=== PATIENT | male | born 1945 | race Caucasian/White ===

== ENCOUNTER → 2023-04-08 | Outpatient (CLI) | payer MEDICARE, OTHER, SELFPAY ==
--- NOTE | 2023-04-08 13:00 | VDUE_ITS ---
Reason For Study: Pre op Right Arm Left Arm Right Cephalic Vein at the wrist measures Left Cephalic Vein at the wrist measures 0.12 x 0.13 cm. 0.16 x 0.18 cm. Right Cephalic Vein in the forearm measures Left Cephalic Vein in the forearm measures 0.13 x 0.13 cm. 0.11 x 0.12 cm. Right Cephalic Vein below antecub measures Left Cephalic Vein below antecub measures 0.09 x 0.09 cm. 0.16 x 0.18 cm. Unable to asses Cephalic vein from axillary Left Cephalic Vein above antecub measures to antecube due to vessel size. 0.07 x 0.07 cm. Right Basilic Vein at the origin measures Left Cephalic Vein at mid bicep measures 0.24 x 0.23 cm. 0.10 x 0.13 cm. Right Basilic Vein mid bicep measures 0.16 x Left Cephalic Vein at the shoulder measures 0.16 cm. 0.09 x 0.08 cm. Right Basilic Vein above antecub measures Basilic vein at origin measures 0.14 x 0.13 0.14 x 0.14 cm. cm. Right Brachial artery measures 0.38 x 0.42 Basilic vein at bicep measures 0.13 x 0.13 cm, with a velocity 113.9 cm/sec. cm. Right Radial artery measures 0.19 x 0.20 cm Basilic vein above antecub measures 0.12 x with a velocity of 116.1 cm/sec. 0.13 cm. Left Brachial artery measures 0.45 x 0.44 cm with a velocity of 100.7 cm/sec. Left Radial artery measures 0.16 x 0.16 cm with a velocity of 102.9 cm/sec. VL/Dialysis Vein Map PRE-OP BILAT Interpretation Summary Right upper extremity cephalic and basilic veins appear to be of very small laura meter. They appear to be patent and compressible Left upper extremity cephalic vein is diminutive throughout. Left upper extremity basilic vein is very small. Bilateral radial and brachial arteries have normal flow velocities although the radial arteries are small Ordering Physician: Elena Ko Referring Physician: Yash Talavera MD Performed By: Eden Rowell RVT ???
== END | disposition home or self-care (01) ==
LOC: CVS 12:57
PROVIDERS: PCP Family Medicine; Referring Provider Physician Assistant; Visit Provider Physician Assistant
DX: Z01.818 Encounter for other preprocedural examination (principal); Z99.2 Dependence on renal dialysis
CPT/HCPCS: 93985

== ENCOUNTER 2023-05-12 05:49 | Day surgery (SDC) | payer MEDICARE, OTHER, SELFPAY ==
[2023-05-12] VITALS (9 sets, daily range): BP systolic 110–133; BP diastolic 41–67; PULSE 59–73; RESP 16–18; TEMP 36.2–36.5; O2SAT 98–100; BMI 25.2
--- NOTE | 2023-05-12 07:14 | PCM.HP.BLA ---
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 Servicing Required: No Is patient in pain?: No Allergies No Known Allergies Allergy (Unverified 05/01/23 13:00) Medications allopurinol 100 mg tablet 100 mg PO 05/01/23 [History Confirmed 05/01/23] amlodipine 10 mg tablet 10 mg PO 05/01/23 [History Confirmed 05/01/23] atenolol 50 mg tablet 50 mg PO 05/01/23 [History Confirmed 05/01/23] avacopan 10 mg capsule (Tavneos) 30 mg PO BID 05/01/23 [History Confirmed 05/01/23] prednisone 20 mg tablet 20 mg PO 05/01/23 [History Confirmed 05/01/23] PFSH Medical History Gout HTN (hypertension) Surgical History Previous back surgery S/P cataract extraction S/P dialysis catheter insertion Family History Brother Cancer HPI HPI HPI: 77-year-old gentleman is being referred by Dr Jere Whaley for surgical consultation regarding possible hemodialysis fistula creation. Written compromise surgical consult recommendations will return to him. As noted below on April 08, 2023 the patient had bilateral extremity vein mapping and unfortunately this does not demonstrate usable vein based upon ultrasound. I have personally reviewed those images. Patient has been on dialysis since December 2022. Patient's discusses possible vasculitis. Patient's not currently using tobacco. Apparently he was extraordinarily deconditioned and now is in therapy trying to rebuild himself. Among his other medications he is on prednisone therapy. April 08, 2023 Reason For Study: Pre op Right Arm? Left Arm Right Cephalic Vein at the wrist measures? Left Cephalic Vein at the wrist measures 0.12 x 0.13 cm.? 0.16 x 0.18 cm. Right Cephalic Vein in the forearm measures? Left Cephalic Vein in the forearm measures 0.13 x 0.13 cm.? 0.11 x 0.12 cm. Right Cephalic Vein below antecub measures ? Left Cephalic Vein below antecub measures 0.09 x 0.09 cm.? 0.16 x 0.18 cm. Unable to asses Cephalic vein from axillary? Left Cephalic Vein above antecub measures to antecube due to vessel size.? 0.07 x 0.07 cm. Right Basilic Vein at the origin measures? Left Cephalic Vein at mid bicep measures 0.24 x 0.23 cm.? 0.10 x 0.13 cm. Right Basilic Vein mid bicep measures 0.16 x ? Left Cephalic Vein at the shoulder measures 0.16 cm. ? 0.09 x 0.08 cm. Right Basilic Vein above antecub measures? Basilic vein at origin measures 0.14 x 0.13 0.14 x 0.14 cm.? cm. Right Brachial artery measures 0.38 x 0.42 ? Basilic vein at bicep measures 0.13 x 0.13 cm, with a velocity 113.9 cm/sec.? cm. Right Radial artery measures 0.19 x 0.20 cm? Basilic vein above antecub measures 0.12 x with a velocity of 116.1 cm/sec. ? 0.13 cm. ? Left Brachial artery measures 0.45 x 0.44 cm ? with a velocity of 100.7 cm/sec. ? Left Radial artery measures 0.16 x 0.16 cm ? with a velocity of 102.9 cm/sec. VL/Dialysis Vein Map PRE-OP BILAT Interpretation Summary Right upper extremity cephalic and basilic veins appear to be of very small diameter. They appear to be patent and compressible ? Left upper extremity cephalic vein is diminutive throughout. Left upper extremity basilic vein is very small. ? Bilateral radial and brachial arteries have normal flow velocities although the radial arteries are small ? ? ? Ordering Physician: Elena Ko Referring Physician: Yash Talavera MD Performed By: Eden Rowell RVT General General: Yes fatigue; No weight change, appetite, colon cancer, breast cancer or weakness HEENT HEENT: No difficulty swallowing, eye injury, eye surgery, swollen glands or hoarseness Endo Endocrine: No thyroid disease, diabetes mellitus, thyroid cancer, Hair loss, heat intolerance or cold intolerance Skin Skin: No rash or changing moles Breast Breast: No left breast lump, right breast lump, nipple discharge, breast pain, abnormal mammogram, abnormal US or breast enlargement Musc Musculoskeletal: Yes gout; No back problems, arthritis, rheumatoid arthritis or joint pain Cardio Cardiovascular: Yes high blood pressure; No murmur, pacemaker, heart disease, atrial fibrillation, heart attack, heart stent, palpitations, shortness of breat with exertion or chest pain Psych Psychiatric: No depression, anxiety or hearing voices Resp Respiratory: No shortness of breath, No sleep apnea, No cough, No COPD, No asthma, No emphysema and No wheezing Gastro Gastrointestinal: No abdominal pain, No nausea or vomiting, No diarrhea, No constipation, No blood in stool, No acid reflux, No hemorrhoids, No ulcers, No gallbladder problem and No black,tarry stools Alejandro Hematologic: No blood thinners, No blood disorders, No bleeding, No anemia and No blood clots Neuro Neurologic: No system reviewed and no additional complaints, except as documented, No as per HPI, No abnormal gait, No abnormal hearing, No abnormal movements, No abnormal speech, No behavioral changes, No burning sensations, No confusion, No convulsions, No disequilibrium, No dizziness, No localized weakness, No frequent falls, No headache(s), No lack of coordination, No loss of vision, No memory loss, No numbness, No other visual disturbances, No radicular pain, No restless legs, No sensory deficit, No syncope, No tingling, No tremor(s), No weakness and No other Exam Const General: cooperative, comfortable and no acute distress Nutritional Appearance: average body habitus [facility] Head: normal to inspection Eyes General: appearance normal, both eyes and all related structures Neck Neck: normal visual inspection Chest Chest palpation & inspection: normal inspection of the chest Resp Effort & Inspection: normal respiratory effort Auscultation: clear to auscultation bilaterally Cardio Rate: regular rate Rhythm: regular rhythm GI Inspection: normal to inspection Skin General: no rashes or lesions noted Neuro General: patient alert Extrem General: no calf tenderness Other: Right upper extremity suggests biceps tendon rupture with conglomerate in the mid biceps area. 3+ right brachial 3+ right radial pulses. On my ultrasound inspection I do see a nicely patent right upper arm basilic vein albeit small in diameter. Psych Appearance: grossly normal Assessment and Plan Assessment and Plan (1) Dependence on renal dialysis: Status: Acute Plan: Being.77-year-old presenting with a challenging presentation. Vasculitis/nephritis. Prednisone therapy. Significant he is left arm dominant. I propose for him a right upper arm stage I brachiobasilic arteriovenous hemodialysis fistula creation and we have discussed technique, benefit, risk and alternatives. Unfortunately no guarantees of success have been offered. He does have right chest tunneled dialysis catheter is in place. He has had an opportunity to ask and have questions answered. I appreciate the opportunity of assisting him with his surgical care and we will schedule and proceed as noted. The patient is aware that a stage II transposition will be required pending the maturation of the basilic vein. Copy: Dr Jere Moe M.D., F.A.C.S I have examined the patient and the H&P has been reviewed. There are no clinical changes since date of exam. Michael Moe M.D., F.A.C.S.
--- NOTE | 2023-05-12 07:16 | DCINST_ITS ---
Discharge Instructions Procedure Fistula Diet Discharge Diet: Renal Diet Activity Discharge Activity: May Not Drive (for 2-3 days or while taking narcotic pain medications.), May Shower and May Take a Tub Bath (in 5 days.) Lifting Restrictions: 5 pounds Keep extremity elevated above heart level: - (Keep arm elevated above the heart level for 3 days.) Dressing / Incision Call your doctor if your incision/area has: Continuous Slow Oozing, Sudden Increased Bleeding (apply pressure and call your doctor.), Increased Pain/ Swelling, Increased Redness and Foul Smelling Discharge Call your doctor if you observe: Fever of 101 or Higher Suture Line Care: Avoid Pulling/Pushing and Avoid Pinching/Bending Cleanse incision/area with: Keep Dressing Clean & Dry Additional Dressing/Incision Instructions:: Change or remove dressing in one day. May protect with a gauze bandaid. Follow Up Care Please Follow Up With: Michael Moe MD When: Call [phone] to make an appointment for suture removal and follow up in 1 week. Test Results: Test results from this visit will be discussed in further detail at your follow- up appointment, if applicable. Discharge Plan Admission Attending Provider: Michael Moe Primary Care Provider: Yash Talavera Discharge Orders/Prescriptions Prescriptions: No Action prednisone 20 mg tablet 20 mg PO BID Patient Comments: TAKE 2 TABLETS BY MOUTH ONCE DAILY atenolol 50 mg tablet 50 mg PO DAILY Patient Comments: TAKE 1 TABLET BY MOUTH ONCE DAILY allopurinol 100 mg tablet 100 mg PO DAILY Patient Comments: TAKE 1 TABLET BY MOUTH ONCE DAILY amlodipine 10 mg tablet 10 mg PO DAILY Tavneos 10 mg capsule 30 mg PO BID multivitamin-calcium carb Tablet,Chewable 1 tab PO DAILY Referrals / Follow Up: Yash Talavera MD [Primary Care Provider] - Disposition Disposition (needs filled in before D/C Order can be placed): Home, Self Care
[2023-05-12] MEDS: Heparin Injection (Vial) 5,000 UNIT/ML VIAL 5000 UNIT (07:44)
[2023-05-12] MEDS: Lidocaine 1% (20 ml mdv) 20 ML Vial (07:44)
[2023-05-12] MEDS: Bupivacaine Mpf 0.5% 30 ML VIAL (07:44)
--- NOTE | 2023-05-12 08:31 | PCM.OPRPT ---
Report of Operation Date of Procedure: 05/12/23 Pre-Operative Diagnosis: Dialysis dependent chronic renal failure Post-Operative Diagnosis: Same Surgery/Procedure Performed:: Stage I right upper extremity basilic vein to brachial artery arteriovenous hemodialysis fistula creation Description of Surgical Findings:: Timeout informed consent was obtained. 77-year-old gentleman was taken to the operating placed on the table underwent monitored anesthesia care the right upper extremity was sterilely prepped and draped clean procedure no antibiotics required 1% lidocaine mixed 50-50 with 0.5% Marcaine was used as a local anesthetic throughout the procedure a total of 7 cc was used. Ultrasound had been used to map the course of the basilic vein a slightly curved incision was made directly overlying the vein sharp and blunt dissection was used to dissected free several side branches were secured with hemoclips and then sharp and blunt dissection used to identify the brachial artery the patient received 7000 units of heparin intravenously the vein was ligated distally with hemoclips and at a branch point it was spatulated peripheral vascular clamps were placed on the brachial artery and 11 blade was used to make an arteriotomy which was extended with Rodriguez scissors a end-to-side venous to arterial anastomosis was created with a running 7-0 Prolene prior to completion of this good antegrade retrograde flow. The anastomosis was completed there was initially good flow was a small side branch on the vein that required suture ligation with a 7-0 Prolene. Hemostasis was intact. The patient received 20 mg of protamine. The subcutaneous tissue was approximated up to 3-0 Vicryl. Skin edges proximal and subicular 4-0 Monocryl. Steri-Strips Telfa tape dressings applied. Sponge and instrument and needle counts were reported to the surgeon to be correct. Specimens none. Drains none. Blood loss minimal. The patient was taken to the recovery room in satisfactory addition without apparent complication and a viable hand. Michael Moe M.D., F.A.C.S. Surgeon: Michael Moe Type of Anesthesia: Local MAC Anesthesiologist: Gio Maurer
== END 2023-05-12 11:05 | disposition home or self-care (01) ==
LOC: SDC 05:53 → AC 05:54
PROVIDERS: PCP Family Medicine; Referring Provider Surgery; Visit Provider Surgery
PROC: (CPT 36821; principal; 2023-05-12 07:15)
DX: Z99.2 Dependence on renal dialysis (principal); I12.9 Hypertensive chronic kidney disease with stage 1 through stage 4 chronic kidney disease, or unspecified chronic kidney disease; N18.9 Chronic kidney disease, unspecified; M10.9 Gout, unspecified; Z79.899 Other long term (current) drug therapy; Z87.891 Personal history of nicotine dependence
CPT/HCPCS: 36821; 01844; A4648; J7040; J2405

== ENCOUNTER → 2023-05-22 | Outpatient (CLI) | payer MEDICARE, OTHER, SELFPAY ==
--- NOTE | 2023-05-22 10:28 | AVDS_ITS ---
Reason For Study: Assess AV Graft RIGHT Inflow = 108.5/0.0 cm/sec Inflow = 78.1ml/min Prox Anastomosis = 43.6/10.8 cm/sec Prox Anastomosis = 34.9ml/min Prox AV Graft = 26.1/15.2 cm/sec Prox AV Graft = 37.2 ml/min AV Graft is DILATED and NONCOMPRESSIBLE. Thrombus does not appear to extend into the deep system. Preliminary findings given to Nieves at [facility] Surgery office. VL/AV Fistula/Dialysis Graft Scan Interpretation Summary Normal patency and inflow of the right brachial artery. The basilic vein to brachial artery anastomosis appears to be patent but the fi stula itself appears to be dilated and noncompressible. Thrombosis identified. Ordering Physician: Elena Ko Referring Physician: Yash Talavera MD Performed By: Bismark Ling RVT
== END | disposition home or self-care (01) ==
LOC: CVS 10:27
PROVIDERS: PCP Family Medicine; Referring Provider Physician Assistant; Visit Provider Physician Assistant
DX: Z99.2 Dependence on renal dialysis (principal)
CPT/HCPCS: 93990

== ENCOUNTER 2023-06-12 05:22 | Day surgery (SDC) | payer MEDICARE, OTHER, SELFPAY ==
[2023-06-12 06:25] VITALS: BP 129/56; PULSE 66; RESP 18; TEMP 36.6; O2SAT 100; BMI 25.0
[2023-06-12 06:54] LABS: Hematocrit 40.2 % (40-54); Hemoglobin 13.3 g/dL (13.0-16.5); Mean Corp Hgb Conc 33.1 g/dL (32-36); Mean Corpuscular Hgb 30.6 pg (27.0-32.0); Mean Corpuscular Volume 92.4 fL (80-94); Mean Platelet Vol. 9.7 fl (6.2-12.0); NRBC Flagged by Analyzer 0 % (0-5); POSITIVE COUNT YES; POSITIVE DIFFERENTIAL YES; POSITIVE MORPHOLOGY YES; Platelet Count 219 K/mm3 (150-450); RBC Distribution Width CV 14.8 % (11.6-14.6); RBC Distribution Width SD 51.1 fl (35.1-43.9); Red Blood Count 4.35 M/mm3 (4.6-6.2); White Blood Count 17.3 K/mm3 (4.4-11.0)
[2023-06-12 06:56] LABS: Differential Indicated SCAN CRITERIA MET; Scan Smear per Review Criteria MANUAL DIFF
[2023-06-12 07:11] LABS: Lymphocyte 10 % (19-41); Metamyelocyte 3 % (0-1); Monocyte 9 % (0-10); Myelocyte 1 % (0-0); Neutrophil-Band 4 % (0-5); Neutrophil-Segmented 73 % (47-70); Platelet Estimate ADEQUATE (ADEQ); Total Cells Counted 100 (MANUAL DIFF)
[2023-06-12 07:12] LABS: Neutrophil # 13.32 X10^3/uL (2.7-7.7); Red Cell Morphology NORM C+C NORMAL (NORM C&C)
[2023-06-12 07:13] LABS: Absolute Lymphocyte Count 1.73 X10^3/uL (0.83-4.51); Absolute Neutrophil Count 13.3 X10^3/uL (2.0-7.7); Lymphocyte # 1.73 X10^3/ul (0.83-4.51)
--- NOTE | 2023-06-12 07:16 | DCINST_ITS ---
Discharge Instructions Procedure Fistula Diet Discharge Diet: Renal Diet Activity Discharge Activity: May Not Drive (for 2-3 days or while taking narcotic pain medications.), May Not Shower and May Take a Tub Bath (in 5 days.) Lifting Restrictions: 5 pounds Keep extremity elevated above heart level: - (Keep arm elevated above the heart level for 3 days.) Dressing / Incision Call your doctor if your incision/area has: Continuous Slow Oozing, Sudden Increased Bleeding (apply pressure and call your doctor.), Increased Pain/ Swelling, Increased Redness and Foul Smelling Discharge Call your doctor if you observe: Fever of 101 or Higher Suture Line Care: Avoid Pulling/Pushing and Avoid Pinching/Bending Cleanse incision/area with: Keep Dressing Clean & Dry Additional Dressing/Incision Instructions:: Elevate your right arm for comfort. You may leave the elastic bandage on for 2 days unless it becomes displaced. You may then remove it. We will have gauze and tape on the incisions which you may also remove. Gently exercise your right hand with a squeeze ball to help it mature. Tylenol is safest for discomfort. Follow Up Care Please Follow Up With: Michael Moe MD When: Call [phone] to make an appointment for suture removal and follow up in 1 week. Test Results: Test results from this visit will be discussed in further detail at your follow- up appointment, if applicable. Discharge Plan Admission Attending Provider: Michael Moe Primary Care Provider: Yash Talavera Discharge Orders/Prescriptions Prescriptions: No Action prednisone 20 mg tablet 20 mg PO BID Patient Comments: TAKE 2 TABLETS BY MOUTH ONCE DAILY atenolol 50 mg tablet 50 mg PO DAILY Patient Comments: TAKE 1 TABLET BY MOUTH ONCE DAILY allopurinol 100 mg tablet 100 mg PO DAILY Patient Comments: TAKE 1 TABLET BY MOUTH ONCE DAILY amlodipine 10 mg tablet 10 mg PO DAILY Tavneos 10 mg capsule 30 mg PO BID multivitamin-calcium carb Tablet,Chewable 1 tab PO DAILY Referrals / Follow Up: Yash Talavera MD [Primary Care Provider] - Disposition Disposition (needs filled in before D/C Order can be placed): Home, Self Care
--- NOTE | 2023-06-12 07:16 | PCM.HP.BLA ---
History and Physical Date of Admission: 06/12/23 Visit Reasons: DISCUSS OPTIONS FOR FISTULA Chief Complaint: fistula F/U Allergies No Known Allergies Allergy (Unverified 05/22/23 09:40) [facility] Medical History (Updated 06/05/23 @ 06:[address] Michael Moe MD) Alcohol use Ambulates with cane Arthritis Back pain Dietary restriction Former smoker Gastric reflux Gout History of edema History of hiatal hernia History of renal dialysis History of renal disease History of steroid therapy Hoarseness HTN (hypertension) Low iron Shortness of breath on exertion Wears glasses Surgical History (Updated 05/22/23 @ 14:50 by Elena LAMB PA-C) Previous back surgery S/P cataract extraction S/P dialysis catheter insertion Family History Brother Cancer Social History Smoking Status: Former smoker HPI HPI HPI: 78-year-old gentleman. First met him on May 01, 2023. He had a challenging presentation with vasculitis and nephritis and chronic prednisone therapy. His left arm dominant. On May 12, 2023 I created a stage I right extremity basilic vein to brachial artery arteriovenous hemodialysis fistula. The basilic vein was noted to be small at that time but initially there appeared to be good flow. Unfortunately as soon as postoperative visit with Elena Ko PA-C on May 22 no flow was identified. I duplex imaging was obtained confirming this. Etiology for the acute failure not determined. He returns now for ongoing follow-up. The patient is on prednisone 20 mg orally twice daily. He has vasculitis. Is not able to take low-dose aspirin because of this. April 08, 2023 Reason For Study: Pre op Right Arm Left Arm Right Cephalic Vein at the wrist measures Left Cephalic Vein at the wrist measures 0.12 x 0.13 cm. 0.16 x 0.18 cm. Right Cephalic Vein in the forearm measures Left Cephalic Vein in the forearm measures 0.13 x 0.13 cm. 0.11 x 0.12 cm. Right Cephalic Vein below antecub measures Left Cephalic Vein below antecub measures 0.09 x 0.09 cm. 0.16 x 0.18 cm. Unable to asses Cephalic vein from axillary Left Cephalic Vein above antecub measures to antecube due to vessel size. 0.07 x 0.07 cm. Right Basilic Vein at the origin measures Left Cephalic Vein at mid bicep measures 0.24 x 0.23 cm. 0.10 x 0.13 cm. Right Basilic Vein mid bicep measures 0.16 x Left Cephalic Vein at the shoulder measures 0.16 cm. 0.09 x 0.08 cm. Right Basilic Vein above antecub measures Basilic vein at origin measures 0.14 x 0.13 0.14 x 0.14 cm. cm. Right Brachial artery measures 0.38 x 0.42 Basilic vein at bicep measures 0.13 x 0.13 cm, with a velocity 113.9 cm/sec. cm. Right Radial artery measures 0.19 x 0.20 cm Basilic vein above antecub measures 0.12 x with a velocity of 116.1 cm/sec. 0.13 cm. Left Brachial artery measures 0.45 x 0.44 cm with a velocity of 100.7 cm/sec. Left Radial artery measures 0.16 x 0.16 cm with a velocity of 102.9 cm/sec. VL/Dialysis Vein Map PRE-OP BILAT Interpretation Summary Right upper extremity cephalic and basilic veins appear to be of very small diameter. They appear to be patent and compressible Left upper extremity cephalic vein is diminutive throughout. Left upper extremity basilic vein is very small. Bilateral radial and brachial arteries have normal flow velocities although the radial arteries are small Ordering Physician: Elena Ko Referring Physician: Yash Talavera MD Performed By: Eden Rowell RVT Exam Const General: cooperative Nutritional Appearance: average body habitus Other: Patient uses a cane. Appears somewhat frail. HENMT Head: normal to inspection Eyes General: appearance normal, both eyes and all related structures Chest Other: Right IJ tunneled dialysis catheter is in place. Resp Effort & Inspection: normal respiratory effort Auscultation: clear to auscultation bilaterally Cardio Rate: regular rate Rhythm: regular rhythm GI Palpation: soft and no hepatosplenomegaly Skin General: no rashes or lesions noted Neuro General: patient alert, patient awake and patient oriented x3 Extrem Other: Right upper extremity has a healed antecubital incision. Inspection reveals that the basilic vein in the distal right upper arm is now quite diminutive and no demonstrated flow. The basilic vein of the very proximal right upper arm getting close to the axillary vein appears to be patent and compressible. I measure that to be approximately 3 to 4 mm. Right brachial artery is a strong 3+ Psych Appearance: grossly normal Assessment and Plan Assessment and Plan (1) Problem with dialysis access: Status: Acute Qualifiers: Encounter type: initial encounter Qualified Code(s): T82.898A - Other specified complication of vascular prosthetic devices, implants and grafts, initial encounter Plan The patient and are aware that the attempt at the stage I right upper arm brachial to basilic AV fistula has failed. Reviewing his vein imaging studies he has diminutive bilateral upper arm cephalic and basilic veins. On my inspection today I feel that there may be an opportunity to access his right upper arm brachial axillary vein area for graft. I have discussed with him a 4 to 7 mm right upper arm brachial to basilic/axillary arteriovenous graft. He is aware that this is different from the fistula and that it requires synthetic material. He has had an opportunity to ask and have questions answered. The patient is aware that our goal is to achieve removal of his tunneled catheters. He has had an opportunity to ask and have questions answered. We will schedule procedure at his discretion. Copy: Dr. Yash Talavera and Dr Jere Moe M.D., F.A.C.S. I have examined the patient and the H&P has been reviewed. There are no clinical changes since date of exam. Michael Moe M.D., F.A.C.S.
[2023-06-12] MEDS: Cefazolin 2 GM in 0.9% Normal Saline 100 ML IV (07:28)
[2023-06-12] MEDS: Heparin Injection (Vial) 5,000 UNIT/ML VIAL 5000 UNIT ×2 (08:05→08:29)
--- NOTE | 2023-06-12 09:17 | PCM.OPRPT ---
Report of Operation Date of Procedure: 06/12/23 Pre-Operative Diagnosis: Failure of dialysis access procedure Post-Operative Diagnosis: Same Surgery/Procedure Performed:: Creation of right upper extremity brachial to basilic arteriovenous graft with [place] AcuSeal 4 to 7 mm diameter graft Reference [id number], serial number [id number], expiry date 08/15/2024 Description of Surgical Findings:: Timeout informed consent was obtained. 78-year-old gentleman was taken to the operating placed upon the table underwent general anesthesia. Ancef 2 g were given intravenously. The right upper extremity was copiously prepped and draped with chlorhexidine. He had a small axillary rash with I blocked off with a OpSite 3000. 10 cc of 1% lidocaine mixed 50-50 with 0.5% Marcaine was used as a local anesthetic. A longitudinal incision was made in the proximal right volar upper arm after ultrasound mapping sharp and blunt dissection used identify the basilic vein this was circumferentially dissected free side branches secured with hemoclips small branch secured with a 7-0 Prolene [id number] suture vein appear to be of adequate diameter. Then I made a longitudinal incision overlying the brachial artery in the distal right upper arm sharp dissection down through the subtenons tissue and encountered some of adhesions from the previous attempted brachial basilic AV fistula saw eye edges slightly more proximally on the artery to avoid that. Side branches was secured with a [id number]-local suture of 7-0 Prolene. Circumferential control was obtained. I then used a [place] curved 6 mm tunneler to tunnel from the antecubital space to the upper arm. I placed a 4 to 7 mm [place] AcuSeal graft. The patient received 7000 units of heparin weight-based. I used a straight hemostat to slightly spatulated the 4 mm end of the graft peripheral vascular clamps were placed on the brachial artery and 11 blade used to make an arteriotomy which was extended with Rodriguez scissors a end-to-side graft to arterial anastomosis was created with a CV 6 [place]-Sergei suture. Nice tight anastomosis was achieved and good lying position. Then allowed everyone to come to a resting position measured the length of the graft and used a straight hemostat to transect the 7 mm side. Peripheral vascular clamps were placed on the basilic outflow vein and 11 blade was used to make a venotomy extended with Rodriguez scissors. A end-to-side graft to venous anastomosis was performed with the CV 6 [place]-Sergei suture. Prior to completion there was good antegrade flow. The anastomosis was completed and they appear to be hemostatic. There was a palpable thrill within the graft. Graft appeared to have a good positional lie in the subcutaneous tissue. There is no apparent complication blood loss have been minimal. The wounds were closed with a deep layer of running 3-0 Vicryl. Skin edges approximated with a running subicular 4 Monocryl. Dermabond was applied followed by Telfa and tape dressings. Then soft roll and Glenn wrap applied. Sponge and instrument and needle counts were reported to the surgeon to be correct. Specimens none. Drains none. Blood loss minimal. The hand was viable at the completion no apparent complication the patient was taken to the recovery area in satisfactory condition. Michael Moe M.D., F.A.C.S. Surgeon: Michael Moe Type of Anesthesia: General and Local Anesthesiologist: Evin Valadez
[2023-06-12] MEDS: Bupivacaine Mpf 0.5% 30 ML VIAL (09:22)
[2023-06-12] MEDS: Lidocaine 1% (20 ml mdv) 20 ML Vial (09:22)
[2023-06-12 09:45] VITALS: BP 129/56; BP 131/60; PULSE 68; RESP 16; TEMP 36.1; O2SAT 99
[2023-06-12 10:00] VITALS: BP 127/55; BP 129/56; PULSE 61; RESP 16; O2SAT 99
[2023-06-12 10:15] VITALS: BP 123/53; BP 129/56; PULSE 59; RESP 18; TEMP 36.4; O2SAT 100
[2023-06-12 10:38] VITALS: BP 110/50; BP 129/56; PULSE 60; RESP 16; TEMP 36.2; O2SAT 98
[2023-06-13 10:01] LABS: Pathologist Review Reviewed
== END 2023-06-12 11:12 | disposition home or self-care (01) ==
LOC: SDC 05:24 → AC 05:25
PROVIDERS: PCP Family Medicine; Referring Provider Surgery; Visit Provider Surgery
PROC: (CPT 36830; principal; 2023-06-12 07:15)
DX: T82.898A Other specified complication of vascular prosthetic devices, implants and grafts, initial encounter (principal); Z99.2 Dependence on renal dialysis; I77.6 Arteritis, unspecified; I10 Essential (primary) hypertension; N05.9 Unspecified nephritic syndrome with unspecified morphologic changes; K21.9 Gastro-esophageal reflux disease without esophagitis; Z87.891 Personal history of nicotine dependence; Z79.52 Long term (current) use of systemic steroids
CPT/HCPCS: 36830; 01844; 36415; 85025; A4648; J7040; J2405

== ENCOUNTER → 2023-11-18 | Outpatient (CLI) | payer MEDICARE, OTHER, SELFPAY ==
--- NOTE | 2023-11-18 13:03 | VDLE_ITS ---
Reason For Study: edema RIGHT LEFT CFV is compressible, spontaneous, phasic, GSV is normal. competent and demonstrates normal CFV is compressible, spontaneous, phasic, augmentation. competent, and demonstrates normal Procedure augmentation. This is a venous duplex using B-mode, color FV is compressible, spontaneous, phasic, flow and spectral Doppler. competent and demonstrates normal Exam performed in department. augmentation. The exam was diagnostic. POP V is compressible, spontaneous, phasic, A preliminary report was called and/or faxed competent and demonstrates normal to Dr. Alcazar's office. augmentation. T/P Trunk is compressible. PTV is compressible. LT PerV is compressible. VL/Venous Duplex US, Unilateral Interpretation Summary Deep veins of the left lower extremity are patent and compressible segmentally. There is no evidence of left lower extremity deep vein thrombosis. Valvular competence appears intac t within the proximal deep venous system on the left . The left great saphenous vein appears patent a nd compressible segmentally. The right common femoral vein is patent and compressible . Ordering Physician: Michael Alcazar V Performed By: Fabien Mayer RVT
[2023-11-18 14:40] LABS: Erythrocyte Sedimentation Rate 24 mm/hr (0-20)
[2023-11-18 15:04] LABS: CRP 4.54 mg/L (0.0-3.0)
== END | disposition home or self-care (01) ==
PROVIDERS: PCP Family Medicine; Referring Provider Internal Medicine Pulmonary Disease; Visit Provider Internal Medicine Pulmonary Disease
DX: R22.42 Localized swelling, mass and lump, left lower limb (principal); R05.9 Cough, unspecified
CPT/HCPCS: 36415; 85652; 86140; 93971

== ENCOUNTER → 2023-12-02 | Outpatient (CLI) | payer MEDICARE, OTHER, SELFPAY ==
--- NOTE | 2023-12-02 11:55 | RAD_ITS ---
INDICATION: COPD EXAMINATION/TECHNIQUE: X-RAY - XR Chest 2 Views COMPARISON: No relevant prior comparison study available FINDINGS: LINES/DEVICES: None. LUNGS: The lungs are mildly hyperinflated. No focal infiltrate is seen. No evidence of pleural effusions. MEDIASTINUM AND CARDIOVASCULAR STRUCTURES: Cardiac silhouette not enlarged. Central airways and mediastinal contour are unremarkable. BONES AND SOFT TISSUES: No demonstrated acute osseous changes. RAD/Chest PA and Lateral IMPRESSION: No radiographic evidence of acute cardiopulmonary disease. Electronically Signed: Tone Reddy MD at 14:32 EST ,
== END | disposition home or self-care (01) ==
LOC: MTRAD 11:50
PROVIDERS: PCP Family Medicine; Referring Provider Internal Medicine Pulmonary Disease; Visit Provider Internal Medicine Pulmonary Disease
DX: J44.9 Chronic obstructive pulmonary disease, unspecified (principal)
CPT/HCPCS: 71046

== ENCOUNTER 2024-05-19 09:00 | Day surgery (SDC) | payer MEDICARE, OTHER, SELFPAY ==
[2024-05-18 09:19] VITALS: BMI 26.6
[2024-05-19 09:22] LABS: INR Fingerstick 2.2; Prothrombin Time Fingerstick 22.6 SEC (11.7-14.9)
--- NOTE | 2024-05-19 16:21 | OP.PCM_ITS ---
Report of Operation Date of Procedure: 05/19/24 Pre-Operative Diagnosis: malfunction right arm AV graft Post-Operative Diagnosis: same Surgery/Procedure Performed:: fistulagram IVUS SVC, right innominate vein, right axillary/subclavian vein, right brachial vein, right arm AV graft Angioplasty SVC Surgeon: Jacinto Mas Type of Anesthesia: Local and Sedation,Conscious Estimated Blood Loss (mL): 3 Description of Procedure: HPI: Patient is a 78-year-old male with end-stage renal disease currently dialysis via right upper extremity AV graft. He has had increased venous return circuit pressures suggesting a venous outflow obstruction so he is taken now for fistulogram with possible invention. He does have history of prior fistulogram with stent placement at an outside facility. Description of procedure: Upon obtaining form consent and verification correct patient procedure site patient was taken to the Information [facility] where he was positioned prepped and draped in usual sterile fashion. Time was performed, sedation administered Versed and fentanyl skin overlying the graft anesthetized 1% lidocaine. This was then accessed under ultrasound guidance with micropuncture needle wire to the exchanged out for a short 6 [place] sheath. Through the sheath injection subtraction angiography was performed assessing the entirety of the length of the dialysis circuit from the graft to the right atrium. The graft was then compressed and reflux imaging of the arterial anastomosis performed. The arterial anastomosis was widely patent with brisk contrast reflux and the graft itself was intact with no pseudoaneurysm or stenosis. The previously placed stent at the venous anastomosis was patent with no signs of in-stent or in-stent restenosis. The brachial, axillary, subclavian veins were patent with no significant stenosis. Innominate vein appeared to be patent with no significant stenosis however the superior vena cava at the cavoatrial junction appeared to have significant luminal narrowing. Schroeder advantage wire was then advanced and navigated into the inferior vena cava and the 6 [place] sheath exchanged for an 8 [place] sheath. Through the 8 [place] sheath and intravascular shunt probe was advanced and recorded pullback performed from the right atrium through the superior vena cava, right innominate vein, right subclavian vein, right axillary vein, right brachial vein and the AV graft. 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 It was unclear the cause of this luminal reduction as there is no extrinsic compression did not appear to be any vein wall thickening to suggest intimal hyperplasia or scarring from prior catheters. This appeared to be the only abnormality throughout the circuit it was felt that this was the etiology of his dialysis access problems. Patient was in heparinized allowed to circulate for the minutes and the area of luminal narrowing sequentially dilated first with a 12 mm paclitaxel coated angioplasty balloon followed by a 14 and 16 mm noncompliant balloon. Repeat imaging revealed improved lumen caliber with now 50% residual stenosis. There no extravasation or dissection and less reflux of contrast into the IJ. It was felt that no further intervention was appropriate so an Ethilon suture was placed in the skin and the sheath withdrawn followed by 5 minutes of manual pressure with satisfactory stasis obtained. Patient was then taken to the recovery room with plans to discharge home.
== END 2024-05-19 15:02 | disposition home or self-care (01) ==
PROVIDERS: PCP Family Medicine; Referring Provider Surgery Trauma Surgery; Visit Provider Surgery Trauma Surgery
DX: T82.898A Other specified complication of vascular prosthetic devices, implants and grafts, initial encounter (principal); K21.9 Gastro-esophageal reflux disease without esophagitis; I10 Essential (primary) hypertension; Z87.891 Personal history of nicotine dependence; Z79.01 Long term (current) use of anticoagulants; Z79.899 Other long term (current) drug therapy; X58.XXXA Exposure to other specified factors, initial encounter
CPT/HCPCS: 36416; 36902; 37252; 37253; 76937; 85610; 99152; 99153; C1725; C1753; C1769; C2623; J7040; Q9967; C1894

== ENCOUNTER 2024-07-16 11:07 | Inpatient (IN) | payer MEDICARE, OTHER, SELFPAY ==
[2024-07-16] VITALS (31 sets, daily range): BP systolic 64–127; BP diastolic 35–106; PULSE 83–94; RESP 12–30; TEMP 36.2–36.6; O2SAT 88–99; BMI 28.0
--- NOTE | 2024-07-16 11:34 | PCM.HP.STD ---
HPI - General General Date of Admission: 07/16/24 Date of Service: 07/16/24 Chief Complaint: Shortness of breath HPI Narrative MEHUL GORDILLO, is a 79 M with multiple comorbidities including end-stage renal disease on hemodialysis, hypertension, gout who presented with shortness of breath. Patient symptoms started on the morning of his admission he woke up with significant difficulty breathing. Patient in addition had a cough which was productive as well as subjective fever. Patient was seen and evaluated at an outside hospital CT of the chest obtained demonstrated left lower lobe infiltrate consistent with pneumonia. Patient apparently became hypotensive whilst in the ED at the outside hospital a central line was placed patient started on Levophed and transferred to the [facility] ICU for subsequent care. [facility] Medical History COPD (chronic obstructive pulmonary disease) Wears glasses Alcohol use History of steroid therapy Ambulates with cane Arthritis History of renal dialysis History of renal disease Low iron Back pain Dietary restriction History of hiatal hernia Gastric reflux Shortness of breath on exertion Former smoker Hoarseness History of edema Gout HTN (hypertension) Home Medications ?Medication ?Instructions ?Recorded ?Last Taken ?Type allopurinol 100 mg tablet 100 mg PO DAILY 05/01/23 Unknown History atenolol 50 mg tablet 50 mg PO DAILY 05/01/23 05/19/24 History prednisone 20 mg tablet 20 mg PO BID 05/01/23 Unknown History multivitamin-calcium carb chewable 1 tab PO DAILY 05/05/23 Unknown History tablet hydrocodone-acetaminophen 5-325mg 1 tab PO Q8H PRN pain 2 days #10 06/12/23 Unknown Rx 5mg-325mg tabs fluticasone 232 mcg-salmeterol 14 1 inh inhalation BID 05/04/24 Unknown History mcg/actuation breath activated powdr lisinopril 5 mg tablet 5 mg PO DAILY 05/04/24 05/19/24 History warfarin 2.5 mg tablet 2.5 mg PO DAILY 05/04/24 05/15/24 History calcium acetate 667 mg tablet 667 mg PO TID 06/03/24 Unknown History albuterol 90 mcg/actuation aerosol 90 mcg inhalation PRN SOB 07/16/24 Unknown History inhaler Allergy/AdvReac Type Severity Reaction Status Date / Time No Known Allergies Allergy Verified 06/03/24 08:40 Family History Brother Cancer Other Hypertension Surgical History S/P dialysis catheter insertion S/P cataract extraction Previous back surgery Social History Smoking Status: Former smoker ROS ROS Narrative GENERAL: Fever and chills HEENT: denies headache, sinus congestion, or drainage, dysphagia RESPIRATORY: cough, sputum production, shortness of breath, dyspnea on exertion CARDIAC: denies chest pain, palpitations, orthopnea, PND GASTROINTESTINAL: denies abdominal pain, nausea, vomiting, melena, GENITOURINARY: denies dysuria, urgency, frequency, heamaturia EXTREMITY: denies swelling MUSCULOSKELETAL: denies current joint pain or tenderness NEUROLOGIC: denies focal numbness, weakness, tingling HEMATOLOGIC: denies easy bruising and/or hemorrhage INTEGUMENT: denies rashes PSYCHIATRIC: denies suicidal or homicidal ideation Vital Signs Vital Signs Vital Signs: Weight Weight: 78.8 kg Body Mass Index (BMI) 28.0 Physical Exam Narrative GENERAL: Dyspneic at rest, using accessory muscles in breathing patient is tachypnea HEENT: Atraumatic; normocephalic EYES; Anicteric, Normal Conjunctiva NECK; supple, normal thyroid, RESPIRATORY: Diminished to auscultation CARDIOVASCULAR: Regular S1 S2, GI: soft, normoactive bowel sounds, : No Renal angle tenderness; EXTREMITIES: AV fistula right forearm MUSCULOSKELETAL: no muscle wasting NEURO: Awake; no lateralizing signs. SKIN: No Rash PSYCH; Flat affect Results Lab / Micro Data 07/16/24 11:45 07/16/24 11:45 Assessment & Plan Assessment/Plan (1) Septic shock: (2) Pneumonia: PLAN: Plan Patient is a 79-year-old gentleman transferred from an outside hospital with a diagnosis of septic shock secondary to pneumonia 1. Septic shock ? Secondary to pneumonia. Patient was started on broad-spectrum antibiotic therapy with Zosyn as well as vancomycin. Patient has been started on Levophed prior to being transferred. Patient was not resuscitated with fluid per protocol given his dialysis status. Response to therapy being monitored with serial lactic acid levels 2. Pneumonia ? With suspected multidrug resistance organisms. Patient was started on Zosyn and vancomycin and placed on supplemental oxygen. Cultures sent 3. Acute hypoxic respiratory failure ?secondary to underlying pneumonia patient was placed on noninvasive ventilation with oxygen titrated to keep saturation greater than 90 4. End-stage renal disease ? Patient is on hemodialysis on Wednesdays and Fridays consultation was placed to nephrology for dialysis orders 5. Essential hypertension ? Patient antihypertensives held given patient presentation with septic shock 6. Gout ? Patient is on allopurinol plan is to resume following med reconciliation 7. Systemic use of anticoagulation ? On account of recent clots involving patient AV fistula patient is on Coumadin. INR is therapeutic we will continue with daily monitoring 8. DVT prophylaxis ? Patient is on Coumadin Critical Time spent in the patient's overall evaluation,decision-making process, review of diagnostic data, adjustment of management, discussion with other providers, nursing nursing and ancillary staff involved in patient's care documentation, 90 Minutes Advance planning; did discuss with the patient and family regarding advanced directives as well as CODE STATUS. Did explain the various scenarios involved ( FULL CODE, DNR CCA, DNR CCA with no intubation, and DNR CC and what each meant) patient elected to remain full code with CPR and intubation if warranted; order was placed. Time spent on discussion 18 minutes. Sepsis Attestation Sepsis Alert: Yes Date exam was performed: 07/16/24 Time exam was performed: 11:00 Possible Source of Sepsis: Pulmonary Sepsis Organ Dysfunction Criteria Present: SBP < 90 mmHg or MAP < 65 mmHg, Acute Respiratory Failure (New need for BiPAP/CPAP or MV) and Creatinine > 2.0 mg/dL Fluid Resuscitation Fluid resuscitation indicated?: Yes Fluid Resuscitation ordered: Lesser volume fluid bolus ordered Amount of fluid ordered: 500 Reason for lesser fluid bolus:: Renal Failure Sepsis Note Date exam was performed: 07/16/24 Time exam was performed: 14:30 Sepsis Attestation: Sepsis re-evaluation was performed Response to fluids: Vasopressors started Charges/Coding Multi Select Codes Hospitalists' Procedures Procedures: 98407 Critical Care 1st Hr, 55395 Critical Care Addl 30 Min and 68733 Advncd Care Plan 30 Min
[2024-07-16] MEDS: Norepinephrine 8 MG in 0.9% Normal Saline (250mL Bag) 242 ML 46.9 MG CONT INF (12:38)
[2024-07-16 12:41] LABS: Absolute Lymphocyte Count 0.67 X10^3/uL (0.83-4.51); Absolute Neutrophil Count 15.6 X10^3/uL (2.0-7.7); Basophil# 0.05 X10^3/uL; Basophil% 0.3 % (0-1); Eosinophil# 0.09 X10^3/uL; Eosinophils% 0.5 % (0-5); Hematocrit 31.9 % (40-54); Hemoglobin 9.9 g/dL (13.0-16.5); Lymphocyte # 0.67 X10^3/ul (0.83-4.51); Lymphocyte % 3.9 % (19-41); Mean Corpuscular Hgb 30.1 pg (27.0-32.0); Mean Platelet Vol. 10.4 fl (6.2-12.0); Monocyte# 0.48 X10^3/uL; Monocyte% 2.8 % (0-10); NRBC Flagged by Analyzer 0 % (0-5); Neutrophil # 15.58 X10^3/uL (2.7-7.7); Neutrophil % 91.9 % (47-70); POSITIVE MORPHOLOGY YES; Platelet Count 278 K/mm3 (150-450); RBC Distribution Width CV 15.6 % (11.6-14.6); RBC Distribution Width SD 54.6 fl (35.1-43.9); Red Blood Count 3.29 M/mm3 (4.6-6.2)
[2024-07-16] MEDS: Ipratropium/Albuterol Sulfate 3 ML AMPUL.NEB INHALATION ×2 (12:43→19:37)
[2024-07-16 12:47] LABS: Differential Indicated SCAN CRITERIA MET
[2024-07-16 13:00] LABS: International Normalized Ratio 2.8; Prothrombin Time (Protime)PT. 29.1 SECONDS (11.7-14.9)
[2024-07-16 13:01] LABS: ALB/GLOB Ratio 0.9 RATIO (0.9-2.4); AST(SGOT) 3 U/L (15-37); Alanine Aminotransfer ALT/SGPT 16 U/L (16-61); Albumin, Serum 2.3 g/dL (3.2-5.0); Alkaline Phosphatase 33 U/L (45-117); Anion Gap 16 (5-15); BUN 64 mg/dL (7-18); BUN/Creat Ratio 13.5 RATIO (10-20); Calcium,Total 7.2 mg/dL (8.5-10.1); Chloride 100 mmol/L (98-107); Creatinine, Serum 4.73 mg/dL (0.70-1.30); EST Glomerular Filtration Rate 13 mL/min (>60); Est Glom Filt Rate - Afr Amer 16 mL/min (>60); Estimated Creatinine Clearance 12.91 ml/min; Globulin 2.7 g/dL (2.2-4.2); Glucose 121 mg/dL (74-106); Potassium 3.7 mmol/L (3.5-5.1); Sodium Level 135 mmol/L (136-145)
[2024-07-16] MEDS: Vasopressin 20 UNITS in 0.9% Normal Saline (50mL Bag) 24 ML 3 UNITS CONT INF ×2 (13:14→17:49)
--- NOTE | 2024-07-16 13:24 | PCMCONS.TICU ---
HPI Consult Data Date of Consult: 07/16/24 HPI Narrative HPI Narrative: MEHUL GORDILLO, is a 79yo M w/ COPD, ESRD on HD, chronic prednisone use, chronic anticoagulation for fistula clotting, gout, HTN, h/o tobacco use who was transferred from OSH for PNA and shock. He developed acute onset dyspnea, productive cough, subjective earlier today prompting him to call EMS. He had one episode of vomiting when EMS placed him in ambulance, but no vomiting/diarrhea since then. He apparently had no other recent sx, abx use, sick contacts before this. Outside CT chest reported LLL infiltrate concerning for PNA. He apparently became hypotensive there and so CVL was placed and pt was started on levophed. Subsequently transferred here for further care. He is currently having increased WOB and required escalation to 9L NC. Also with worsening hypotension despite gentle IVF boluses, now requiring levophed and vaso. He does not normally use home O2. Last HD session was on Friday and was a normal session per . He is chronically on pred 20mg daily per his PCP, though pt or do not know why exactly this is. He also takes warfarin for issues with fistula clotting. Quit smoking abt 40 yrs ago. Denies EtOH, illicit drug use Denies diarrhea, syncope, presyncope, dysphagia, odynophagia, chest pain, reflux symptoms, belly pain, dysuria, hematuria, melena, hematochezia, seizures, paralysis, or other neurological changes. [facility] Medical History (Updated 07/16/24 @ 12:[address] Jose Ramon Zhong MD) COPD (chronic obstructive pulmonary disease) Wears glasses Alcohol use History of steroid therapy Ambulates with cane Arthritis History of renal dialysis History of renal disease Low iron Back pain Dietary restriction History of hiatal hernia Gastric reflux Shortness of breath on exertion Former smoker Hoarseness History of edema Gout HTN (hypertension) Home Medications ?Medication ?Instructions ?Recorded ?Last Taken ?Type allopurinol 100 mg tablet 100 mg PO DAILY 05/01/23 Unknown History atenolol 50 mg tablet 50 mg PO DAILY 05/01/23 05/19/24 History prednisone 20 mg tablet 20 mg PO BID 05/01/23 Unknown History multivitamin-calcium carb chewable 1 tab PO DAILY 05/05/23 Unknown History tablet hydrocodone-acetaminophen 5-325mg 1 tab PO Q8H PRN pain 2 days #10 06/12/23 Unknown Rx 5mg-325mg tabs fluticasone 232 mcg-salmeterol 14 1 inh inhalation BID 05/04/24 Unknown History mcg/actuation breath activated powdr lisinopril 5 mg tablet 5 mg PO DAILY 05/04/24 05/19/24 History warfarin 2.5 mg tablet 2.5 mg PO DAILY 05/04/24 05/15/24 History calcium acetate 667 mg tablet 667 mg PO TID 06/03/24 Unknown History albuterol 90 mcg/actuation aerosol 90 mcg inhalation PRN SOB 07/16/24 Unknown History inhaler Allergy/AdvReac Type Severity Reaction Status Date / Time No Known Allergies Allergy Verified 06/03/24 08:40 Family History Brother Cancer Other Hypertension Surgical History S/P dialysis catheter insertion S/P cataract extraction Previous back surgery Social History Smoking Status: Former smoker ROS ROS Narrative As per HPI Objective Data Objective Data Vital Signs: Vital Signs Last response Pulse Rate 86 07/16/24 12:45 Respiratory Rate 18 07/16/24 12:45 Respiratory Pattern Normal 07/16/24 12:45 Pulse Ox 91 07/16/24 12:45 Oxygen Delivery Method Nasal Cannula 07/16/24 12:45 Oxygen Flow Rate (L/min) 4 07/16/24 12:45 Current Meds Ordered / Administered: Current meds ordered / Administered Generic Name Dose Route Start Last Admin Trade Name Freq PRN Reason Stop Dose Admin Acetaminophen 650 mg 07/16/24 11:23 Acetaminophen 325 Mg Tablet PO Q6H PRN PRN Pain 1-10 Or Fever>100.7 Albuterol/Ipratropium 3 ml 07/16/24 11:30 07/16/24 12:43 Ipratropium/Albuterol Sulfate 3 Ml Ampul.Neb INHALATION 3 ml Q6H.RT [place] Administration Guaifenesin 10 ml 07/16/24 11:23 Guaifenesin 10 Ml Udc (200mg/10ml) PO Q4H PRN PRN COUGH Heparin Sodium (Porcine) 5,000 unit 07/16/24 22:00 Heparin Injection (Vial) 5,000 Unit/Ml Vial SC Q12 [place] Sodium Chloride 250 mls @ 15 mls/hr 07/16/24 11:19 IV .[id number] PRN Additional IVPB Infusion Sodium Chloride 250 mls @ 15 mls/hr 07/16/24 11:19 IV .[id number] PRN Saline Flush Norepinephrine Bitartrate 8 mg 250 mls @ 9.375 mls/hr 07/16/24 11:25 07/16/24 12:38 / Sodium Chloride CONT INF 25 mcg/min .[id number] [place] 46.9 mls/hr Administration Protocol 5 MCG/MIN Piperacillin Sod/Tazobactam 50 mls @ 12.5 mls/hr 07/16/24 14:00 Sod 3.375 gm/ Sodium Chloride IV Q8 [place] Vancomycin IV-PHARMACY TO DOSE 500 mls @ 250 mls/hr 07/16/24 11:29 1 each/ Sodium Chloride IV X1 PRN Rx to Dose Protocol Vasopressin 20 units/ Sodium 25 mls @ 3 mls/hr 07/16/24 13:05 07/16/24 13:14 Chloride CONT INF 0.04 units/min .[id number] [place] 3 mls/hr Administration 0.04 UNITS/MIN Melatonin 3 mg 07/16/24 11:23 Melatonin 3 Mg Tablet PO QHS PRN PRN INSOMNIA Ondansetron HCl 4 mg 07/16/24 11:23 Ondansetron 4 Mg/2 Ml Vial IV Q8H PRN PRN NAUSEA/VOMITING Senna/Docusate Sodium 2 tablet 07/16/24 11:23 Senna/Docusate Sodium 1 Tablet PO BID PRN Constipation Sodium Chloride 10 - 40 ml 07/16/24 11:19 0.9% Saline Lock 10 Ml Syringe IV UD PRN SALINE FLUSH Lab / Micro Data 07/16/24 11:45 07/16/24 11:45 Labs: Laboratory Results - last 24 hr 07/16/24 11:45: WBC 17.0 H, RBC 3.29 L, Hgb 9.9 L, Hct 31.9 L, MCV 97.0 H, MCH 30.1, MCHC 31.0 L, RDW Std Deviation 54.6 H, RDW Coeff of Morris 15.6 H, Plt Count 278, MPV 10.4, Immature Gran % (Auto) 0.600, Neut % (Auto) 91.9 H, Lymph % (Auto) 3.9 L, Faulk % (Auto) 2.8, Eos % (Auto) 0.5, Baso % (Auto) 0.3, Absolute Neuts (auto) 15.6 H, Absolute Lymphs (auto) 0.67 L, Nucleated RBC % 0, Sodium 135 L, Potassium 3.7, Chloride 100, Carbon Dioxide 19.0 L, Anion Gap 16 H, BUN 64 H, Creatinine 4.73 H, Estim Creat Clear Calc 12.91, Est GFR (MDRD) Af Amer 16 L, Est GFR (MDRD) Non-Af 13 L, BUN/Creatinine Ratio 13.5, Glucose 121 H, Lactic Acid 6.0 H*, Calcium 7.2 L, Total Bilirubin 0.40, AST 3 L, ALT 16, Alkaline Phosphatase 33 L, Total Protein 5.0 L, Albumin 2.3 L, Globulin 2.7, Albumin/Globulin Ratio 0.9 07/16/24 12:40: PT 29.1 H, INR 2.8 Assessment and Plan . Assessment and plan: Physical Exam: Gen - NAD, ill-appearing HEENT - MMM. Sclera anicteric Resp - +crackles, tachypneic CV - RRR. No m/g/r Abd - Soft, NT, ND Ext - No c/c/e. Skin - No rashes? Neuro - Grossly nonfocal. Alert and oriented I have reviewed the pertinent vital sign, laboratory, and imaging data. ASSESSMENT: #?Acute hypoxic respiratory failure # Septic shock # PNA # Lactic acidosis # COPD # ESRD on HD # Chronic prednisone use ? prescribed 20mg daily per his PCP for unclear reasons # Chronic anticoagulation for fistula clotting # Anemia # Gout # h/o HTN # h/o tobacco use PLAN: -Obtain ABG and CXR now. Try switching to BiPAP given increased WOB/desats. Monitor for need for intubation soon -Wean levophed/vaso to keep MAP > 65. CVL placed at OSH. s/p gentle IVF bolus given ESRD. Give dose of albumin as well -Start stress dose hydrocortisone -Empiric vanc/zosyn/azithro. f/u Cx, urine strep/legionella, procal. Viral panel, MRSA pending -Budesonide, duonebs -Verify EKG, was reportedly sent from OSH; otherwise repeat here. Obtain echo give severe shock -Obtain outside CT chest report, may need to repeat here pending CXR -Follow INR, therapeutic currently on warfarin. FEN/GI: NPO Proph DVT/GI: Therapeutic INR on warfarin Critical Care Time: 60 mins The entirety of this encounter was completed via telemedicine
--- NOTE | 2024-07-16 13:25 | RAD_ITS ---
STUDY: X-RAY CHEST REASON FOR EXAM: Male, 79 years old. Shortness of breath TECHNIQUE: Single AP portable view of the chest. COMPARISON: Comparison is made with prior study dated May 02, 2024. FINDINGS: A right-sided central catheter has been placed with the tip at the junction of the superior vena cava and right atrium. EKG electrodes are seen. A vascular stent is seen overlying the right axilla. There now is evidence of left lower lobe consolidation with a small left pleural effusion. There is borderline cardiomegaly. Normal mediastinum and tisha. Normal visualized pulmonary arteries. There is atherosclerotic calcification of the aortic arch with tortuosity. There are diffuse degenerative changes of the visualized thoracic spine. Normal visualized ribs, clavicles, and shoulders. There is no demonstrated abnormality of the visualized soft tissue structures of the upper abdomen. RAD/Chest 1 View (Portable) IMPRESSION: Left lower lobe consolidation and small left pleural effusion. Electronically Signed: Duc Kothari MD at 14:04 EDT ,
[2024-07-16 13:34] LABS: Differential Comment SCANNED
--- NOTE | 2024-07-16 14:05 | ECHOCS_ITS ---
Reason For Study: Severe shock, resp. failure Procedure This was a 2D Doppler, Color Flow transthoracic echocardiogram. The study was technically difficult. Contrast injection was performed. Exam performed portable in ICU/CCU. Left Ventricle Normal LV size. The left ventricular ejection fraction is 50 %. Stage 1 diastolic dysfunction. No regional wall motion abnormalities noted. Right Ventricle Normal RV size. Normal systolic function. Atria Normal left atrium. Normal right atrium. Tricuspid Valve Normal tricuspid valve. Mild tricuspid valve insufficiency. Aortic Valve Trisinus/trileaflet aortic valve. Mild focal aortic valve calcification. Pulmonic Valve Normal pulmonic valve. Great Vessels Normal aortic root. The pulmonary artery is normal size. Normal inferior vena cava. Pericardium/Pleural No pericardial effusion. Medication Diluted definity 2ml given slow IV push to enhance endocardial definition. MMode/2D Measurements & Calculations LVIDd: 4.7 cm IVSd: 1.2 cm LVOT diam: 2.1 cm LVIDs: 3.8 cm LVPWd: 0.78 cm LVOT area: 3.5 cm2 RVDd: 3.5 cm FS: 19.0 % LAV(MOD-sp2): 51.3 ml LVAd ap4: 32.3 cm2 SV(MOD-sp4): 45.8 ml LVLd ap4: 8.0 cm EDV(MOD-sp4): 104.9 ml EDV(sp4-el): 110.4 ml LVAs ap4: 22.6 cm2 LVLs ap4: 7.3 cm ESV(MOD-sp4): 59.0 ml ESV(sp4-el): 59.6 ml EF(MOD-sp4): 43.7 % EF(sp4-el): 46.1 % SV(sp4-el): 50.9 ml TAPSE: 2.0 cm Time Measurements MV dec time: 0.24 sec Doppler Measurements & Calculations MV E max wes: 64.0 cm/sec Lat Peak E' Wes: 7.9 cm/sec Med Peak E' Wes: 6.6 cm/sec MV A max wes: 81.0 cm/sec E/E' lat: 8.1 E/E' med: 9.6 MV E/A: 0.79 MV V2 max: 94.1 cm/sec MV P1/2t max wes: 87.2 cm/sec Ao V2 max: 120.5 cm/sec MV max P.5 mmHg MV P1/2t: 66.8 msec Ao max P.8 mmHg MV V2 mean: 54.1 cm/sec MV dec slope: 382.7 cm/sec2 Ao V2 mean: 88.3 cm/sec MV mean P.4 mmHg Ao mean P.5 mmHg MV V2 VTI: 23.8 cm MVA(P1/2t): 3.3 cm2 Ao V2 VTI: 25.5 cm MVA(VTI): 2.3 cm2 AV (velocity ratio): 0.62 AV(I,D): 2.2 cm2 AV(V,D): 2.2 cm2 LV V1 max: 77.4 cm/sec MR max wes: 388.7 cm/sec SV(LVOT): 55.3 ml LV V1 max P.4 mmHg MR max P.4 mmHg LV V1 mean P.1 mmHg MR mean wes: 305.3 cm/sec LV V1 mean: 49.4 cm/sec MR mean P.4 mmHg LV V1 VTI: 15.8 cm MR VTI: 130.1 cm PA V2 max: 63.2 cm/sec TR max wes: 220.3 cm/sec PA max PG (full): 0.69 mmHg TR max P.4 mmHg ECHO/Echo Complete W/ Contrast Interpretation Summary The left ventricular ejection fraction is 50 %. Stage 1 diastolic dysfunction. Contrast injection was performed. Ordering Physician: Robby Salazar Referring Physician: Edel Biggs Performed By: Nicholas Toribio and Student
[2024-07-16] MEDS: Albumin Human 25% (100 mL) 25 GM/100 ML BAG IV (14:11)
[2024-07-16] MEDS: Azithromycin 500 MG in Dextrose 5%-Water (250mL Bag) 250 ML 250 MG IV (14:13)
[2024-07-16 14:15] LABS: Base Excess -9 mmol/L (-2 to +2); Blood Gas Specimen Type ART; Mode Not entered; O2 Delivery Device BiPAP; PEEP 8; PO2 66 mmHG (75-100); RR 12; SITE L Brach; SO2 92 % (95-99); Total Carbon Dioxide 18 mmol/L; pCO2 30.9 mmHg (35-45); pH 7.35 (7.35-7.45)
[2024-07-16] MEDS: Hydrocortisone Sod Succinate 100 MG/2 ML Vial IV ×2 (14:21→20:55)
--- NOTE | 2024-07-16 14:27 | PCM.RX.CS ---
Consult Antibiotic Management Pharmacy has been consulted to manage selected antibiotic: Vancomycin Type of Intervention Type of Consult: New start Suspected Infection Suspected Infection: Sepsis and Pneumonia Prior Doses of Antibiotics Prior Doses of Antibiotics Received/Current Regimen: Vancomycin 2000 mg IV x1 given at outside hospital 07/16/24 @ 0809 Labs Labs: Sodium 135 mmol/L (136-145) L 07/16/24 11:45 Potassium 3.7 mmol/L (3.5-5.1) 07/16/24 11:45 Chloride 100 mmol/L (98-107) 07/16/24 11:45 Carbon Dioxide 19.0 mmol/L (21.0-32.0) L 07/16/24 11:45 Anion Gap 16 (5-15) H 07/16/24 11:45 BUN 64 mg/dL (7-18) H 07/16/24 11:45 Creatinine 4.73 mg/dL (0.70-1.30) H 07/16/24 11:45 Est GFR (MDRD) Af Amer 16 mL/min (>60) L 07/16/24 11:45 Est GFR (MDRD) Non-Af 13 mL/min (>60) L 07/16/24 11:45 BUN/Creatinine Ratio 13.5 RATIO (10-20) 07/16/24 11:45 Glucose 121 mg/dL (74-106) H 07/16/24 11:45 Microbiology Microbiology: Microbiology 07/16/24 11:45 Nasal Secretion MRSA (PCR) - Final Dosing Weight Weight used for dosin kg Estimated Creatinine Clearance Estimated Creatinine Clearance: ESRD ON HD Goal Trough Goal Trough: 15-20 mcg/mL Pharmacy Plan for Drug Dosing Pharmacy Plan for Drug Dosing: Vancomycin 2000 mg IV x 1 given at outside hospital, will await HD plan for future doses adn levels. Pharmacy Service will continue to monitor and adjust dosing as required. Date/Time Labs Ordered Labs to be done on [date and time ordered]: pending hd schedule
--- NOTE | 2024-07-16 15:29 | CASEMGMT ---
RN CM GIS INSTRUCTOR CM?to room for initial transition planning/care coordination assessment. RN CM?introduced self and role at [facility]. Pt resting in bed in no distress at this time. O2 in place via NC. Echo being done @ bedside. @ bedside and agreeable to talking w/RN CM. The following information obtained by . Care providers, pharmacy, and demographics verified/updated at this time. PCP: Dr Yash Talavera Specialists:Dr Mas/ADONIS Neri-vascular, Dr Moe-surgeon, Dr Alcazar-pulmonology, Dr Jere Whaley-endocrinology. Dialysis: Pt goes to [facility] in [place] for OP HD MWV, chair time 10:45 AM. Preferred Pharmacy: [facility] @ [place] Otherwise, uses [facility] in [place]. Insurance: [facility] Prescription Benefit: Yes Living Will/HPOA: Does not have LW or HCPOA LNOK: , Carleen. 2 sons, Scooter (Orange) and Pedrito Living Arrangements: Lives w/. Mostly independent with ADL's. assists w/med mgnt. Pt does some cooking, does most other home mgnt tasks. Transportation:? provides transportation. DME: Pt has a shower chair. Also has a walker he uses for community distances. No home O2. HHC/SNF: Has been to [facility] in [place] (2022). No hx of HHC. PLAN: TBD by course of treatment and progress w/therapy. Brittani MEZA RN, CM
[2024-07-16 15:39] LABS: Procalcitonin > 50.00 ng/mL (0.00-0.09)
--- NOTE | 2024-07-16 15:45 | CON.PCM.RE_ITS ---
Assessment & Plan Assessment/Plan (1) ESRD (end stage renal disease): PLAN: On hemodialysis Friday, Friday, Friday. Last dialysis was Friday. Today he is in severe septic shock, currently on 30 mcg of Levophed with low blood pressures. Lactic acidosis. Needs aggressive fluid resuscitation. Potassium is normal. Bicarbonate 19. Hold off on dialysis for today, no acute indications. Continue to trend labs for now. If he is still on pressors by tomorrow, he may need CRRT. Discussed with family at bedside. Discussed with ICU staff. HPI Consult Data Date of Consult: 07/16/24 HPI Narrative Reason for Consultation: esrd HPI Narrative: MEHUL GORDILLO, is a 79 M who presents To the hospital with shortness of breath. Nephrology on consultation in view of ESRD. Currently gets hemodialysis Friday, Friday, Friday schedule. 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 Last dialysis was Friday. Apparently has had progressively worsening shortness of breath since yesterday night and got worse this morning. Being treated for pneumonia, left lower lobe. Currently in septic shock, 30 mcg of Levophed. Lactate levels are high at 6.0. Currently alert, awake. Complains of shortness of breath. Denies any nausea, vomiting, abdominal pain. Some lower extremity edema which is not new. For access he has a right arm AV fistula, was recently seen by vascular surgery here. Fistulogram last month. [facility] Medical History (Updated 07/16/24 @ 15:[address] Junior Man MD) COPD (chronic obstructive pulmonary disease) Wears glasses Alcohol use History of steroid therapy Ambulates with cane Arthritis History of renal dialysis History of renal disease Low iron Back pain Dietary restriction History of hiatal hernia Gastric reflux Shortness of breath on exertion Former smoker Hoarseness History of edema Gout HTN (hypertension) Home Medications ?Medication ?Instructions ?Recorded ?Last Taken ?Type allopurinol 100 mg tablet 100 mg PO DAILY 05/01/23 Unknown History atenolol 50 mg tablet 50 mg PO DAILY 05/01/23 05/19/24 History prednisone 20 mg tablet 20 mg PO BID 05/01/23 Unknown History multivitamin-calcium carb chewable 1 tab PO DAILY 05/05/23 Unknown History tablet hydrocodone-acetaminophen 5-325mg 1 tab PO Q8H PRN pain 2 days #10 06/12/23 Unknown Rx 5mg-325mg tabs fluticasone 232 mcg-salmeterol 14 1 inh inhalation BID 05/04/24 Unknown History mcg/actuation breath activated powdr lisinopril 5 mg tablet 5 mg PO DAILY 05/04/24 05/19/24 History warfarin 2.5 mg tablet 2.5 mg PO DAILY 05/04/24 05/15/24 History calcium acetate 667 mg tablet 667 mg PO TID 06/03/24 Unknown History albuterol 90 mcg/actuation aerosol 90 mcg inhalation PRN SOB 07/16/24 Unknown History inhaler Allergy/AdvReac Type Severity Reaction Status Date / Time No Known Allergies Allergy Verified 06/03/24 08:40 Family History Brother Cancer Other Hypertension Surgical History S/P dialysis catheter insertion S/P cataract extraction Previous back surgery Social History Smoking Status: Former smoker ROS ROS Narrative negative except above Physical Exam Narrative Alert awake oriented x 3 no pallor no icterus no JVD s1s2 no murmurs lungs left sided crackles abdomen soft no organomegaly no edema no cyanosis Lab / Micro Data 07/16/24 11:45 07/16/24 11:45 Labs: Laboratory Results - last 24 hr 07/16/24 11:45: WBC 17.0 H, RBC 3.29 L, Hgb 9.9 L, Hct 31.9 L, MCV 97.0 H, MCH 30.1, MCHC 31.0 L, RDW Std Deviation 54.6 H, RDW Coeff of Morris 15.6 H, Plt Count 278, MPV 10.4, Immature Gran % (Auto) 0.600, Neut % (Auto) 91.9 H, Lymph % (Auto) 3.9 L, [place] % (Auto) 2.8, Eos % (Auto) 0.5, Baso % (Auto) 0.3, Absolute Neuts (auto) 15.6 H, Absolute Lymphs (auto) 0.67 L, Nucleated RBC % 0, Differential Comment SCANNED, Sodium 135 L, Potassium 3.7, Chloride 100, Carbon Dioxide 19.0 L, Anion Gap 16 H, BUN 64 H, Creatinine 4.73 H, Estim Creat Clear Calc 12.91, Est GFR (MDRD) Af Amer 16 L, Est GFR (MDRD) Non-Af 13 L, BUN/Creatinine Ratio 13.5, Glucose 121 H, Lactic Acid 6.0 H*, Calcium 7.2 L, Total Bilirubin 0.40, AST 3 L, ALT 16, Alkaline Phosphatase 33 L, Total Protein 5.0 L, Albumin 2.3 L 07/16/24 11:45: Albumin Cancelled, Globulin 2.7, Albumin/Globulin Ratio 0.9 07/16/24 12:40: PT 29.1 H, INR 2.8 07/16/24 13:50: C-React Prot Ext Range 60.30 H, Procalcitonin > 50.00 H Micro: Microbiology 07/16/24 14:45 Urine, Random Legionella Antigen - Final 07/16/24 14:45 Urine, Random Streptococcus pneumoniae Antigen (M - Final Streptococcus pneumonia Ag 07/16/24 11:45 Nasal Secretion MRSA (PCR) - Final ABG Data ABG results: ABG 07/16/24 14:12 Specimen Type ART Sample Site L Brach pH 7.35 Bicarbonate Actual 17.0 L Total CO2 18 Base Excess -9 L O2 Saturation 92 L O2 % 55.0 ABG pCO2 30.9 L ABG pO2 66 L Respiration Rate 12 O2 Delivery Device BiPAP Vent Mode Not entered POC PEEP 8 Imaging Radiology Impression Chest X-Ray 07/16/24 13:25 IMPRESSION: Left lower lobe consolidation and small left pleural effusion. Electronically Signed: Duc Kothari MD at 14:04 EDT ,
[2024-07-16 15:55] LABS: Reflex Lactate? Y
[2024-07-16] MEDS: Norepinephrine 8 MG in 0.9% Normal Saline (250mL Bag) 242 ML 56.3 MG CONT INF ×2 (16:54→21:20)
[2024-07-16 17:02] LABS: Lactic Acid 4.3 mmol/L (0.4-1.9)
[2024-07-16 17:13] LABS: Troponin-I HS 32 pg/mL (3.0-78.0)
[2024-07-16 17:30] LABS: Troponin-I HS 30 pg/mL (3.0-78.0)
[2024-07-16] MEDS: Calcium Acetate 667 MG Capsule PO (18:39)
[2024-07-16 20:29] LABS: Troponin-I HS 33 pg/mL (3.0-78.0)
[2024-07-16] MEDS: guaiFENesin 10 ML UDC (200MG/10ML) PO (20:55)
[2024-07-16] MEDS: 0.9% Saline Lock 10 ML Syringe IV (20:55)
[2024-07-16] MEDS: Piperacil/Tazobactam 3.375 GM in 0.9% Normal Saline (50mL MB+) 50 ML IV (20:55)
[2024-07-16] MEDS: MELATONIN 3 MG TABLET PO (20:56)
--- NOTE | 2024-07-16 22:25 | NURSING ---
2200- BP readings inconsistent despite changing location of BP cuff and taking BP manually. Dr. Brown contacted at this time to question need for ART line placement. Dr. Brown agreeable to ordering ART line to be placed by PSN. RN to bedside to discuss ART line placement. Pt agreeable and signed informed consent. Order placed for ART line placement by PSN by this RN
--- NOTE | 2024-07-16 23:46 | NURSING ---
Addendum entered by Oliva Das 07/17/24 04:52: Dr. Brown notified of unsuccessful placement, new orders at this time. This RN will continue to monitor pt's BP w/ monitor and manual BP's Original Note: 2300- PSN bedside for ART line insertion, pt tolerated well, ART not successfully placed. Pressure held and opsite dressing applied to puncture site
--- NOTE | 2024-07-16 23:47 | NURSING ---
2345- This RN continuing to get conflicting BP's, unable to trend. 0000- BP taken manually by this RN 110/70 titrated levo accordingly.
[2024-07-17] VITALS (64 sets, daily range): BP systolic 86–174; BP diastolic 34–103; PULSE 68–108; RESP 17–30; TEMP 36.3–37.1; O2SAT 93–100; BMI 28.7
[2024-07-17] MEDS: Ipratropium/Albuterol Sulfate 3 ML AMPUL.NEB INHALATION ×4 (01:26→18:55)
[2024-07-17] MEDS: Norepinephrine 8 MG in 0.9% Normal Saline (250mL Bag) 242 ML 56.3 MG CONT INF ×2 (01:52→06:26)
[2024-07-17] MEDS: Vasopressin 20 UNITS in 0.9% Normal Saline (50mL Bag) 24 ML 3 UNITS CONT INF ×2 (03:15→11:47)
[2024-07-17 03:29] LABS: Hematocrit 29.2 % (40-54); Hemoglobin 9.2 g/dL (13.0-16.5); Mean Corp Hgb Conc 31.5 g/dL (32-36); Mean Corpuscular Hgb 29.9 pg (27.0-32.0); Mean Corpuscular Volume 94.8 fL (80-94); POSITIVE COUNT YES; POSITIVE DIFFERENTIAL YES; POSITIVE MORPHOLOGY YES; Platelet Count 254 K/mm3 (150-450); RBC Distribution Width CV 15.7 % (11.6-14.6); RBC Distribution Width SD 53.9 fl (35.1-43.9); Red Blood Count 3.08 M/mm3 (4.6-6.2)
[2024-07-17 03:38] LABS: Prothrombin Time (Protime)PT. 44.8 SECONDS (11.7-14.9)
[2024-07-17 03:43] LABS: Anion Gap 17 (5-15); BUN 72 mg/dL (7-18); BUN/Creat Ratio 13.4 RATIO (10-20); Calcium,Total 7.5 mg/dL (8.5-10.1); Chloride 99 mmol/L (98-107); Creatinine, Serum 5.36 mg/dL (0.70-1.30); EST Glomerular Filtration Rate 11 mL/min (>60); Est Glom Filt Rate - Afr Amer 13 mL/min (>60); Estimated Creatinine Clearance 11.39 ml/min; Glucose 176 mg/dL (74-106); Magnesium 1.5 mg/dL (1.6-2.6); Phosphorus 6.6 mg/dL (2.5-4.9); Potassium 5.2 mmol/L (3.5-5.1); Sodium Level 133 mmol/L (136-145)
[2024-07-17 03:51] LABS: International Normalized Ratio 4.8
[2024-07-17 04:05] LABS: Differential Indicated MANUAL DIFF; White Blood Count 34.8 K/mm3 (4.4-11.0)
[2024-07-17 04:20] LABS: Lymphocyte 1 % (19-41); Metamyelocyte 8 % (0-1); Myelocyte 1 % (0-0); Neutrophil-Band 32 % (0-5); Neutrophil-Segmented 58 % (47-70); Total Cells Counted 100 (MANUAL DIFF)
[2024-07-17 04:21] LABS: Anisocytosis 2+; Macrocytosis 1+; Ovalocyte 2+
[2024-07-17 04:22] LABS: Platelet Estimate ADEQUATE (ADEQ)
[2024-07-17 04:24] LABS: Absolute Lymphocyte Count 0.35 X10^3/uL (0.83-4.51); Absolute Neutrophil Count 31.3 X10^3/uL (2.0-7.7)
[2024-07-17] MEDS: 0.9% Saline Lock 10 ML Syringe IV ×4 (04:44→22:27)
[2024-07-17 05:06] LABS: Prothrombin Time (Protime)PT. 45.9 SECONDS (11.7-14.9)
[2024-07-17] MEDS: Magnesium Sulfate 2 GM in Dextrose 5%-Water (100mL Bag) 100 ML IV (05:26)
[2024-07-17] MEDS: Hydrocortisone Sod Succinate 100 MG/2 ML Vial IV ×3 (05:27→21:31)
[2024-07-17 05:45] LABS: Base Excess -10 mmol/L (-2 to +2); Bicarbonate 15.7 mmol/L (22-26); Blood Gas Specimen Type ART; Mode Not entered; O2 Delivery Device Not entered; PO2 83 mmHG (75-100); SITE Not entered; SO2 96 % (95-99); Total Carbon Dioxide 17 mmol/L; pCO2 28.8 mmHg (35-45); pH 7.34 (7.35-7.45)
--- NOTE | 2024-07-17 07:12 | PN.HOSP_ITS ---
Reason for Visit Reason for Visit: Diagnoses Sepsis, unspecified organism (07/16/24) Pneumonia, unspecified organism (07/16/24) End stage renal disease (07/16/24) Severe sepsis with septic shock (07/16/24) Subjective Subjective Patient seen remains in the ICU currently on 2 pressors vasopressin as well as Levophed. Patient also remains on broad-spectrum antibiotic therapy. WBC count trending up. Objective Data Objective Data Vital Signs: Vital Signs Temp Pulse Resp BP Pulse Ox O2 Del Method O2 Flow Rate 97.6 F L 92 19 H 114/48 L 97 Nasal Cannula 4 07/17/24 05:00 07/17/24 07:00 07/17/24 07:00 07/17/24 07:00 07/17/24 07:00 07/17/24 07:00 07/17/24 07:00 FiO2 75 07/16/24 20:00 Oxygen Flow Rate (L/min) 4 Oxygen Delivery Method Nasal Cannula Weight: 81.1 kg Body Mass Index (BMI) 28.7 Intake & Output: Intake and Output for Last 24 Hours 07/15/24 07/16/24 07/17/24 23:59 23:59 23:59 Intake Total 958.38 / 1000.61 498.99 / 498.99 Output Total 50 / 50 0 / 0 Balance 908.38 / 950.61 498.99 / 498.99 Lab / Micro Data 07/17/24 03:23 07/17/24 03:23 Labs: Laboratory Results - last 24 hr 07/16/24 11:45: WBC 17.0 H, RBC 3.29 L, Hgb 9.9 L, Hct 31.9 L, MCV 97.0 H, MCH 30.1, MCHC 31.0 L, RDW Std Deviation 54.6 H, RDW Coeff of Morris 15.6 H, Plt Count 278, MPV 10.4, Immature Gran % (Auto) 0.600, Neut % (Auto) 91.9 H, Lymph % (Auto) 3.9 L, Irion % (Auto) 2.8, Eos % (Auto) 0.5, Baso % (Auto) 0.3, Absolute Neuts (auto) 15.6 H, Absolute Lymphs (auto) 0.67 L, Nucleated RBC % 0, Differential Comment SCANNED, Sodium 135 L, Potassium 3.7, Chloride 100, Carbon Dioxide 19.0 L, Anion Gap 16 H, BUN 64 H, Creatinine 4.73 H, Estim Creat Clear Calc 12.91, Est GFR (MDRD) Af Amer 16 L, Est GFR (MDRD) Non-Af 13 L, BUN/Creatinine Ratio 13.5, Glucose 121 H, Lactic Acid 6.0 H*, Calcium 7.2 L, Total Bilirubin 0.40, AST 3 L, ALT 16, Alkaline Phosphatase 33 L, Total Protein 5.0 L, Albumin 2.3 L 07/16/24 11:45: Albumin Cancelled, Globulin 2.7, Albumin/Globulin Ratio 0.9 07/16/24 12:40: PT 29.1 H, INR 2.8 07/16/24 13:50: Troponin I High Sens 32, C-React Prot Ext Range 60.30 H, P rocalcitonin > 50.00 H 07/16/24 16:15: Lactic Acid 4.3 H* 07/16/24 16:30: Troponin I High Sens 30 07/16/24 20:00: Troponin I High Sens 33 07/17/24 03:23: WBC 34.8 H*, RBC 3.08 L, Hgb 9.2 L, Hct 29.2 L, MCV 94.8 H, MCH 29.9, MCHC 31.5 L, RDW Std Deviation 53.9 H, RDW Coeff of Morris 15.7 H, Plt Count 254, MPV 10.0, Neut % (Auto) Not Reportable, Absolute Neuts (auto) 31.3 H, A bsolute Lymphs (auto) 0.35 L, Total Counted 100, Neutrophils % (Manual) 58, Band Neutrophils % 32 H, Lymphocytes % (Manual) 1 L, Metamyelocytes % 8 H, Myelocytes % 1 H, Diff Path Review May , Platelet Estimate ADEQUATE, Anisocytosis 2+, Macrocytosis 1+, Ovalocytes 2+, PT 44.8 H, INR 4.8 H*, Sodium 133 L, Potassium 5.2 H, Chloride 99, Carbon Dioxide 17.0 L, Anion Gap 17 H, BUN 72 H, Creatinine 5.36 H, Estim Creat Clear Calc 11.39, Est GFR (MDRD) Af Amer 13 L, Est GFR (MDRD) Non-Af 11 L, BUN/Creatinine Ratio 13.4, Glucose 176 H, Calcium 7.5 L, P hosphorus 6.6 H, Magnesium 1.5 L 07/17/24 04:48: PT 45.9 H, INR 5.0 H* Micro: Microbiology 07/16/24 12:50 Mucosa - Nasopharyngeal Respiratory Panel (PCR) - Final 07/16/24 14:45 Urine, Random Legionella Antigen - Final 07/16/24 14:45 Urine, Random Streptococcus pneumoniae Antigen (M - Final Streptococcus pneumonia Ag 07/16/24 11:45 Nasal Secretion MRSA (PCR) - Final ABG Data ABG results: ABG 07/16/24 07/17/24 14:12 05:41 Specimen Type ART ART Sample Site L Brach Not entered pH 7.35 7.34 L Bicarbonate Actual 17.0 L 15.7 L Total CO2 18 17 Base Excess -9 L -10 L O2 Saturation 92 L 96 O2 % 55.0 4.0 ABG pCO2 30.9 L 28.8 L ABG pO2 66 L 83 Respiration Rate 12 O2 Delivery Device BiPAP Not entered Vent Mode Not entered Not entered POC PEEP 8 Radiography Diagnostic Testing: Radiology Impression Chest X-Ray 07/16/24 13:25 IMPRESSION: Left lower lobe consolidation and small left pleural effusion. Electronically Signed: Duc Kothari MD at 14:04 EDT , Echocardiogram 07/16/24 14:05 Interpretation Summary The left ventricular ejection fraction is 50 %. Stage 1 diastolic dysfunction. Contrast injection was performed. Ordering Physician: Robby Salazar Referring Physician: Edel Biggs Performed By: Nicholas Toribio and Student Physical Exam Narrative GENERAL: Dyspneic at rest, using accessory muscles in breathing patient is tachypnea HEENT: Atraumatic; normocephalic EYES; Anicteric, Normal Conjunctiva NECK; supple, normal thyroid, RESPIRATORY: Diminished to auscultation CARDIOVASCULAR: Regular S1 S2, GI: soft, normoactive bowel sounds, : No Renal angle tenderness; EXTREMITIES: AV fistula right forearm MUSCULOSKELETAL: no muscle wasting NEURO: Awake; no lateralizing signs. SKIN: No Rash PSYCH; Flat affect Assessment & Plan Assessment/Plan (1) Septic shock: (2) Pneumonia: PLAN: Plan Patient is a 79-year-old gentleman transferred from an outside hospital with a diagnosis of septic shock secondary to pneumonia 1. Septic shock ? Secondary to pneumonia. Patient was started on broad-spectrum antibiotic therapy with Zosyn as well as vancomycin. Patient has been started on Levophed prior to being transferred. Patient was not resuscitated with fluid per protocol given his dialysis status. Response to therapy being monitored with serial lactic acid levels ? 07/17/2024atient seen remains in the ICU currently on 2 pressors vasopressin as well as Levophed. Patient also remains on broad-spectrum antibiotic therapy. WBC count trending up 2. Pneumonia ? With suspected multidrug resistance organisms. Patient was started on Zosyn and vancomycin and placed on supplemental oxygen. Cultures sent ? 07/17/2024 patient urine antigen test was positive for strep pneumonia. Patient remains on Zosyn which should cover. Will continue with vancomycin pending receipt of final sensitivities 3. Acute hypoxic respiratory failure ?secondary to underlying pneumonia patient was placed on noninvasive ventilation with oxygen titrated to keep saturation greater than 90 ? 07/17/2024; patient did not tolerate BiPAP had to be switched back to nasal cannula. 4. End-stage renal disease ? Patient is on hemodialysis on Wednesdays and Fridays consultation was placed to nephrology for dialysis orders 5. Essential hypertension ? Patient antihypertensives held given patient presentation with septic shock 6. Gout ? Patient is on allopurinol plan is to resume following med reconciliation 7. Systemic use of anticoagulation ? On account of recent clots involving patient AV fistula patient is on Coumadin. INR is therapeutic we will continue with daily monitoring ? INR markedly elevated plan is to hold Coumadin and monitor with daily INR 8. DVT prophylaxis ? Patient is on Coumadin Critical Time spent in the patient's overall evaluation,decision-making process, review of diagnostic data, adjustment of management, discussion with other providers, nursing nursing and ancillary staff involved in patient's care documentation, 55 Charges/Coding Visit Charges Inpatient E&M: 98277 Subs Hosp L3
[2024-07-17] MEDS: Calcium Acetate 667 MG Capsule PO ×2 (09:03→16:33)
--- NOTE | 2024-07-17 10:32 | EKG12_ITS ---
Test Reason : rhythm change Blood Pressure : / mmHG Vent. Rate : 071 BPM Atrial Rate : 000 BPM P-R Int : 000 ms QRS Dur : 088 ms QT Int : 442 ms P-R-T Axes : 000 016 036 degrees QTc Int : 480 ms Atrial fibrillation Prolonged QT Abnormal ECG No previous ECGs available Confirmed by ANURAG NG, JOSE ([id number]), newspaper photo editor ALICIA TSANG ([id number]) on 07/20/2024 7:21:39 AM Referred By: Edel Biggs Confirmed By:JOSE OSBORN MD
--- NOTE | 2024-07-17 10:34 | PCM.PN.TICU ---
Objective Data Objective Data Vital Signs: Vital Signs Last response Temperature 36.9 C 07/17/24 09:15 Temperature Source Temporal 07/17/24 09:15 Pulse Rate 78 07/17/24 10:15 Pulse Strength Weak (1+) 07/17/24 10:00 Respiratory Rate 20 H 07/17/24 10:00 Respiratory Effort Normal, Non-Labored 07/17/24 08:30 Respiratory Depth Normal 07/17/24 08:30 Respiratory Pattern Normal 07/17/24 08:30 Blood Pressure 98/45 L 07/17/24 10:15 Blood Pressure Mean 62 07/17/24 10:15 Blood Pressure Source Monitor 07/17/24 10:15 Blood Pressure Position Semi-Fowlers 07/17/24 10:00 Blood Pressure Location Left Arm 07/17/24 10:00 Pulse Ox 100 07/17/24 10:00 Oxygen Delivery Method Nasal Cannula 07/17/24 10:00 Oxygen Flow Rate (L/min) 4 07/17/24 10:00 Fraction of Inspired Oxygen (FIO2) 75 07/16/24 20:00 I&O: I&O Last 24 Hours 07/16/24 07/16/24 07/17/24 11:59 23:59 11:59 Intake Total 958.38 / 1000.61 770.84 / 770.84 Output Total 50 / 50 0 / 0 Balance 908.38 / 950.61 770.84 / 770.84 I&O: Total Stay 07/16/24 thru 07/17/24 10:15 Intake Total 1729.22 Output Total 50 Balance 1679.22 Current Meds Ordered / Administered: Current meds ordered / Administered Generic Name Dose Route Start Last Admin Trade Name Freq PRN Reason Stop Dose Admin Acetaminophen 650 mg 07/16/24 11:23 Acetaminophen 325 Mg Tablet PO Q6H PRN PRN Pain 1-10 Or Fever>100.7 Albuterol/Ipratropium 3 ml 07/16/24 11:30 07/17/24 07:31 Ipratropium/Albuterol Sulfate 3 Ml Ampul.Neb INHALATION 3 ml Q6H.RT [place] Administration Allopurinol 100 mg 07/17/24 10:00 Allopurinol 100 Mg Tablet PO DAILY [place] Calcium Acetate 667 mg 07/16/24 17:00 07/17/24 09:03 Calcium Acetate 667 Mg Capsule PO 667 mg TIDCM [place] Administration Guaifenesin 10 ml 07/16/24 11:23 07/16/24 20:55 Guaifenesin 10 Ml Udc (200mg/10ml) PO 10 ml Q4H PRN PRN Administration COUGH Hydrocortisone Sodium Succinate 100 mg 07/16/24 14:00 07/17/24 05:27 Hydrocortisone Sod Succinate 100 Mg/2 Ml Vial IV 100 mg Q8 [place] Administration Sodium Chloride 250 mls @ 15 mls/hr 07/16/24 11:19 IV .[id number] PRN Additional IVPB Infusion Sodium Chloride 250 mls @ 15 mls/hr 07/16/24 11:19 IV .[id number] PRN Saline Flush Norepinephrine Bitartrate 8 mg 250 mls @ 9.375 mls/hr 07/16/24 11:25 07/17/24 10:15 / Sodium Chloride CONT INF 15 mcg/min .[id number] [place] 28.1 mls/hr Titration Protocol 5 MCG/MIN Piperacillin Sod/Tazobactam 50 mls @ 12.5 mls/hr 07/16/24 22:00 07/17/24 04:05 Sod 3.375 gm/ Sodium Chloride IV Infused Q12 [place] Infusion Vancomycin IV-PHARMACY TO DOSE 500 mls @ 250 mls/hr 07/16/24 11:29 1 each/ Sodium Chloride IV PRN PRN Rx to Dose Protocol Vasopressin 20 units/ Sodium 25 mls @ 3 mls/hr 07/16/24 13:05 07/17/24 10:00 Chloride CONT INF 0.04 units/min .[id number] [place] 3 mls/hr Infusion 0.04 UNITS/MIN Azithromycin 500 mg/ Dextrose 255 mls @ 250 mls/hr 07/16/24 13:45 07/16/24 15:15 IV Infused Q24 [place] Infusion Melatonin 3 mg 07/16/24 11:23 07/16/24 20:56 Melatonin 3 Mg Tablet PO 3 mg QHS PRN PRN Administration INSOMNIA Midodrine 5 mg 07/17/24 12:00 Midodrine Hcl 5 Mg Tablet PO TIDCM [place] Ondansetron HCl 4 mg 07/16/24 11:23 Ondansetron 4 Mg/2 Ml Vial IV Q8H PRN PRN NAUSEA/VOMITING Senna/Docusate Sodium 2 tablet 07/16/24 11:23 Senna/Docusate Sodium 1 Tablet PO BID PRN Constipation Sodium Chloride 10 - 40 ml 07/16/24 11:19 07/17/24 06:26 0.9% Saline Lock 10 Ml Syringe IV 20 ml UD PRN Administration SALINE FLUSH Warfarin Sodium 2.5 mg 07/16/24 17:00 07/16/24 18:39 Warfarin 2.5 Mg Tablet PO 2.5 mg Ryan@1700 [facility] Administration Lab / Micro Data 07/17/24 03:23 07/17/24 03:23 Labs: Laboratory Results - last 24 hr 07/16/24 11:45: WBC 17.0 H, RBC 3.29 L, Hgb 9.9 L, Hct 31.9 L, MCV 97.0 H, MCH 30.1, MCHC 31.0 L, RDW Std Deviation 54.6 H, RDW Coeff of Morris 15.6 H, Plt Count 278, MPV 10.4, Immature Gran % (Auto) 0.600, Neut % (Auto) 91.9 H, Lymph % (Auto) 3.9 L, Pope % (Auto) 2.8, Eos % (Auto) 0.5, Baso % (Auto) 0.3, Absolute Neuts (auto) 15.6 H, Absolute Lymphs (auto) 0.67 L, Nucleated RBC % 0, Differential Comment SCANNED, Sodium 135 L, Potassium 3.7, Chloride 100, Carbon Dioxide 19.0 L, Anion Gap 16 H, BUN 64 H, Creatinine 4.73 H, Estim Creat Clear Calc 12.91, Est GFR (MDRD) Af Amer 16 L, Est GFR (MDRD) Non-Af 13 L, BUN/Creatinine Ratio 13.5, Glucose 121 H, Lactic Acid 6.0 H*, Calcium 7.2 L, Total Bilirubin 0.40, AST 3 L, ALT 16, Alkaline Phosphatase 33 L, Total Protein 5.0 L, Albumin 2.3 L 07/16/24 11:45: Albumin Cancelled, Globulin 2.7, Albumin/Globulin Ratio 0.9 07/16/24 12:40: PT 29.1 H, INR 2.8 07/16/24 13:50: Troponin I High Sens 32, C-React Prot Ext Range 60.30 H, Procalcitonin > 50.00 H 07/16/24 16:15: Lactic Acid 4.3 H* 07/16/24 16:30: Troponin I High Sens 30 07/16/24 20:00: Troponin I High Sens 33 07/17/24 03:23: WBC 34.8 H*, RBC 3.08 L, Hgb 9.2 L, Hct 29.2 L, MCV 94.8 H, MCH 29.9, MCHC 31.5 L, RDW Std Deviation 53.9 H, RDW Coeff of Morris 15.7 H, Plt Count 254, MPV 10.0, Neut % (Auto) Not Reportable, Absolute Neuts (auto) 31.3 H, Absolute Lymphs (auto) 0.35 L, Total Counted 100, Neutrophils % (Manual) 58, Band Neutrophils % 32 H, Lymphocytes % (Manual) 1 L, Metamyelocytes % 8 H, Myelocytes % 1 H, Diff Path Review May , Platelet Estimate ADEQUATE, Anisocytosis 2+, Macrocytosis 1+, Ovalocytes 2+, PT 44.8 H, INR 4.8 H*, Sodium 133 L, Potassium 5.2 H, Chloride 99, Carbon Dioxide 17.0 L, Anion Gap 17 H, BUN 72 H, Creatinine 5.36 H, Estim Creat Clear Calc 11.39, Est GFR (MDRD) Af Amer 13 L, Est GFR (MDRD) Non-Af 11 L, BUN/Creatinine Ratio 13.4, Glucose 176 H, Calcium 7.5 L, Phosphorus 6.6 H, Magnesium 1.5 L 07/17/24 04:48: PT 45.9 H, INR 5.0 H* Micro: Microbiology 07/16/24 12:50 Mucosa - Nasopharyngeal Respiratory Panel (PCR) - Final 07/16/24 14:45 Urine, Random Legionella Antigen - Final 07/16/24 14:45 Urine, Random Streptococcus pneumoniae Antigen (M - Final Streptococcus pneumonia Ag 07/16/24 11:45 Nasal Secretion MRSA (PCR) - Final ABG Data ABG results: ABG 07/16/24 07/17/24 14:12 05:41 Specimen Type ART ART Sample Site L Brach Not entered pH 7.35 7.34 L Bicarbonate Actual 17.0 L 15.7 L Total CO2 18 17 Base Excess -9 L -10 L O2 Saturation 92 L 96 O2 % 55.0 4.0 ABG pCO2 30.9 L 28.8 L ABG pO2 66 L 83 Respiration Rate 12 O2 Delivery Device BiPAP Not entered Vent Mode Not entered Not entered POC PEEP 8 Imaging Radiology Impression Chest X-Ray 07/16/24 13:25 IMPRESSION: Left lower lobe consolidation and small left pleural effusion. Electronically Signed: Duc Kothari MD at 14:04 EDT , Echocardiogram 07/16/24 14:05 Interpretation Summary The left ventricular ejection fraction is 50 %. Stage 1 diastolic dysfunction. Contrast injection was performed. Ordering Physician: Robby Salazar Referring Physician: Edel Biggs Performed By: Nicholas Toribio and Student Assessment and Plan . Assessment and plan: Subjective: No acute events o/n. Pt remains on pressors. Feels he is overall better. Did not tolerate BiPAP well overnight, now on NC Physical Exam: Gen - NAD, ill-appearing HEENT - MMM. Sclera anicteric Resp - +crackles, tachypneic but less so than yest CV - RRR. No m/g/r Abd - Soft, NT, ND Ext - No c/c/e. Skin - No rashes? Neuro - Grossly nonfocal. Alert and oriented I have reviewed the pertinent vital sign, laboratory, and imaging data. ASSESSMENT: #?Acute hypoxic respiratory failure # Septic shock # PNA - urine strep Ag positive # Lactic acidosis # COPD # ESRD on HD # Afib - pt reports being told he had this in past as well # Chronic prednisone use ? prescribed 20mg daily per his PCP for unclear reasons # Chronic anticoagulation for fistula clotting # Anemia # Gout # h/o HTN # h/o tobacco use PLAN: -On 4L NC, wean to keep sats >90%. Cont NIV PRN and with sleep as tolerated. Overall improved from yest but still dyspneic. Monitor for worsening/need for intubation -Wean levophed/vaso to keep MAP > 65. CVL placed at OSH. Give additional gentle IVF bolus and albumin today. Arterial line attempted overnight but multiple attempts failed -Cont stress dose hydrocortisone -Empiric vanc/zosyn/azithro. f/u Cx. Viral panel neg. May be able to de-escalate soon pending further Cx results/clinical improvement -Budesonide, duonebs -Trend lactate -TTE w/ EF 50%, G1 DD, no pericardial effusion -Obtain outside CT chest report if able, consider repeat here pending clinical course -Follow INR, supratherapeutic currently on warfarin. FEN/GI: NPO Proph DVT/GI: Hold warfarin for supratherapeutic INR Updated at bedside Critical Care Time: 60 mins The entirety of this encounter was completed via telemedicine
[2024-07-17] MEDS: Azithromycin 500 MG in Dextrose 5%-Water (250mL Bag) 250 ML 250 MG IV (10:49)
[2024-07-17] MEDS: Piperacil/Tazobactam 3.375 GM in 0.9% Normal Saline (50mL MB+) 50 ML IV ×2 (10:53→21:31)
[2024-07-17] MEDS: Midodrine HCl 5 MG Tablet PO ×2 (10:55→16:33)
[2024-07-17] MEDS: Allopurinol 100 MG Tablet PO (10:55)
[2024-07-17] MEDS: Norepinephrine 8 MG in 0.9% Normal Saline (250mL Bag) 242 ML 46.9 MG CONT INF (11:46)
--- NOTE | 2024-07-17 12:10 | CASEMGMT ---
Social Work SW spoke w/pt's in the room, pt on Bi-pap and not able to converse at this time. SW offered support to . LW/POA and SDOH deferred at this time, SW will speak w/pt later in this hospitalization when he is more able to participate. SW remains available for support to as needed. LEIGHTON Brito
[2024-07-17 12:33] LABS: Lactic Acid 5.5 mmol/L (0.4-1.9)
[2024-07-17] MEDS: LACTATED RINGERS 500 ML IV (13:28)
[2024-07-17] MEDS: Albumin Human 25% (100 mL) 25 GM/100 ML BAG IV ×2 (14:33→22:20)
[2024-07-17 15:58] LABS: Reflex Lactate? Y
[2024-07-17] MEDS: 0.9% Normal Saline (250mL Bag) 250 ML 15 ML IV ×2 (16:32→16:33)
[2024-07-17] MEDS: Norepinephrine 8 MG in 0.9% Normal Saline (250mL Bag) 242 ML 37.5 MG CONT INF (19:00)
[2024-07-17 19:07] LABS: Lactic Acid 3.9 mmol/L (0.4-1.9)
[2024-07-17 22:20] LABS: Reflex Lactate? Y
[2024-07-17 23:23] LABS: Lactic Acid 2.9 mmol/L (0.4-1.9)
[2024-07-18] VITALS (60 sets, daily range): BP systolic 101–159; BP diastolic 42–99; PULSE 72–96; RESP 12–28; TEMP 36.4–37.2; O2SAT 86–99; BMI 29.0
[2024-07-18] MEDS: Ipratropium/Albuterol Sulfate 3 ML AMPUL.NEB INHALATION ×4 (00:11→19:07)
[2024-07-18] MEDS: Norepinephrine 8 MG in 0.9% Normal Saline (250mL Bag) 242 ML 18.8 MG CONT INF (03:41)
[2024-07-18] MEDS: 0.9% Saline Lock 10 ML Syringe IV ×3 (05:14→21:07)
[2024-07-18] MEDS: Hydrocortisone Sod Succinate 100 MG/2 ML Vial IV ×3 (05:15→21:06)
[2024-07-18 05:37] LABS: Hematocrit 21.5 % (40-54); Mean Corp Hgb Conc 32.6 g/dL (32-36); Mean Corpuscular Hgb 30.4 pg (27.0-32.0); Mean Corpuscular Volume 93.5 fL (80-94); Mean Platelet Vol. 10.2 fl (6.2-12.0); POSITIVE COUNT YES; POSITIVE DIFFERENTIAL YES; POSITIVE MORPHOLOGY YES; Platelet Count 159 K/mm3 (150-450); RBC Distribution Width SD 54.7 fl (35.1-43.9); White Blood Count 28.8 K/mm3 (4.4-11.0)
[2024-07-18 05:48] LABS: Differential Indicated MANUAL DIFF; International Normalized Ratio 8.8
[2024-07-18 05:49] LABS: Anion Gap 16 (5-15); BUN 83 mg/dL (7-18); BUN/Creat Ratio 15.1 RATIO (10-20); Calcium,Total 7.6 mg/dL (8.5-10.1); Chloride 102 mmol/L (98-107); Creatinine, Serum 5.49 mg/dL (0.70-1.30); EST Glomerular Filtration Rate 11 mL/min (>60); Est Glom Filt Rate - Afr Amer 13 mL/min (>60); Estimated Creatinine Clearance 11.33 ml/min; Glucose 146 mg/dL (74-106); Potassium 4.4 mmol/L (3.5-5.1); Sodium Level 137 mmol/L (136-145)
--- NOTE | 2024-07-18 05:55 | RAD_ITS ---
INDICATION: resp failure, PNA EXAMINATION/TECHNIQUE: X-RAY - XR Chest 1 View COMPARISON: July 16, 2024. FINDINGS: LINES/DEVICES: Right internal jugular line tip projects at the distal superior vena cava. Right axillary vascular stent.. LUNGS: Persistent left mid and lower lung hazy airspace opacification with slightly improved aeration from prior exam. No new consolidation. Slight interval increase in left layering effusion. No pneumothorax., MEDIASTINUM AND CARDIOVASCULAR STRUCTURES: Mild cardiomegaly. Mild aortic atherosclerosis. BONES AND SOFT TISSUES: Unremarkable. RAD/Chest 1 View (Portable) IMPRESSION: Persistent left mid and lower lung opacification with mild improved aeration but slightly worsened effusion compared with prior exam. Electronically Signed: Beka Rojas MD at 7:50 EDT ,
[2024-07-18 06:02] LABS: Anisocytosis 2+; Monocyte 2 % (0-10); Neutrophil-Band 11 % (0-5); Neutrophil-Segmented 87 % (47-70); Total Cells Counted 100 (MANUAL DIFF)
[2024-07-18 06:03] LABS: Ovalocyte 1+; Platelet Estimate ADEQUATE (ADEQ)
[2024-07-18 06:04] LABS: Absolute Neutrophil Count 28.2 X10^3/uL (2.0-7.7)
--- NOTE | 2024-07-18 07:14 | PN.HOSP_ITS ---
Reason for Visit Reason for Visit: Diagnoses Sepsis, unspecified organism (07/16/24) Pneumonia, unspecified organism (07/16/24) End stage renal disease (07/16/24) Severe sepsis with septic shock (07/16/24) Subjective Subjective Patient hemoglobin down to 7.0 plan is to transfuse with the next dialysis. Patient remains on Levophed currently at 5 mics. WBC count remains elevated. Objective Data Objective Data Vital Signs: Vital Signs Temp Pulse Resp BP Pulse Ox O2 Del Method O2 Flow Rate 97.6 F L 80 18 127/52 H 99 Nasal Cannula 4 07/18/24 00:00 07/18/24 07:00 07/18/24 07:00 07/18/24 07:00 07/18/24 07:00 07/18/24 07:00 07/18/24 07:00 FiO2 40 07/18/24 04:00 Oxygen Flow Rate (L/min) 4 Oxygen Delivery Method Nasal Cannula Weight: 82 kg Body Mass Index (BMI) 29.0 Intake & Output: Intake and Output for Last 24 Hours 07/16/24 07/17/24 07/18/24 23:59 23:59 23:59 Intake Total 958.38 / 1000.61 2238.30 / 2266.40 415.45 / 415.45 Output Total 50 / 50 300 / 340 240 / 240 Balance 908.38 / 950.61 1938.30 / 1926.40 175.45 / 175.45 Lab / Micro Data 07/18/24 05:20 07/18/24 05:20 Labs: Laboratory Results - last 24 hr 07/17/24 11:55: Lactic Acid 5.5 H* 07/17/24 18:08: Lactic Acid 3.9 H* 07/17/24 22:39: Lactic Acid 2.9 H* 07/18/24 05:20: WBC 28.8 H, RBC 2.30 L, Hgb 7.0 L, Hct 21.5 L, MCV 93.5, MCH 30.4, MCHC 32.6, RDW Std Deviation 54.7 H, RDW Coeff of Morris 16.0 H, Plt Count 159, MPV 10.2, Neut % (Auto) Not Reportable, Absolute Neuts (auto) 28.2 H, A bsolute Lymphs (auto) 0.00 L, Total Counted 100, Neutrophils % (Manual) 87 H, B and Neutrophils % 11 H, Monocytes % (Manual) 2, Platelet Estimate ADEQUATE, Anisocytosis 2+, Ovalocytes 1+, PT 71.0 H, INR 8.8 H*, Sodium 137, Potassium 4.4, Chloride 102, Carbon Dioxide 19.0 L, Anion Gap 16 H, BUN 83 H, Creatinine 5.49 H, Estim Creat Clear Calc 11.33, Est GFR (MDRD) Af Amer 13 L, Est GFR (MDRD) Non-Af 11 L, BUN/Creatinine Ratio 15.1, Glucose 146 H, Calcium 7.6 L Micro: Microbiology 07/16/24 12:50 Mucosa - Nasopharyngeal Respiratory Panel (PCR) - Final 07/16/24 14:45 Urine, Random Legionella Antigen - Final 07/16/24 14:45 Urine, Random Streptococcus pneumoniae Antigen (M - Final Streptococcus pneumonia Ag 07/16/24 11:45 Nasal Secretion MRSA (PCR) - Final Physical Exam Narrative GENERAL: Dyspneic at rest, using accessory muscles in breathing patient is tachypnea HEENT: Atraumatic; normocephalic EYES; Anicteric, Normal Conjunctiva NECK; supple, normal thyroid, RESPIRATORY: Diminished to auscultation CARDIOVASCULAR: Regular S1 S2, GI: soft, normoactive bowel sounds, : No Renal angle tenderness; EXTREMITIES: AV fistula right forearm MUSCULOSKELETAL: no muscle wasting NEURO: Awake; no lateralizing signs. SKIN: No Rash PSYCH; Flat affect Assessment & Plan Assessment/Plan (1) Septic shock: (2) Pneumonia: PLAN: Plan Patient is a 79-year-old gentleman transferred from an outside hospital with a diagnosis of septic shock secondary to pneumonia 1. Septic shock ? Secondary to pneumonia. Patient was started on broad-spectrum antibiotic therapy with Zosyn as well as vancomycin. Patient has been started on Levophed prior to being transferred. Patient was not resuscitated with fluid per protocol given his dialysis status. Response to therapy being monitored with serial lactic acid levels ? 07/17/2024atient seen remains in the ICU currently on 2 pressors vasopressin as well as Levophed. Patient also remains on broad-spectrum antibiotic therapy. WBC count trending up ? 07/18/2024; slight improvement in WBC count patient however still remains on Levophed. 2. Pneumonia ? With suspected multidrug resistance organisms. Patient was started on Zosyn and vancomycin and placed on supplemental oxygen. Cultures sent ? 07/17/2024 patient urine antigen test was positive for strep pneumonia. Patient remains on Zosyn which should cover. Will continue with vancomycin pending receipt of final sensitivities 3. Acute hypoxic respiratory failure ?secondary to underlying pneumonia patient was placed on noninvasive ventilation with oxygen titrated to keep saturation greater than 90 ? 07/17/2024; patient did not tolerate BiPAP had to be switched back to nasal cannula. 4. End-stage renal disease ? Patient is on hemodialysis on Wednesdays and Fridays consultation was placed to nephrology for dialysis orders 5. Essential hypertension ? Patient antihypertensives held given patient presentation with septic shock 6. Gout ? Patient is on allopurinol plan is to resume following med reconciliation 7. Systemic use of anticoagulation ? On account of recent clots involving patient AV fistula patient is on Coumadin. INR is therapeutic we will continue with daily monitoring ? INR markedly elevated plan is to hold Coumadin and monitor with daily INR 8. Anemia ? Secondary to chronic disorder/ESRD monitoring H&H and transfuse if patient becomes symptomatic or hemoglobin falls below 7. With patient hemoglobin reaching 7 plan is to transfuse with the next dialysis 9.DVT prophylaxis ? Patient is on Coumadin Critical Time spent in the patient's overall evaluation,decision-making process, review of diagnostic data, adjustment of management, discussion with other providers, nursing nursing and ancillary staff involved in patient's care documentation, 52 Charges/Coding Visit Charges Inpatient E&M: 02719 [facility] Hosp L3
[2024-07-18] MEDS: Midodrine HCl 5 MG Tablet PO ×3 (08:04→16:47)
[2024-07-18] MEDS: Calcium Acetate 667 MG Capsule PO ×3 (08:04→16:47)
[2024-07-18] MEDS: Azithromycin 500 MG in Dextrose 5%-Water (250mL Bag) 250 ML 250 MG IV (09:09)
[2024-07-18] MEDS: Allopurinol 100 MG Tablet PO (09:11)
[2024-07-18 09:15] LABS: Ferritin 2157 ng/mL (26-388); Iron 10 ug/dL (65-175); Iron Binding Capacity,Total 163 ug/dL (250-450); PERCENT IRON SATURATION 6.1 % (15.0-55.0)
--- NOTE | 2024-07-18 10:11 | PN.CC_ITS ---
Objective Data Objective Data Vital Signs: Vital Signs Last response 3 Temperature 36.4 C L 07/18/24 08:00 Temperature Source Temporal 07/18/24 08:00 Pulse Rate 89 07/18/24 09:00 Pulse Strength Normal (2+) 07/17/24 20:24 Respiratory Rate 26 H 07/18/24 09:00 Respiratory Effort Normal, Non-Labored 07/18/24 07:45 Respiratory Depth Normal 07/18/24 07:45 Respiratory Pattern Normal 07/18/24 07:45 Blood Pressure 108/48 L 07/18/24 09:45 Blood Pressure Mean 68 07/18/24 09:45 Blood Pressure Source Monitor 07/18/24 09:45 Blood Pressure Position Semi-Fowlers 07/18/24 09:45 Blood Pressure Location Left Arm 07/18/24 09:45 Pulse Ox 97 07/18/24 09:00 Oxygen Delivery Method Nasal Cannula 07/18/24 09:00 Oxygen Flow Rate (L/min) 2 07/18/24 09:00 Fraction of Inspired Oxygen (FIO2) 40 07/18/24 04:00 I&O: I&O Last 24 Hours 3 07/17/24 07/17/24 07/18/24 11:59 23:59 11:59 Intake Total 832.65 / 2266.40 1405.65 / 2266.40 673.78 / 673.78 Output Total 0 / 340 300 / 340 240 / 240 Balance 832.65 / 1926.40 1105.65 / 1926.40 433.78 / 433.78 I&O: Total Stay 3 07/16/24 thru 07/18/24 09:45 Intake Total 3870.46 Output Total 590 Balance 3280.46 Current Meds Ordered / Administered: Current meds ordered / Administered 3 Generic Name Dose Route Start Last Admin Trade Name Freq PRN Reason Stop Dose Admin Acetaminophen 650 mg 07/16/24 11:23 Acetaminophen 325 Mg Tablet PO Q6H PRN PRN Pain 1-10 Or Fever>100.7 Albuterol/Ipratropium 3 ml 07/16/24 11:30 07/18/24 07:38 Ipratropium/Albuterol Sulfate 3 Ml Ampul.Neb INHALATION 3 ml Q6H.RT [place] Administration Allopurinol 100 mg 07/17/24 10:00 07/18/24 09:11 Allopurinol 100 Mg Tablet PO 100 mg DAILY [place] Administration Calcium Acetate 667 mg 07/16/24 17:00 07/18/24 08:04 Calcium Acetate 667 Mg Capsule PO 667 mg TIDCM [place] Administration Guaifenesin 10 ml 07/16/24 11:23 07/16/24 20:55 Guaifenesin 10 Ml Udc (200mg/10ml) PO 10 ml Q4H PRN PRN Administration COUGH Hydrocortisone Sodium Succinate 100 mg 07/16/24 14:00 07/18/24 05:15 Hydrocortisone Sod Succinate 100 Mg/2 Ml Vial IV 100 mg Q8 [place] Administration Sodium Chloride 250 mls @ 15 mls/hr 07/16/24 11:19 07/17/24 21:31 IV 15 mls/hr .[id number] PRN Infusion Additional IVPB Infusion Sodium Chloride 250 mls @ 15 mls/hr 07/16/24 11:19 07/18/24 04:08 IV Infused .[id number] PRN Infusion Saline Flush Norepinephrine Bitartrate 8 mg 250 mls @ 9.375 mls/hr 07/16/24 11:25 07/18/24 09:45 / Sodium Chloride CONT INF 2 mcg/min .[id number] [place] 3.8 mls/hr Titration Protocol 5 MCG/MIN Piperacillin Sod/Tazobactam 50 mls @ 12.5 mls/hr 07/16/24 22:00 07/18/24 01:31 Sod 3.375 gm/ Sodium Chloride IV Infused Q12 [place] Infusion Vancomycin IV-PHARMACY TO DOSE 500 mls @ 250 mls/hr 07/16/24 11:29 1 each/ Sodium Chloride IV PRN PRN Rx to Dose Protocol Vasopressin 20 units/ Sodium 25 mls @ 3 mls/hr 07/16/24 13:05 07/18/24 08:43 Chloride CONT INF Infused .[id number] [place] Infusion 0.04 UNITS/MIN Azithromycin 500 mg/ Dextrose 255 mls @ 250 mls/hr 07/16/24 13:45 07/18/24 09:09 IV 250 mls/hr Q24 [place] Administration Melatonin 3 mg 07/16/24 11:23 07/16/24 20:56 Melatonin 3 Mg Tablet PO 3 mg QHS PRN PRN Administration INSOMNIA Midodrine 5 mg 07/17/24 12:00 07/18/24 08:04 Midodrine Hcl 5 Mg Tablet PO 5 mg TIDCM [place] Administration Ondansetron HCl 4 mg 07/16/24 11:23 Ondansetron 4 Mg/2 Ml Vial IV Q8H PRN PRN NAUSEA/VOMITING Senna/Docusate Sodium 2 tablet 07/16/24 11:23 Senna/Docusate Sodium 1 Tablet PO BID PRN Constipation Sodium Chloride 10 - 40 ml 07/16/24 11:19 07/18/24 08:03 0.9% Saline Lock 10 Ml Syringe IV 40 ml UD PRN Administration SALINE FLUSH Warfarin Sodium 2.5 mg 07/16/24 17:00 07/18/24 09:33 Warfarin 2.5 Mg Tablet PO Not Given Ryan@1700 [facility] Lab / Micro Data 07/18/24 05:20 07/18/24 05:20 Labs: Laboratory Results - last 24 hr 07/17/24 11:55: Lactic Acid 5.5 H* 07/17/24 18:08: Lactic Acid 3.9 H* 07/17/24 22:39: Lactic Acid 2.9 H* 07/18/24 05:20: WBC 28.8 H, RBC 2.30 L, Hgb 7.0 L, Hct 21.5 L, MCV 93.5, MCH 30.4, MCHC 32.6, RDW Std Deviation 54.7 H, RDW Coeff of Morris 16.0 H, Plt Count 159, MPV 10.2, Neut % (Auto) Not Reportable, Absolute Neuts (auto) 28.2 H, A bsolute Lymphs (auto) 0.00 L, Total Counted 100, Neutrophils % (Manual) 87 H, B and Neutrophils % 11 H, Monocytes % (Manual) 2, Platelet Estimate ADEQUATE, Anisocytosis 2+, Ovalocytes 1+, PT 71.0 H, INR 8.8 H*, Sodium 137, Potassium 4.4, Chloride 102, Carbon Dioxide 19.0 L, Anion Gap 16 H, BUN 83 H, Creatinine 5.49 H, Estim Creat Clear Calc 11.33, Est GFR (MDRD) Af Amer 13 L, Est GFR (MDRD) Non-Af 11 L, BUN/Creatinine Ratio 15.1, Glucose 146 H, Calcium 7.6 L 07/18/24 08:00: Iron 10 L, TIBC 163 L, Iron Saturation 6.1 L, Ferritin 2157 H, Blood Type O POSITIVE, Antibody Screen NEGATIVE, Crossmatch See Detail Imaging Radiology Impression Chest X-Ray 07/18/24 05:55 IMPRESSION: Persistent left mid and lower lung opacification with mild improved aeration but slightly worsened effusion compared with prior exam. Electronically Signed: Beka Rojas MD at 7:50 EDT , Assessment and Plan . Assessment and plan: Subjective: No acute events o/n. Feeling overall better. Down to 1L NC, minimal pressors now. Physical Exam: Gen - NAD, fatigued HEENT - MMM. Sclera anicteric Resp - +crackles, tachypneic but less so than yest CV - RRR. No m/g/r Abd - Soft, NT, ND Ext - No c/c/e. Skin - No rashes? Neuro - Grossly nonfocal. Alert and oriented I have reviewed the pertinent vital sign, laboratory, and imaging data. ASSESSMENT: #?Acute hypoxic respiratory failure # Septic shock # PNA - urine strep Ag positive # Lactic acidosis # COPD # ESRD on HD # Afib - pt reports being told he had this in past as well # Chronic prednisone use ? prescribed 20mg daily per his PCP for unclear reasons # Chronic anticoagulation for fistula clotting # Anemia # Gout # h/o HTN # h/o tobacco use PLAN: -On 1L NC, wean to keep sats >90%. Cont NIV PRN and with sleep as tolerated. Overall improving -Follow CXR, monitor for need for thora -Wean levophed to keep MAP > 65, down to 2 mcg/min now and off vaso which is much improved from yest. CVL placed at OSH. -Cont stress dose hydrocortisone -Empiric vanc/zosyn/azithro. f/u Cx. Viral panel neg. Can likely de-escalate pending prelim sputum Cx results -Budesonide, duonebs -Nephrology following. Tentative plan for HD tmrw -Lactate downtrending, follow -TTE w/ EF 50%, G1 DD, no pericardial effusion -Monitor CBC. Agree with pRBC transfusion. Monitor for bleeding, none evident thus far -Obtain outside CT chest report if able, consider repeat here pending clinical course -Follow INR, supratherapeutic currently on warfarin. FEN/GI: PO diet as tolerated Proph DVT/GI: Holding warfarin for supratherapeutic INR Updated at bedside yest Critical Care Time: 50 mins The entirety of this encounter was completed via telemedicine
[2024-07-18] MEDS: Piperacil/Tazobactam 3.375 GM in 0.9% Normal Saline (50mL MB+) 50 ML IV ×2 (10:20→21:06)
[2024-07-18] MEDS: 0.9% Normal Saline (250mL Bag) 250 ML 15 ML IV (21:07)
[2024-07-19] VITALS (35 sets, daily range): BP systolic 115–338; BP diastolic 45–102; PULSE 71–127; RESP 14–30; TEMP 36.2–36.7; O2SAT 89–100; BMI 28.8; BMI 28.1
[2024-07-19] MEDS: Ipratropium/Albuterol Sulfate 3 ML AMPUL.NEB INHALATION ×4 (01:20→18:50)
[2024-07-19] MEDS: 0.9% Saline Lock 10 ML Syringe IV ×3 (05:36→20:52)
[2024-07-19] MEDS: Hydrocortisone Sod Succinate 100 MG/2 ML Vial IV ×3 (05:36→20:54)
[2024-07-19 05:59] LABS: Absolute Lymphocyte Count 0.14 X10^3/uL (0.83-4.51); Absolute Neutrophil Count 28.5 X10^3/uL (2.0-7.7); Basophil# 0.05 X10^3/uL; Basophil% 0.2 % (0-1); Hematocrit 21.1 % (40-54); Lymphocyte # 0.14 X10^3/ul (0.83-4.51); Lymphocyte % 0.5 % (19-41); Mean Corp Hgb Conc 33.2 g/dL (32-36); Mean Corpuscular Hgb 30.6 pg (27.0-32.0); Mean Corpuscular Volume 92.1 fL (80-94); Monocyte# 0.62 X10^3/uL; Monocyte% 2.1 % (0-10); NRBC Flagged by Analyzer 0 % (0-5); Neutrophil # 28.45 X10^3/uL (2.7-7.7); Neutrophil % 96.5 % (47-70); POSITIVE DIFFERENTIAL YES; Platelet Count 145 K/mm3 (150-450); RBC Distribution Width SD 52.5 fl (35.1-43.9); Red Blood Count 2.29 M/mm3 (4.6-6.2); White Blood Count 29.5 K/mm3 (4.4-11.0)
[2024-07-19 06:01] LABS: Differential Indicated SCAN CRITERIA MET
[2024-07-19 06:39] LABS: Anion Gap 16 (5-15); BUN 104 mg/dL (7-18); BUN/Creat Ratio 19.4 RATIO (10-20); Chloride 103 mmol/L (98-107); Creatinine, Serum 5.35 mg/dL (0.70-1.30); EST Glomerular Filtration Rate 11 mL/min (>60); Est Glom Filt Rate - Afr Amer 13 mL/min (>60); Estimated Creatinine Clearance 11.58 ml/min; Glucose 114 mg/dL (74-106); Magnesium 2.7 mg/dL (1.6-2.6); Phosphorus 7.7 mg/dL (2.5-4.9); Potassium 3.7 mmol/L (3.5-5.1); Sodium Level 139 mmol/L (136-145)
--- NOTE | 2024-07-19 06:40 | PCM.PN.INT ---
Assessment & Plan Assessment/Plan (1) Septic shock: (2) Pneumonia: PLAN: Plan RECOMMENDATIONS: 1. Supplemental oxygen to maintain saturations at or above 90%. 2. Recommend continuing PAP therapy with naps and nightly. 3. Dialysis support per nephrology recommendations. 4. Continue stress dose steroids and midodrine. 5. Continue antimicrobials. 6. Continue scheduled bronchodilators. 7. Transfuse blood products as ordered. Check H&H posttransfusion. 8. Monitor INR daily. 9. Start daily PPI therapy. IMPRESSIONS: 1. Acute hypoxemic respiratory failure The patient has a known history of COPD of unknown severity and was admitted to the hospital with an exacerbation likely related to Streptococcus pneumonia. The patient has improved from a respiratory perspective with scheduled bronchodilators, antimicrobials and steroids. Plan to continue current supportive measures, including supplemental oxygen to maintain saturations at or above 90%. Ongoing PAP therapy was encouraged with naps and nightly. Encourage incentive spirometer use and mobilize patient as tolerated. 2. Septic shock Appears secondary to streptococcal pneumonia. The patient has been successfully weaned from vasopressor support. Given his chronic corticosteroid dependency, the patient was initiated on appropriate stress dose steroids. If the patient remains hemodynamically stable over the course of the next 24 hours, will begin to wean his stress dose steroids. Otherwise, continue antimicrobials as ordered. 3. Anemia The patient has a hemoglobin of 7.0 g/dL currently. Stool for occult blood was positive. The patient did present with a supratherapeutic INR. Recommend following INR daily. Plan to transfuse blood products with dialysis today. The patient will be started on PPI therapy. If anemia worsens, recommend consultation to gastroenterology. 4. End-stage renal disease on hemodialysis Continue ongoing dialysis support per nephrology recommendations. 5. Coagulopathy Continue to hold Coumadin for now. Monitor INR daily. 6. Chronic corticosteroid utilization of unclear etiology/gout/history of hypertension/tobacco dependency Complicates care, management, recovery and prognosis. Continue to hold home antihypertensives for now. This note was generated with [employer] dictation software. It may contain incorrect words, spelling, and punctuation that were not noted in checking the note before signing. Subjective Subjective The patient was seen and examined at the bedside this morning. Events from the last 24 hours have been reviewed. The patient is currently afebrile, hemodynamically stable and maintaining appropriate oxygen saturations on 2 L/min via nasal cannula. The patient was able to wean off of Levophed completely last evening. No overnight issues were identified by the nursing staff. He remains on scheduled midodrine and stress dose steroids. White blood cell count remains elevated at 30,000 with a hemoglobin of 7.0 g/dL. Platelet count is low at 145,000. Objective Data Objective Data The patient's most recent lab work, culture data and imaging studies have all been personally reviewed. Surface echocardiogram demonstrated normal LV size with an ejection fraction of 50% and stage I diastolic dysfunction. Stool for occult blood was positive. Streptococcus pneumonia urinary antigen was positive on July 16. Vital Signs: Vital Signs Temp Pulse Resp BP Pulse Ox O2 Del Method O2 Flow Rate 98.0 F 81 17 119/53 L 97 Nasal Cannula 2 07/19/24 00:00 07/19/24 06:00 07/19/24 06:00 07/19/24 06:00 07/19/24 06:00 07/19/24 06:00 07/19/24 06:00 FiO2 40 07/18/24 04:00 Oxygen Flow Rate (L/min) 2 Oxygen Delivery Method Nasal Cannula Weight: 179 lb 3.773 oz Body Mass Index (BMI) 28.8 Intake & Output: Intake and Output for Last 24 Hours 07/17/24 07/18/24 07/19/24 23:59 23:59 23:59 Intake Total 2238.30 / 2266.40 1836.56 / 1836.56 212.5 / 212.5 Output Total 300 / 340 490 / 490 400 / 400 Balance 1938.30 / 1926.40 1346.56 / 1346.56 -187.5 / -187.5 Lab / Micro Data Attestation: I reviewed the patient's lab results. 07/19/24 05:49 07/19/24 05:49 Labs: Laboratory Results - last 24 hr 07/18/24 08:00: Iron 10 L, TIBC 163 L, Iron Saturation 6.1 L, Ferritin 2157 H, Blood Type O POSITIVE, Antibody Screen NEGATIVE, Crossmatch See Detail 07/19/24 05:49: WBC 29.5 H, RBC 2.29 L, Hgb 7.0 L, Hct 21.1 L, MCV 92.1, MCH 30.6, MCHC 33.2, RDW Std Deviation 52.5 H, RDW Coeff of [place] 16.0 H, Plt Count 145 L, MPV 10.0, Immature Gran % (Auto) 0.700, Neut % (Auto) 96.5 H, Lymph % (Auto) 0.5 L, [place] % (Auto) 2.1, Eos % (Auto) 0.0, Baso % (Auto) 0.2, Absolute Neuts (auto) 28.5 H, Absolute Lymphs (auto) 0.14 L, Nucleated RBC % 0, Sodium 139, Potassium 3.7, Chloride 103, Carbon Dioxide 20.0 L, Anion Gap 16 H, BUN 104 H*, Creatinine 5.35 H, Estim Creat Clear Calc 11.58, Est GFR (MDRD) Af Amer 13 L, Est GFR (MDRD) Non-Af 11 L, BUN/Creatinine Ratio 19.4, Glucose 114 H, Calcium 8.0 L, Phosphorus 7.7 H, Magnesium 2.7 H Micro: Microbiology 07/16/24 11:45 Blood Culture (Wb) - Central Line Blood Culture - Preliminary No growth in 48 hours. 07/18/24 11:05 Stool Stool Occult Blood (ANDRES) - Final Occult Blood Positive 07/16/24 12:50 Mucosa - Nasopharyngeal Respiratory Panel (PCR) - Final 07/16/24 14:45 Urine, Random Legionella Antigen - Final 07/16/24 14:45 Urine, Random Streptococcus pneumoniae Antigen (M - Final Streptococcus pneumonia Ag 07/16/24 11:45 Nasal Secretion MRSA (PCR) - Final Radiography Diagnostic Testing: Radiology Impression Chest X-Ray 07/18/24 05:55 IMPRESSION: Persistent left mid and lower lung opacification with mild improved aeration but slightly worsened effusion compared with prior exam. Electronically Signed: Beka Rojas MD at 7:50 EDT , Physical Exam Const alert and no apparent distress General Appearance: cooperative HEENT normocephalic and head/scalp atraumatic Eyes PERRL, EOMs intact bilaterally and conjunctivae normal Neck supple General: trachea midline and CVC in place Chest inspection of chest normal Resp normal respiratory effort Auscultation: Negative for rales, rhonchi or wheezes Cardio regular rate and regular rhythm GI normal to inspection, nondistended, normoactive bowel sounds Extremity General Extremity: Negative for clubbing or edema Skin no rashes or lesions noted Neuro CN's II-XII intact bilaterally, moves all extremities and no focal motor deficits Psych cooperative and affect normal Charges/Coding Visit Charges Inpatient E&M: 23701 Subs Hosp L3
[2024-07-19 06:42] LABS: Anisocytosis 2+; Ovalocyte 2+; Polychromasia RARE
[2024-07-19 06:44] LABS: Differential Comment SCANNED
[2024-07-19 07:06] LABS: Prothrombin Time (Protime)PT. 57.8 SECONDS (11.7-14.9)
--- NOTE | 2024-07-19 07:18 | PN.HOSP_ITS ---
Reason for Visit Reason for Visit: Diagnoses Sepsis, unspecified organism (07/16/24) Pneumonia, unspecified organism (07/16/24) End stage renal disease (07/16/24) Severe sepsis with septic shock (07/16/24) Subjective Subjective Breathing well. Feeling better. Objective Data Objective Data Vital Signs: Vital Signs Temp Pulse Resp BP Pulse Ox O2 Del Method O2 Flow Rate 36.7 C 81 17 119/53 L 97 Nasal Cannula 2 07/19/24 00:00 07/19/24 06:00 07/19/24 06:00 07/19/24 06:00 07/19/24 06:00 07/19/24 06:00 07/19/24 06:00 FiO2 40 07/18/24 04:00 Oxygen Flow Rate (L/min) 2 Oxygen Delivery Method Nasal Cannula Weight: 81.3 kg Body Mass Index (BMI) 28.8 Intake & Output: Intake and Output for Last 24 Hours 07/17/24 07/18/24 07/19/24 23:59 23:59 23:59 Intake Total 2238.30 / 2266.40 1836.56 / 1836.56 212.5 / 212.5 Output Total 300 / 340 490 / 490 400 / 400 Balance 1938.30 / 1926.40 1346.56 / 1346.56 -187.5 / -187.5 Lab / Micro Data 07/19/24 05:49 07/19/24 05:49 Labs: Laboratory Results - last 24 hr 07/18/24 08:00: Iron 10 L, TIBC 163 L, Iron Saturation 6.1 L, Ferritin 2157 H, Blood Type O POSITIVE, Antibody Screen NEGATIVE, Crossmatch See Detail 07/19/24 05:49: WBC 29.5 H, RBC 2.29 L, Hgb 7.0 L, Hct 21.1 L, MCV 92.1, MCH 30.6, MCHC 33.2, RDW Std Deviation 52.5 H, RDW Coeff of [place] 16.0 H, Plt Count 145 L, MPV 10.0, Immature Gran % (Auto) 0.700, Neut % (Auto) 96.5 H, Lymph % (Auto) 0.5 L, [place] % (Auto) 2.1, Eos % (Auto) 0.0, Baso % (Auto) 0.2, Absolute Neuts (auto) 28.5 H, Absolute Lymphs (auto) 0.14 L, Nucleated RBC % 0, Differential Comment SCANNED, Polychromasia RARE, Anisocytosis 2+, Ovalocytes 2+, Sodium 139, Potassium 3.7, Chloride 103, Carbon Dioxide 20.0 L, Anion Gap 16 H, BUN 104 H*, Creatinine 5.35 H, Estim Creat Clear Calc 11.58, Est GFR (MDRD) Af Amer 13 L, Est GFR (MDRD) Non-Af 11 L, BUN/Creatinine Ratio 19.4, Glucose 114 H, Calcium 8.0 L, Phosphorus 7.7 H, Magnesium 2.7 H Micro: Microbiology 07/16/24 11:45 Blood Culture (Wb) - Central Line Blood Culture - Preliminary No growth in 48 hours. 07/18/24 11:05 Stool Stool Occult Blood (ANDRES) - Final Occult Blood Positive 07/16/24 12:50 Mucosa - Nasopharyngeal Respiratory Panel (PCR) - Final 07/16/24 14:45 Urine, Random Legionella Antigen - Final 07/16/24 14:45 Urine, Random Streptococcus pneumoniae Antigen (M - Final Streptococcus pneumonia Ag 07/16/24 11:45 Nasal Secretion MRSA (PCR) - Final Radiography Diagnostic Testing: Radiology Impression Chest X-Ray 07/18/24 05:55 IMPRESSION: Persistent left mid and lower lung opacification with mild improved aeration but slightly worsened effusion compared with prior exam. Electronically Signed: Beka Rojas MD at 7:50 EDT Reading Location ID and State: [facility] / [place] Tel , Service support , Physical Exam Const alert and average body habitus Resp normal respiratory effort, no retractions and no use of accessory muscles Cardio regular rate, regular rhythm, S1 normal heart sound and S2 normal heart sound GI normal to inspection, nondistended, normoactive bowel sounds, soft to palpation, non-tender and non-distended Neuro Sensorium / Orientation: awake and alert Assessment & Plan Assessment/Plan (1) Septic shock: (2) Pneumonia: PLAN: Plan Septic shock * resolved * 2/2 pneumonia. * Abx w pip-tazo and vancomycin. Azithromycin added, too. * Norepinephrine and vasopressin have since been weaned off. * MRSA from sputum, blood culture, Legionella urinary antigen negative. Sputum culture pending. Urinary antigens for Streptococcus positive. * on midodrine and stress-dose steroids. Pneumococcal pneumonia * Positive urinary antigen * Current antibiotics with pip-tazo and vancomycin * PEP therapy Acute hypoxic respiratory failure * ABG on admission showed pH of 7.35, pCO2 of 30.9 and a pO2 of 66. On that was while the patient was on the BiPAP. Subsequent to that, patient was not tolerating the BiPAP and tolerating nasal cannula and nasal cannula Successfully weaned down to 1 L currently. End-stage renal disease * On hemodialysis normally Mondays, Wednesdays and Fridays. * Seen by nephrology and with the patient's hemodynamic status at that time, dialysis was held. Chronic conditions * Hypertension: Atenolol, lisinopril on hold given the septic shock. * History of AV fistula clots: Takes warfarin. INR has been profoundly elevated. INR currently pending today. Therefore warfarin on hold. * History of gout with out acute flare. Continue with allopurinol VTE prophylaxis: Not indicated as patient is INR has been elevated. Charges/Coding Visit Charges Inpatient E&M: 00595 Subs Hosp L2
[2024-07-19] MEDS: Calcium Acetate 667 MG Capsule PO ×2 (08:20→15:03)
[2024-07-19] MEDS: Midodrine HCl 5 MG Tablet PO ×2 (08:21→15:05)
[2024-07-19] MEDS: Allopurinol 100 MG Tablet PO (08:21)
[2024-07-19 08:24] LABS: Vitamin B12 904 pg/mL (211-911)
[2024-07-19] MEDS: Azithromycin 500 MG in Dextrose 5%-Water (250mL Bag) 250 ML 250 MG IV (08:24)
[2024-07-19 08:46] LABS: International Normalized Ratio 6.7
[2024-07-19] MEDS: 0.9% Normal Saline 1,000 ML IV.SOLN. 1000 ML OPERA.SITE (09:22)
[2024-07-19] MEDS: PureFlow B 3K Dialysis Soln 1 BAG 6 BAG PF (09:22)
--- NOTE | 2024-07-19 10:00 | CASEMGMT ---
Social Work- SW met with pt to conduct SDOH assessment. Pt reports no concerns; SDOH triggered in error. Pt reports that he and his have been for 29years. Pt reports that he has two sons, a daughter, and two grandchildren who live close by. Pt reports his home has a ramp, no stairs, and that everything is straight lines for ambulation. Pt reports that he has grab bars, shower chair, toilet chair, a cane, wheeled walker, and wheelchair. Pt reports that he uses canes primarily unless going longer distances. Pt reports his oxygen often drops and worries. Pt had bouts of low oxygen while in conversation with SW. Pt states his plans are home, no HHC. Pt declines HCPOA at this time, stating he and his have spoken about his wishes and he does not feel he needs directives. Pt states his would like to speak with SW when she comes in. SW asked nursing staff to alert SW when spouse is present on the floor. SOUTH Stacy
--- NOTE | 2024-07-19 11:44 | CASEMGMT ---
Social Work- SW met with pt to discuss d/c planning and goals of care. Pt reports that pt was in [place] spring 2022 for an extended stay and had to be d/c to [facility]. Pt would like to follow PT/OT to have an idea of the level of care that pt will require. Pt states pt has also had OP therapy in [place] before. SW will continue to follow. SOUTH Stacy
[2024-07-19 13:00] LABS: Pathologist Review Reviewed
[2024-07-19] MEDS: Pantoprazole Sodium 40 MG in 0.9% Normal Saline (100mL MB+) 100 ML 330 MG IV (14:16)
[2024-07-19] MEDS: Piperacil/Tazobactam 3.375 GM in 0.9% Normal Saline (50mL MB+) 50 ML IV ×2 (15:01→20:51)
--- NOTE | 2024-07-19 15:24 | PCM.RX.CS ---
Consult Antibiotic Management Pharmacy has been consulted to manage selected antibiotic: Vancomycin Type of Intervention Type of Consult: Follow-up Suspected Infection Suspected Infection: Sepsis Prior Doses of Antibiotics Prior Doses of Antibiotics Received/Current Regimen: 07/16/24 @ 0809 at a outside hospital 2000mg x1 07/19/24 @ 1600 500mg x1 Labs Labs: Sodium 139 mmol/L (136-145) 07/19/24 05:49 Potassium 3.7 mmol/L (3.5-5.1) 07/19/24 05:49 Chloride 103 mmol/L (98-107) 07/19/24 05:49 Carbon Dioxide 20.0 mmol/L (21.0-32.0) L 07/19/24 05:49 Anion Gap 16 (5-15) H 07/19/24 05:49 BUN 104 mg/dL (7-18) H* 07/19/24 05:49 Creatinine 5.35 mg/dL (0.70-1.30) H 07/19/24 05:49 Est GFR (MDRD) Af Amer 13 mL/min (>60) L 07/19/24 05:49 Est GFR (MDRD) Non-Af 11 mL/min (>60) L 07/19/24 05:49 BUN/Creatinine Ratio 19.4 RATIO (10-20) 07/19/24 05:49 Glucose 114 mg/dL (74-106) H 07/19/24 05:49 Microbiology Microbiology: Microbiology 07/18/24 05:20 Sputum, Expectorated/Coughed Gram Stain - Final 07/18/24 05:20 Sputum, Expectorated/Coughed Respiratory Culture - Preliminary Appears to be normal respiratory esperanza. Further studies to follow. 07/16/24 11:45 Blood Culture (Wb) - Central Line Blood Culture - Preliminary No growth in 48 hours. 07/18/24 11:05 Stool Stool Occult Blood (ANDRES) - Final Occult Blood Positive 07/16/24 12:50 Mucosa - Nasopharyngeal Respiratory Panel (PCR) - Final 07/16/24 14:45 Urine, Random Legionella Antigen - Final 07/16/24 14:45 Urine, Random Streptococcus pneumoniae Antigen (M - Final Streptococcus pneumonia Ag 07/16/24 11:45 Nasal Secretion MRSA (PCR) - Final Dosing Weight Weight used for dosin kg Goal Trough Goal Trough: 15-20 mcg/mL Pharmacy Plan for Drug Dosing Pharmacy Plan for Drug Dosinmg of VAncomycin x1 post dialysis random Vancomycin level pre dialysis patient scheduled for dialysis Friday,Friday, Friday Pharmacy Service will continue to monitor and adjust dosing as required. Date/Time Labs Ordered Labs to be done on [date and time ordered]: 07/21/24 @ 0600 random Vancomycin level
[2024-07-19] MEDS: Vancomycin IV 500 MG/100 ML BAG 100 MG IV (15:55)
--- NOTE | 2024-07-19 20:08 | EKG12_ITS ---
Test Reason : Blood Pressure : / mmHG Vent. Rate : 124 BPM Atrial Rate : 000 BPM P-R Int : 000 ms QRS Dur : 076 ms QT Int : 244 ms P-R-T Axes : 000 020 213 degrees QTc Int : 350 ms Atrial fibrillation with rapid ventricular response Nonspecific ST and T wave abnormality Abnormal ECG When compared with ECG of 17-JUL-2024 10:32, MANUAL COMPARISON REQUIRED, DATA IS UNCONFIRMED Confirmed by ANURAG NG, JOSE ([id number]), editorial intern ALICIA TSANG ([id number]) on 07/20/2024 7:51:27 AM Referred By: Edel Biggs Confirmed By:JOSE OSBORN MD
[2024-07-19] MEDS: Digoxin 250 MCG/ML Ampul IV (20:51)
[2024-07-20] VITALS (8 sets, daily range): BP systolic 115–143; BP diastolic 46–54; PULSE 80–95; RESP 15–22; TEMP 36.6–36.8; O2SAT 91–96; BMI 28.0
[2024-07-20] MEDS: Ipratropium/Albuterol Sulfate 3 ML AMPUL.NEB INHALATION ×4 (00:22→18:58)
[2024-07-20] MEDS: Hydrocortisone Sod Succinate 100 MG/2 ML Vial IV ×2 (06:00→07:46)
[2024-07-20] MEDS: 0.9% Saline Lock 10 ML Syringe IV (06:01)
[2024-07-20 06:27] LABS: Absolute Lymphocyte Count 0.24 X10^3/uL (0.83-4.51); Absolute Neutrophil Count 21.4 X10^3/uL (2.0-7.7); Basophil# 0.03 X10^3/uL; Basophil% 0.1 % (0-1); Hematocrit 23.1 % (40-54); Hemoglobin 7.6 g/dL (13.0-16.5); Lymphocyte # 0.24 X10^3/ul (0.83-4.51); Lymphocyte % 1.1 % (19-41); Mean Corp Hgb Conc 32.9 g/dL (32-36); Mean Corpuscular Hgb 29.8 pg (27.0-32.0); Mean Corpuscular Volume 90.6 fL (80-94); Mean Platelet Vol. 10.1 fl (6.2-12.0); Monocyte# 0.62 X10^3/uL; Monocyte% 2.8 % (0-10); NRBC Flagged by Analyzer 0 % (0-5); Neutrophil # 21.41 X10^3/uL (2.7-7.7); POSITIVE DIFFERENTIAL YES; Platelet Count 133 K/mm3 (150-450); RBC Distribution Width CV 16.7 % (11.6-14.6); Red Blood Count 2.55 M/mm3 (4.6-6.2); White Blood Count 22.5 K/mm3 (4.4-11.0)
--- NOTE | 2024-07-20 06:37 | PCM.PN.INT ---
Assessment & Plan Assessment/Plan (1) Septic shock: (2) Pneumonia: PLAN: Plan RECOMMENDATIONS: 1. Supplemental oxygen to maintain saturations at or above 90%. 2. Recommend continuing PAP therapy with naps and nightly. 3. Dialysis support per nephrology recommendations. 4. Wean stress dose steroids as tolerated. 5. Continue antimicrobials. 6. Continue scheduled bronchodilators. 7. Continue to monitor H&H and transfuse if hemoglobin drops below 7 g/dL. 8. Continue PPI therapy. IMPRESSIONS: 1. Acute hypoxemic respiratory failure The patient has a known history of COPD of unknown severity and was admitted to the hospital with an exacerbation likely related to Streptococcus pneumonia. The patient has improved from a respiratory perspective with scheduled bronchodilators, antimicrobials and steroids. Plan to continue current supportive measures, including supplemental oxygen to maintain saturations at or above 90%. Ongoing PAP therapy was encouraged with naps and nightly. Encourage incentive spirometer use and mobilize patient as tolerated. 2. Septic shock Appears secondary to streptococcal pneumonia. The patient has been successfully weaned from vasopressor support. Given his chronic corticosteroid dependency, the patient was initiated on appropriate stress dose steroids. Given his hemodynamic stability, will start to wean stress dose steroids today. Otherwise, continue antimicrobials as ordered. 3. Anemia The patient developed anemia during this hospitalization with a paul hemoglobin of 7.0 g/dL. He has been transfused 1 unit of packed red blood cells. Stool for occult blood was positive. The patient did present with a supratherapeutic INR, which is slowly improving. Recommend monitoring H&H, with plans to transfuse if hemoglobin drops below 7 g/dL. Continue PPI therapy. If anemia worsens, recommend consultation to gastroenterology. 4. End-stage renal disease on hemodialysis Continue ongoing dialysis support per nephrology recommendations. 5. Coagulopathy Continue to hold Coumadin for now. Monitor INR daily. 6. Chronic corticosteroid utilization of unclear etiology/gout/history of hypertension/tobacco dependency Complicates care, management, recovery and prognosis. Continue to hold home antihypertensives for now. This note was generated with [employer] dictation software. It may contain incorrect words, spelling, and punctuation that were not noted in checking the note before signing. Subjective Subjective The patient was seen and examined at the bedside this morning. Events from the last 24 hours have been reviewed. The patient is currently afebrile, hemodynamically stable and maintaining appropriate oxygen saturations on 2 L/min via nasal cannula. White count remains elevated at 22,000 with a hemoglobin of 7.6 g/dL, following transfusion of 1 unit of packed red blood cells yesterday. INR remains elevated at 5.3 this morning. Objective Data Objective Data The patient's most recent lab work, culture data and imaging studies have all been personally reviewed. Surface echocardiogram demonstrated normal LV size with an ejection fraction of 50% and stage I diastolic dysfunction. Stool for occult blood was positive. Streptococcus pneumonia urinary antigen was positive on July 16. Vital Signs: Vital Signs Temp Pulse Resp BP Pulse Ox O2 Del Method O2 Flow Rate 98.0 F 80 15 115/46 L 94 Nasal Cannula 2 07/20/24 04:00 07/20/24 04:00 07/20/24 04:00 07/20/24 04:00 07/20/24 04:00 07/20/24 04:00 07/20/24 04:00 FiO2 40 07/18/24 04:00 Oxygen Flow Rate (L/min) 2 Oxygen Delivery Method Nasal Cannula Weight: 174 lb 13.225 oz Body Mass Index (BMI) 28.0 Intake & Output: Intake and Output for Last 24 Hours 07/18/24 07/19/24 07/20/24 23:59 23:59 23:59 Intake Total 1836.56 / 1836.56 907.5 / 907.5 289.75 / 289.75 Output Total 490 / 490 4350 / 4450 100 / 100 Balance 1346.56 / 1346.56 -3442.5 / -3542.5 189.75 / 189.75 Lab / Micro Data Attestation: I reviewed the patient's lab results. 07/20/24 06:15 07/20/24 06:15 Labs: Laboratory Results - last 24 hr 07/17/24 03:23: Diff Path Review Reviewed 07/18/24 08:00: Vitamin B12 904, Antibody Screen NEGATIVE, Crossmatch See Detail 07/19/24 05:49: Differential Comment SCANNED, Polychromasia RARE, Anisocytosis 2+, Ovalocytes 2+, Sodium 139, Potassium 3.7, Chloride 103, Carbon Dioxide 20.0 L, Anion Gap 16 H, BUN 104 H*, Creatinine 5.35 H, Estim Creat Clear Calc 11.58, Est GFR (MDRD) Af Amer 13 L, Est GFR (MDRD) Non-Af 11 L, BUN/Creatinine Ratio 19.4, Glucose 114 H, Calcium 8.0 L, Phosphorus 7.7 H, Magnesium 2.7 H 07/19/24 06:45: PT 57.8 H, INR 6.7 H* Micro: Microbiology 07/18/24 05:20 Sputum, Expectorated/Coughed Gram Stain - Final 07/18/24 05:20 Sputum, Expectorated/Coughed Respiratory Culture - Final Presumptive C albicans 07/16/24 11:45 Blood Culture (Wb) - Central Line Blood Culture - Preliminary No growth in 48 hours. 07/18/24 11:05 Stool Stool Occult Blood (ANDRES) - Final Occult Blood Positive 07/16/24 12:50 Mucosa - Nasopharyngeal Respiratory Panel (PCR) - Final 07/16/24 14:45 Urine, Random Legionella Antigen - Final 07/16/24 14:45 Urine, Random Streptococcus pneumoniae Antigen (M - Final Streptococcus pneumonia Ag 07/16/24 11:45 Nasal Secretion MRSA (PCR) - Final Radiography Diagnostic Testing: Radiology Impression Chest X-Ray 07/18/24 05:55 IMPRESSION: Persistent left mid and lower lung opacification with mild improved aeration but slightly worsened effusion compared with prior exam. Electronically Signed: Beka Rojas MD at 7:50 EDT Reading Location ID and State: [facility] / [place] Tel , Service support , Physical Exam Const alert and no apparent distress General Appearance: cooperative HEENT normocephalic and head/scalp atraumatic Eyes PERRL, EOMs intact bilaterally and conjunctivae normal Neck supple General: trachea midline and CVC in place Chest inspection of chest normal Resp normal respiratory effort Auscultation: Negative for rales, rhonchi or wheezes Cardio regular rate and regular rhythm GI normal to inspection, nondistended, normoactive bowel sounds Extremity General Extremity: Negative for clubbing or edema Skin no rashes or lesions noted Neuro CN's II-XII intact bilaterally, moves all extremities and no focal motor deficits Psych cooperative and affect normal Charges/Coding Visit Charges Inpatient E&M: 86279 Subs Hosp L2
[2024-07-20 06:40] LABS: Anion Gap 13 (5-15); BUN 72 mg/dL (7-18); BUN/Creat Ratio 19.1 RATIO (10-20); Calcium,Total 8.8 mg/dL (8.5-10.1); Chloride 106 mmol/L (98-107); Creatinine, Serum 3.76 mg/dL (0.70-1.30); EST Glomerular Filtration Rate 17 mL/min (>60); Est Glom Filt Rate - Afr Amer 20 mL/min (>60); Estimated Creatinine Clearance 16.29 ml/min; Glucose 92 mg/dL (74-106); Potassium 3.9 mmol/L (3.5-5.1); Sodium Level 141 mmol/L (136-145)
[2024-07-20 06:41] LABS: International Normalized Ratio 5.3
--- NOTE | 2024-07-20 06:53 | PN.HOSP_ITS ---
Reason for Visit Reason for Visit: Diagnoses Sepsis, unspecified organism (07/16/24) Pneumonia, unspecified organism (07/16/24) End stage renal disease (07/16/24) Severe sepsis with septic shock (07/16/24) Subjective Subjective feels well. Objective Data Objective Data Vital Signs: Vital Signs Temp Pulse Resp BP Pulse Ox O2 Del Method O2 Flow Rate 36.7 C 80 15 115/46 L 94 Nasal Cannula 2 07/20/24 04:00 07/20/24 04:00 07/20/24 04:00 07/20/24 04:00 07/20/24 04:00 07/20/24 04:00 07/20/24 04:00 FiO2 40 07/18/24 04:00 Oxygen Flow Rate (L/min) 2 Oxygen Delivery Method Nasal Cannula Weight: 79.3 kg Body Mass Index (BMI) 28.0 Intake & Output: Intake and Output for Last 24 Hours 07/18/24 07/19/24 07/20/24 23:59 23:59 23:59 Intake Total 1836.56 / 1836.56 907.5 / 907.5 289.75 / 289.75 Output Total 490 / 490 4350 / 4450 100 / 100 Balance 1346.56 / 1346.56 -3442.5 / -3542.5 189.75 / 189.75 Lab / Micro Data 07/20/24 06:15 07/20/24 06:15 Labs: Laboratory Results - last 24 hr 07/17/24 03:23: Diff Path Review Reviewed 07/18/24 08:00: Vitamin B12 904, Antibody Screen NEGATIVE, Crossmatch See Detail 07/19/24 06:45: PT 57.8 H, INR 6.7 H* 07/20/24 06:15: PT 48.0 H, INR 5.3 H*, Sodium 141, Potassium 3.9, Chloride 106, Carbon Dioxide 22.0, Anion Gap 13, BUN 72 H, Creatinine 3.76 H, Estim Creat Clear Calc 16.29, Est GFR (MDRD) Af Amer 20 L, Est GFR (MDRD) Non-Af 17 L, BUN/Creatinine Ratio 19.1, Glucose 92, Calcium 8.8 Micro: Microbiology 07/18/24 05:20 Sputum, Expectorated/Coughed Gram Stain - Final 07/18/24 05:20 Sputum, Expectorated/Coughed Respiratory Culture - Final Presumptive C albicans 07/16/24 11:45 Blood Culture (Wb) - Central Line Blood Culture - Preliminary No growth in 48 hours. 07/18/24 11:05 Stool Stool Occult Blood (ANDRES) - Final Occult Blood Positive 07/16/24 12:50 Mucosa - Nasopharyngeal Respiratory Panel (PCR) - Final 07/16/24 14:45 Urine, Random Legionella Antigen - Final 07/16/24 14:45 Urine, Random Streptococcus pneumoniae Antigen (M - Final Streptococcus pneumonia Ag 07/16/24 11:45 Nasal Secretion MRSA (PCR) - Final Physical Exam Const alert and no apparent distress Resp Resp Narrative: Coarse breath sounds bilaterally Cardio regular rate and regular rhythm GI normal to inspection, nondistended, normoactive bowel sounds and soft to palpation Extremity normal to inspection and full ROM Psych affect normal Assessment & Plan Assessment/Plan (1) Septic shock: (2) Pneumonia: PLAN: Plan Septic shock * resolved * 2/2 pneumonia. * Abx w pip-tazo and vancomycin. Azithromycin added, too. * Norepinephrine and vasopressin have since been weaned off. * MRSA from sputum, blood culture, Legionella urinary antigen negative. Sputum culture pending. Urinary antigens for Streptococcus positive. * on midodrine and stress-dose steroids. Pneumococcal pneumonia * Positive urinary antigen * Current antibiotics with pip-tazo and vancomycin * PEP therapy Acute hypoxic respiratory failure * ABG on admission showed pH of 7.35, pCO2 of 30.9 and a pO2 of 66. On that was while the patient was on the BiPAP. Subsequent to that, patient was not tolerating the BiPAP and tolerating nasal cannula and nasal cannula Successfully weaned down to 1 L currently. End-stage renal disease * On hemodialysis normally Mondays, Wednesdays and Fridays. * Nephrology following. Supratherapuetic INR * Hold warfarin and monitor. Slowly trending down. Chronic conditions * Hypertension: Atenolol, lisinopril on hold given the septic shock. * History of AV fistula clots: Takes warfarin. INR has been profoundly elevated. INR currently pending today. Therefore warfarin on hold. * History of gout with out acute flare. Continue with allopurinol VTE prophylaxis: Not indicated as patient is INR has been elevated. Charges/Coding Visit Charges Inpatient E&M: 60707 Subs Hosp L2
[2024-07-20 07:03] LABS: Differential Indicated SCAN CRITERIA MET
[2024-07-20 07:12] LABS: Differential Comment SCANNED
[2024-07-20] MEDS: Pantoprazole Sodium 40 MG in 0.9% Normal Saline (100mL MB+) 100 ML 330 MG IV (07:42)
[2024-07-20] MEDS: Calcium Acetate 667 MG Capsule PO ×3 (07:45→16:29)
[2024-07-20] MEDS: Allopurinol 100 MG Tablet PO (07:45)
[2024-07-20] MEDS: Midodrine HCl 5 MG Tablet PO (07:46)
[2024-07-20] MEDS: Azithromycin 500 MG in Dextrose 5%-Water (250mL Bag) 250 ML 250 MG IV (08:57)
[2024-07-20] MEDS: Piperacil/Tazobactam 3.375 GM in 0.9% Normal Saline (50mL MB+) 50 ML IV ×2 (10:41→21:05)
--- NOTE | 2024-07-20 11:17 | PCM.PN.REN ---
Subjective Subjective No new complaints. WBC count is better. Blood pressure stable. Objective Data Objective Data Vital Signs: Vital Signs Temp Pulse Resp BP Pulse Ox O2 Del Method O2 Flow Rate 98.0 F 85 22 H 115/46 L 96 Room Air 2 07/20/24 04:00 07/20/24 07:10 07/20/24 07:10 07/20/24 04:00 07/20/24 07:10 07/20/24 08:00 07/20/24 07:10 FiO2 40 07/18/24 04:00 Oxygen Flow Rate (L/min) 2 Oxygen Delivery Method Room Air Weight: 79.3 kg Body Mass Index (BMI) 28.0 Intake & Output: Intake and Output for Last 24 Hours 07/18/24 07/19/24 07/20/24 23:59 23:59 23:59 Intake Total 1836.56 / 1836.56 907.5 / 907.5 654.75 / 654.75 Output Total 490 / 490 4350 / 4450 100 / 100 Balance 1346.56 / 1346.56 -3442.5 / -3542.5 554.75 / 554.75 Lab / Micro Data 07/20/24 06:15 07/20/24 06:15 Labs: Laboratory Results - last 24 hr 07/17/24 03:23: Diff Path Review Reviewed 07/20/24 06:15: WBC 22.5 H, RBC 2.55 L, Hgb 7.6 L, Hct 23.1 L, MCV 90.6, MCH 29.8, MCHC 32.9, RDW Std Deviation 55.0 H, RDW Coeff of Morris 16.7 H, Plt Count 133 L, MPV 10.1, Immature Gran % (Auto) 1.000 H, Neut % (Auto) 95.0 H, Lymph % (Auto) 1.1 L, [place] % (Auto) 2.8, Eos % (Auto) 0.0, Baso % (Auto) 0.1, Absolute Neuts (auto) 21.4 H, Absolute Lymphs (auto) 0.24 L, Nucleated RBC % 0, Differential Comment SCANNED, PT 48.0 H, INR 5.3 H*, Sodium 141, Potassium 3.9, Chloride 106, Carbon Dioxide 22.0, Anion Gap 13, BUN 72 H, Creatinine 3.76 H, Estim Creat Clear Calc 16.29, Est GFR (MDRD) Af Amer 20 L, Est GFR (MDRD) Non-Af 17 L, BUN/Creatinine Ratio 19.1, Glucose 92, Calcium 8.8 Micro: Microbiology 07/18/24 05:20 Sputum, Expectorated/Coughed Gram Stain - Final 07/18/24 05:20 Sputum, Expectorated/Coughed Respiratory Culture - Final Presumptive C albicans 07/16/24 11:45 Blood Culture (Wb) - Central Line Blood Culture - Preliminary No growth in 48 hours. 07/18/24 11:05 Stool Stool Occult Blood (ANDRES) - Final Occult Blood Positive 07/16/24 12:50 Mucosa - Nasopharyngeal Respiratory Panel (PCR) - Final 07/16/24 14:45 Urine, Random Legionella Antigen - Final 07/16/24 14:45 Urine, Random Streptococcus pneumoniae Antigen (M - Final Streptococcus pneumonia Ag 07/16/24 11:45 Nasal Secretion MRSA (PCR) - Final Physical Exam Narrative Alert awake oriented x 3 no pallor no icterus no JVD s1s2 no murmurs lungs left sided crackles abdomen soft no organomegaly no edema no cyanosis Assessment & Plan Assessment/Plan (1) ESRD (end stage renal disease): PLAN: On hemodialysis Friday, Friday, Friday. Continue dialysis as per schedule, next dialysis tomorrow. Tolerated dialysis yesterday very well. Streptococcus pneumonia. Management as per ICU Anemia. Transfuse if hemoglobin less than 7.
--- NOTE | 2024-07-20 20:21 | CPS ---
Patient refused PAP therapy for night time use
[2024-07-21] VITALS (26 sets, daily range): BP systolic 119–346; BP diastolic 48–101; PULSE 77–105; RESP 14–26; TEMP 36.2–36.8; O2SAT 89–99; BMI 28.5; BMI 31.4
[2024-07-21] MEDS: Ipratropium/Albuterol Sulfate 3 ML AMPUL.NEB INHALATION ×3 (02:22→14:35)
[2024-07-21] MEDS: Vancomycin Trough/Random Due 1 LAB MC (06:07)
[2024-07-21] MEDS: 0.9% Saline Lock 10 ML Syringe IV ×2 (06:08→10:07)
[2024-07-21 06:20] LABS: Absolute Lymphocyte Count 0.59 X10^3/uL (0.83-4.51); Absolute Neutrophil Count 13.8 X10^3/uL (2.0-7.7); Basophil# 0.04 X10^3/uL; Basophil% 0.3 % (0-1); Eosinophil# 0.03 X10^3/uL; Eosinophils% 0.2 % (0-5); Hematocrit 23.7 % (40-54); Hemoglobin 7.7 g/dL (13.0-16.5); Lymphocyte # 0.59 X10^3/ul (0.83-4.51); Lymphocyte % 3.7 % (19-41); Mean Corp Hgb Conc 32.5 g/dL (32-36); Mean Corpuscular Hgb 30.1 pg (27.0-32.0); Mean Corpuscular Volume 92.6 fL (80-94); Mean Platelet Vol. 10.2 fl (6.2-12.0); Monocyte# 0.92 X10^3/uL; Monocyte% 5.8 % (0-10); NRBC Flagged by Analyzer 0.1 % (0-5); Neutrophil # 13.75 X10^3/uL (2.7-7.7); Neutrophil % 86.8 % (47-70); POSITIVE DIFFERENTIAL YES; Platelet Count 150 K/mm3 (150-450); RBC Distribution Width CV 16.9 % (11.6-14.6); RBC Distribution Width SD 56.7 fl (35.1-43.9); Red Blood Count 2.56 M/mm3 (4.6-6.2); White Blood Count 15.8 K/mm3 (4.4-11.0)
[2024-07-21 06:35] LABS: International Normalized Ratio 3.5; Prothrombin Time (Protime)PT. 34.5 SECONDS (11.7-14.9)
[2024-07-21 06:38] LABS: Anion Gap 10 (5-15); BUN 97 mg/dL (7-18); BUN/Creat Ratio 21.1 RATIO (10-20); Calcium,Total 8.4 mg/dL (8.5-10.1); Chloride 107 mmol/L (98-107); EST Glomerular Filtration Rate 13 mL/min (>60); Est Glom Filt Rate - Afr Amer 16 mL/min (>60); Estimated Creatinine Clearance 13.42 ml/min; Glucose 120 mg/dL (74-106); Potassium 3.5 mmol/L (3.5-5.1); Sodium Level 141 mmol/L (136-145)
--- NOTE | 2024-07-21 06:57 | PN.HOSP_ITS ---
Reason for Visit Reason for Visit: Diagnoses Sepsis, unspecified organism (07/16/24) Pneumonia, unspecified organism (07/16/24) End stage renal disease (07/16/24) Severe sepsis with septic shock (07/16/24) Subjective Subjective Feeling well. Objective Data Objective Data Vital Signs: Vital Signs Temp Pulse Resp BP Pulse Ox O2 Del Method O2 Flow Rate 36.7 C 81 15 131/53 H 94 Nasal Cannula 1 07/21/24 02:00 07/21/24 06:39 07/21/24 06:39 07/21/24 02:00 07/21/24 06:39 07/21/24 06:39 07/21/24 06:39 FiO2 40 07/18/24 04:00 Oxygen Flow Rate (L/min) 1 Oxygen Delivery Method Nasal Cannula Weight: 80.7 kg Body Mass Index (BMI) 28.5 Intake & Output: Intake and Output for Last 24 Hours 07/19/24 07/20/24 07/21/24 23:59 23:59 23:59 Intake Total 907.5 / 907.5 704.75 / 704.75 50 / 50 Output Total 4350 / 4450 525 / 525 100 / 100 Balance -3442.5 / -3542.5 179.75 / 179.75 -50 / -50 Lab / Micro Data 07/21/24 06:10 07/21/24 06:10 Labs: Laboratory Results - last 24 hr 07/20/24 06:15: WBC 22.5 H, RBC 2.55 L, Hgb 7.6 L, Hct 23.1 L, MCV 90.6, MCH 29.8, MCHC 32.9, RDW Std Deviation 55.0 H, RDW Coeff of Morris 16.7 H, Plt Count 133 L, MPV 10.1, Immature Gran % (Auto) 1.000 H, Neut % (Auto) 95.0 H, Lymph % (Auto) 1.1 L, [place] % (Auto) 2.8, Eos % (Auto) 0.0, Baso % (Auto) 0.1, Absolute Neuts (auto) 21.4 H, Absolute Lymphs (auto) 0.24 L, Nucleated RBC % 0, Differential Comment SCANNED 07/21/24 06:10: WBC 15.8 H, RBC 2.56 L, Hgb 7.7 L, Hct 23.7 L, MCV 92.6, MCH 30.1, MCHC 32.5, RDW Std Deviation 56.7 H, RDW Coeff of Morris 16.9 H, Plt Count 150, MPV 10.2, Immature Gran % (Auto) 3.200 H, Neut % (Auto) 86.8 H, Lymph % (Auto) 3.7 L, [place] % (Auto) 5.8, Eos % (Auto) 0.2, Baso % (Auto) 0.3, Absolute Neuts (auto) 13.8 H, Absolute Lymphs (auto) 0.59 L, Nucleated RBC % 0.1, PT 34.5 H, INR 3.5, Sodium 141, Potassium 3.5, Chloride 107, Carbon Dioxide 24.0, Anion Gap 10, BUN 97 H, Creatinine 4.60 H, Estim Creat Clear Calc 13.42, Est GFR (MDRD) Af Amer 16 L, Est GFR (MDRD) Non-Af 13 L, BUN/Creatinine Ratio 21.1 H, G lucose 120 H, Calcium 8.4 L Micro: Microbiology 07/18/24 05:20 Sputum, Expectorated/Coughed Gram Stain - Final 07/18/24 05:20 Sputum, Expectorated/Coughed Respiratory Culture - Final Presumptive C albicans 07/16/24 11:45 Blood Culture (Wb) - Central Line Blood Culture - Preliminary No growth in 48 hours. 07/18/24 11:05 Stool Stool Occult Blood (ANDRES) - Final Occult Blood Positive 07/16/24 12:50 Mucosa - Nasopharyngeal Respiratory Panel (PCR) - Final 07/16/24 14:45 Urine, Random Legionella Antigen - Final 07/16/24 14:45 Urine, Random Streptococcus pneumoniae Antigen (M - Final Streptococcus pneumonia Ag 07/16/24 11:45 Nasal Secretion MRSA (PCR) - Final Physical Exam Const alert and no apparent distress HEENT head/scalp atraumatic and moist oral mucous membranes Resp normal respiratory effort and no retractions Resp Narrative: coarse breath sounds Cardio regular rate, regular rhythm, S1 normal heart sound and S2 normal heart sound GI normal to inspection, nondistended, normoactive bowel sounds, soft to palpation, non-tender and non-distended Extremity normal to inspection Neuro Sensorium / Orientation: awake and alert Assessment & Plan Assessment/Plan (1) Septic shock: (2) Pneumonia: PLAN: Plan Septic shock * resolved * 2/2 pneumonia. * Norepinephrine and vasopressin have since been weaned off. * on midodrine. Stress-dose steroids weaned off. Pneumococcal pneumonia * Positive urinary antigen * Current antibiotics with pip-tazo and vancomycin. Since additional cultures have been negative, will change to CTX to complete a 7-day course. Also, on 3- day course of azithromycin. * PEP therapy Acute hypoxic respiratory failure * ABG on admission showed pH of 7.35, pCO2 of 30.9 and a pO2 of 66. On that was while the patient was on the BiPAP. Subsequent to that, patient was not tolerating the BiPAP and tolerating nasal cannula and nasal cannula Successfully weaned down to 1 L currently. End-stage renal disease * On hemodialysis normally Mondays, Wednesdays and Fridays. * Nephrology following. Supratherapuetic INR * improving, continue to hold for now. Chronic conditions * Hypertension: Atenolol, lisinopril on hold given the septic shock. * History of AV fistula clots: Takes warfarin. INR has been profoundly elevated. INR currently pending today. Therefore warfarin on hold. * History of gout with out acute flare. Continue with allopurinol VTE prophylaxis: Not indicated as patient is INR has been elevated. Disposition: plan for SNF. Currently medically ready for discharge. Charges/Coding Visit Charges Inpatient E&M: 32035 Subs Hosp L2
[2024-07-21 07:02] LABS: Vancomycin, Random Level 19.4 ug/mL (0.0-15.0)
--- NOTE | 2024-07-21 07:22 | PN.CC_ITS ---
Assessment & Plan Assessment/Plan (1) Septic shock: (2) Pneumonia: PLAN: Plan RECOMMENDATIONS: 1. Supplemental oxygen to maintain saturations at or above 90%. 2. Recommend continuing PAP therapy with naps and nightly. 3. Dialysis support per nephrology recommendations. 4. Will discontinue stress dose steroids today and resume home prednisone dose. 5. Continue antimicrobials. 6. Continue scheduled bronchodilators. 7. Continue to monitor H&H and transfuse if hemoglobin drops below 7 g/dL. 8. Continue PPI therapy. 9. Will sign off from a pulmonary/critical care perspective. Please call with any additional questions. IMPRESSIONS: 1. Acute hypoxemic respiratory failure The patient has a known history of COPD of unknown severity and was admitted to the hospital with an exacerbation likely related to Streptococcus pneumonia. The patient has improved from a respiratory perspective with scheduled bronchodilators, antimicrobials and steroids. Plan to continue current supportive measures, including supplemental oxygen to maintain saturations at or above 90%. Ongoing PAP therapy was encouraged with naps and nightly. Encourage incentive spirometer use and mobilize patient as tolerated. 2. Septic shock Appears secondary to streptococcal pneumonia. The patient has been successfully weaned from vasopressor support. Given his chronic corticosteroid dependency, the patient was initiated on appropriate stress dose steroids. Given his hemodynamic stability, we will plan to discontinue stress dose steroids today and resume baseline prednisone dosing. 3. Anemia The patient developed anemia during this hospitalization with a paul hemoglobin of 7.0 g/dL. He has been transfused 1 unit of packed red blood cells. Stool for occult blood was positive. The patient did present with a supratherapeutic INR, which is improving. Recommend monitoring H&H, with plans to transfuse if hemoglobin drops below 7 g/dL. Continue PPI therapy. If anemia worsens, recommend consultation to gastroenterology. 4. End-stage renal disease on hemodialysis Continue ongoing dialysis support per nephrology recommendations. 5. Coagulopathy Continue to hold Coumadin for now. Monitor INR daily. 6. Chronic corticosteroid utilization of unclear etiology/gout/history of hypertension/tobacco dependency Complicates care, management, recovery and prognosis. Continue to hold home antihypertensives for now. This note was generated with [employer] software. It may contain incorrect words, spelling, and punctuation that were not noted in checking the note before signing. Subjective Subjective The patient was seen and examined at the bedside this morning. Events from the last 24 hours have been reviewed. The patient is currently afebrile, hemodynamically stable and maintaining appropriate oxygen saturations on 1 L/min via nasal cannula. No overnight issues were identified by the nursing staff. Hemoglobin remained stable at 7.7 g/dL. White blood cell count has improved to 16,000. INR was noted to be 3.5. Objective Data Objective Data The patient's most recent lab work, culture data and imaging studies have all been personally reviewed. Surface echocardiogram demonstrated normal LV size with an ejection fraction of 50% and stage I diastolic dysfunction. Stool for occult blood was positive. Streptococcus pneumonia urinary antigen was positive on July 16. Vital Signs: Vital Signs Temp Pulse Resp BP Pulse Ox O2 Del Method O2 Flow Rate 98.1 F 81 15 131/53 H 94 Nasal Cannula 1 07/21/24 02:00 07/21/24 06:39 07/21/24 06:39 07/21/24 02:00 07/21/24 06:39 07/21/24 06:39 07/21/24 06:39 FiO2 40 07/18/24 04:00 Oxygen Flow Rate (L/min) 1 Oxygen Delivery Method Nasal Cannula Weight: 177 lb 14.609 oz Body Mass Index (BMI) 28.5 Intake & Output: Intake and Output for Last 24 Hours 07/19/24 07/20/24 07/21/24 23:59 23:59 23:59 Intake Total 907.5 / 907.5 704.75 / 704.75 50 / 50 Output Total 4350 / 4450 525 / 525 100 / 100 Balance -3442.5 / -3542.5 179.75 / 179.75 -50 / -50 Lab / Micro Data Attestation: I reviewed the patient's lab results. 07/21/24 06:10 07/21/24 06:10 Labs: Laboratory Results - last 24 hr 07/21/24 06:10: WBC 15.8 H, RBC 2.56 L, Hgb 7.7 L, Hct 23.7 L, MCV 92.6, MCH 30.1, MCHC 32.5, RDW Std Deviation 56.7 H, RDW Coeff of Morris 16.9 H, Plt Count 150, MPV 10.2, Immature Gran % (Auto) 3.200 H, Neut % (Auto) 86.8 H, Lymph % (Auto) 3.7 L, [place] % (Auto) 5.8, Eos % (Auto) 0.2, Baso % (Auto) 0.3, Absolute Neuts (auto) 13.8 H, Absolute Lymphs (auto) 0.59 L, Nucleated RBC % 0.1, PT 34.5 H, INR 3.5, Sodium 141, Potassium 3.5, Chloride 107, Carbon Dioxide 24.0, Anion Gap 10, BUN 97 H, Creatinine 4.60 H, Estim Creat Clear Calc 13.42, Est GFR (MDRD) Af Amer 16 L, Est GFR (MDRD) Non-Af 13 L, BUN/Creatinine Ratio 21.1 H, G lucose 120 H, Calcium 8.4 L, Random Vancomycin 19.4 H Micro: Microbiology 07/18/24 05:20 Sputum, Expectorated/Coughed Gram Stain - Final 07/18/24 05:20 Sputum, Expectorated/Coughed Respiratory Culture - Final Presumptive C albicans 07/16/24 11:45 Blood Culture (Wb) - Central Line Blood Culture - Preliminary No growth in 48 hours. 07/18/24 11:05 Stool Stool Occult Blood (ANDRES) - Final Occult Blood Positive 07/16/24 12:50 Mucosa - Nasopharyngeal Respiratory Panel (PCR) - Final 07/16/24 14:45 Urine, Random Legionella Antigen - Final 07/16/24 14:45 Urine, Random Streptococcus pneumoniae Antigen (M - Final Streptococcus pneumonia Ag 07/16/24 11:45 Nasal Secretion MRSA (PCR) - Final Radiography Diagnostic Testing: Radiology Impression Chest X-Ray 07/18/24 05:55 IMPRESSION: Persistent left mid and lower lung opacification with mild improved aeration but slightly worsened effusion compared with prior exam. Electronically Signed: Beka Rojas MD at 7:50 EDT , Physical Exam Const alert, oriented x3 and no apparent distress General Appearance: cooperative HEENT normocephalic, head/scalp atraumatic and moist oral mucous membranes Eyes PERRL, EOMs intact bilaterally and conjunctivae normal Neck supple General: trachea midline and CVC in place Chest inspection of chest normal Resp normal respiratory effort Auscultation: Negative for rales, rhonchi or wheezes Cardio regular rate and regular rhythm GI normal to inspection, nondistended, normoactive bowel sounds Extremity General Extremity: Negative for clubbing or edema Skin no rashes or lesions noted Neuro CN's II-XII intact bilaterally, moves all extremities and no focal motor deficits Psych cooperative and affect normal Charges/Coding Visit Charges Inpatient E&M: 10834 Subs Hosp L2
--- NOTE | 2024-07-21 07:46 | PCM.RX.CS ---
Consult Antibiotic Management Pharmacy has been consulted to manage selected antibiotic: Vancomycin Type of Intervention Type of Consult: Follow-up Suspected Infection Suspected Infection: Sepsis Prior Doses of Antibiotics Prior Doses of Antibiotics Received/Current Regimen: 07/16/24 2000mg @ 0809 07/19/24 500mg @1600 Labs Labs: Sodium 141 mmol/L (136-145) 07/21/24 06:10 Potassium 3.5 mmol/L (3.5-5.1) 07/21/24 06:10 Chloride 107 mmol/L (98-107) 07/21/24 06:10 Carbon Dioxide 24.0 mmol/L (21.0-32.0) 07/21/24 06:10 Anion Gap 10 (5-15) 07/21/24 06:10 BUN 97 mg/dL (7-18) H 07/21/24 06:10 Creatinine 4.60 mg/dL (0.70-1.30) H 07/21/24 06:10 Est GFR (MDRD) Af Amer 16 mL/min (>60) L 07/21/24 06:10 Est GFR (MDRD) Non-Af 13 mL/min (>60) L 07/21/24 06:10 BUN/Creatinine Ratio 21.1 RATIO (10-20) H 07/21/24 06:10 Glucose 120 mg/dL (74-106) H 07/21/24 06:10 Random Vancomycin 19.4 ug/mL (0.0-15.0) H 07/21/24 06:10 Microbiology Microbiology: Microbiology 07/18/24 05:20 Sputum, Expectorated/Coughed Gram Stain - Final 07/18/24 05:20 Sputum, Expectorated/Coughed Respiratory Culture - Final Presumptive C albicans 07/16/24 11:45 Blood Culture (Wb) - Central Line Blood Culture - Preliminary No growth in 48 hours. 07/18/24 11:05 Stool Stool Occult Blood (ANDRES) - Final Occult Blood Positive 07/16/24 12:50 Mucosa - Nasopharyngeal Respiratory Panel (PCR) - Final 07/16/24 14:45 Urine, Random Legionella Antigen - Final 07/16/24 14:45 Urine, Random Streptococcus pneumoniae Antigen (M - Final Streptococcus pneumonia Ag 07/16/24 11:45 Nasal Secretion MRSA (PCR) - Final Dosing Weight Weight used for dosin kg Estimated Creatinine Clearance Estimated Creatinine Clearance: 13 Goal Trough Goal Trough: 15-20 mcg/mL Pharmacy Plan for Drug Dosing Pharmacy Plan for Drug Dosing: Give 500mg of Vancomycin 07/21/24 after dialysis Pharmacy Service will continue to monitor and adjust dosing as required. Date/Time Labs Ordered Labs to be done on [date and time ordered]: 07/23/24 @ 0600
[2024-07-21] MEDS: Calcium Acetate 667 MG Capsule PO ×2 (08:41→16:50)
[2024-07-21] MEDS: Allopurinol 100 MG Tablet PO (08:42)
[2024-07-21] MEDS: predniSONE 20 MG Tablet PO ×2 (08:45→16:50)
--- NOTE | 2024-07-21 09:26 | CASEMGMT ---
PING CM to pt room at this time to discuss DC planning. At this time, the pt states that he is willing and interested in going to a SNF at time of DC and would like to review a list of options. Pt notified that SW will f/u with the pt and will provide a local list of in-network SNF. Pt states understanding and denies further questions or concerns.
--- NOTE | 2024-07-21 09:29 | CASEMGMT ---
Social Work- SW provided a list of custodial facilities in network w/insurance, in pt's preferred geographic area, and complete w/quality and resource use data. Pt will review with . MOUNA to follow. [facility]
[2024-07-21] MEDS: Pantoprazole Sodium 40 MG in 0.9% Normal Saline (100mL MB+) 100 ML 330 MG IV (10:02)
[2024-07-21] MEDS: Ceftriaxone 2 GM in 0.9% Normal Saline (50mL MB+) 50 ML IV (10:30)
[2024-07-21] MEDS: Azithromycin 500 MG in Dextrose 5%-Water (250mL Bag) 250 ML 250 MG IV (11:21)
[2024-07-21] MEDS: PureFlow B 3K Dialysis Soln 1 BAG 6 BAG PF (13:44)
[2024-07-21] MEDS: 0.9% Normal Saline 1,000 ML IV.SOLN. 1000 ML OPERA.SITE (13:44)
--- NOTE | 2024-07-21 14:18 | PN.RENAL_ITS ---
Subjective Subjective Seen and examined during HD today. Tolerating treatment well. No complaints. Objective Data Objective Data Vital Signs: Vital Signs Temp Pulse Resp BP Pulse Ox O2 Del Method O2 Flow Rate 97.5 F L 80 20 H 164/76 H 96 Nasal Cannula 1 07/21/24 13:00 07/21/24 14:02 07/21/24 14:02 07/21/24 14:02 07/21/24 14:02 07/21/24 14:02 07/21/24 14:02 FiO2 40 07/18/24 04:00 Oxygen Flow Rate (L/min) 1 Oxygen Delivery Method Nasal Cannula Weight: 80.7 kg Body Mass Index (BMI) 28.5 Intake & Output: Intake and Output for Last 24 Hours 07/19/24 07/20/24 07/21/24 23:59 23:59 23:59 Intake Total 907.5 / 907.5 704.75 / 704.75 465 / 465 Output Total 4350 / 4450 525 / 525 100 / 100 Balance -3442.5 / -3542.5 179.75 / 179.75 365 / 365 Lab / Micro Data 07/21/24 06:10 07/21/24 06:10 Labs: Laboratory Results - last 24 hr 07/21/24 06:10: WBC 15.8 H, RBC 2.56 L, Hgb 7.7 L, Hct 23.7 L, MCV 92.6, MCH 30.1, MCHC 32.5, RDW Std Deviation 56.7 H, RDW Coeff of Morris 16.9 H, Plt Count 150, MPV 10.2, Immature Gran % (Auto) 3.200 H, Neut % (Auto) 86.8 H, Lymph % (Auto) 3.7 L, [place] % (Auto) 5.8, Eos % (Auto) 0.2, Baso % (Auto) 0.3, Absolute Neuts (auto) 13.8 H, Absolute Lymphs (auto) 0.59 L, Nucleated RBC % 0.1, PT 34.5 H, INR 3.5, Sodium 141, Potassium 3.5, Chloride 107, Carbon Dioxide 24.0, Anion Gap 10, BUN 97 H, Creatinine 4.60 H, Estim Creat Clear Calc 13.42, Est GFR (MDRD) Af Amer 16 L, Est GFR (MDRD) Non-Af 13 L, BUN/Creatinine Ratio 21.1 H, G lucose 120 H, Calcium 8.4 L, Random Vancomycin 19.4 H Micro: Microbiology 07/16/24 11:45 Blood Culture (Wb) - Central Line Blood Culture - Final No growth in 5 days. 07/18/24 05:20 Sputum, Expectorated/Coughed Gram Stain - Final 07/18/24 05:20 Sputum, Expectorated/Coughed Respiratory Culture - Final Presumptive C albicans 07/18/24 11:05 Stool Stool Occult Blood (ANDRES) - Final Occult Blood Positive 07/16/24 12:50 Mucosa - Nasopharyngeal Respiratory Panel (PCR) - Final 07/16/24 14:45 Urine, Random Legionella Antigen - Final 07/16/24 14:45 Urine, Random Streptococcus pneumoniae Antigen (M - Final Streptococcus pneumonia Ag 07/16/24 11:45 Nasal Secretion MRSA (PCR) - Final Physical Exam Narrative Alert awake oriented x 3 s1s2 no murmurs lungs diminished breath sounds abdomen soft, non-tender no edema AVF accessed for dialysis Assessment & Plan Assessment/Plan (1) ESRD (end stage renal disease): PLAN: - On hemodialysis Friday, Friday, Friday. Continue dialysis as per schedule. Dialysis today and attempting ~2.5L fluid removal as patient and bp tolerates. Bps acceptable. On midodrine 5mg tid. - Streptococcus pneumonia. Management as per ICU - Anemia. To receive Epogen with HD today. Transfuse if hemoglobin less than 7. Will continue to follow hemoglobin trends
[2024-07-21] MEDS: Epoetin Alfa epbx 10,000 UNIT/ML 20000 UNIT IV (14:38)
--- NOTE | 2024-07-21 14:54 | CASEMGMT ---
Social Work SW met with pt to get SNF choices. Pt immediately stating that he does not feel he needs to go to SNF and can return home. SW reviewed with pt functional needs as indicated by therapy. Pt continues to feel he can return home. SW offered home health services and pt declined. Pt did state if therapy is needed he would go to [facility]. Phone call to pt to discuss discharge plan. Pt's feels pt can return home if she can walk short household distances (which pt was able to do yesterday in therapy). Pt sleeps in a recliner and feels pt will be able to get out of this. Pt able to assist with ADLS as needed. Pt has needed DME and a ramp into the home. agreeable that home health is not needed and feels [facility] is an option if pt needs it. Pt is currently on oxygen, and does not have this at home. RNCM updated and to follow up for dc planning. [place]
--- NOTE | 2024-07-21 15:10 | CASEMGMT ---
See MOUNA Laboy note. This RN CM to pt room at this time for DC planning. Pt adamantly refuses SNF needs and wants to DC home. Pt refuses HHC needs. Pt states that he would like a a prescription for OP therapy as he has been to [facility] in [place] in the past. Pt states that he will set this up himself and states that he might not even go. Pt may also qualify for home oxygen. A list of local DME companies provided to the pt at this time. Pt states that he does not have a preference on the DME company to use if he qualifies for home oxygen. This RN CM educated the pt that there is an [facility], close to where the pt lives. Pt continues to state that he does not have a preference as he anticipates not qualifying for home oxygen. CM will follow for Home oxygen qualification test results. Pt RN updated. Dr. Nelson notified of the pt change in disposition plans and the MD states that the pt will be discharged tomorrow. Will follow. PLAN: DC home with OP Tx RX and potential Home oxygen with the assistance of the pt .
--- NOTE | 2024-07-21 19:00 | NURSING ---
Emergency documentation now in effect, 07/21/24 @2827
[2024-07-22] VITALS (8 sets, daily range): BP systolic 149–173; BP diastolic 56–72; PULSE 87–105; RESP 18; TEMP 36.4–36.8; O2SAT 86–99; BMI 31.4
[2024-07-22 06:42] LABS: Hematocrit 24.5 % (40-54); Hemoglobin 7.8 g/dL (13.0-16.5); Mean Corp Hgb Conc 31.8 g/dL (32-36); Mean Corpuscular Hgb 29.8 pg (27.0-32.0); Mean Corpuscular Volume 93.5 fL (80-94); Mean Platelet Vol. 10.5 fl (6.2-12.0); POSITIVE COUNT YES; POSITIVE DIFFERENTIAL YES; POSITIVE MORPHOLOGY YES; Platelet Count 181 K/mm3 (150-450); RBC Distribution Width CV 16.5 % (11.6-14.6); RBC Distribution Width SD 56.3 fl (35.1-43.9); Red Blood Count 2.62 M/mm3 (4.6-6.2); White Blood Count 12.5 K/mm3 (4.4-11.0)
[2024-07-22 06:47] LABS: Differential Indicated MANUAL DIFF
[2024-07-22 06:55] LABS: International Normalized Ratio 2.5; Prothrombin Time (Protime)PT. 26.4 SECONDS (11.7-14.9)
[2024-07-22 07:23] LABS: Anion Gap 7 (5-15); BUN 63 mg/dL (7-18); BUN/Creat Ratio 19.1 RATIO (10-20); Calcium,Total 8.7 mg/dL (8.5-10.1); Chloride 106 mmol/L (98-107); EST Glomerular Filtration Rate 19 mL/min (>60); Est Glom Filt Rate - Afr Amer 24 mL/min (>60); Estimated Creatinine Clearance 19.56 ml/min; Glucose 103 mg/dL (74-106); Potassium 4.2 mmol/L (3.5-5.1); Sodium Level 139 mmol/L (136-145)
[2024-07-22] MEDS: Ipratropium/Albuterol Sulfate 3 ML AMPUL.NEB INHALATION ×2 (07:38→13:54)
[2024-07-22 08:40] LABS: Lymphocyte 3 % (19-41); Metamyelocyte 3 % (0-1); Monocyte 2 % (0-10); Neutrophil-Band 1 % (0-5); Neutrophil-Segmented 91 % (47-70); Total Cells Counted 100 (MANUAL DIFF)
[2024-07-22 08:41] LABS: Absolute Neutrophil Count 11.5 X10^3/uL (2.0-7.7); Platelet Estimate ADEQUATE (ADEQ); Red Cell Morphology NORM C+C NORMAL (NORM C&C)
--- NOTE | 2024-07-22 09:05 | PN.HOSP_ITS ---
Reason for Visit Reason for Visit: Diagnoses Sepsis, unspecified organism (07/16/24) Pneumonia, unspecified organism (07/16/24) End stage renal disease (07/16/24) Severe sepsis with septic shock (07/16/24) Subjective Subjective Feeling well. Breathing well. Objective Data Objective Data Vital Signs: Vital Signs Temp Pulse Resp BP Pulse Ox O2 Del Method O2 Flow Rate 36.8 C 88 18 149/60 H 95 Nasal Cannula 1 07/22/24 04:06 07/22/24 07:39 07/22/24 07:39 07/22/24 04:06 07/22/24 07:39 07/22/24 08:22 07/22/24 08:22 FiO2 40 07/18/24 04:00 Oxygen Flow Rate (L/min) 1 Oxygen Delivery Method Nasal Cannula Weight: 88.7 kg Body Mass Index (BMI) 31.4 Intake & Output: Intake and Output for Last 24 Hours 07/20/24 07/21/24 07/22/24 23:59 23:59 23:59 Intake Total 704.75 / 704.75 647.5 / 647.5 Output Total 525 / 525 2500 / 2500 200 / 200 Balance 179.75 / 179.75 -1852.5 / -1852.5 -200 / -200 Lab / Micro Data 07/22/24 06:12 07/22/24 06:12 Labs: Laboratory Results - last 24 hr 07/22/24 06:12: WBC 12.5 H, RBC 2.62 L, Hgb 7.8 L, Hct 24.5 L, MCV 93.5, MCH 29.8, MCHC 31.8 L, RDW Std Deviation 56.3 H, RDW Coeff of Morris 16.5 H, Plt Count 181, MPV 10.5, Neut % (Auto) Not Reportable, Absolute Neuts (auto) 11.5 H, A bsolute Lymphs (auto) 0.40 L, Total Counted 100, Neutrophils % (Manual) 91 H, Band Neutrophils % 1, Lymphocytes % (Manual) 3 L, Monocytes % (Manual) 2, M etamyelocytes % 3 H, Diff Path Review March, Platelet Estimate ADEQUATE, RBC Morphology NORM C+C, PT 26.4 H, INR 2.5, Sodium 139, Potassium 4.2, Chloride 106, Carbon Dioxide 26.0, Anion Gap 7, BUN 63 H, Creatinine 3.30 H, Estim Creat Clear Calc 19.56, Est GFR (MDRD) Af Amer 24 L, Est GFR (MDRD) Non-Af 19 L, BUN/Creatinine Ratio 19.1, Glucose 103, Calcium 8.7 Micro: Microbiology 07/16/24 11:45 Blood Culture (Wb) - Central Line Blood Culture - Final No growth in 5 days. 07/18/24 05:20 Sputum, Expectorated/Coughed Gram Stain - Final 07/18/24 05:20 Sputum, Expectorated/Coughed Respiratory Culture - Final Presumptive C albicans 07/18/24 11:05 Stool Stool Occult Blood (ANDRES) - Final Occult Blood Positive 07/16/24 12:50 Mucosa - Nasopharyngeal Respiratory Panel (PCR) - Final 07/16/24 14:45 Urine, Random Legionella Antigen - Final 07/16/24 14:45 Urine, Random Streptococcus pneumoniae Antigen (M - Final Streptococcus pneumonia Ag 07/16/24 11:45 Nasal Secretion MRSA (PCR) - Final Physical Exam Const alert and no apparent distress HEENT head/scalp atraumatic and moist oral mucous membranes Resp normal respiratory effort and no retractions Resp Narrative: bibasilar crackles. Cardio regular rate, regular rhythm, S1 normal heart sound and S2 normal heart sound GI normal to inspection, nondistended, normoactive bowel sounds, soft to palpation, non-tender and non-distended Extremity normal to inspection, full ROM and no clubbing, cyanosis or edema Neuro Sensorium / Orientation: awake and alert Assessment & Plan Assessment/Plan (1) Septic shock: (2) Pneumonia: PLAN: Plan Septic shock * resolved * 2/2 pneumonia. * Norepinephrine and vasopressin have since been weaned off. * on midodrine. Stress-dose steroids weaned off. Pneumococcal pneumonia * Positive urinary antigen * Current antibiotics with pip-tazo and vancomycin. Since additional cultures have been negative, will change to CTX to complete a 7-day course. Also, on 3- day course of azithromycin. * PEP therapy Acute hypoxic respiratory failure * ABG on admission showed pH of 7.35, pCO2 of 30.9 and a pO2 of 66. On that was while the patient was on the BiPAP. Subsequent to that, patient was not tolerating the BiPAP and tolerating nasal cannula and nasal cannula Successfully weaned down to 1 L currently. Patient required 1 L with rest and then 3 L with activity. Oxygen testing reviewed and patient is ambulatory in home and in the community and requires home oxygen with portability. End-stage renal disease * On hemodialysis normally Mondays, Wednesdays and Fridays. * Nephrology following. Supratherapuetic INR * Resolved. Resume warfarin Chronic conditions * Hypertension: Atenolol, lisinopril on hold given the septic shock. * History of AV fistula clots: Takes warfarin. INR has been profoundly elevated. INR currently pending today. Therefore warfarin on hold. * History of gout with out acute flare. Continue with allopurinol VTE prophylaxis: Not indicated as patient is INR has been elevated. Disposition: Patient declines intermediate facility and home health care but interested in outpatient therapy.
[2024-07-22] MEDS: Calcium Acetate 667 MG Capsule PO ×2 (10:38→12:07)
[2024-07-22] MEDS: Allopurinol 100 MG Tablet PO (10:39)
[2024-07-22] MEDS: predniSONE 20 MG Tablet PO (10:39)
[2024-07-22] MEDS: Pantoprazole Sodium 40 MG in 0.9% Normal Saline (100mL MB+) 100 ML 330 MG IV (10:48)
--- NOTE | 2024-07-22 11:11 | PCM.PN.REN ---
Subjective Subjective Moved out of ICU. Sitting in chair. Reports feeling better overall and hopeful to go home today. Objective Data Objective Data Vital Signs: Vital Signs Temp Pulse Resp BP Pulse Ox O2 Del Method O2 Flow Rate 98.0 F 105 H 18 160/72 H 86 Nasal Cannula 0 07/22/24 10:07/22/24 10:05 07/22/24 10:05 07/22/24 10:05 07/22/24 10:33 07/22/24 10:07/22/24 10:33 FiO2 40 07/18/24 04:00 Oxygen Flow Rate (L/min) [ 3 AMBULATING with Oxygen #2] Oxygen Flow Rate (L/min) [ 2 AMBULATING with Oxygen #1] Oxygen Flow Rate (L/min) [At 1 REST with Oxygen] Oxygen Flow Rate (L/min) [At 0 REST on Room Air] Oxygen Flow Rate (L/min) 1 Oxygen Delivery Method Nasal Cannula Weight: 88.7 kg Body Mass Index (BMI) 31.4 Intake & Output: Intake and Output for Last 24 Hours 07/20/24 07/21/24 07/22/24 23:59 23:59 23:59 Intake Total 704.75 / 704.75 647.5 / 647.5 Output Total 525 / 525 2500 / 2500 200 / 200 Balance 179.75 / 179.75 -1852.5 / -1852.5 -200 / -200 Lab / Micro Data 07/22/24 06:12 07/22/24 06:12 Labs: Laboratory Results - last 24 hr 07/22/24 06:12: WBC 12.5 H, RBC 2.62 L, Hgb 7.8 L, Hct 24.5 L, MCV 93.5, MCH 29.8, MCHC 31.8 L, RDW Std Deviation 56.3 H, RDW Coeff of Morris 16.5 H, Plt Count 181, MPV 10.5, Neut % (Auto) Not Reportable, Absolute Neuts (auto) 11.5 H, Absolute Lymphs (auto) 0.40 L, Total Counted 100, Neutrophils % (Manual) 91 H, Band Neutrophils % 1, Lymphocytes % (Manual) 3 L, Monocytes % (Manual) 2, Metamyelocytes % 3 H, Diff Path Review March, Platelet Estimate ADEQUATE, RBC Morphology NORM C+C, PT 26.4 H, INR 2.5, Sodium 139, Potassium 4.2, Chloride 106, Carbon Dioxide 26.0, Anion Gap 7, BUN 63 H, Creatinine 3.30 H, Estim Creat Clear Calc 19.56, Est GFR (MDRD) Af Amer 24 L, Est GFR (MDRD) Non-Af 19 L, BUN/Creatinine Ratio 19.1, Glucose 103, Calcium 8.7 Micro: Microbiology 07/16/24 11:45 Blood Culture (Wb) - Central Line Blood Culture - Final No growth in 5 days. 07/18/24 05:20 Sputum, Expectorated/Coughed Gram Stain - Final 07/18/24 05:20 Sputum, Expectorated/Coughed Respiratory Culture - Final Presumptive C albicans 07/18/24 11:05 Stool Stool Occult Blood (ANDRES) - Final Occult Blood Positive 07/16/24 12:50 Mucosa - Nasopharyngeal Respiratory Panel (PCR) - Final 07/16/24 14:45 Urine, Random Legionella Antigen - Final 07/16/24 14:45 Urine, Random Streptococcus pneumoniae Antigen (M - Final Streptococcus pneumonia Ag 07/16/24 11:45 Nasal Secretion MRSA (PCR) - Final Physical Exam Narrative Alert awake oriented x 3 s1s2 no murmurs lungs clear anteriorly. No rales, rhonchi, wheezing abdomen soft, non-tender no edema AVF positive thrill and bruit Assessment & Plan Assessment/Plan (1) ESRD (end stage renal disease): PLAN: - On hemodialysis Friday, Friday, Friday. Patient tolerated dialysis yesterday with fluid removal. No acute indication for BULK SYSTEM OPERATOR today, next dialysis tomorrow. Bps acceptable. On midodrine 5mg tid. - Streptococcus pneumonia. Overall improving. - Anemia. Received ZEHRA with HD yesterday. Transfuse if hemoglobin less than 7. Will continue to follow hemoglobin trends -If patient discharged home today, next dialysis will be tomorrow at his home dialysis unit in [place].
[2024-07-22] MEDS: Ceftriaxone 2 GM in 0.9% Normal Saline (50mL MB+) 50 ML IV (11:17)
[2024-07-22] MEDS: Azithromycin 500 MG in Dextrose 5%-Water (250mL Bag) 250 ML 255 MG IV (12:02)
--- NOTE | 2024-07-22 13:14 | DS.PCM_ITS ---
Providers Date of Admission: 07/16/24 Primary Care Physician: Dr. Yash Talavera MD Consultations 07/16/24 11:32 Consult: Marketing Systems Manager / Pulmonary Medicine Routine Consulting Provider: Intensivists/Pulmonary Med Reason for Consult: septic shock EMERGENT Consult: No Notified: Yes Date Notified: 07/16/24 Time Notified: 12:30 Method of Notification: Verbal 07/16/24 11:36 Consult: Nephrology Routine Consulting Provider: Junior Man Reason for Consult: esrd EMERGENT Consult: No Notified: Yes Date Notified: 07/16/24 Time Notified: 11:36 Method of Notification: Verbal Reason For Visit: SEPSIS AND PNEUMONIA Diagnosis Discharge Diagnosis (1) Septic shock: Status: Acute Code(s): A41.9 - Sepsis, unspecified organism; R65.21 - Severe sepsis with septic shock (2) Pneumonia: Status: Acute Code(s): J18.9 - Pneumonia, unspecified organism Plan Septic shock * resolved * 2/2 pneumonia. * Norepinephrine and vasopressin have since been weaned off. * on midodrine. Stress-dose steroids weaned off. Pneumococcal pneumonia * Positive urinary antigen * Current antibiotics with pip-tazo and vancomycin. Since additional cultures have been negative, will change to CTX to complete a 7-day course. Also, on 3- day course of azithromycin. * PEP therapy Acute hypoxic respiratory failure * ABG on admission showed pH of 7.35, pCO2 of 30.9 and a pO2 of 66. On that was while the patient was on the BiPAP. Subsequent to that, patient was not tolerating the BiPAP and tolerating nasal cannula and nasal cannula Successfully weaned down to 1 L currently. Patient required 1 L with rest and then 3 L with activity. Oxygen testing reviewed and patient is ambulatory in home and in the community and requires home oxygen with portability. End-stage renal disease * On hemodialysis normally Mondays, Wednesdays and Fridays. * Nephrology following. Supratherapuetic INR * Resolved. Resume warfarin Chronic conditions * Hypertension: Atenolol, lisinopril on hold given the septic shock. * History of AV fistula clots: Takes warfarin. INR has been profoundly elevated. INR currently pending today. Therefore warfarin on hold. * History of gout with out acute flare. Continue with allopurinol VTE prophylaxis: Not indicated as patient is INR has been elevated. Disposition: Patient declines senior care facility and home health care but interested in outpatient therapy. Medications at Discharge Home Medications allopurinol 100 mg tablet 100 mg PO DAILY 05/01/23 atenolol 50 mg tablet 50 mg PO DAILY 05/01/23 prednisone 20 mg tablet 20 mg PO BID 05/01/23 multivitamin-calcium carb chewable tablet 1 tab PO DAILY PRN GERD 05/05/23 hydrocodone-acetaminophen 5-325mg 5mg-325mg 1 tab PO Q8H PRN pain 2 days #10 tabs 06/12/23 fluticasone 232 mcg-salmeterol 14 mcg/actuation breath activated powdr 1 inh inhalation BID 05/04/24 lisinopril 5 mg tablet 5 mg PO DAILY 05/04/24 warfarin 2.5 mg tablet 2.5 mg PO DAILY blood clot 05/04/24 calcium acetate 667 mg tablet 667 mg PO TID 06/03/24 albuterol 90 mcg/actuation aerosol inhaler 90 mcg inhalation BID PRN SOB 07/16/24 amoxicillin 875 mg-potassium clavulanate 125 mg tablet 1 tab PO BID #5 tabs 07/22/24 guaifenesin 600 mg tablet, extended release 12 hr (Mucinex) 600 mg PO BID #5 tabs 07/22/24 Hospital Course Operations None Procedures None Summary of Care Provided Minutes Spent on Discharge: 35 Hospital Course: Patient presents with shortness of breath. Patient was found to have pneumonia and had septic shock. Patient did require short course of norepinephrine to maintain his pressures. Patient was found to have pneumococcal pneumonia based on urinary antigen. Patient is antibiotics initially were vancomycin and pip- tazo was subsequently changed over to ceftriaxone. Will exchange engineer to Augmentin to complete a 7-day course of antibiotics. Antibiotics to be completed on the . Patient on chronic steroids which likely patient had adrenal sufficiency complicating the septic shock upon arrival. Patient was weaned down on his steroids down to his prednisone 20 mg twice daily dosing. Weight / BMI Weight Weight: 88.7 kg Body Mass Index (BMI) 31.4 ABG / Lab / Microbiology Data 07/22/24 06:12 07/22/24 06:12 Laboratory: Laboratory Results - last 24 hr 07/22/24 06:12: WBC 12.5 H, RBC 2.62 L, Hgb 7.8 L, Hct 24.5 L, MCV 93.5, MCH 29.8, MCHC 31.8 L, RDW Std Deviation 56.3 H, RDW Coeff of Morris 16.5 H, Plt Count 181, MPV 10.5, Neut % (Auto) Not Reportable, Absolute Neuts (auto) 11.5 H, A bsolute Lymphs (auto) 0.40 L, Total Counted 100, Neutrophils % (Manual) 91 H, Band Neutrophils % 1, Lymphocytes % (Manual) 3 L, Monocytes % (Manual) 2, M etamyelocytes % 3 H, Diff Path Review March, Platelet Estimate ADEQUATE, RBC Morphology NORM C+C, PT 26.4 H, INR 2.5, Sodium 139, Potassium 4.2, Chloride 106, Carbon Dioxide 26.0, Anion Gap 7, BUN 63 H, Creatinine 3.30 H, Estim Creat Clear Calc 19.56, Est GFR (MDRD) Af Amer 24 L, Est GFR (MDRD) Non-Af 19 L, BUN/Creatinine Ratio 19.1, Glucose 103, Calcium 8.7 Microbiology: Microbiology 07/16/24 11:45 Blood Culture (Wb) - Central Line Blood Culture - Final No growth in 5 days. 07/18/24 05:20 Sputum, Expectorated/Coughed Gram Stain - Final 07/18/24 05:20 Sputum, Expectorated/Coughed Respiratory Culture - Final Presumptive C albicans 07/18/24 11:05 Stool Stool Occult Blood (ANDRES) - Final Occult Blood Positive 07/16/24 12:50 Mucosa - Nasopharyngeal Respiratory Panel (PCR) - Final 07/16/24 14:45 Urine, Random Legionella Antigen - Final 07/16/24 14:45 Urine, Random Streptococcus pneumoniae Antigen (M - Final Streptococcus pneumonia Ag 07/16/24 11:45 Nasal Secretion MRSA (PCR) - Final D/C Instructions Discharge Diet: No restrictions Meaningful Use Info Meaningful Use Meaningful Use Diagnoses (Choose all that apply): None applicable Ischemic Stroke Statin Dosing Therapy Reference: STATIN DOSE THERAPY REFERENCE: * Patients > 75 years receive moderate or high dose statin therapy. * Patients 75 years or YOUNGER should receive HIGH intensity statin dose unless contraindicated. You will be required to document reason for non-treatment if statin daily dose does not meet guidelines. HIGH DOSE STATIN THERAPY DAILY Atorvastatin > than or = to 40 mg Rosuvastatin > than or = to 20 mg Amlodipine + Atorvastatin > than or = to 2.5/40 mg Ezetimibe + Simvastatin 10/80 mg Simvastatin 80mg Discharge Plan Admission Admit Date/Time: 07/16/24 13:35 Primary Reason for Your Visit: pneumonia Attending Provider: Jacinto Nelson Primary Care Provider: Ysah Talavera Consulting Providers: Edel Biggs; Jose Ramon Zhong; Junior Man Discharge Orders/Prescriptions Prescriptions: New amoxicillin-pot clavulanate 875-125 mg tablet 1 tab PO BID Qty: 5 0RF guaifenesin [Mucinex] 600 mg tablet extended release 12hr 600 mg PO BID Qty: 5 0RF Continued prednisone 20 mg tablet 20 mg PO BID Patient Comments: TAKE 2 TABLETS BY MOUTH ONCE DAILY atenolol 50 mg tablet 50 mg PO DAILY Patient Comments: TAKE 1 TABLET BY MOUTH ONCE DAILY allopurinol 100 mg tablet 100 mg PO DAILY Patient Comments: TAKE 1 TABLET BY MOUTH ONCE DAILY warfarin 2.5 mg tablet 2.5 mg PO DAILY Patient Comments: Does not take on Tuesdays Rx Instructions: 6 days a week lisinopril 5 mg tablet 5 mg PO DAILY fluticasone propion-salmeterol 232-14 mcg/actuation aerosol powdr breath activated 1 inh inhalation BID calcium acetate 667 mg tablet 667 mg PO TID Rx Instructions: with meals multivitamin-calcium carb Tablet,Chewable 1 tab PO DAILY PRN (Reason: GERD) hydrocodone-acetaminophen 5-325 mg tablet 1 tab PO Q8H PRN (Reason: pain) 2 Days Qty: 10 0RF albuterol 90 mcg/actuation aerosol 90 mcg inhalation BID PRN (Reason: SOB) Referrals / Follow Up: Yash Talavera MD [Primary Care Provider] - Within 2 Weeks Disposition Disposition (needs filled in before D/C Order can be placed): Home, Self Care Charges/Coding Visit Charges Inpatient E&M: 62090 Disch Hosp >30min
[2024-07-22 13:56] LABS: Pathologist Review Reviewed
--- NOTE | 2024-07-22 15:30 | CASEMGMT ---
Patient has order for discharge. Patient qualifies for home oxygen at discharge. PING PATEL in to discuss needs at discharge, at bedside. Patient prefers [facility] for DME. PING PATEL discuss therapy at discharge, interested in outpatient therapy. PING PATEL updated hospitalist, scripts received. PING PATEL sent referral to [facility] via [facility], oxygen tank provided from stock. PING PATEL provided outpatient therapy script to patient. Patient and had no further questions or concerns.
== END 2024-07-22 18:38 | disposition home or self-care (01) | DRG 871 ==
LOC: ICU 07-20 10:40 → PCU 07-21 18:12
PROVIDERS: Family Medicine; Internal Medicine; Internal Medicine Critical Care Medicine; Internal Medicine Pulmonary Disease; Admitting Provider Internal Medicine; PCP Family Medicine; Referring Provider Internal Medicine
DX: A40.3 Sepsis due to Streptococcus pneumoniae (principal); J96.01 Acute respiratory failure with hypoxia; R65.21 Severe sepsis with septic shock; J13 Pneumonia due to Streptococcus pneumoniae; N18.6 End stage renal disease; I12.0 Hypertensive chronic kidney disease with stage 5 chronic kidney disease or end stage renal disease; J44.0 Chronic obstructive pulmonary disease with (acute) lower respiratory infection; D63.1 Anemia in chronic kidney disease; R19.5 Other fecal abnormalities; Z99.2 Dependence on renal dialysis; M1A.9XX0 Chronic gout, unspecified, without tophus (tophi); R79.1 Abnormal coagulation profile; Z79.01 Long term (current) use of anticoagulants; Z79.51 Long term (current) use of inhaled steroids; Z79.52 Long term (current) use of systemic steroids; Z79.899 Other long term (current) drug therapy; Z87.891 Personal history of nicotine dependence
CPT/HCPCS: 36415; 36600; 71045; 80048; 80053; 80202; 82274; 82607; 82728; 82803; 83540; 83550; 83605; 83735; 84100; 84145; 84484; 85025; 85610; 86140; 86850; 86900; 86901; 86920; 86922; 87040; 87070; 87205; 87449; 87633; 87641; 90937; 93005; 93306; 94002; 94003; 94640; 94668; 94762; 97162; 97166; 97530; 97535; 97802; 97803; 99252; J7030; J7040; J7050; J7120; P9016; P9047; Q9957; A4216; C8929; G0257; G0463; J0696; J3490; Q5106

== ENCOUNTER 2024-08-09 05:06 | Inpatient (IN) | payer MEDICARE, OTHER, SELFPAY ==
[2024-08-09] VITALS (30 sets, daily range): BP systolic 89–293; BP diastolic 29–99; PULSE 51–77; RESP 14–20; TEMP 33.9–36.8; O2SAT 10–100; BMI 26.4; BMI 26.3; BMI 26.2
--- NOTE | 2024-08-09 05:04 | HP.PCM.HOS_ITS ---
[facility] - General General Date of Admission: 08/09/24 Date of Service: 08/09/24 Chief Complaint: GI Bleed with Dark Tarry Stools. [facility] Narrative MEHUL LAMBERT, is a 79 M with a past medical history of essential hypertension, overweight; with BMI of 26.5 this admission, history of tobacco abuse; with subsequent COPD, history of severe vasculitis causing renal injury; on Prednisone BID, ESRD on HD (-W-) with patient still able to make urine, his tory of clotted AV-fistula; on Coumadin and unopposed ASA, history of hiatal hernia with GERD; with PPI stopped months ago for some unclear reason, Gout, OA; with previous lumbar laminectomy and recent Pneumonia; still on Prednisone after admission here from July 16, 2024 to July 22, 2024 for treatment of Pneumococcal Pneumonia with Sepsis and Septic Shock complicated by Acute Hypoxic Respiratory Failure who was transferred from [facility] ER with GI Bleed with dark tarry stools. Mr. Lambert reports his symptoms began on the afternoon of August 08, 2024 with the abrupt-onset of dark tarry stools. He also admits to generalized cramping abdominal pain with nausea but no vomiting. He denies a history of GI bleeding or similar previous episodes and he denies previous EGD. He then went to [place] [facility] and was noted to have an initial hemoglobin of 7.9 g/dL that dropped to 7.1 g/dL on second check complicated by Hyperkalemia of 5.8 mmol/L with a Lactate 4 mmol/L and severe Leukocytosis of 24.4K (presumed to be due to leukocyte margination from recent steroids all present on admission to his previous facility with no apparent blood transfused and no treatment of his hyperkalemia and apparently no check of his INR in spite of being on Coumadin. Arrangements were then made to transfer him to this facility as they do not have gastroenterology services. His was present at the bedside in the PCU and she helped to augment the history. There was no report of fever, chills, nausea, vomiting, constipation, chest pain, palpitations or SOB but he does admit to generalized weakness and malaise. He was then diagnosed with Acute Blood Loss Anemia requiring transfusion due to GI bleed; with dark tarry stools likely due to PUD from a combination of unopposed ASA and Prednisone in the setting of a known history of hiatal hernia; with GERD and he was then admitted to the PCU for ongoing care for stay that is expected to extend beyond 2 midnights. [facility] Medical History ESRD (end stage renal disease) COPD (chronic obstructive pulmonary disease) Wears glasses Alcohol use History of steroid therapy Ambulates with cane Arthritis History of renal dialysis History of renal disease Low iron Back pain Dietary restriction History of hiatal hernia Gastric reflux Shortness of breath on exertion Former smoker Hoarseness History of edema Gout HTN (hypertension) Home Medications ?Medication ?Instructions ?Recorded ?Last Taken ?Type allopurinol 100 mg tablet 100 mg PO DAILY lower uric acid in 05/01/23 08/08/24 History blood atenolol 50 mg tablet 50 mg PO DAILY hypertension 05/01/23 08/08/24 History prednisone 20 mg tablet 20 mg PO BID ordered 05/01/23 08/08/24 History fluticasone 232 mcg-salmeterol 14 1 inh inhalation BID allergies 05/04/24 08/08/24 History mcg/actuation breath activated powdr lisinopril 5 mg tablet 5 mg PO DAILY hypertension 05/04/24 08/08/24 History warfarin 2.5 mg tablet 2.5 mg PO DAILY blood clot 05/04/24 05/15/24 History calcium acetate 667 mg tablet 667 mg PO TID electrolytes 06/03/24 08/08/24 History albuterol 90 mcg/actuation aerosol 90 mcg inhalation BID PRN SOB 07/16/24 Unknown History inhaler Allergy/AdvReac Type Severity Reaction Status Date / Time No Known Allergies Allergy Verified 06/03/24 08:40 Family History Brother Cancer Other Hypertension Surgical History S/P dialysis catheter insertion S/P cataract extraction Previous back surgery Social History Smoking Status: Former smoker ROS ROS Narrative Review of Systems: Constitutional: Patient denies fever or chills but he does admit to generalized weakness and malaise. Eyes: Patient denies changes in vision or discharge from eyes. ENT: Patient denies runny nose, sore throat or ear pain. Resp: Patient admits to RODRIGUEZ but he denies cough. CV: Patient denies chest pain, palpitations or heart racing. GI: Patient admits to generalized cramping abdominal pain but he denies nausea or vomiting. : Patient denies dysuria or hematuria. He still makes urine in spite of ESRD. MSK: Patient denies arthralgias or myalgias. Skin: Patient denies rash, abscess or jaundice. Neuro: Patient denies headache, paresthesias or focal neurologic deficits. Psych: Patient denies symptoms of uncontrolled depression or anxiety. Allergy: Patient denies lip swelling, tongue swelling or urticaria. Hematology: Patient admits to dark tarry stools and he is notably on Coumadin plus unopposed ASA and Prednisone. Endocrinology: Patient denies polyuria, polydipsia and polyphagia. 14 point ROS otherwise negative except for positives noted above. Physical Exam Const alert, oriented x3, no apparent distress and average body habitus Constitutional Narrative: Patient appears chronically ill. General Appearance: cooperative HEENT normocephalic, head/scalp atraumatic, hearing grossly normal bilaterally and moist oral mucous membranes Eyes PERRL and EOMs intact bilaterally Eyes Narrative: Patient has evidence of Right [place]. Neck no lymphadenopathy and supple Resp normal respiratory effort, no retractions, no use of accessory muscles and clear to auscultation bilaterally Cardio regular rate and regular rhythm GI normal to inspection, nondistended, normoactive bowel sounds, soft to palpation, non-tender and non-distended Extremity normal to inspection and full ROM Skin Skin Narrative: Patient has no evidence of wound or jaundice. Neuro oriented x3, CN's II-XII intact bilaterally, moves all extremities and no focal motor deficits Sensorium / Orientation: awake, alert, oriented to person, oriented to place and oriented to time Speech: speech normal Psych affect normal Results Medical Records Data Attestation: I reviewed the patient's medical records Lab / Micro Data Attestation: I reviewed the patient's lab results. Assessment & Plan Assessment/Plan (1) Acute blood loss anemia (ABLA): (2) GI bleed: QUALIFIERS: GI bleed type/associated pathology: melena Qualified Code(s): K92.1 - Melena (3) Adverse drug reaction: QUALIFIERS: Encounter type: initial encounter Qualified Code(s): T50.905A - Adverse effect of unspecified drugs, medicaments and biological substances, initial encounter (4) ESRD (end stage renal disease) on dialysis: PLAN: Plan 1. Acute Blood Loss Anemia requiring transfusion due to GI bleed; with dark tarry stools with poor venous access - Admit to PCU. PICC line ordered due to poor venous access. Type & Cross blood and transfuse one unit of PRBC's. 2. Adverse Drug Reaction to unopposed ASA and Prednisone while on Coumadin in the setting of a known Hiatal Hernia with GERD with GI prophylaxis stopped months ago for a reason the patient cannot recollect causing #1 - Patient warned not to take unopposed ASA or steroids without GI prophylaxis in an effort to minimize similar issues in the future. 3. Admission here from July 16, 2024 to July 22, 2024 for treatment of Pneumococcal Pneumonia with Sepsis and Septic Shock complicated by Acute Hypoxic Respiratory Failure complicating #1 & #2 - Noted. 4. ESRD on HD (--) with patient still able to make urine with Hyperkalemia of 5.8 mmol/L and Lactic Acidosis of 4 mmol/L present on admission compounding #1 - #3 - Patient ordered IV insulin and D50 plus Lasix 40 mg IV once. Serialize lactate. Repeat BMP pending. Finally, we will consult senior account director on-call to see this patient on-rounds in the AM for resumption of HD with help appreciated in advance. 5. History of clotted AV-fistula; on Coumadin and unopposed ASA - Hold Coumadin and ASA for now. Restart these agents when okay with GI. 6. Essential hypertension - Hold scheduled antihypertensives until further notice with patient's current BP ~100 mmHg systolic. 7. Overweight; with BMI of 26.5 this admission - Weight loss will be recommended. Check TSH. 8. History of tobacco abuse; with subsequent COPD - Stable with no evidence of acute flare at this time. Give nebulizers prn. 9. History of severe vasculitis causing renal injury - Noted with patient not a candidate for transplant due to his vasculitis being likely to destroy a transplanted kidney as well. 10. Gout - Stable with no evidence of acute flare at this time. 11. OA; with previous lumbar laminectomy - Noted. 12. DVT prophylaxis - SCD's only in light of #1. Total time: Approximately 75 minutes. Charges/Coding Visit Charges Inpatient E&M: 89328 Init Hosp L3
[2024-08-09] MEDS: Dextrose 10%-Water 250 ML 999 ML IV (06:43)
[2024-08-09] MEDS: 0.9% Saline Lock 10 ML Syringe IV ×2 (07:00→07:44)
[2024-08-09] MEDS: 0.9% Normal Saline (1000mL) 1,000 ML 50 ML IV (07:02)
[2024-08-09] MEDS: Insulin Lispro 100 UNIT/ML VIAL (ADMELOG) 10 UNIT IV (07:04)
[2024-08-09 07:28] LABS: Bedside Glucose 117 mg/dL (74-106)
[2024-08-09] MEDS: Furosemide 40 MG/4 ML Vial IV (07:44)
--- NOTE | 2024-08-09 10:08 | PN_ITS ---
Subjective Subjective Patient seen and examined. He was admitted as a transfer from [facility] where he had gone with complaints of dark stools. His hemoglobin dropped from 7.9-7.1. He was also hyperkalemic with potassium of 5.8. He does have ESRD. INR was not checked though he is on Coumadin. She was transferred [facility] as there are no GI services available in [facility]. He has no complaints today. He has not had any more dark stools overnight. He denies any dizziness, lightheadedness, palpitations, nausea vomiting or any other symptoms. Review of systems otherwise negative. Nursing staff has been unable to access blood draw was here so his labs are still pending. A unit of packed red blood cells was ordered from [facility] in but he has not been given this yet. He is for EGD today at approximately 245. Objective Data Objective Data Vital Signs: Vital Signs Temp Pulse Resp BP Pulse Ox O2 Del Method O2 Flow Rate 96.7 F L 65 18 99/40 L 100 Nasal Cannula 2 08/09/24 08:19 08/09/24 08:19 08/09/24 08:19 08/09/24 08:19 08/09/24 08:19 08/09/24 08:24 08/09/24 08:24 Oxygen Flow Rate (L/min) 2 Oxygen Delivery Method Nasal Cannula Weight: 164 lb Body Mass Index (BMI) 26.4 Intake & Output: Intake and Output for Last 24 Hours 08/07/24 08/08/24 08/09/24 23:59 23:59 23:59 Intake Total 250 / 250 Balance 250 / 250 Lab / Micro Data Labs: Laboratory Results - last 24 hr 08/09/24 07:07: POC Glucose 117 H Physical Exam Const alert, oriented x3, no apparent distress and well nourished General Appearance: cooperative HEENT normocephalic, head/scalp atraumatic and moist oral mucous membranes Mouth: dry mucous membranes Eyes PERRL and EOMs intact bilaterally Neck no lymphadenopathy, supple and no JVD Lymph Lymphatic: no lymphadenopathy noted and no lymphedema noted Resp Resp Narrative: mildly diminished breath sounds bibasally, no wheezes or crackles. On 2L of oxygen by nasal canula Cardio regular rate, regular rhythm, S1 normal heart sound, S2 normal heart sound and no murmurs GI normal to inspection, nondistended, normoactive bowel sounds, soft to palpation and non-tender Extremity normal capillary refill, no clubbing, cyanosis or edema and no calf tenderness General Extremity: no tenderness to palpation of joints or extremities Skin General Skin Exam: no breakdown Neuro CN's II-XII intact bilaterally and no focal motor deficits Motor Exam: strength 5/5 throughout and general weakness Psych thought process normal, cooperative and affect normal Appearance: appropriate Assessment & Plan Assessment/Plan (1) Acute blood loss anemia (ABLA): (2) GI bleed: QUALIFIERS: GI bleed type/associated pathology: melena Qualified Code(s): K92.1 - Melena (3) Hyperkalemia: PLAN: Plan #Acute blood loss anemia due to lower GI bleed * admitted as a transfer from [facility] with a complaint of dark, tarry stools. * Hb at time of transfer from [place] was 7.1. Has not been able to bet bloodwork here yet due to apteint being a difficult stick * Coumadin on hold. Currently on IV pantoprazole 40 mg twice daily. * Keep NPO. Gastroenterology on board. For EGD later today. * No PICC line or midline due to patient having ESRD and put in a PICC line and midline may have blood vessels that may be needed for fistula down the line. * Nursing staff to actively try to get blood sample to get labs to see what is Hb is as well as monitor kidney function. * If all else fails, we will have to get a central line. He is getting dialysis today so we will be able to get blood draws during dialysis today. * #ESRD with hyperkalemia: * On dialysis Wednesdays and Fridays. * Was hyperkalemic with potassium being 5.8 at outside hospital. * He was given potassium depleting cocktail. * Repeat BMP is pending due to difficulty getting blood draws. * Nephrology consulted. * For dialysis today. * #Benign essential hypertension * Blood pressures running in low in the 90s systolic so BP meds on hold. Will monitor closely. IV hydralazine. Usually on atenolol and lisinopril #History of clotted AV fistula: * Was on Coumadin and aspirin. * Coumadin on hold as well as aspirin due to concerns about GI bleed. For EGD today. Will resume when okay with GI. * Monitor INR #Supratherapeutic INR. * INR was supratherapeutic at outside hospital but we have not been able to get blood draws repeated while here. * Coumadin on hold. * Will get blood draw during dialysis to evaluate INR. #History of severe vasculitis: Will benefit from follow-up with rheumatology on outpatient basis #COPD: Not in exacerbation. Breathing treatments with bronchodilators. #Gout: Stable. #Osteoarthritis: S/p previous lumbar laminectomy. Stable. #Recent admission for pneumococcal pneumonia. * Was only discharged on 07/22/2024 after being admitted and managed for hypoxia due to septic shock from pneumonia. * Urinary antigen was positive for pneumococcal pneumonia. * He was initially started on vancomycin and Zosyn and switched to ceftriaxone and discharged on 7-day course of Augmentin. * DVT prophylaxis: will order SCDs Charges/Coding Visit Charges Inpatient E&M: 58476 Subs Hosp L3
[2024-08-09] MEDS: Pantoprazole Sodium 40 MG in 0.9% Normal Saline (100mL MB+) 100 ML 330 MG IV ×2 (10:59→21:46)
[2024-08-09 12:25] LABS: Hematocrit 16.9 % (40-54); Mean Corp Hgb Conc 30.2 g/dL (32-36); Mean Corpuscular Volume 99.4 fL (80-94); Mean Platelet Vol. 10.5 fl (6.2-12.0); POSITIVE COUNT YES; POSITIVE MORPHOLOGY YES; Platelet Count 153 K/mm3 (150-450); RBC Distribution Width CV 18.6 % (11.6-14.6); RBC Distribution Width SD 64.7 fl (35.1-43.9); White Blood Count 22.5 K/mm3 (4.4-11.0)
[2024-08-09 12:41] LABS: International Normalized Ratio 4.3
[2024-08-09 12:47] LABS: Prothrombin Time (Protime)PT. 41.2 SECONDS (11.7-14.9)
[2024-08-09 12:48] LABS: Differential Indicated MANUAL DIFF; Hemoglobin 5.1 g/dL (13.0-16.5)
[2024-08-09 12:51] LABS: Lactic Acid 0.5 mmol/L (0.4-1.9)
[2024-08-09 13:00] LABS: ALB/GLOB Ratio 0.9 RATIO (0.9-2.4); AST(SGOT) 15 U/L (15-37); Alanine Aminotransfer ALT/SGPT 22 U/L (16-61); Albumin, Serum 2.2 g/dL (3.2-5.0); Alkaline Phosphatase 35 U/L (45-117); Anion Gap 10 (5-15); BUN 101 mg/dL (7-18); BUN/Creat Ratio 27.7 RATIO (10-20); Calcium,Total 7.3 mg/dL (8.5-10.1); Chloride 107 mmol/L (98-107); Creatinine, Serum 3.64 mg/dL (0.70-1.30); EST Glomerular Filtration Rate 17 mL/min (>60); Est Glom Filt Rate - Afr Amer 21 mL/min (>60); Estimated Creatinine Clearance 15.34 ml/min; Globulin 2.5 g/dL (2.2-4.2); Glucose 84 mg/dL (74-106); Magnesium 2.1 mg/dL (1.6-2.6); Phosphorus 3.2 mg/dL (2.5-4.9); Potassium 4.1 mmol/L (3.5-5.1); Protein, Total 4.7 g/dL (6.4-8.2); Sodium Level 140 mmol/L (136-145)
[2024-08-09 13:17] LABS: Eosinophil 2 % (0-5); Lymphocyte 6 % (19-41); Metamyelocyte 2 % (0-1); Neutrophil-Segmented 88 % (47-70); Platelet Estimate ADEQUATE (ADEQ); Promyelocyte 2 % (0-0); Red Cell Morphology NORM C+C NORMAL (NORM C&C); Total Cells Counted 100 (MANUAL DIFF)
[2024-08-09 13:18] LABS: Absolute Neutrophil Count 19.8 X10^3/uL (2.0-7.7)
[2024-08-09] MEDS: Phytonadione (Vit K) 2.5 MG in 0.9% Normal Saline (50mL Bag) 50 ML 150 MG IV (13:55)
--- NOTE | 2024-08-09 15:22 | PCM.CONS.R ---
Assessment & Plan Assessment/Plan (1) ESRD (end stage renal disease) on dialysis: PLAN: on hemodialysis MWF schedule. HD today Anemia. s/p PRBC HPI Consult Data Date of Consult: 08/09/24 HPI Narrative Reason for Consultation: ESRD HPI Narrative: MEHUL GORDILLO, is a 79 M who presents to the hospital with GI bleed. nephrology on consultation due to ESRD. on HD MWF schedule. last HD friday. presented with Hb 5.1 and GI bleed. s/p PRBC. for endoscopy today. denies any complaints right now. has a right arm AVG for dialysis access [facility] Medical History ESRD (end stage renal disease) COPD (chronic obstructive pulmonary disease) Wears glasses Alcohol use History of steroid therapy Ambulates with cane Arthritis History of renal dialysis History of renal disease Low iron Back pain Dietary restriction History of hiatal hernia Gastric reflux Shortness of breath on exertion Former smoker Hoarseness History of edema Gout HTN (hypertension) Home Medications ?Medication ?Instructions ?Recorded ?Last Taken ?Type allopurinol 100 mg tablet 100 mg PO DAILY lower uric acid in 05/01/23 08/08/24 History blood atenolol 50 mg tablet 50 mg PO DAILY hypertension 05/01/23 08/08/24 History prednisone 20 mg tablet 20 mg PO BID ordered 05/01/23 08/08/24 History fluticasone 232 mcg-salmeterol 14 1 inh inhalation BID allergies 05/04/24 08/08/24 History mcg/actuation breath activated powdr lisinopril 5 mg tablet 5 mg PO DAILY hypertension 05/04/24 08/08/24 History warfarin 2.5 mg tablet 2.5 mg PO DAILY blood clot 05/04/24 05/15/24 History calcium acetate 667 mg tablet 667 mg PO TID electrolytes 06/03/24 08/08/24 History albuterol 90 mcg/actuation aerosol 90 mcg inhalation BID PRN SOB 07/16/24 Unknown History inhaler Allergy/AdvReac Type Severity Reaction Status Date / Time No Known Allergies Allergy Verified 06/03/24 08:40 Family History Brother Cancer Other Hypertension Surgical History S/P dialysis catheter insertion S/P cataract extraction Previous back surgery Social History Smoking Status: Former smoker ROS ROS Narrative negative except above Physical Exam Narrative Alert awake oriented x 3 no obvious distress no pallor no icterus no JVD s1s2 no murmurs lungs clear abdomen soft no organomegaly no edema Lab / Micro Data 08/09/24 12:05 08/09/24 12:05 Labs: Laboratory Results - last 24 hr 08/09/24 07:07: POC Glucose 117 H 08/09/24 12:05: WBC 22.5 H, RBC 1.70 L, Hgb 5.1 L*, Hct 16.9 L, MCV 99.4 H, MCH 30.0, MCHC 30.2 L, RDW Std Deviation 64.7 H, RDW Coeff of Morris 18.6 H, Plt Count 153, MPV 10.5, Neut % (Auto) Not Reportable, Absolute Neuts (auto) 19.8 H, Absolute Lymphs (auto) 1.40, Total Counted 100, Neutrophils % (Manual) 88 H, Lymphocytes % (Manual) 6 L, Eosinophils % (Manual) 2, Metamyelocytes % 2 H, Promyelocytes % 2 H, Diff Path Review March, Platelet Estimate ADEQUATE, RBC Morphology NORM C+C, PT 41.2 H, INR 4.3 H*, Sodium 140, Potassium 4.1, Chloride 107, Carbon Dioxide 24.0, Anion Gap 10, BUN 101 H*, Creatinine 3.64 H, Estim Creat Clear Calc 15.34, Est GFR (MDRD) Af Amer 21 L, Est GFR (MDRD) Non-Af 17 L, BUN/Creatinine Ratio 27.7 H, Glucose 84, Lactic Acid 0.5, Calcium 7.3 L, Phosphorus 3.2, Magnesium 2.1, Total Bilirubin 0.50, AST 15, ALT 22, Alkaline Phosphatase 35 L, Total Protein 4.7 L, Albumin 2.2 L, Globulin 2.5, Albumin/Globulin Ratio 0.9, TSH 1.490, Blood Type O POSITIVE, Antibody Screen NEGATIVE, Crossmatch See Detail
[2024-08-09] MEDS: PureFlow B 2K Dialysis Soln 1 BAG 6 BAG PF (15:26)
[2024-08-09] MEDS: 0.9% Normal Saline 1,000 ML IV.SOLN. 1000 ML OPERA.SITE (15:26)
--- NOTE | 2024-08-09 16:00 | NURSING ---
Patient left unit to endo
--- NOTE | 2024-08-09 16:30 | CASEMGMT ---
RN CM into pt room earlier in day, pt receiving HD. Attempted second time, pt off the floor. RN CM to follow up with pt tomorrow.
--- NOTE | 2024-08-09 17:00 | CON.PCM.GI_ITS ---
HPI Consult Data Date of Consult: 08/09/24 HPI Narrative Reason for Consultation: GI bleed HPI Narrative: MEHUL LAMBERT, is a 79-year-old M who presented to outside hospital with multiple episodes of melanotic stool. He has a past medical history of COPD, history of severe vasculitis causing renal injury; on Prednisone BID, ESRD on HD (M-W-F) history of clotted AV-fistula; on Coumadin and unopposed ASA, with PPI stopped months ago for some unclear reason. He has been on Prednisone after admission here from July 16, 2024 to July 22, 2024 for treatment of Pneumococcal Pneumonia with Sepsis and Septic Shock complicated by Acute Hypoxic Respiratory Failure who was transferred from [facility] ER with GI Bleed with dark tarry stools. Mr. Lambert reports his symptoms began on the afternoon of August 08, 2024 with the abrupt-onset of dark tarry stools. He also admits to generalized cramping abdominal pain with nausea but no vomiting. He denies a history of GI bleeding or similar previous episodes and he denies previous EGD. He then went to [place] [facility]. He was noted to have an initial hemoglobin of 7.9 g/dL that dropped to 7.1 g/dL on second check complicated by Hyperkalemia of 5.8 mmol/L with a Lactate 4 mmol/L and severe Leukocytosis of 24.4K (presumed to be due to leukocyte margination from recent steroids all present on admission to his previous facility with no apparent blood transfused and no treatment of his hyperkalemia and apparently no check of his INR in spite of being on Coumadin. Arrangements were then made to transfer him to this facility as they do not have gastroenterology services. His was present at the bedside in the PCU and she helped to augment the history. There was no report of fever, chills, nausea, vomiting, constipation, chest pain, palpitations or SOB but he does admit to generalized weakness and malaise. He was then diagnosed with Acute Blood Loss Anemia requiring transfusion due to GI bleed; with dark tarry stools likely due to PUD from a combination of unopposed ASA and Prednisone in the setting of a known history of hiatal hernia. His hemoglobin dropped down to 5.1 and he became hypotensive. His INR was also determined to be 4.3. He had to undergo emergent hemodialysis after being transfused 2 units of packed red blood cells and receiving 2.5 mg of vitamin K IV. [facility] Medical History ESRD (end stage renal disease) COPD (chronic obstructive pulmonary disease) Wears glasses Alcohol use History of steroid therapy Ambulates with cane Arthritis History of renal dialysis History of renal disease Low iron Back pain Dietary restriction History of hiatal hernia Gastric reflux Shortness of breath on exertion Former smoker Hoarseness History of edema Gout HTN (hypertension) Home Medications ?Medication ?Instructions ?Recorded ?Last Taken ?Type allopurinol 100 mg tablet 100 mg PO DAILY lower uric acid in 05/01/23 08/08/24 History blood atenolol 50 mg tablet 50 mg PO DAILY hypertension 05/01/23 08/08/24 History prednisone 20 mg tablet 20 mg PO BID ordered 05/01/23 08/08/24 History fluticasone 232 mcg-salmeterol 14 1 inh inhalation BID allergies 05/04/24 08/08/24 History mcg/actuation breath activated powdr lisinopril 5 mg tablet 5 mg PO DAILY hypertension 05/04/24 08/08/24 History warfarin 2.5 mg tablet 2.5 mg PO DAILY blood clot 05/04/24 05/15/24 History calcium acetate 667 mg tablet 667 mg PO TID electrolytes 06/03/24 08/08/24 History albuterol 90 mcg/actuation aerosol 90 mcg inhalation BID PRN SOB 07/16/24 Unknown History inhaler Allergy/AdvReac Type Severity Reaction Status Date / Time No Known Allergies Allergy Verified 06/03/24 08:40 Family History Brother Cancer Other Hypertension Surgical History S/P dialysis catheter insertion S/P cataract extraction Previous back surgery Social History Smoking Status: Former smoker ROS ROS Narrative Review of Systems: Constitutional: Patient denies fever or chills but he does admit to generalized weakness and malaise. Eyes: Patient denies changes in vision or discharge from eyes. ENT: Patient denies runny nose, sore throat or ear pain. Resp: Patient admits to RODRIGUEZ but he denies cough. CV: Patient denies chest pain, palpitations or heart racing. GI: Patient admits to generalized cramping abdominal pain but he denies nausea or vomiting. : Patient denies dysuria or hematuria. He still makes urine in spite of ESRD. MSK: Patient denies arthralgias or myalgias. Skin: Patient denies rash, abscess or jaundice. Neuro: Patient denies headache, paresthesias or focal neurologic deficits. Psych: Patient denies symptoms of uncontrolled depression or anxiety. Allergy: Patient denies lip swelling, tongue swelling or urticaria. Hematology: Patient admits to dark tarry stools and he is notably on Coumadin plus unopposed ASA and Prednisone. Endocrinology: Patient denies polyuria, polydipsia and polyphagia. 14 point ROS otherwise negative except for positives noted above. Physical Exam Narrative Alert awake oriented x 3 no obvious distress no pallor no icterus no JVD s1s2 no murmurs lungs clear abdomen soft no organomegaly no edema Lab / Micro Data 08/09/24 12:05 08/09/24 12:05 Labs: Laboratory Results - last 24 hr 08/09/24 07:07: POC Glucose 117 H 08/09/24 12:05: WBC 22.5 H, RBC 1.70 L, Hgb 5.1 L*, Hct 16.9 L, MCV 99.4 H, MCH 30.0, MCHC 30.2 L, RDW Std Deviation 64.7 H, RDW Coeff of Morris 18.6 H, Plt Count 153, MPV 10.5, Neut % (Auto) Not Reportable, Absolute Neuts (auto) 19.8 H, Absolute Lymphs (auto) 1.40, Total Counted 100, Neutrophils % (Manual) 88 H, L ymphocytes % (Manual) 6 L, Eosinophils % (Manual) 2, Metamyelocytes % 2 H, P romyelocytes % 2 H, Diff Path Review May , Platelet Estimate ADEQUATE, RBC Morphology NORM C+C, PT 41.2 H, INR 4.3 H*, Sodium 140, Potassium 4.1, Chloride 107, Carbon Dioxide 24.0, Anion Gap 10, BUN 101 H*, Creatinine 3.64 H, Estim Creat Clear Calc 15.34, Est GFR (MDRD) Af Amer 21 L, Est GFR (MDRD) Non-Af 17 L, BUN/Creatinine Ratio 27.7 H, Glucose 84, Lactic Acid 0.5, Calcium 7.3 L, Phosphorus 3.2, Magnesium 2.1, Total Bilirubin 0.50, AST 15, ALT 22, Alkaline Phosphatase 35 L, Total Protein 4.7 L, Albumin 2.2 L, Globulin 2.5, Albumin/Globulin Ratio 0.9, TSH 1.490, Blood Type O POSITIVE, Antibody Screen NEGATIVE, Crossmatch See Detail Assessment & Plan Assessment/Plan (1) Acute blood loss anemia (ABLA): (2) GI bleed: QUALIFIERS: GI bleed type/associated pathology: melena Qualified Code(s): K92.1 - Melena (3) Adverse drug reaction: QUALIFIERS: Encounter type: initial encounter Qualified Code(s): T50.905A - Adverse effect of unspecified drugs, medicaments and biological substances, initial encounter (4) ESRD (end stage renal disease) on dialysis: PLAN: Plan 79-year-old gentleman with with past medical history of end-stage renal disease, COPD on prednisone, aspirin and anticoagulation with Coumadin who presents with Acute Blood Loss Anemia requiring transfusion due to GI bleed; with dark tarry stools with poor venous access . Agree with Type & Cross blood and transfuse one unit of PRBC's. Recommend to continue to correct INR, repeat hemoglobin. PPI drip. Patient will need an emergent upper endoscopy to evaluate his upper GI tract. He was explained alternatives, risk, benefits include not withstanding bleeding, infection, sepsis, perforation, need for emergent urgent . He will have an ASA of 3. Charges/Coding Visit Charges Inpatient E&M: 07437 Init Hosp L3
--- NOTE | 2024-08-09 17:37 | OP.EGD_ITS ---
Patient Name: Chidi Lambert Procedure Date: 08/09/2024 5:05 PM Date of : 1945 Age: 79 Procedure: Upper GI endoscopy Indications: Melena Providers: Scott Montano DO Medicines: Monitored Anesthesia Care Patient Profile: This is a 79 year old male. Refer to note in patient chart for documentation of history and physical. Patient has symptoms of acute vomiting. Complications: No immediate complications. Procedure: Pre-Anesthesia Assessment: - Prior to the procedure, a History and Physical was performed, and patient medications and allergies were reviewed. The patient is competent. The risks and benefits of the procedure and the sedation options and risks were discussed with the patient. All questions were answered and informed consent was obtained. Patient identification and proposed procedure were verified in the pre-procedure area. Mental Status Examination: alert and oriented. Airway Examination: normal oropharyngeal airway and neck mobility. Respiratory Examination: clear to auscultation. CV Examination: normal. Prophylactic Antibiotics: The patient does not require prophylactic antibiotics. Prior Anticoagulants: The patient has taken no anticoagulant or antiplatelet agents except for NSAID medication. ASA Grade Assessment: II - A patient with mild systemic disease. After reviewing the risks and benefits, the patient was deemed in satisfactory condition to undergo the procedure. The anesthesia plan was to use monitored anesthesia care (MAC). Immediately prior to administration of medications, the patient was re-assessed for adequacy to receive sedatives. The heart rate, respiratory rate, oxygen saturations, blood pressure, adequacy of pulmonary ventilation, and response to care were monitored throughout the procedure. The physical status of the patient was re-assessed after the procedure. After obtaining informed consent, the endoscope was passed under direct vision. Throughout the procedure, the patient's blood pressure, pulse, and oxygen saturations were monitored continuously. The Endoscope was introduced through the mouth, and advanced to the second part of duodenum. The upper GI endoscopy was accomplished without difficulty. The patient tolerated the procedure well. Scope In: 5:27:05 PM Scope Out: 5:33:23 PM Total Procedure Duration Time 0 hours 6 minutes 18 seconds Findings: The examined esophagus was normal. Two oozing cratered gastric ulcers with a visible vessel were found in the gastric antrum. The largest lesion was 8 mm in largest dimension. Coagulation for hemostasis using heater probe was successful. For hemostasis, one hemostatic clip was successfully placed. 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 There was no bleeding at the end of the procedure. Many non-bleeding superficial gastric ulcers with no stigmata of bleeding were found in the gastric fundus. The largest lesion was 4 mm in largest dimension. Many non-bleeding superficial duodenal ulcers with no stigmata of bleeding were found in the duodenal bulb, in the first portion of the duodenum, in the second portion of the duodenum and in the third portion of the duodenum. The largest lesion was 6 mm in largest dimension. Impression: - Normal esophagus. - Oozing gastric ulcers with a visible vessel. Treated with a heater probe. Clip was placed. 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 - Non-bleeding gastric ulcers with no stigmata of bleeding. - Non-bleeding duodenal ulcers with no stigmata of bleeding. - No specimens collected. Recommendation: - Return patient to [facility] for [facility] care. - Full liquid diet today. - Continue present medications. Procedure Code(s): --- Professional --- 70628, Esophagogastroduodenoscopy, flexible, transoral; with control of bleeding, any method CPT copyright 2021 [employer]. All rights reserved. The codes documented in this report are preliminary and upon warehouse laborer review may be revised to meet current compliance requirements. Scott Montano DO 08/09/2024 5:37:17 PM This report has been signed electronically. Number of Addenda: 0 Note Initiated On: 08/09/2024 5:05 PM
--- NOTE | 2024-08-09 17:38 | OP.CCLET_ITS ---
08/09/2024 Yash Talavera Re : Upper GI endoscopy procedure for Chidi Talavera This procedure was performed on Friday, August 09, 2024. My impressions and recommendations are as follows: Impressions : - Normal esophagus. - Oozing gastric ulcers with a visible vessel. Treated with a heater probe. Clip was placed. 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 - Non-bleeding gastric ulcers with no stigmata of bleeding. - Non-bleeding duodenal ulcers with no stigmata of bleeding. - No specimens collected. Recommendations : - Return patient to [facility] for ongoing care. - Full liquid diet today. - Continue present medications. My findings are described in the full procedure note, which is enclosed. If I can be of further assistance, please feel free to contact me at . Sincerely, Scott Friend, 08/09/2024 5:37:17 PM This report has been signed electronically.
--- NOTE | 2024-08-09 17:40 | PCM.POST.ANE ---
Anesthesia: Postop Eval I Current Vital Signs Temperature: 97 F Pulse Rate: 77 Blood Pressure: 103/70 Respiratory Rate: 16 Pulse Ox: 100 Oxygen Delivery Method: Nasal Cannula Oxygen Flow Rate (L/min): 3 Assessment Airway patent: Yes Spontaneous unlabored respirations: Yes Mental status: Awake and Calm nausea: No Vomiting: No Anesthesia Complication: No Fluid Hydration Crystalloid volume administer (ml): 500 Total IV fluid infused: 500 Progress Note Anesthesia document: Postop Eval 1 completed: Yes
--- NOTE | 2024-08-09 17:41 | POSTOPAN2_ITS ---
Anesthesia Postop Eval I Sum Postop Eval Completion status Anesthesia document: Postop Eval 1 completed: Yes Anesthesia Postop Eval I Summary Anesthesia Postop Eval I Summary: Anesthesia Postop Eval I: Assessment Summary Airway patent Yes 08/09/24 17:41 EDI [email or web address] Spontaneous unlabored Yes 08/09/24 17:41 EDI [email or web address] respirations Mental status Awake,Calm 08/09/24 17:41 EDI [email or web address] nausea No 08/09/24 17:41 EDI MANAGER.MDOT Vomiting No 08/09/24 17:41 EDI MANAGER.MDOT Anesthesia Postop Eval I: Fluid Summary Crystalloid volume administer 500 08/09/24 17:41 EDI MANAGER.MDOT (ml) Colloids volume administered ( ml) Blood Product volume administered (ml) Total IV fluid infused 500 08/09/24 17:41 EDI MANAGER.OT Anesthesia Postop Eval I: Summary Notes Anesthesia Complication No 08/09/24 17:41 EDI MANAGER.MDOT Anesthesia Complication Comment: Post-operative progress note Anesthesia: Postop Eval II Evaluation Mental status: Awake and Calm Pain Level: 0 nausea: No Vomiting: No Complications Anesthesia Complication: No
--- NOTE | 2024-08-09 17:41 | PCM.POSTANE2 ---
Anesthesia Postop Eval I Sum Postop Eval Completion status Anesthesia document: Postop Eval 1 completed: Yes Anesthesia Postop Eval I Summary Anesthesia Postop Eval I Summary: Anesthesia Postop Eval I: Assessment Summary Airway patent Yes 08/09/24 17:41 MVA STILL [email or web address] Spontaneous unlabored Yes 08/09/24 17:41 MVA STILL OPERATOR.MDOT respirations Mental status Awake,Calm 08/09/24 17:41 MVA STILL OPERATOR.MDOT nausea No 08/09/24 17:41 MVA STILL OPERATOR.MDOT Vomiting No 08/09/24 17:41 MVA STILL OPERATOR.MDOT Anesthesia Postop Eval I: Fluid Summary Crystalloid volume administer 500 08/09/24 17:41 MVA STILL OPERATOR.MDOT (ml) Colloids volume administered ( ml) Blood Product volume administered (ml) Total IV fluid infused 500 08/09/24 17:41 MVA STILL OPERATOR.OT Anesthesia Postop Eval I: Summary Notes Anesthesia Complication No 08/09/24 17:41 MVA STILL OPERATOR.MDOT Anesthesia Complication Comment: Post-operative progress note Anesthesia: Postop Eval II Evaluation Mental status: Awake and Calm Pain Level: 0 nausea: No Vomiting: No Complications Anesthesia Complication: No
--- NOTE | 2024-08-09 18:20 | NURSING ---
Patient returned to unit
[2024-08-09 20:43] LABS: Absolute Lymphocyte Count 1.65 X10^3/uL (0.83-4.51); Absolute Neutrophil Count 16.3 X10^3/uL (2.0-7.7); Basophil# 0.09 X10^3/uL; Basophil% 0.4 % (0-1); Eosinophil# 0.16 X10^3/uL; Eosinophils% 0.8 % (0-5); Hematocrit 30.1 % (40-54); Hemoglobin 9.7 g/dL (13.0-16.5); Lymphocyte # 1.65 X10^3/ul (0.83-4.51); Lymphocyte % 8.2 % (19-41); Mean Corp Hgb Conc 32.2 g/dL (32-36); Mean Corpuscular Hgb 29.4 pg (27.0-32.0); Mean Corpuscular Volume 91.2 fL (80-94); Mean Platelet Vol. 9.9 fl (6.2-12.0); Monocyte# 0.97 X10^3/uL; Monocyte% 4.8 % (0-10); NRBC Flagged by Analyzer 0.3 % (0-5); Neutrophil # 16.27 X10^3/uL (2.7-7.7); Neutrophil % 81.2 % (47-70); Platelet Count 108 K/mm3 (150-450); RBC Distribution Width CV 18.3 % (11.6-14.6); RBC Distribution Width SD 55.7 fl (35.1-43.9); White Blood Count 20.1 K/mm3 (4.4-11.0)
[2024-08-09] MEDS: 0.9% Normal Saline (250mL Bag) 250 ML 15 ML IV (21:45)
[2024-08-10] VITALS (9 sets, daily range): BP systolic 111–139; BP diastolic 39–72; PULSE 74–84; RESP 15–18; TEMP 36.7–36.9; O2SAT 94–100; BMI 27.3
--- NOTE | 2024-08-10 06:45 | PCM.POSTANE2 ---
Anesthesia Postop Eval I Sum Postop Eval Completion status Anesthesia document: Postop Eval 1 completed: Yes Anesthesia Postop Eval I Summary Anesthesia Postop Eval I Summary: Anesthesia Postop Eval I: Assessment Summary Airway patent Yes 08/09/24 17:41 RUBBER CUTTING MACHINE TENDER.MDOT Spontaneous unlabored Yes 08/09/24 17:41 RUBBER CUTTING MACHINE TENDER.MDOT respirations Mental status Awake,Calm 08/09/24 17:41 RUBBER CUTTING MACHINE TENDER.MDOT nausea No 08/09/24 17:41 RUBBER CUTTING MACHINE TENDER.MDOT Vomiting No 08/09/24 17:41 RUBBER CUTTING MACHINE TENDER.MDOT Anesthesia Postop Eval I: Fluid Summary Crystalloid volume administer 500 08/09/24 17:41 RUBBER CUTTING MACHINE TENDER.MDOT (ml) Colloids volume administered ( ml) Blood Product volume administered (ml) Total IV fluid infused 500 08/09/24 17:43 RUBBER CUTTING MACHINE TENDER.OT Anesthesia Postop Eval I: Summary Notes Anesthesia Complication No 08/09/24 17:41 RUBBER CUTTING MACHINE TENDER.MDOT Anesthesia Complication Comment: Post-operative progress note Anesthesia: Postop Eval II Evaluation Mental status: Awake Pain Level: 0 nausea: No Vomiting: No
--- NOTE | 2024-08-10 06:45 | POSTOPAN2_ITS ---
Anesthesia Postop Eval I Sum Postop Eval Completion status Anesthesia document: Postop Eval 1 completed: Yes Anesthesia Postop Eval I Summary Anesthesia Postop Eval I Summary: Anesthesia Postop Eval I: Assessment Summary Airway patent Yes 08/09/24 17:41 MARSHMALLOW RUNNER.MDOT Spontaneous unlabored Yes 08/09/24 17:41 MARSHMALLOW RUNNER.MDOT respirations Mental status Awake,Calm 08/09/24 17:41 MARSHMALLOW RUNNER.MDOT nausea No 08/09/24 17:41 MARSHMALLOW RUNNER.MDOT Vomiting No 08/09/24 17:41 MARSHMALLOW RUNNER.MDOT Anesthesia Postop Eval I: Fluid Summary Crystalloid volume administer 500 08/09/24 17:41 MARSHMALLOW RUNNER.MDOT (ml) Colloids volume administered ( ml) Blood Product volume administered (ml) Total IV fluid infused 500 08/09/24 17:43 MARSHMALLOW RUNNER.OT Anesthesia Postop Eval I: Summary Notes Anesthesia Complication No 08/09/24 17:41 MARSHMALLOW RUNNER.MDOT Anesthesia Complication Comment: Post-operative progress note Anesthesia: Postop Eval II Evaluation Mental status: Awake Pain Level: 0 nausea: No Vomiting: No
[2024-08-10 07:02] LABS: Absolute Lymphocyte Count 1.08 X10^3/uL (0.83-4.51); Absolute Neutrophil Count 11.8 X10^3/uL (2.0-7.7); Basophil# 0.07 X10^3/uL; Basophil% 0.5 % (0-1); Eosinophil# 0.16 X10^3/uL; Eosinophils% 1.1 % (0-5); Hematocrit 28.8 % (40-54); Hemoglobin 9.2 g/dL (13.0-16.5); Lymphocyte # 1.08 X10^3/ul (0.83-4.51); Lymphocyte % 7.4 % (19-41); Mean Corp Hgb Conc 31.9 g/dL (32-36); Mean Corpuscular Hgb 28.9 pg (27.0-32.0); Mean Corpuscular Volume 90.6 fL (80-94); Monocyte# 0.76 X10^3/uL; Monocyte% 5.2 % (0-10); NRBC Flagged by Analyzer 0.3 % (0-5); Neutrophil # 11.82 X10^3/uL (2.7-7.7); Neutrophil % 81.3 % (47-70); Platelet Count 115 K/mm3 (150-450); RBC Distribution Width SD 58.5 fl (35.1-43.9); Red Blood Count 3.18 M/mm3 (4.6-6.2); White Blood Count 14.6 K/mm3 (4.4-11.0)
[2024-08-10] MEDS: Albuterol 2.5 MG/3 ML VIAL.NEB. INHALATION ×2 (07:02→19:13)
[2024-08-10] MEDS: Budesonide Respules 0.5 MG/2 ML AMPUL.NEB. INHALATION ×2 (07:02→19:13)
[2024-08-10 07:22] LABS: AST(SGOT) 18 U/L (15-37); Alanine Aminotransfer ALT/SGPT 25 U/L (16-61); Albumin, Serum 2.2 g/dL (3.2-5.0); Alkaline Phosphatase 36 U/L (45-117); Anion Gap 8 (5-15); BUN 72 mg/dL (7-18); BUN/Creat Ratio 20.7 RATIO (10-20); Calcium,Total 7.6 mg/dL (8.5-10.1); Chloride 110 mmol/L (98-107); Creatinine, Serum 3.48 mg/dL (0.70-1.30); EST Glomerular Filtration Rate 18 mL/min (>60); Est Glom Filt Rate - Afr Amer 22 mL/min (>60); Estimated Creatinine Clearance 17.39 ml/min; Globulin 2.3 g/dL (2.2-4.2); Glucose 73 mg/dL (74-106); Potassium 4.5 mmol/L (3.5-5.1); Protein, Total 4.5 g/dL (6.4-8.2); Sodium Level 141 mmol/L (136-145)
[2024-08-10 08:43] LABS: International Normalized Ratio 1.5; Prothrombin Time (Protime)PT. 18.1 SECONDS (11.7-14.9)
[2024-08-10] MEDS: Pantoprazole Sodium 40 MG in 0.9% Normal Saline (100mL MB+) 100 ML 330 MG IV (08:56)
[2024-08-10] MEDS: 0.9% Normal Saline (250mL Bag) 250 ML 15 ML IV (09:00)
--- NOTE | 2024-08-10 10:12 | CASEMGMT ---
PING PATEL chart review: Pt was admitted 07/16/24-07/22/24 fir Pneumonia with sepsis and septic shock complicated by acute hypoxic respiratory failure. See assessment from 07/16/24. Pt was discharged home with family support from and continue HD M,W,F with [facility] in [place]. Pt declined SNF and HHC, wanted OP therapy. Pt returned 08/09/24 for GI bleed and dark stools. PING PATEL in to discuss needs at discharge and readmission. Pt states he had a F/U appointment with PCP. States he has been taking all medications as prescribed and going to HD every M,W,F. Pt denies needs at DC and states his is his nurse and he does not want any HHC. Pt denies any further questions or concerns at this time.
--- NOTE | 2024-08-10 11:32 | PCM.PN.REN ---
Subjective Subjective Sitting up in bed, no overnight events. No complaints. Objective Data Objective Data Vital Signs: Vital Signs Temp Pulse Resp BP Pulse Ox O2 Del Method O2 Flow Rate 98.4 F 83 18 139/43 H 100 Room Air 3 08/10/24 09:00 08/10/24 09:00 08/10/24 09:00 08/10/24 09:00 08/10/24 09:00 08/10/24 09:08 08/10/24 07:04 Oxygen Flow Rate (L/min) 3 Oxygen Delivery Method Room Air Weight: 77.2 kg Body Mass Index (BMI) 27.3 Intake & Output: Intake and Output for Last 24 Hours 08/08/24 08/09/24 08/10/24 23:59 23:59 23:59 Intake Total 1318.75 / 1318.75 278.5 / 278.5 Output Total 450 / 650 200 / 200 Balance 868.75 / 668.75 78.5 / 78.5 Lab / Micro Data 08/10/24 06:45 08/10/24 06:45 Labs: Laboratory Results - last 24 hr 08/09/24 12:05: WBC 22.5 H, RBC 1.70 L, Hgb 5.1 L*, Hct 16.9 L, MCV 99.4 H, MCH 30.0, MCHC 30.2 L, RDW Std Deviation 64.7 H, RDW Coeff of Morris 18.6 H, Plt Count 153, MPV 10.5, Neut % (Auto) Not Reportable, Absolute Neuts (auto) 19.8 H, Absolute Lymphs (auto) 1.40, Total Counted 100, Neutrophils % (Manual) 88 H, Lymphocytes % (Manual) 6 L, Eosinophils % (Manual) 2, Metamyelocytes % 2 H, Promyelocytes % 2 H, Diff Path Review March, Platelet Estimate ADEQUATE, RBC Morphology NORM C+C, PT 41.2 H, INR 4.3 H*, Sodium 140, Potassium 4.1, Chloride 107, Carbon Dioxide 24.0, Anion Gap 10, BUN 101 H*, Creatinine 3.64 H, Estim Creat Clear Calc 15.34, Est GFR (MDRD) Af Amer 21 L, Est GFR (MDRD) Non-Af 17 L, BUN/Creatinine Ratio 27.7 H, Glucose 84, Lactic Acid 0.5, Calcium 7.3 L, Phosphorus 3.2, Magnesium 2.1, Total Bilirubin 0.50, AST 15, ALT 22, Alkaline Phosphatase 35 L, Total Protein 4.7 L, Albumin 2.2 L, Globulin 2.5, Albumin/Globulin Ratio 0.9, TSH 1.490, Blood Type O POSITIVE, Antibody Screen NEGATIVE, Crossmatch See Detail 08/09/24 20:35: WBC 20.1 H, RBC 3.30 L, Hgb 9.7 L, Hct 30.1 L, MCV 91.2 D, MCH 29.4, MCHC 32.2 D, RDW Std Deviation 55.7 H, RDW Coeff of Morris 18.3 H, Plt Count 108 L, MPV 9.9, Immature Gran % (Auto) 4.600 H, Neut % (Auto) 81.2 H, Lymph % (Auto) 8.2 L, Motley % (Auto) 4.8, Eos % (Auto) 0.8, Baso % (Auto) 0.4, Absolute Neuts (auto) 16.3 H, Absolute Lymphs (auto) 1.65, Nucleated RBC % 0.3 08/10/24 06:45: WBC 14.6 H, RBC 3.18 L, Hgb 9.2 L, Hct 28.8 L, MCV 90.6, MCH 28.9, MCHC 31.9 L, RDW Std Deviation 58.5 H, RDW Coeff of Morris 19.0 H, Plt Count 115 L, MPV 10.0, Immature Gran % (Auto) 4.500 H, Neut % (Auto) 81.3 H, Lymph % (Auto) 7.4 L, Motley % (Auto) 5.2, Eos % (Auto) 1.1, Baso % (Auto) 0.5, Absolute Neuts (auto) 11.8 H, Absolute Lymphs (auto) 1.08, Nucleated RBC % 0.3, PT 18.1 H, INR 1.5, Sodium 141, Potassium 4.5, Chloride 110 H, Carbon Dioxide 23.0, Anion Gap 8, BUN 72 H, Creatinine 3.48 H, Estim Creat Clear Calc 17.39, Est GFR (MDRD) Af Amer 22 L, Est GFR (MDRD) Non-Af 18 L, BUN/Creatinine Ratio 20.7 H, Glucose 73 L, Calcium 7.6 L, Total Bilirubin 0.60, AST 18, ALT 25, Alkaline Phosphatase 36 L, Total Protein 4.5 L, Albumin 2.2 L, Globulin 2.3, Albumin/Globulin Ratio 1.0 Physical Exam Narrative Alert awake oriented x 3 no obvious distress s1s2 no murmurs lungs clear abdomen soft no edema AV fistula right upper arm positive thrill and bruit Assessment & Plan Assessment/Plan (1) ESRD (end stage renal disease) on dialysis: PLAN: - ESRD; on hemodialysis MWF schedule. Underwent hemodialysis yesterday. 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 - Anemia. s/p PRBC. Hemoglobin was 5.1, today 9.2. EGD oozing gastric ulcer, treated with heater probe/clip, also noted nonbleeding gastric and duodenal ulcers. On PPI drip. - History of HTN; bps acceptable. Not on any antihypertensives now.
--- NOTE | 2024-08-10 12:21 | PN_ITS ---
Subjective Subjective Patient seen and examined. He had no active complaints today and felt better. He denied any dizziness, lightheadedness, palpitations, nausea, vomiting or any other symptoms. Review of systems is otherwise negative. He did have EGD yesterday which showed 2 bleeding gastric ulcers and numerous superficial ulcers. He was transfused 2 units of PRBCs yesterday, and Hb today is 9.2. Objective Data Objective Data Vital Signs: Vital Signs Temp Pulse Resp BP Pulse Ox O2 Del Method O2 Flow Rate 98.4 F 83 18 139/43 H 100 Room Air 3 08/10/24 09:00 08/10/24 09:00 08/10/24 09:00 08/10/24 09:00 08/10/24 09:00 08/10/24 09:08 08/10/24 07:04 Oxygen Flow Rate (L/min) 3 Oxygen Delivery Method Room Air Weight: 170 lb 3.15 oz Body Mass Index (BMI) 27.3 Intake & Output: Intake and Output for Last 24 Hours 08/08/24 08/09/24 08/10/24 23:59 23:59 23:59 Intake Total 1318.75 / 1318.75 278.5 / 278.5 Output Total 450 / 650 200 / 200 Balance 868.75 / 668.75 78.5 / 78.5 Lab / Micro Data 08/10/24 06:45 08/10/24 06:45 Labs: Laboratory Results - last 24 hr 08/09/24 12:05: WBC 22.5 H, RBC 1.70 L, Hgb 5.1 L*, Hct 16.9 L, MCV 99.4 H, MCH 30.0, MCHC 30.2 L, RDW Std Deviation 64.7 H, RDW Coeff of Morris 18.6 H, Plt Count 153, MPV 10.5, Neut % (Auto) Not Reportable, Absolute Neuts (auto) 19.8 H, Absolute Lymphs (auto) 1.40, Total Counted 100, Neutrophils % (Manual) 88 H, L ymphocytes % (Manual) 6 L, Eosinophils % (Manual) 2, Metamyelocytes % 2 H, P romyelocytes % 2 H, Diff Path Review May , Platelet Estimate ADEQUATE, RBC Morphology NORM C+C, PT 41.2 H, INR 4.3 H*, Sodium 140, Potassium 4.1, Chloride 107, Carbon Dioxide 24.0, Anion Gap 10, BUN 101 H*, Creatinine 3.64 H, Estim Creat Clear Calc 15.34, Est GFR (MDRD) Af Amer 21 L, Est GFR (MDRD) Non-Af 17 L, BUN/Creatinine Ratio 27.7 H, Glucose 84, Lactic Acid 0.5, Calcium 7.3 L, Phosphorus 3.2, Magnesium 2.1, Total Bilirubin 0.50, AST 15, ALT 22, Alkaline Phosphatase 35 L, Total Protein 4.7 L, Albumin 2.2 L, Globulin 2.5, Albumin/Globulin Ratio 0.9, TSH 1.490, Blood Type O POSITIVE, Antibody Screen NEGATIVE, Crossmatch See Detail 08/09/24 20:35: WBC 20.1 H, RBC 3.30 L, Hgb 9.7 L, Hct 30.1 L, MCV 91.2 D, MCH 29.4, MCHC 32.2 D, RDW Std Deviation 55.7 H, RDW Coeff of Morris 18.3 H, Plt Count 108 L, MPV 9.9, Immature Gran % (Auto) 4.600 H, Neut % (Auto) 81.2 H, Lymph % (Auto) 8.2 L, [place] % (Auto) 4.8, Eos % (Auto) 0.8, Baso % (Auto) 0.4, Absolute Neuts (auto) 16.3 H, Absolute Lymphs (auto) 1.65, Nucleated RBC % 0.3 08/10/24 06:45: WBC 14.6 H, RBC 3.18 L, Hgb 9.2 L, Hct 28.8 L, MCV 90.6, MCH 28.9, MCHC 31.9 L, RDW Std Deviation 58.5 H, RDW Coeff of Morris 19.0 H, Plt Count 115 L, MPV 10.0, Immature Gran % (Auto) 4.500 H, Neut % (Auto) 81.3 H, Lymph % (Auto) 7.4 L, [place] % (Auto) 5.2, Eos % (Auto) 1.1, Baso % (Auto) 0.5, Absolute Neuts (auto) 11.8 H, Absolute Lymphs (auto) 1.08, Nucleated RBC % 0.3, PT 18.1 H , INR 1.5, Sodium 141, Potassium 4.5, Chloride 110 H, Carbon Dioxide 23.0, Anion Gap 8, BUN 72 H, Creatinine 3.48 H, Estim Creat Clear Calc 17.39, Est GFR (MDRD) Af Amer 22 L, Est GFR (MDRD) Non-Af 18 L, BUN/Creatinine Ratio 20.7 H, Glucose 73 L, Calcium 7.6 L, Total Bilirubin 0.60, AST 18, ALT 25, Alkaline Phosphatase 36 L, Total Protein 4.5 L, Albumin 2.2 L, Globulin 2.3, Albumin/Globulin Ratio 1.0 Physical Exam Const alert, oriented x3, no apparent distress, average body habitus and well nourished Constitutional Narrative: Patient looks better today General Appearance: cooperative HEENT normocephalic, head/scalp atraumatic, hearing grossly normal bilaterally and moist oral mucous membranes Eyes PERRL and EOMs intact bilaterally Neck no lymphadenopathy, supple and no JVD Lymph Lymphatic: no lymphadenopathy noted and no lymphedema noted Resp Resp Narrative: mildly diminished breath sounds bibasally, no wheezes or crackles. On 2L of oxygen by nasal canula Cardio regular rate, regular rhythm, S1 normal heart sound, S2 normal heart sound and no murmurs GI normal to inspection, nondistended, normoactive bowel sounds, soft to palpation, non-tender and non-distended Extremity normal to inspection, full ROM, normal capillary refill, no clubbing, cyanosis or edema and no calf tenderness General Extremity: no tenderness to palpation of joints or extremities Skin Skin Narrative: Patient has no evidence of wound or jaundice. Has bruises on RUE. HAs AV fistula with good thrill in LUE. General Skin Exam: no breakdown Neuro oriented x3, CN's II-XII intact bilaterally, moves all extremities and no focal motor deficits Sensorium / Orientation: awake, alert, oriented to person, oriented to place and oriented to time Speech: speech normal Motor Exam: strength 5/5 throughout and general weakness Psych thought process normal, cooperative and affect normal Appearance: appropriate Assessment & Plan Assessment/Plan (1) Acute blood loss anemia (ABLA): (2) GI bleed: QUALIFIERS: GI bleed type/associated pathology: melena Qualified Code(s): K92.1 - Melena (3) Hyperkalemia: PLAN: Plan #Acute blood loss anemia due to lower GI bleed * s/p transfusion of 2 units of PRBCs. * had EGD yesterday which showed normal esophagus with oozing gastric ulcers and no visible vessel, treated with a heater probe and a clip was placed; nonbleeding gastric and duodenal ulcers with no stigmata of bleeding. * Hb today is 9.2. * coumadin on hold; to resume when ok with gastroenterology. * he did receive IV vitamin K 2.5mg x 1 yesterday. * currently on IV pantoprazole drip. Will switch to PO pantoprazole 40mg bid today. * GI on board. * #ESRD with hyperkalemia: * On dialysis Wednesdays and Fridays. * hyperkalemia has resolved. He did have a full run of dialysis yesterday. K today is 4.5. * nephrology on board. * #Benign essential hypertension * Hypotension is improving. His diastolic remains low in the 30s and 40s though. Blood pressure this morning was 139/43. * Blood pressures running in low in the 90s systolic so BP meds on hold. Will monitor closely. IV hydralazine. Usually on atenolol and lisinopril #History of clotted AV fistula: * Was on Coumadin and aspirin. * Coumadin on hold as well as aspirin due to concerns about GI bleed. * INR today is 1.5. * resume coumadin when ok with GI * #Supratherapeutic INR. * INR was supratherapeutic at outside hospital but we have not been able to get blood draws repeated while here. * Coumadin on hold. * received IV vitamin K 2.5mg x1. * INR today is 1.5. * #History of severe vasculitis: Will benefit from follow-up with rheumatology on outpatient basis #COPD: Not in exacerbation. Breathing treatments with bronchodilators. #Gout: Stable. #Osteoarthritis: S/p previous lumbar laminectomy. Stable. #Recent admission for pneumococcal pneumonia. * Was only discharged on 07/22/2024 after being admitted and managed for hypoxia due to septic shock from pneumonia. * Urinary antigen was positive for pneumococcal pneumonia. * He was initially started on vancomycin and Zosyn and switched to ceftriaxone and discharged on 7-day course of Augmentin. * DVT prophylaxis:SCDs Charges/Coding Visit Charges Inpatient E&M: 50423 Subs Hosp L2
[2024-08-10 15:03] LABS: Pathologist Review Reviewed
--- NOTE | 2024-08-10 17:50 | PN.GI_ITS ---
Subjective Subjective Patient underwent an upper endoscopy yesterday for GI bleed. He has not had any more signs or symptoms of bleeding today. I suspect that his bleeding did come from prednisone plus his warfarin that he was taking on his previous admission to the hospital. Objective Data Objective Data Vital Signs: Vital Signs Temp Pulse Resp BP Pulse Ox O2 Del Method O2 Flow Rate 98.1 F 74 16 111/72 98 Room Air 3 08/10/24 15:00 08/10/24 15:00 08/10/24 15:00 08/10/24 15:00 08/10/24 15:02 08/10/24 15:02 08/10/24 07:04 Oxygen Flow Rate (L/min) 3 Oxygen Delivery Method Room Air Weight: 170 lb 3.15 oz Body Mass Index (BMI) 27.3 Intake & Output: Intake and Output for Last 24 Hours 08/08/24 08/09/24 08/10/24 23:59 23:59 23:59 Intake Total 1318.75 / 1318.75 278.5 / 278.5 Output Total 450 / 650 200 / 200 Balance 868.75 / 668.75 78.5 / 78.5 Lab / Micro Data 08/10/24 06:45 08/10/24 06:45 Labs: Laboratory Results - last 24 hr 08/09/24 12:05: Diff Path Review Reviewed, Crossmatch See Detail 08/09/24 20:35: WBC 20.1 H, RBC 3.30 L, Hgb 9.7 L, Hct 30.1 L, MCV 91.2 D, MCH 29.4, MCHC 32.2 D, RDW Std Deviation 55.7 H, RDW Coeff of Morris 18.3 H, Plt Count 108 L, MPV 9.9, Immature Gran % (Auto) 4.600 H, Neut % (Auto) 81.2 H, Lymph % (Auto) 8.2 L, [place] % (Auto) 4.8, Eos % (Auto) 0.8, Baso % (Auto) 0.4, Absolute Neuts (auto) 16.3 H, Absolute Lymphs (auto) 1.65, Nucleated RBC % 0.3 08/10/24 06:45: WBC 14.6 H, RBC 3.18 L, Hgb 9.2 L, Hct 28.8 L, MCV 90.6, MCH 28.9, MCHC 31.9 L, RDW Std Deviation 58.5 H, RDW Coeff of Morris 19.0 H, Plt Count 115 L, MPV 10.0, Immature Gran % (Auto) 4.500 H, Neut % (Auto) 81.3 H, Lymph % (Auto) 7.4 L, [place] % (Auto) 5.2, Eos % (Auto) 1.1, Baso % (Auto) 0.5, Absolute Neuts (auto) 11.8 H, Absolute Lymphs (auto) 1.08, Nucleated RBC % 0.3, PT 18.1 H , INR 1.5, Sodium 141, Potassium 4.5, Chloride 110 H, Carbon Dioxide 23.0, Anion Gap 8, BUN 72 H, Creatinine 3.48 H, Estim Creat Clear Calc 17.39, Est GFR (MDRD) Af Amer 22 L, Est GFR (MDRD) Non-Af 18 L, BUN/Creatinine Ratio 20.7 H, Glucose 73 L, Calcium 7.6 L, Total Bilirubin 0.60, AST 18, ALT 25, Alkaline Phosphatase 36 L, Total Protein 4.5 L, Albumin 2.2 L, Globulin 2.3, Albumin/Globulin Ratio 1.0 Physical Exam Const alert, oriented x3, no apparent distress, average body habitus and well nourished Constitutional Narrative: Patient looks better today General Appearance: cooperative HEENT normocephalic, head/scalp atraumatic, hearing grossly normal bilaterally and moist oral mucous membranes Eyes PERRL and EOMs intact bilaterally Neck no lymphadenopathy, supple and no JVD Lymph Lymphatic: no lymphadenopathy noted and no lymphedema noted Resp Resp Narrative: mildly diminished breath sounds bibasally, no wheezes or crackles. On 2L of oxygen by nasal canula Cardio regular rate, regular rhythm, S1 normal heart sound, S2 normal heart sound and no murmurs GI normal to inspection, nondistended, normoactive bowel sounds, soft to palpation, non-tender and non-distended Extremity normal to inspection, full ROM, normal capillary refill, no clubbing, cyanosis or edema and no calf tenderness General Extremity: no tenderness to palpation of joints or extremities Skin Skin Narrative: Patient has no evidence of wound or jaundice. Has bruises on RUE. HAs AV fistula with good thrill in LUE. General Skin Exam: no breakdown Neuro oriented x3, CN's II-XII intact bilaterally, moves all extremities and no focal motor deficits Sensorium / Orientation: awake, alert, oriented to person, oriented to place and oriented to time Speech: speech normal Motor Exam: strength 5/5 throughout and general weakness Psych thought process normal, cooperative and affect normal Appearance: appropriate Assessment & Plan Assessment/Plan (1) Acute blood loss anemia (ABLA): (2) GI bleed: QUALIFIERS: GI bleed type/associated pathology: melena Qualified Code(s): K92.1 - Melena (3) Adverse drug reaction: QUALIFIERS: Encounter type: initial encounter Qualified Code(s): T50.905A - Adverse effect of unspecified drugs, medicaments and biological substances, initial encounter (4) ESRD (end stage renal disease) on dialysis: PLAN: Plan 79-year-old gentleman with with past medical history of end-stage renal disease, COPD on prednisone, aspirin and anticoagulation with Coumadin who presents with Acute Blood Loss Anemia requiring transfusion due to GI bleed; with dark tarry stools with poor venous access . Agree with Type & Cross blood and transfuse one unit of PRBC's. Recommend to continue to correct INR, repeat hemoglobin. PPI drip. Patient will need an emergent upper endoscopy to evaluate his upper GI tract. He was explained alternatives, risk, benefits include not withstanding bleeding, infection, sepsis, perforation, need for emergent urgent . He will have an ASA of 3. Findings from upper endoscopy: The examined esophagus was normal. Two oozing cratered gastric ulcers with a visible vessel were found in the gastric antrum. The largest lesion was 8 mm in largest dimension. Coagulation for hemostasis using heater probe was successful. For hemostasis, one hemostatic clip was successfully placed. 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 There was no bleeding at the end of the procedure. Many non-bleeding superficial gastric ulcers with no stigmata of bleeding were found in the gastric fundus. The largest lesion was 4 mm in largest dimension. Many non-bleeding superficial duodenal ulcers with no stigmata of bleeding were found in the duodenal bulb, in the first portion of the duodenum, in the second portion of the duodenum and in the third portion of the duodenum. The largest lesion was 6 mm in largest dimension. Impression: - Normal esophagus. - Oozing gastric ulcers with a visible vessel. Treated with a heater probe. Clip was placed. 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 - Non-bleeding gastric ulcers with no stigmata of bleeding. - Non-bleeding duodenal ulcers with no stigmata of bleeding. - No specimens collected. Recommendations: Continue PPI therapy and sulcal fate therapy. Advance diet as tolerated. Charges/Coding Visit Charges Inpatient E&M: 14335 Subs Hosp L3
--- NOTE | 2024-08-10 19:09 | PCM.HOSP.N ---
Hospitalist Note Bruce Rowe called and spoke to Supervising RN with update about microbiology. They noted first set of blood cultures with GPC clusters, the second set of cultures pending. Will add IV Vancomycin pending futher work-up and request repeat blood cultures here also.
[2024-08-10] MEDS: Vancomycin HCl 2,000 MG in 0.9% Normal Saline (500mL Bag) 500 ML 250 MG IV (20:20)
[2024-08-10] MEDS: Pantoprazole Sodium 40 MG Tablet PO (20:20)
--- NOTE | 2024-08-10 20:44 | PCM.RX.CS ---
Consult Antibiotic Management Pharmacy has been consulted to manage selected antibiotic: Vancomycin Type of Intervention Type of Consult: New start Suspected Infection Suspected Infection: Pneumonia and Bacteremia Labs Labs: Sodium 141 mmol/L (136-145) 08/10/24 06:45 Potassium 4.5 mmol/L (3.5-5.1) 08/10/24 06:45 Chloride 110 mmol/L (98-107) H 08/10/24 06:45 Carbon Dioxide 23.0 mmol/L (21.0-32.0) 08/10/24 06:45 Anion Gap 8 (5-15) 08/10/24 06:45 BUN 72 mg/dL (7-18) H 08/10/24 06:45 Creatinine 3.48 mg/dL (0.70-1.30) H 08/10/24 06:45 Est GFR (MDRD) Af Amer 22 mL/min (>60) L 08/10/24 06:45 Est GFR (MDRD) Non-Af 18 mL/min (>60) L 08/10/24 06:45 BUN/Creatinine Ratio 20.7 RATIO (10-20) H 08/10/24 06:45 Glucose 73 mg/dL (74-106) L 08/10/24 06:45 Dosing Weight Weight used for dosin kg Goal Trough Goal Trough: 15-20 mcg/mL Pharmacy Plan for Drug Dosing Pharmacy Plan for Drug Dosing: NEW START IV VANCOMYCIN Consulting Physician: Dr. Brown Indication: Pneumonia/Bacteremia Goal Trough: 15-20 SrCr: 3.48 CrCl: pt on MWF HD Comments: pt to receive dialysis on Friday08/11/24 Vancomycin Dose: pt is a scheduled MWF dialysis patient. Based on patients weight, recommend a 2000mg x1 on 08/10/24. Recommend an additional dose of 500mg post dialysis on 08/11/24. Random level to be drawn pre dialysis on 08/13/24. Pending Level: random level 08/13/24 at 0600 Pharmacy Service will continue to monitor and adjust dosing as required. Follow-Up Labs Follow-Up Labs: Trough: Vancomycin (08/13/24 @0600 (random level))
[2024-08-11] VITALS (19 sets, daily range): BP systolic 101–247; BP diastolic 37–89; PULSE 67–103; RESP 12–20; TEMP 36–37.2; O2SAT 92–100; BMI 27.8; BMI 27.4
[2024-08-11] MEDS: 0.9% Normal Saline (250mL Bag) 250 ML 15 ML IV ×2 (01:42→07:43)
[2024-08-11 06:51] LABS: Absolute Lymphocyte Count 0.61 X10^3/uL (0.83-4.51); Absolute Neutrophil Count 11.1 X10^3/uL (2.0-7.7); Basophil# 0.02 X10^3/uL; Basophil% 0.2 % (0-1); Eosinophils% 0.8 % (0-5); Hematocrit 28.1 % (40-54); Hemoglobin 8.9 g/dL (13.0-16.5); Lymphocyte # 0.61 X10^3/ul (0.83-4.51); Lymphocyte % 4.7 % (19-41); Mean Corp Hgb Conc 31.7 g/dL (32-36); Mean Corpuscular Hgb 29.6 pg (27.0-32.0); Mean Corpuscular Volume 93.4 fL (80-94); Monocyte# 0.61 X10^3/uL; Monocyte% 4.7 % (0-10); NRBC Flagged by Analyzer 0.2 % (0-5); Neutrophil # 11.12 X10^3/uL (2.7-7.7); Neutrophil % 86.2 % (47-70); POSITIVE COUNT YES; Platelet Count 97 K/mm3 (150-450); RBC Distribution Width CV 19.1 % (11.6-14.6); RBC Distribution Width SD 60.5 fl (35.1-43.9); Red Blood Count 3.01 M/mm3 (4.6-6.2); White Blood Count 12.9 K/mm3 (4.4-11.0)
[2024-08-11] MEDS: Budesonide Respules 0.5 MG/2 ML AMPUL.NEB. INHALATION ×2 (07:22→19:28)
[2024-08-11] MEDS: Albuterol 2.5 MG/3 ML VIAL.NEB. INHALATION ×3 (07:22→19:28)
[2024-08-11 07:53] LABS: Anion Gap 7 (5-15); BUN 72 mg/dL (7-18); BUN/Creat Ratio 17.1 RATIO (10-20); Calcium,Total 7.4 mg/dL (8.5-10.1); Chloride 111 mmol/L (98-107); EST Glomerular Filtration Rate 15 mL/min (>60); Est Glom Filt Rate - Afr Amer 18 mL/min (>60); Estimated Creatinine Clearance 14.53 ml/min; Glucose 104 mg/dL (74-106); Potassium 4.6 mmol/L (3.5-5.1); Sodium Level 140 mmol/L (136-145)
--- NOTE | 2024-08-11 10:22 | PCM.PN.REN ---
Subjective Subjective no new events Objective Data Objective Data Vital Signs: Vital Signs Temp Pulse Resp BP Pulse Ox O2 Del Method O2 Flow Rate 98.7 F 89 12 127/89 H 93 Room Air 3 08/11/24 07:45 08/11/24 09:55 08/11/24 09:55 08/11/24 09:55 08/11/24 09:55 08/11/24 09:55 08/10/24 07:04 Oxygen Flow Rate (L/min) 3 Oxygen Delivery Method Room Air Weight: 78.6 kg Body Mass Index (BMI) 27.8 Intake & Output: Intake and Output for Last 24 Hours 08/09/24 08/10/24 08/11/24 23:59 23:59 23:59 Intake Total 1318.75 / 1318.75 818.5 / 1218.5 840.25 / 840.25 Output Total 450 / 650 200 / 850 850 / 850 Balance 868.75 / 668.75 618.5 / 368.5 -9.75 / -9.75 Lab / Micro Data 08/11/24 06:39 08/11/24 06:39 Labs: Laboratory Results - last 24 hr 08/09/24 12:05: Diff Path Review Reviewed 08/11/24 06:39: WBC 12.9 H, RBC 3.01 L, Hgb 8.9 L, Hct 28.1 L, MCV 93.4, MCH 29.6, MCHC 31.7 L, RDW Std Deviation 60.5 H, RDW Coeff of Morris 19.1 H, Plt Count 97 L, MPV 10.0, Immature Gran % (Auto) 3.400 H, Neut % (Auto) 86.2 H, Lymph % (Auto) 4.7 L, [place] % (Auto) 4.7, Eos % (Auto) 0.8, Baso % (Auto) 0.2, Absolute Neuts (auto) 11.1 H, Absolute Lymphs (auto) 0.61 L, Nucleated RBC % 0.2, Sodium 140, Potassium 4.6, Chloride 111 H, Carbon Dioxide 22.0, Anion Gap 7, BUN 72 H, Creatinine 4.20 H, Estim Creat Clear Calc 14.53, Est GFR (MDRD) Af Amer 18 L, Est GFR (MDRD) Non-Af 15 L, BUN/Creatinine Ratio 17.1, Glucose 104, Calcium 7.4 L Physical Exam Narrative Alert awake oriented x 3 no obvious distress s1s2 no murmurs lungs clear abdomen soft no edema AV fistula right upper arm positive thrill and bruit Assessment & Plan Assessment/Plan (1) ESRD (end stage renal disease) on dialysis: PLAN: - ESRD; on hemodialysis MWF schedule. Hemodialysis today, see orders - Anemia. s/p PRBC. EGD oozing gastric ulcer, treated with heater probe/clip, also noted nonbleeding gastric and duodenal ulcers.
[2024-08-11] MEDS: Epoetin Alfa epbx 10,000 UNIT/ML 20000 UNIT IV (10:30)
[2024-08-11] MEDS: 0.9% Normal Saline 1,000 ML IV.SOLN. 1000 ML OPERA.SITE (10:30)
[2024-08-11] MEDS: PureFlow B 2K Dialysis Soln 1 BAG 6 BAG PF (10:30)
[2024-08-11] MEDS: Vancomycin IV 500 MG/100 ML BAG 100 MG IV (10:49)
[2024-08-11] MEDS: Pantoprazole Sodium 40 MG Tablet PO ×2 (12:32→20:01)
--- NOTE | 2024-08-11 13:19 | PN_ITS ---
Subjective Subjective Patient seen and examined. He had no active complaints and felt well. He had an uneventful night. Review of systems is otherwise negative. He was started on IV vancomycin yesterday after [facility] called that his blood cultures in one out of 2 samples was positive for gram positive cocci. Repeat blood cultures were also ordered here. His wbc today is 12.9. Objective Data Objective Data Vital Signs: Vital Signs Temp Pulse Resp BP Pulse Ox O2 Del Method O2 Flow Rate 98.4 F 74 15 181/50 H 100 Room Air 3 08/11/24 12:25 08/11/24 12:25 08/11/24 12:25 08/11/24 12:25 08/11/24 12:25 08/11/24 12:25 08/10/24 07:04 Oxygen Flow Rate (L/min) 3 Oxygen Delivery Method Room Air Weight: 170 lb 10.205 oz Body Mass Index (BMI) 27.4 Intake & Output: Intake and Output for Last 24 Hours 08/09/24 08/10/24 08/11/24 23:59 23:59 23:59 Intake Total 1318.75 / 1318.75 818.5 / 1218.5 940.25 / 940.25 Output Total 450 / 650 200 / 850 1950 / 1950 Balance 868.75 / 668.75 618.5 / 368.5 -1009.75 / -1009.75 Lab / Micro Data 08/11/24 06:39 08/11/24 06:39 Labs: Laboratory Results - last 24 hr 08/09/24 12:05: Diff Path Review Reviewed 08/11/24 06:39: WBC 12.9 H, RBC 3.01 L, Hgb 8.9 L, Hct 28.1 L, MCV 93.4, MCH 29.6, MCHC 31.7 L, RDW Std Deviation 60.5 H, RDW Coeff of Morris 19.1 H, Plt Count 97 L, MPV 10.0, Immature Gran % (Auto) 3.400 H, Neut % (Auto) 86.2 H, Lymph % (Auto) 4.7 L, [place] % (Auto) 4.7, Eos % (Auto) 0.8, Baso % (Auto) 0.2, Absolute Neuts (auto) 11.1 H, Absolute Lymphs (auto) 0.61 L, Nucleated RBC % 0.2, Sodium 140, Potassium 4.6, Chloride 111 H, Carbon Dioxide 22.0, Anion Gap 7, BUN 72 H, Creatinine 4.20 H, Estim Creat Clear Calc 14.53, Est GFR (MDRD) Af Amer 18 L, E st GFR (MDRD) Non-Af 15 L, BUN/Creatinine Ratio 17.1, Glucose 104, Calcium 7.4 L Physical Exam Const alert, oriented x3, no apparent distress, average body habitus and well nourished Constitutional Narrative: Patient looks better today General Appearance: cooperative HEENT normocephalic, head/scalp atraumatic, hearing grossly normal bilaterally and moist oral mucous membranes Eyes PERRL and EOMs intact bilaterally Neck no lymphadenopathy, supple and no JVD Lymph Lymphatic: no lymphadenopathy noted and no lymphedema noted Resp normal respiratory effort, no retractions, no use of accessory muscles and clear to auscultation bilaterally Resp Narrative: mildly diminished breath sounds bibasally, no wheezes or crackles. On room air. Cardio regular rate, regular rhythm, S1 normal heart sound, S2 normal heart sound and no murmurs GI normal to inspection, nondistended, normoactive bowel sounds, soft to palpation, non-tender and non-distended Extremity normal to inspection, full ROM, normal capillary refill, no clubbing, cyanosis or edema and no calf tenderness General Extremity: no tenderness to palpation of joints or extremities Skin Skin Narrative: Patient has no evidence of wound or jaundice. Has bruises on RUE. HAs AV fistula with good thrill in LUE. General Skin Exam: no breakdown Neuro oriented x3, CN's II-XII intact bilaterally, moves all extremities and no focal motor deficits Sensorium / Orientation: awake, alert, oriented to person, oriented to place and oriented to time Speech: speech normal Motor Exam: strength 5/5 throughout and general weakness Psych thought process normal, cooperative and affect normal Appearance: appropriate Assessment & Plan Assessment/Plan (1) Acute blood loss anemia (ABLA): (2) GI bleed: QUALIFIERS: GI bleed type/associated pathology: melena Qualified Code(s): K92.1 - Melena (3) Hyperkalemia: PLAN: Plan #Acute blood loss anemia due to lower GI bleed * s/p transfusion of 2 units of PRBCs. * had EGD yesterday which showed normal esophagus with oozing gastric ulcers and no visible vessel, treated with a heater probe and a clip was placed; nonbleeding gastric and duodenal ulcers with no stigmata of bleeding. * Hb today is 8.9 * coumadin on hold; to resume when ok with gastroenterology. * he did receive IV vitamin K 2.5mg x 1 yesterday. * now on PO pantoprazole * GI on board. * #ESRD with hyperkalemia: * On dialysis Wednesdays and Fridays. * hyperkalemia has resolved. He did have a full run of dialysis yesterday. K today is 4.5. * nephrology on board. * #Bacteremia * [facility] called last night that his blood cultures in 1 out of 2 samples are gone positive for gram-positive cocci. He was started on IV vancomycin and repeat blood cultures are pending here today. * His WBC is 12.9. * consult ID. get 2D echo * await repeat blood cultures * #Benign essential hypertension * Hypotension is improving. His diastolic remains low in the 30s and 40s though. Blood pressure this morning was 139/43. * Blood pressures running in low in the 90s systolic so BP meds on hold. Will monitor closely. IV hydralazine. Usually on atenolol and lisinopril #History of clotted AV fistula: * Was on Coumadin and aspirin. * Coumadin on hold as well as aspirin due to concerns about GI bleed. * INR is pending today * check with GI when ok to resume coumadin * #Supratherapeutic INR. * INR was supratherapeutic at outside hospital but we have not been able to get blood draws repeated while here. * Coumadin on hold. * received IV vitamin K 2.5mg x1. * INR is pending today. * #History of severe vasculitis: Will benefit from follow-up with rheumatology on outpatient basis #COPD: Not in exacerbation. Breathing treatments with bronchodilators. #Gout: Stable. #Osteoarthritis: S/p previous lumbar laminectomy. Stable. #Recent admission for pneumococcal pneumonia. * Was only discharged on 07/22/2024 after being admitted and managed for hypoxia due to septic shock from pneumonia. * Urinary antigen was positive for pneumococcal pneumonia. * He was initially started on vancomycin and Zosyn and switched to ceftriaxone and discharged on 7-day course of Augmentin. * DVT prophylaxis:SCDs Charges/Coding Visit Charges Inpatient E&M: 22871 Subs Hosp L3
--- NOTE | 2024-08-11 13:32 | ECHOCS_ITS ---
Reason For Study: EMBOLI Procedure This was a 2D Doppler, Color Flow transthoracic echocardiogram. The study was technically difficult. Exam performed portable in patient room. Left Ventricle Normal LV size. The estimated ejection fraction is 65 %. Diastolic function is indeterminate. No regional wall motion abnormalities noted. Right Ventricle Normal RV size. Normal systolic function. Atria The left and right atria are normal. Mitral Valve There is no mitral valve stenosis. No mitral valve insufficiency. Tricuspid Valve There is no tricuspid stenosis. Unable to estimate RV systolic pressure due to inadequate jet, pulmonary artery pressure probably normal. Aortic Valve Aortic sclerosis, no stenosis. There is no aortic stenosis. No aortic valve insufficiency. Pulmonic Valve There is no pulmonic valvular stenosis. No pulmonic valve insufficiency. Great Vessels Normal aortic root. Pericardium/Pleural No pericardial effusion. Medication Diluted definity 1.5ml given slow IV push to enhance endocardial definition. MMode/2D Measurements & Calculations LVIDd: 4.6 cm IVSd: 1.1 cm Ao root diam: 3.3 cm LVIDs: 3.1 cm LVPWd: 1.0 cm RVDd: 3.7 cm FS: 32.8 % LAV(MOD-bp): 30.4 ml LVAd ap4: 26.6 cm2 SV(MOD-sp4): 44.9 ml LAV(MOD-bp) Indexed: 16.3 ml/m2 LVLd ap4: 7.7 cm LAV(MOD-sp2): 31.1 ml EDV(MOD-sp4): 74.8 ml LAV(MOD-sp4): 31.3 ml EDV(sp4-el): 78.3 ml LVAs ap4: 14.9 cm2 LVLs ap4: 6.0 cm ESV(MOD-sp4): 29.9 ml ESV(sp4-el): 31.0 ml EF(MOD-sp4): 60.1 % EF(sp4-el): 60.4 % SV(sp4-el): 47.3 ml LA A4 area: 14.4 cm2 LA dimension(2D): 2.4 cm RA A4 area: 15.4 cm2 TAPSE: 2.3 cm Time Measurements MV dec time: 0.19 sec Doppler Measurements & Calculations MV E max wes: 67.4 cm/sec Lat Peak E' Wes: 9.5 cm/sec Med Peak E' Wes: 9.1 cm/sec MV A max wes: 91.6 cm/sec E/E' lat: 7.1 E/E' med: 7.4 MV E/A: 0.74 Ao V2 max: 196.8 cm/sec LV V1 max: 147.5 cm/sec PA V2 max: 125.9 cm/sec Ao max P.5 mmHg LV V1 max P.7 mmHg TR max wes: 293.7 cm/sec TR max P.5 mmHg ECHO/Echo Complete W/ Contrast Interpretation Summary The estimated ejection fraction is 65 %. Diastolic function is indeterminate. Ordering Physician: Tanya Veliz Referring Physician: TRUDY ROSAS Performed By: Abimbola Millan RDCS
[2024-08-11 14:53] LABS: International Normalized Ratio 1.2; Prothrombin Time (Protime)PT. 14.8 SECONDS (11.7-14.9)
--- NOTE | 2024-08-11 16:39 | PN.GI_ITS ---
Subjective Subjective Patient underwent upper endoscopy for an acute upper GI bleed. He was discovered to have bleeding from multiple sources but mainly in his duodenum. He has not had any more signs or symptoms of GI bleeding. Objective Data Objective Data Vital Signs: Vital Signs Temp Pulse Resp BP Pulse Ox O2 Del Method O2 Flow Rate 98.6 F 101 H 18 155/39 H 96 Room Air 3 08/11/24 16:24 08/11/24 16:24 08/11/24 16:24 08/11/24 16:24 08/11/24 16:24 08/11/24 16:24 08/10/24 07:04 Oxygen Flow Rate (L/min) 3 Oxygen Delivery Method Room Air Weight: 170 lb 10.205 oz Body Mass Index (BMI) 27.4 Intake & Output: Intake and Output for Last 24 Hours 08/09/24 08/10/24 08/11/24 23:59 23:59 23:59 Intake Total 1318.75 / 1318.75 818.5 / 1218.5 940.25 / 940.25 Output Total 450 / 650 200 / 850 1950 / 1950 Balance 868.75 / 668.75 618.5 / 368.5 -1009.75 / -1009.75 Lab / Micro Data 08/11/24 06:39 08/11/24 06:39 Labs: Laboratory Results - last 24 hr 08/11/24 06:39: WBC 12.9 H, RBC 3.01 L, Hgb 8.9 L, Hct 28.1 L, MCV 93.4, MCH 29.6, MCHC 31.7 L, RDW Std Deviation 60.5 H, RDW Coeff of Morris 19.1 H, Plt Count 97 L, MPV 10.0, Immature Gran % (Auto) 3.400 H, Neut % (Auto) 86.2 H, Lymph % (Auto) 4.7 L, [place] % (Auto) 4.7, Eos % (Auto) 0.8, Baso % (Auto) 0.2, Absolute Neuts (auto) 11.1 H, Absolute Lymphs (auto) 0.61 L, Nucleated RBC % 0.2, Sodium 140, Potassium 4.6, Chloride 111 H, Carbon Dioxide 22.0, Anion Gap 7, BUN 72 H, Creatinine 4.20 H, Estim Creat Clear Calc 14.53, Est GFR (MDRD) Af Amer 18 L, E st GFR (MDRD) Non-Af 15 L, BUN/Creatinine Ratio 17.1, Glucose 104, Calcium 7.4 L 08/11/24 14:36: PT 14.8, INR 1.2 Physical Exam Const alert, oriented x3, no apparent distress, average body habitus and well nourished Constitutional Narrative: Patient looks better today General Appearance: cooperative HEENT normocephalic, head/scalp atraumatic, hearing grossly normal bilaterally and moist oral mucous membranes Eyes PERRL and EOMs intact bilaterally Neck no lymphadenopathy, supple and no JVD Lymph Lymphatic: no lymphadenopathy noted and no lymphedema noted Resp normal respiratory effort, no retractions, no use of accessory muscles and clear to auscultation bilaterally Resp Narrative: mildly diminished breath sounds bibasally, no wheezes or crackles. On room air. Cardio regular rate, regular rhythm, S1 normal heart sound, S2 normal heart sound and no murmurs GI normal to inspection, nondistended, normoactive bowel sounds, soft to palpation, non-tender and non-distended Extremity normal to inspection, full ROM, normal capillary refill, no clubbing, cyanosis or edema and no calf tenderness General Extremity: no tenderness to palpation of joints or extremities Skin Skin Narrative: Patient has no evidence of wound or jaundice. Has bruises on RUE. HAs AV fistula with good thrill in LUE. General Skin Exam: no breakdown Neuro oriented x3, CN's II-XII intact bilaterally, moves all extremities and no focal motor deficits Sensorium / Orientation: awake, alert, oriented to person, oriented to place and oriented to time Speech: speech normal Motor Exam: strength 5/5 throughout and general weakness Psych thought process normal, cooperative and affect normal Appearance: appropriate Assessment & Plan Assessment/Plan (1) Acute blood loss anemia (ABLA): (2) GI bleed: QUALIFIERS: GI bleed type/associated pathology: melena Qualified Code(s): K92.1 - Melena (3) Adverse drug reaction: QUALIFIERS: Encounter type: initial encounter Qualified Code(s): T50.905A - Adverse effect of unspecified drugs, medicaments and biological substances, initial encounter (4) ESRD (end stage renal disease) on dialysis: PLAN: Plan 79-year-old gentleman with with past medical history of end-stage renal disease, COPD on prednisone, aspirin and anticoagulation with Coumadin who presents with Acute Blood Loss Anemia requiring transfusion due to GI bleed; with dark tarry stools with poor venous access . Agree with Type & Cross blood and transfuse one unit of PRBC's. Recommend to continue to correct INR, repeat hemoglobin. PPI drip. Patient will need an emergent upper endoscopy to evaluate his upper GI tract. He was explained alternatives, risk, benefits include not withstanding bleeding, infection, sepsis, perforation, need for emergent urgent . He will have an ASA of 3. Findings from upper endoscopy: The examined esophagus was normal. Two oozing cratered gastric ulcers with a visible vessel were found in the gastric antrum. The largest lesion was 8 mm in largest dimension. Coagulation for hemostasis using heater probe was successful. For hemostasis, one hemostatic clip was successfully placed. 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 There was no bleeding at the end of the procedure. Many non-bleeding superficial gastric ulcers with no stigmata of bleeding were found in the gastric fundus. The largest lesion was 4 mm in largest dimension. Many non-bleeding superficial duodenal ulcers with no stigmata of bleeding were found in the duodenal bulb, in the first portion of the duodenum, in the second portion of the duodenum and in the third portion of the duodenum. The largest lesion was 6 mm in largest dimension. Impression: - Normal esophagus. - Oozing gastric ulcers with a visible vessel. Treated with a heater probe. Clip was placed. 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 - Non-bleeding gastric ulcers with no stigmata of bleeding. - Non-bleeding duodenal ulcers with no stigmata of bleeding. - No specimens collected. Recommendations: Continue PPI therapy and sulcal fate therapy. Advance diet as tolerated. 08/11/2024-patient's hemoglobin is at 8.9 from 9.2. There is no signs of active bleeding at this time. Continue PPI therapy twice a day and add sulcal fate therapy 3 times a day. Repeat his upper endoscopy in approximately 6 to 8 weeks. Charges/Coding Visit Charges Inpatient E&M: [id number] [facility] L3
[2024-08-11] MEDS: Calcium Acetate 667 MG Capsule PO (17:35)
[2024-08-12 03:21] VITALS: BMI 26.9
[2024-08-12] MEDS: 0.9% Normal Saline (250mL Bag) 250 ML 15 ML IV (03:21)
[2024-08-12 04:00] VITALS: BP 136/42; PULSE 89; RESP 18; TEMP 37.1; O2SAT 94
[2024-08-12 06:01] LABS: Absolute Lymphocyte Count 0.92 X10^3/uL (0.83-4.51); Absolute Neutrophil Count 7.5 X10^3/uL (2.0-7.7); Basophil# 0.05 X10^3/uL; Basophil% 0.5 % (0-1); Hematocrit 26.4 % (40-54); Hemoglobin 8.3 g/dL (13.0-16.5); Lymphocyte # 0.92 X10^3/ul (0.83-4.51); Lymphocyte % 9.6 % (19-41); Mean Corp Hgb Conc 31.4 g/dL (32-36); Mean Corpuscular Hgb 29.6 pg (27.0-32.0); Mean Corpuscular Volume 94.3 fL (80-94); Mean Platelet Vol. 10.3 fl (6.2-12.0); Monocyte# 0.69 X10^3/uL; Monocyte% 7.2 % (0-10); NRBC Flagged by Analyzer 0 % (0-5); Neutrophil # 7.47 X10^3/uL (2.7-7.7); Neutrophil % 77.8 % (47-70); POSITIVE COUNT YES; Platelet Count 89 K/mm3 (150-450); RBC Distribution Width CV 18.6 % (11.6-14.6); RBC Distribution Width SD 60.7 fl (35.1-43.9); White Blood Count 9.6 K/mm3 (4.4-11.0)
--- NOTE | 2024-08-12 06:30 | US_ITS ---
INDICATION: cirrhosis -- liver and ascites eval per Dr. Montano,Instructed to stay NPO after midnight EXAMINATION: Ultrasound US Abdomen Limited (quadrant) TECHNIQUE: Baeza scale and color doppler imaging was performed of the right upper quadrant. COMPARISON: No relevant prior comparison study available FINDINGS: LIVER: The liver is normal in size and shape with heterogeneous echogenicity. No focal hepatic lesion. No intrahepatic biliary ductal dilatation. There is no free fluid. GALLBLADDER AND BILIARY TREE: Normally distended gallbladder. No shadowing gallstone, pericholecystic fluid or gallbladder wall thickening. The proximal common bile duct measures 0.4 cm, which is within normal limits for the patient''s age. Songraphic Sam''s sign: Negative. PANCREAS: No focal abnormality is demonstrated in the pancreas. No pancreatic ductal dilatation. Visualization of the tail is limited by gas. RIGHT KIDNEY: The right kidney measures 9.8 cm. No hydronephrosis or nephrolithiasis. No renal mass. Right pleural effusion noted. US/Abdomen Limited IMPRESSION: No ascites. Right pleural effusion noted. Normal liver contour. Heterogeneous echogenicity can be seen with liver disease. Electronically Signed: Edis Colby MD at 7:53 EDT ,
[2024-08-12 06:58] LABS: Anion Gap 6 (5-15); BUN 39 mg/dL (7-18); BUN/Creat Ratio 11.5 RATIO (10-20); Calcium,Total 7.4 mg/dL (8.5-10.1); Chloride 109 mmol/L (98-107); Creatinine, Serum 3.39 mg/dL (0.70-1.30); EST Glomerular Filtration Rate 19 mL/min (>60); Est Glom Filt Rate - Afr Amer 23 mL/min (>60); Estimated Creatinine Clearance 16.47 ml/min; Glucose 97 mg/dL (74-106); Potassium 3.7 mmol/L (3.5-5.1); Sodium Level 142 mmol/L (136-145)
[2024-08-12] MEDS: Albuterol 2.5 MG/3 ML VIAL.NEB. INHALATION ×2 (08:03→13:34)
[2024-08-12] MEDS: Budesonide Respules 0.5 MG/2 ML AMPUL.NEB. INHALATION (08:03)
[2024-08-12 08:04] VITALS: PULSE 90; RESP 18
[2024-08-12 08:10] VITALS: O2SAT 95
[2024-08-12 08:48] LABS: International Normalized Ratio 1.4; Prothrombin Time (Protime)PT. 17.1 SECONDS (11.7-14.9)
[2024-08-12 09:43] VITALS: BP 149/41; PULSE 100; RESP 18; TEMP 36.8; O2SAT 100
[2024-08-12] MEDS: Atenolol 50 MG Tablet PO (09:47)
[2024-08-12] MEDS: Allopurinol 100 MG Tablet PO (09:47)
[2024-08-12] MEDS: Calcium Acetate 667 MG Capsule PO ×2 (09:47→12:30)
[2024-08-12] MEDS: Pantoprazole Sodium 40 MG Tablet PO (09:48)
--- NOTE | 2024-08-12 11:12 | PCM.CONS.GEN ---
Assessment & Plan Assessment/Plan (1) ESRD (end stage renal disease) on dialysis: (2) Positive blood culture: PLAN: Reviewed [facility] records. Single bcx with CoNS, paired bcx remains neg from 08/08. Consistent with contaminant, will stop vanc. Will follow as needed, thank you HPI Consult Data Date of Consult: 08/12/24 HPI Narrative Reason for Consultation: (+) bcx HPI Narrative: MEHUL GORDILLO, is a 79 M with ESRD, COPD, and recent admit with s.pneumo pneumonia discharged on short course augmentin. Came to ED 08/08 to [facility] with decreased hgb, not feeling well. No cough, no shortness of breath, no fever, no issues with RUE fistula. Admitted here, called about (+) bcx at [facility], vanc started. Full ROS performed and neg except as noted above. [facility] Medical History ESRD (end stage renal disease) COPD (chronic obstructive pulmonary disease) Wears glasses Alcohol use History of steroid therapy Ambulates with cane Arthritis History of renal dialysis History of renal disease Low iron Back pain Dietary restriction History of hiatal hernia Gastric reflux Shortness of breath on exertion Former smoker Hoarseness History of edema Gout HTN (hypertension) Home Medications ?Medication ?Instructions ?Recorded ?Last Taken ?Type allopurinol 100 mg tablet 100 mg PO DAILY lower uric acid in 05/01/23 08/08/24 History blood atenolol 50 mg tablet 50 mg PO DAILY hypertension 05/01/23 08/08/24 History prednisone 20 mg tablet 20 mg PO BID ordered 05/01/23 08/08/24 History fluticasone 232 mcg-salmeterol 14 1 inh inhalation BID allergies 05/04/24 08/08/24 History mcg/actuation breath activated powdr lisinopril 5 mg tablet 5 mg PO DAILY hypertension 05/04/24 08/08/24 History warfarin 2.5 mg tablet 2.5 mg PO DAILY blood clot 05/04/24 05/15/24 History calcium acetate 667 mg tablet 667 mg PO TID electrolytes 06/03/24 08/08/24 History albuterol 90 mcg/actuation aerosol 90 mcg inhalation BID PRN SOB 07/16/24 Unknown History inhaler Allergy/AdvReac Type Severity Reaction Status Date / Time No Known Allergies Allergy Verified 06/03/24 08:40 Family History Brother Cancer Other Hypertension Surgical History S/P dialysis catheter insertion S/P cataract extraction Previous back surgery Social History Smoking Status: Former smoker Physical Exam Const alert, oriented x3 and no apparent distress General Appearance: cooperative HEENT normocephalic and head/scalp atraumatic Eyes PERRL and EOMs intact bilaterally Neck supple and No nodes Resp normal air movement and clear to auscultation bilaterally Resp Narrative: diminished in bases Cardio regular rate and regular rhythm GI soft to palpation, non-tender and non-distended Extremity General Extremity: edema Skin no rashes or lesions noted Neuro CN's II-XII intact bilaterally Lab / Micro Data Attestation: I reviewed the patient's lab results. 08/12/24 05:30 08/12/24 05:30 Labs: Laboratory Results - last 24 hr 08/11/24 14:36: PT 14.8, INR 1.2 08/12/24 05:30: WBC 9.6, RBC 2.80 L, Hgb 8.3 L, Hct 26.4 L, MCV 94.3 H, MCH 29.6, MCHC 31.4 L, RDW Std Deviation 60.7 H, RDW Coeff of Morris 18.6 H, Plt Count 89 L, MPV 10.3, Immature Gran % (Auto) 3.900 H, Neut % (Auto) 77.8 H, Lymph % (Auto) 9.6 L, [place] % (Auto) 7.2, Eos % (Auto) 1.0, Baso % (Auto) 0.5, Absolute Neuts (auto) 7.5, Absolute Lymphs (auto) 0.92, Nucleated RBC % 0, PT 17.1 H, INR 1.4, Sodium 142, Potassium 3.7, Chloride 109 H, Carbon Dioxide 27.0, Anion Gap 6, BUN 39 H, Creatinine 3.39 H, Estim Creat Clear Calc 16.47, Est GFR (MDRD) Af Amer 23 L, Est GFR (MDRD) Non-Af 19 L, BUN/Creatinine Ratio 11.5, Glucose 97, Calcium 7.4 L Imaging Radiology Impression Echocardiogram 08/11/24 13:32 Interpretation Summary The estimated ejection fraction is 65 %. Diastolic function is indeterminate. Ordering Physician: Tanya Veliz Referring Physician: TRUDY ROSAS Performed By: Abimbola Millan RDCS Abdomen Ultrasound 08/12/24 06:30 IMPRESSION: No ascites. Right pleural effusion noted. Normal liver contour. Heterogeneous echogenicity can be seen with liver disease. Electronically Signed: Edis Colby MD at 7:53 EDT ,
--- NOTE | 2024-08-12 12:29 | DCINST_ITS ---
Discharge Instructions Diet Discharge Diet: Low fat / Low cholesterol Activity Discharge Activity: Return to Normal Activity Weight Bearing Status: Weight bearing as tolerated Dressing / Incision Call your doctor if you observe: Fever of 101 or Higher, Shortness of breath, Dizziness, Swelling in the ankles and Chest pain Follow Up Care Test Results: Test results from this visit will be discussed in further detail at your follow- up appointment, if applicable. Discharge Plan Admission Admit Date/Time: 08/09/24 05:06 Primary Reason for Your Visit: GI bleed Attending Provider: Tanya Veliz Primary Care Provider: Yash Talavera Consulting Providers: Jose Ramon Villavicencio; Junior Man; Michael Brand Instructions Patient Instructions: GI Bleeding Ch, ED Upper GI Bleeding (Stable) Additional Instructions / Restrictions: follow up with PCP within 2-3 days to check INR to ensure it is in therapeutic range. Discharge Orders/Prescriptions Prescriptions: Continued prednisone 20 mg tablet 20 mg PO BID Patient Comments: TAKE 2 TABLETS BY MOUTH ONCE DAILY atenolol 50 mg tablet 50 mg PO DAILY Patient Comments: TAKE 1 TABLET BY MOUTH ONCE DAILY allopurinol 100 mg tablet 100 mg PO DAILY Patient Comments: TAKE 1 TABLET BY MOUTH ONCE DAILY warfarin 2.5 mg tablet 2.5 mg PO DAILY Patient Comments: Does not take on Tuesdays Rx Instructions: 6 days a week lisinopril 5 mg tablet 5 mg PO DAILY fluticasone propion-salmeterol 232-14 mcg/actuation aerosol powdr breath activated 1 inh inhalation BID calcium acetate 667 mg tablet 667 mg PO TID Rx Instructions: with meals albuterol 90 mcg/actuation aerosol 90 mcg inhalation BID PRN (Reason: SOB) Referrals / Follow Up: Yash Talavera MD [Primary Care Provider] - Within 1 Week Junior Man MD [Med Staff - Consulting] - Within 1 Week Disposition Disposition (needs filled in before D/C Order can be placed): Home, Self Care
--- NOTE | 2024-08-12 12:34 | DS.PCM_ITS ---
Providers Date of Admission: 08/09/24 Date of Discharge: 08/12/24 Primary Care Physician: Dr. Trudy Talavera MD Consultations 08/09/24 05:37 Consult: Gastroenterology Routine Consulting Provider: [facility] Reason for Consult: GI Bleed with Dark Stools. EMERGENT Consult: No Notified: Yes Date Notified: 08/09/24 Time Notified: 05:10 Method of Notification: Answering Service Consult: Nephrology Routine Consulting Provider: Junior Man Reason for Consult: ESRD on HD. EMERGENT Consult: No Notified: Yes Date Notified: 08/09/24 Time Notified: 07:39 Method of Notification: Answering Service 08/11/24 13:32 Consult: Infectious Disease Routine Consulting Provider: Michael Brand Reason for Consult: gram positive bacteremia EMERGENT Consult: No Notified: Yes Date Notified: 08/11/24 Time Notified: 13:37 Method of Notification: Text Reason For Visit: GI BLEEDS WITH DARK STOOLS Diagnosis Discharge Diagnosis (1) ESRD (end stage renal disease) on dialysis: Status: Acute Code(s): N18.6 - End stage renal disease; Z99.2 - Dependence on renal dialysis (2) Positive blood culture: Status: Acute Code(s): R78.81 - Bacteremia Plan #Acute blood loss anemia due to lower GI bleed * s/p transfusion of 2 units of PRBCs. * had EGD yesterday which showed normal esophagus with oozing gastric ulcers and no visible vessel, treated with a heater probe and a clip was placed; nonbleeding gastric and duodenal ulcers with no stigmata of bleeding. * Hb today is 8.9 * coumadin on hold; to resume when ok with gastroenterology. * he did receive IV vitamin K 2.5mg x 1 yesterday. * now on PO pantoprazole * GI on board. * #ESRD with hyperkalemia: * On dialysis Wednesdays and Fridays. * hyperkalemia has resolved. He did have a full run of dialysis yesterday. K today is 4.5. * nephrology on board. * #Bacteremia * [facility] called last night that his blood cultures in 1 out of 2 samples are gone positive for gram-positive cocci. He was started on IV vancomycin and repeat blood cultures are pending here today. * His WBC is 12.9. * consult ID. get 2D echo * await repeat blood cultures * #Benign essential hypertension * Hypotension is improving. His diastolic remains low in the 30s and 40s though. Blood pressure this morning was 139/43. * Blood pressures running in low in the 90s systolic so BP meds on hold. Will monitor closely. IV hydralazine. Usually on atenolol and lisinopril #History of clotted AV fistula: * Was on Coumadin and aspirin. * Coumadin on hold as well as aspirin due to concerns about GI bleed. * INR is pending today * check with GI when ok to resume coumadin * #Supratherapeutic INR. * INR was supratherapeutic at outside hospital but we have not been able to get blood draws repeated while here. * Coumadin on hold. * received IV vitamin K 2.5mg x1. * INR is pending today. * #History of severe vasculitis: Will benefit from follow-up with rheumatology on outpatient basis #COPD: Not in exacerbation. Breathing treatments with bronchodilators. #Gout: Stable. #Osteoarthritis: S/p previous lumbar laminectomy. Stable. #Recent admission for pneumococcal pneumonia. * Was only discharged on 07/22/2024 after being admitted and managed for hypoxia due to septic shock from pneumonia. * Urinary antigen was positive for pneumococcal pneumonia. * He was initially started on vancomycin and Zosyn and switched to ceftriaxone and discharged on 7-day course of Augmentin. * DVT prophylaxis:SCDs Medications at Discharge Home Medications allopurinol 100 mg tablet 100 mg PO DAILY lower uric acid in blood 05/01/23 atenolol 50 mg tablet 50 mg PO DAILY hypertension 05/01/23 prednisone 20 mg tablet 20 mg PO BID ordered 05/01/23 fluticasone 232 mcg-salmeterol 14 mcg/actuation breath activated powdr 1 inh inhalation BID allergies 05/04/24 lisinopril 5 mg tablet 5 mg PO DAILY hypertension 05/04/24 warfarin 2.5 mg tablet 2.5 mg PO DAILY blood clot 05/04/24 calcium acetate 667 mg tablet 667 mg PO TID electrolytes 06/03/24 albuterol 90 mcg/actuation aerosol inhaler 90 mcg inhalation BID PRN SOB 07/16/24 pantoprazole 40 mg tablet,delayed release 40 mg PO BID #60 tabs 10/03/24 Hospital Course Operations None Procedures EGD Summary of Care Provided Minutes Spent on Discharge: 57 Hospital Course: Patient is a 79-year-old male with a past medical history as outlined was admitted on 08/09/2024 as a transfer from [facility] with a complaint of dark tarry stools. His symptoms began the day before admission. He also had associated cramping abdominal pain with nausea but no vomiting. He went to pulmonary and ED and was found to have hemoglobin of 7.9 but this dropped to 7.1 on recheck. He also had hyperkalemia with potassium of 5.8 and lactic acid of 4. He had recently been on steroids for pneumonia as well as antibiotics. His WBC was 24.4 and was told that this was due to the elevation in the steroids. Patient was on Coumadin. He was transferred to be managed for acute blood loss anemia in the setting of GI bleed. Coumadin was held. INR was supratherapeutic. Gastroenterology was consulted. He was transfused with 2 units of packed red blood cells. He had EGD which showed normal esophagus with oozing gastric ulcers and no visible vessel and this was treated with a heater probe and a clip was placed. He also had nonbleeding gastric and duodenal ulcers with no stigmata of bleeding. Due to his elevated INR and drop in hemoglobin, he did receive IV vitamin K 2.5 mg x 1 during the admission. His hyperkalemia and lactic acidosis resolved with dialysis. Nephrology was therefore consulted. Hospital was informed that blood cultures done at [facility] was positive for gram-positive cocci. Patient was therefore started on IV vancomycin and 2D echo was done which showed no evidence of vegetation. Repeat blood cultures were ordered here and ID was consulted. However [facility] later clarified that the blood cultures grew to be coagulase- negative staph which was thought to be a contaminant. ID reviewed patient and recommended discontinuing antibiotics. Patient's Coumadin was resumed per approval of gastroenterology. He remained stable and was discharged home on 08/12/2024. His Coumadin had been resumed as stated and INR on day of discharge was 1.4. Patient was counseled to follow-up with his PCP for repeat INR check within 1 to 2 days to ensure that his INR was therapeutic. Patient was seen and examined prior to discharge. He felt well and had no complaints. He had an uneventful night. Review of systems otherwise negative. Labs and vitals reviewed. Home medication reviewed and reconciled. Physical Exam Const alert, oriented x3, no apparent distress, average body habitus and well nourished Constitutional Narrative: Patient looks better today General Appearance: cooperative and comfortable HEENT normocephalic, head/scalp atraumatic, hearing grossly normal bilaterally and moist oral mucous membranes Mouth: oral and palatal mucosa normal Eyes PERRL, EOMs intact bilaterally and conjunctivae normal Eyes Narrative: Patient has evidence of Right [place]. Neck no lymphadenopathy, supple and no JVD Lymph Lymphatic: no lymphadenopathy noted and no lymphedema noted Resp normal respiratory effort, no retractions, no use of accessory muscles and clear to auscultation bilaterally Resp Narrative: mildly diminished breath sounds bibasally, no wheezes or crackles. On room air. Cardio regular rate, regular rhythm, S1 normal heart sound, S2 normal heart sound and no murmurs GI normal to inspection, nondistended, normoactive bowel sounds, soft to palpation, non-tender and non-distended Extremity normal to inspection, full ROM, normal capillary refill, no clubbing, cyanosis or edema and no calf tenderness General Extremity: no tenderness to palpation of joints or extremities Skin Skin Narrative: Patient has no evidence of wound or jaundice. Has bruises on RUE. HAs AV fistula with good thrill in LUE. General Skin Exam: no breakdown Neuro oriented x3, CN's II-XII intact bilaterally, moves all extremities and no focal motor deficits Sensorium / Orientation: awake, alert, oriented to person, oriented to place and oriented to time Speech: speech normal Motor Exam: strength 5/5 throughout and general weakness Psych thought process normal, cooperative and affect normal Appearance: appropriate Weight / BMI Weight Weight: 166 lb 10.711 oz Body Mass Index (BMI) 26.9 ABG / Lab / Microbiology Data 08/12/24 05:30 08/12/24 05:30 Laboratory: Laboratory Results - last 24 hr 08/11/24 14:36: PT 14.8, INR 1.2 08/12/24 05:30: WBC 9.6, RBC 2.80 L, Hgb 8.3 L, Hct 26.4 L, MCV 94.3 H, MCH 29.6, MCHC 31.4 L, RDW Std Deviation 60.7 H, RDW Coeff of Morris 18.6 H, Plt Count 89 L, MPV 10.3, Immature Gran % (Auto) 3.900 H, Neut % (Auto) 77.8 H, Lymph % (Auto) 9.6 L, [place] % (Auto) 7.2, Eos % (Auto) 1.0, Baso % (Auto) 0.5, Absolute Neuts (auto) 7.5, Absolute Lymphs (auto) 0.92, Nucleated RBC % 0, PT 17.1 H, INR 1.4, Sodium 142, Potassium 3.7, Chloride 109 H, Carbon Dioxide 27.0, Anion Gap 6, BUN 39 H, Creatinine 3.39 H, Estim Creat Clear Calc 16.47, Est GFR (MDRD) Af Amer 23 L, Est GFR (MDRD) Non-Af 19 L, BUN/Creatinine Ratio 11.5, Glucose 97, C alcium 7.4 L Radiography Diagnostic Testing: Radiology Impression Echocardiogram 08/11/24 13:32 Interpretation Summary The estimated ejection fraction is 65 %. Diastolic function is indeterminate. Ordering Physician: Tanya Veliz Referring Physician: TRUDY TALAVERA Performed By: Abimbola Millan RDCS Abdomen Ultrasound 08/12/24 06:30 IMPRESSION: No ascites. Right pleural effusion noted. Normal liver contour. Heterogeneous echogenicity can be seen with liver disease. Electronically Signed: Edis Colby MD at 7:53 EDT , D/C Instructions Discharge Diet: Low fat / Low cholesterol Discharge Activity: Return to Normal Activity Weight Bearing Status: Weight bearing as tolerated Call your doctor if you observe: Fever of 101 or Higher, Shortness of breath, Dizziness, Swelling in the ankles and Chest pain Meaningful Use Info Meaningful Use Meaningful Use Diagnoses (Choose all that apply): None applicable Ischemic Stroke Statin Dosing Therapy Reference: STATIN DOSE THERAPY REFERENCE: * Patients > 75 years receive moderate or high dose statin therapy. * Patients 75 years or YOUNGER should receive HIGH intensity statin dose unless contraindicated. You will be required to document reason for non-treatment if statin daily dose does not meet guidelines. HIGH DOSE STATIN THERAPY DAILY Atorvastatin > than or = to 40 mg Rosuvastatin > than or = to 20 mg Amlodipine + Atorvastatin > than or = to 2.5/40 mg Ezetimibe + Simvastatin 10/80 mg Simvastatin 80mg Discharge Plan Admission Admit Date/Time: 08/09/24 05:06 Primary Reason for Your Visit: GI bleed Attending Provider: Tanya Veliz Primary Care Provider: Trudy Talavera Consulting Providers: Jose Ramon Villavicencio; Junior Man; Michael Brand Instructions Patient Instructions: GI Bleeding Ch, ED Upper GI Bleeding (Stable) Additional Instructions / Restrictions: follow up with PCP within 2-3 days to check INR to ensure it is in therapeutic range. Discharge Orders/Prescriptions Prescriptions: New pantoprazole 40 mg Tablet,Delayed Release (Dr/Ec) 40 mg PO BID Qty: 60 2RF Continued prednisone 20 mg tablet 20 mg PO BID Patient Comments: TAKE 2 TABLETS BY MOUTH ONCE DAILY atenolol 50 mg tablet 50 mg PO DAILY Patient Comments: TAKE 1 TABLET BY MOUTH ONCE DAILY allopurinol 100 mg tablet 100 mg PO DAILY Patient Comments: TAKE 1 TABLET BY MOUTH ONCE DAILY warfarin 2.5 mg tablet 2.5 mg PO DAILY Patient Comments: Does not take on Tuesdays Rx Instructions: 6 days a week lisinopril 5 mg tablet 5 mg PO DAILY fluticasone propion-salmeterol 232-14 mcg/actuation aerosol powdr breath activated 1 inh inhalation BID calcium acetate 667 mg tablet 667 mg PO TID Rx Instructions: with meals albuterol 90 mcg/actuation aerosol 90 mcg inhalation BID PRN (Reason: SOB) Referrals / Follow Up: Junior Man MD [Med Staff - Consulting] - Within 1 Week Trudy Talavera MD [Primary Care Provider] - Within 1 Week Disposition Disposition (needs filled in before D/C Order can be placed): Home, Self Care Charges/Coding Visit Charges Inpatient E&M: 71444 Disch Hosp >30min
--- NOTE | 2024-08-12 13:04 | PCM.PN.REN ---
Subjective Subjective Resting in bed. Denies any complaints. Possible discharge to home today. Objective Data Objective Data Vital Signs: Vital Signs Temp Pulse Resp BP Pulse Ox O2 Del Method O2 Flow Rate 98.2 F 100 18 149/41 H 100 Room Air 3 08/12/24 09:43 08/12/24 09:43 08/12/24 09:43 08/12/24 09:43 08/12/24 09:43 08/12/24 09:56 08/10/24 07:04 Oxygen Flow Rate (L/min) 3 Oxygen Delivery Method Room Air Weight: 75.6 kg Body Mass Index (BMI) 26.9 Intake & Output: Intake and Output for Last 24 Hours 08/10/24 08/11/24 08/12/24 23:59 23:59 23:59 Intake Total 818.5 / 1218.5 940.25 / 940.25 68.75 / 68.75 Output Total 200 / 850 1950 / 1950 Balance 618.5 / 368.5 -1009.75 / -1009.75 68.75 / 68.75 Lab / Micro Data 08/12/24 05:30 08/12/24 05:30 Labs: Laboratory Results - last 24 hr 08/11/24 14:36: PT 14.8, INR 1.2 08/12/24 05:30: WBC 9.6, RBC 2.80 L, Hgb 8.3 L, Hct 26.4 L, MCV 94.3 H, MCH 29.6, MCHC 31.4 L, RDW Std Deviation 60.7 H, RDW Coeff of [place] 18.6 H, Plt Count 89 L, MPV 10.3, Immature Gran % (Auto) 3.900 H, Neut % (Auto) 77.8 H, Lymph % (Auto) 9.6 L, [place] % (Auto) 7.2, Eos % (Auto) 1.0, Baso % (Auto) 0.5, Absolute Neuts (auto) 7.5, Absolute Lymphs (auto) 0.92, Nucleated RBC % 0, PT 17.1 H, INR 1.4, Sodium 142, Potassium 3.7, Chloride 109 H, Carbon Dioxide 27.0, Anion Gap 6, BUN 39 H, Creatinine 3.39 H, Estim Creat Clear Calc 16.47, Est GFR (MDRD) Af Amer 23 L, Est GFR (MDRD) Non-Af 19 L, BUN/Creatinine Ratio 11.5, Glucose 97, Calcium 7.4 L Radiography Diagnostic Testing: Radiology Impression Echocardiogram 08/11/24 13:32 Interpretation Summary The estimated ejection fraction is 65 %. Diastolic function is indeterminate. Ordering Physician: Tanya Veliz Referring Physician: TRUDY ROSAS Performed By: Abimbola Millan RDCS Abdomen Ultrasound 08/12/24 06:30 IMPRESSION: No ascites. Right pleural effusion noted. Normal liver contour. Heterogeneous echogenicity can be seen with liver disease. Electronically Signed: Edis Colby MD at 7:53 EDT , Physical Exam Narrative Alert awake oriented x 3 no obvious distress s1s2 no murmurs lungs clear abdomen soft no edema AV fistula right upper arm positive thrill and bruit Assessment & Plan Assessment/Plan (1) ESRD (end stage renal disease) on dialysis: PLAN: - ESRD; on hemodialysis MWF schedule. Patient tolerated dialysis yesterday. No acute indication for [employer] today. Next dialysis tomorrow. - Anemia. s/p PRBC. EGD oozing gastric ulcer, treated with heater probe/clip, also noted nonbleeding gastric and duodenal ulcers. Received ZEHRA with dialysis yesterday. On oral pantoprazole. -Single blood culture with CoNS from [facility], ID consulted. Consistent with contaminant. Vancomycin stopped. White blood count normal today. Patient has been afebrile. -If patient discharged to home today he will go to dialysis tomorrow at his home clinic in [place].
[2024-08-12 13:35] VITALS: PULSE 98; RESP 18
--- NOTE | 2024-08-12 15:00 | CASEMGMT ---
PING PATEL NOTE: Pt being discharged. Therapy recommends additional therapy. RN CM to room. Pt resting in bed. @ bedside. Introduced self and role. Pt and both decline wanting HHC and states they still have OP script for therapy for pt to utilize if he decides so in the future. Pt states he has exercises @ home that he does daily and plans to continue to do so. They were made aware to f/u with PCP for INR to be checked in 2-3 days. They deny having any further discharge needs/concerns. Brittani BSN RN CM
== END 2024-08-12 15:35 | disposition home or self-care (01) | DRG 377 ==
PROVIDERS: Internal Medicine Gastroenterology; Admitting Provider Internal Medicine; PCP Family Medicine; Visit Provider Student in an Organized Health Care Education/Training Program
PROC: 0DJ08ZZ Inspection of Upper Intestinal Tract, Via Natural or Artificial Opening Endoscopic (ICD-10-PCS; CPT 43235; principal; 2024-08-09 15:55)
DX: K25.4 Chronic or unspecified gastric ulcer with hemorrhage (principal); N18.6 End stage renal disease; R78.81 Bacteremia; I12.0 Hypertensive chronic kidney disease with stage 5 chronic kidney disease or end stage renal disease; D62 Acute posthemorrhagic anemia; J44.9 Chronic obstructive pulmonary disease, unspecified; K26.9 Duodenal ulcer, unspecified as acute or chronic, without hemorrhage or perforation; E66.9 Obesity, unspecified; Z99.2 Dependence on renal dialysis; M10.9 Gout, unspecified; E87.5 Hyperkalemia; M19.90 Unspecified osteoarthritis, unspecified site; Z79.891 Long term (current) use of opiate analgesic; Z79.51 Long term (current) use of inhaled steroids; Z87.891 Personal history of nicotine dependence; R79.1 Abnormal coagulation profile; R09.02 Hypoxemia; K26.4 Chronic or unspecified duodenal ulcer with hemorrhage; Z79.01 Long term (current) use of anticoagulants; Z68.26 Body mass index [BMI] 26.0-26.9, adult; Z86.79 Personal history of other diseases of the circulatory system; T50.905A Adverse effect of unspecified drugs, medicaments and biological substances, initial encounter
CPT/HCPCS: 36415; 76705; 80048; 80053; 82962; 83605; 83735; 84100; 84443; 85025; 85610; 86850; 86900; 86901; 86920; 86922; 87040; 90937; 93306; 94640; 94668; 97162; J7030; J7040; J7050; P9016; Q9957; A4216; C8929; G0257; J1940; J3490; Q5106

== ENCOUNTER 2024-09-15 11:17 | Inpatient (IN) | payer MEDICARE, OTHER, SELFPAY ==
[2024-09-15] VITALS (12 sets, daily range): BP systolic 117–146; BP diastolic 43–59; PULSE 72–87; RESP 16–26; TEMP 36.7–37.4; O2SAT 92–97; BMI 28.4; BMI 26.3
--- NOTE | 2024-09-15 11:39 | EKG12_ITS ---
Test Reason : SOB Blood Pressure : */* mmHG Vent. Rate : 75 BPM Atrial Rate : 75 BPM P-R Int : 152 ms QRS Dur : 76 ms QT Int : 432 ms P-R-T Axes : -21 18 27 degrees QTcB Int : 482 ms Normal sinus rhythm Prolonged QT Abnormal ECG Confirmed by Sampson Tam ([id number]), senior editor ALICIA TSANG ([id number]) on 09/16/2024 9:56:19 AM Referred By: Confirmed By: Sampson Tam
--- NOTE | 2024-09-15 11:39 | RAD_ITS ---
STUDY: X-RAY CHEST REASON FOR EXAM: Male, 79 years old. Cough, sob TECHNIQUE: AP and lateral views of the chest. COMPARISON: Comparison is made with prior study July 18, 2024. FINDINGS: A vascular stent is seen in the right axillary region. Hyperinflation. There is no demonstrated pleural abnormality. Cardiomegaly. Normal mediastinum and tisha. Normal visualized pulmonary arteries. There is atherosclerotic calcification of the aortic arch with tortuosity. There are degenerative changes of the visualized thoracic spine. Normal visualized ribs, clavicles, and shoulders. There is no demonstrated abnormality of the visualized soft tissue structures of the upper abdomen. RAD/Chest PA and Lateral IMPRESSION: Cardiomegaly. No acute abnormality is seen. Electronically Signed: Duc Kothari MD at 12:47 EST ,
--- NOTE | 2024-09-15 11:40 | EX.ED.DYSGE1 ---
HPI History of Present Illness Chief Complaint: Shortness of Breath Narrative Narrative: Patient is a 79-year-old male past medical history of end-stage renal disease on dialysis Friday, COPD, hypertension on warfarin who presents to the emergency department chief complaint of cough and shortness of breath and fever. According to the patient significant other bedside he has not been feeling well for the past several days and noted on Friday he developed a fever at home of 101. She states that he was evaluated by his family doctor earlier in the week and was diagnosed with bronchitis was given medication for this. She states that they called again today and they are concerned that he may have pneumonia which ultimately prompted him here for further evaluation management. Patient states that he has worsening shortness of breath with exertion. Patient states that he has not missed any of his sessions of dialysis outside of today since he is here. [facility] Medical History ESRD (end stage renal disease) on dialysis ESRD (end stage renal disease) COPD (chronic obstructive pulmonary disease) Wears glasses Alcohol use History of steroid therapy Ambulates with cane Arthritis History of renal dialysis History of renal disease Low iron Back pain Dietary restriction History of hiatal hernia Gastric reflux Shortness of breath on exertion Former smoker Hoarseness History of edema Gout HTN (hypertension) Home Medications ?Medication ?Instructions ?Recorded ?Last Taken ?Type allopurinol 100 mg tablet 100 mg PO DAILY lower uric acid in 05/01/23 08/08/24 History blood atenolol 50 mg tablet 50 mg PO DAILY hypertension 05/01/23 08/08/24 History fluticasone 232 mcg-salmeterol 14 1 inh inhalation BID allergies 05/04/24 08/08/24 History mcg/actuation breath activated powdr lisinopril 5 mg tablet 5 mg PO DAILY hypertension 05/04/24 08/08/24 History warfarin 2.5 mg tablet 2.5 mg PO DAILY blood clot 05/04/24 05/15/24 History calcium acetate 667 mg tablet 667 mg PO TID electrolytes 06/03/24 08/08/24 History albuterol 90 mcg/actuation aerosol 90 mcg inhalation BID PRN SOB 07/16/24 Unknown History inhaler pantoprazole 40 mg tablet,delayed 40 mg PO BID #60 tabs 08/12/24 Unknown Rx release Allergy/AdvReac Type Severity Reaction Status Date / Time No Known Allergies Allergy Verified 09/15/24 11:20 Family History Brother Cancer Other Hypertension Surgical History S/P dialysis catheter insertion S/P cataract extraction Previous back surgery Social History Smoking Status: Former smoker ROS ROS ED ROS Narrative Constitutional: Complains of fever and chills as noted above denies any headaches, lightness, dizziness Eyes: Denies any change in vision double vision blurry Cardiovascular: Patient denies chest pain or palpitations Respiratory: Complains of coughing and shortness of breath as noted above Abdomen: Denies abdominal pain nausea vomit diarrhea : Denies any urinary symptoms Neurological: Denies any numbness, weakness, tingling Skin: Denies any rashes or lesions EXAM Physical Exam Narrative Exam Narrative: General: Patient lying in bed did not appear to be in acute distress Head: Atraumatic, normocephalic Eyes: PERRL bilateral, EOMI bilateral, no conjunctival injection noted Neck: Soft, supple, trachea midline Cardiovascular: Regular rate and rhythm no murmurs gallops rubs noted Respiratory: Clear to auscultation bilaterally Abdomen: Soft, nondistended, no tenderness palpation bowel sounds present x 4 Extremities: +5/5 strength noted in the bilateral lower extremities, no pedal edema on exam Neurological: Patient following commands knew that he was at [facility] there is 2023 Skin: Warm, dry, intact Const Vital Signs: 09/15/24 11:18 09/15/24 11:57 09/15/24 12:11 Temperature 99 F Temperature Source Oral Pulse Rate 72 Respiratory Rate 20 H Respiratory Effort Short of Breath Respiratory Depth Normal Respiratory Pattern Tachypnea Blood Pressure 141/57 H Blood Pressure Mean 85 Pulse Ox 92 96 Oxygen Delivery Method Room Air Room Air Room Air 09/15/24 12:40 09/15/24 12:41 Temperature 99.4 F H 99.4 F H Temperature Source Oral Oral Pulse Rate 81 81 Respiratory Rate 26 H 26 H Respiratory Effort Respiratory Depth Respiratory Pattern Blood Pressure 145/59 H 145/59 H Blood Pressure Mean 87 87 Pulse Ox 95 95 Oxygen Delivery Method Room Air Room Air MDM MDM MDM Narrative Medical decision making narrative: Patient is a 79-year-old male who presented to the Emergency Department chief complaint of cough, fever, shortness of breath and concern for pneumonia. Patient will have a workup performed here on the differential diagnose includes but only to CHF, ACS, pneumonia, COPD exacerbation. Once workup is obtained reviewed he will be reevaluated. Patient CBC reviewed and showed no evidence leukocytosis white blood count normal at 10.9, hemoglobin stable at 8.1, platelet count noted be normal at 419. Patient's INR was noted be 3.5 is on warfarin, sodium normal 135, potassium was 3.4, creatinine no was around his baseline at 4.43 is on dialysis, troponin was normal at 18 with a delta troponin pending as well which showed sinus rhythm with a rate of 75 beats per minutes. Patient's chest x-ray reviewed and showed cardiomegaly with no acute cardiopulmonary processes this was reviewed by myself and by radiology. Patient was ambulated here in the emergency department and desaturated to 89% on room air. Patient will be given DuoNeb, Rocephin, azithromycin and prednisone. Patient will warrant admission patient case will be discussed hospitalist. Discussed case with hospitalist Dr. Espitia who accept patient for admission. Was requesting adding on a COVID test which was done. Patient was notified as well as family was at bedside they are agreeable to plan all question concerns answered at bedside. Lab Data Labs: Laboratory Results - last 24 hr 09/15/24 09/15/24 11:49 13:01 WBC 10.9 RBC 2.94 L Hgb 8.1 L Hct 26.3 L MCV 89.5 MCH 27.6 MCHC 30.8 L RDW Std Deviation 58.0 H RDW Coeff of Morris 17.8 H Plt Count 419 MPV 9.7 Immature Gran % (Auto) 0.600 Neut % (Auto) 77.3 H Lymph % (Auto) 11.3 L [place] % (Auto) 7.2 Eos % (Auto) 2.7 Baso % (Auto) 0.9 Absolute Neuts (auto) 8.4 H Absolute Lymphs (auto) 1.23 Nucleated RBC % 0 PT 34.6 H INR 3.5 APTT 57.8 H Sodium 135 L Potassium 3.4 L Chloride 97 L Carbon Dioxide 30.0 Anion Gap 8 BUN 17 Creatinine 4.43 H Est GFR (MDRD) Af Amer 17 L Est GFR (MDRD) Non-Af 14 L BUN/Creatinine Ratio 3.8 L Glucose 113 H Calcium 8.9 Troponin I High Sens 18 15 Radiography Diagnostic Testing: Clinical Impression(s) from Imaging Studies Chest X-Ray 09/15/24 11:39 IMPRESSION: Cardiomegaly. No acute abnormality is seen. Electronically Signed: Duc Kothari MD at 12:47 EST , Discharge Plan Triage Chief Complaint: Shortness of Breath ED Provider: Pacheco Vasquez Dx/Rx/DC Orders Clinical Impression: COPD exacerbation, Acute hypoxic respiratory failure Prescriptions: No Action atenolol 50 mg tablet 50 mg PO DAILY Patient Comments: TAKE 1 TABLET BY MOUTH ONCE DAILY allopurinol 100 mg tablet 100 mg PO DAILY Patient Comments: TAKE 1 TABLET BY MOUTH ONCE DAILY warfarin 2.5 mg tablet 2.5 mg PO DAILY Patient Comments: Does not take on Tuesdays Rx Instructions: 6 days a week lisinopril 5 mg tablet 5 mg PO DAILY fluticasone propion-salmeterol 232-14 mcg/actuation aerosol powdr breath activated 1 inh inhalation BID calcium acetate 667 mg tablet 667 mg PO TID Rx Instructions: with meals albuterol 90 mcg/actuation aerosol 90 mcg inhalation BID PRN (Reason: SOB) pantoprazole 40 mg Tablet,Delayed Release (Dr/Ec) 40 mg PO BID Qty: 60 2RF Primary Care Provider: Yash Talavera Referrals: Yash Talavera MD [Primary Care Provider] - Print Language: Monegasque Disposition Disposition: Acute Care Hospital [facility]
[2024-09-15 12:05] LABS: Absolute Lymphocyte Count 1.23 X10^3/uL (0.83-4.51); Absolute Neutrophil Count 8.4 X10^3/uL (2.0-7.7); Basophil% 0.9 % (0-1); Eosinophil# 0.29 X10^3/uL; Eosinophils% 2.7 % (0-5); Hematocrit 26.3 % (40-54); Hemoglobin 8.1 g/dL (13.0-16.5); Lymphocyte # 1.23 X10^3/ul (0.83-4.51); Lymphocyte % 11.3 % (19-41); Mean Corp Hgb Conc 30.8 g/dL (32-36); Mean Corpuscular Hgb 27.6 pg (27.0-32.0); Mean Corpuscular Volume 89.5 fL (80-94); Mean Platelet Vol. 9.7 fl (6.2-12.0); Monocyte# 0.78 X10^3/uL; Monocyte% 7.2 % (0-10); NRBC Flagged by Analyzer 0 % (0-5); Neutrophil # 8.39 X10^3/uL (2.7-7.7); Neutrophil % 77.3 % (47-70); Platelet Count 419 K/mm3 (150-450); RBC Distribution Width CV 17.8 % (11.6-14.6); Red Blood Count 2.94 M/mm3 (4.6-6.2); White Blood Count 10.9 K/mm3 (4.4-11.0)
[2024-09-15 12:11] LABS: International Normalized Ratio 3.5; Prothrombin Time (Protime)PT. 34.6 SECONDS (11.7-14.9)
[2024-09-15 12:12] LABS: Partial Thromboplast Time 57.8 Seconds (24.1-36.2)
[2024-09-15 12:28] LABS: Anion Gap 8 (5-15); BUN 17 mg/dL (7-18); BUN/Creat Ratio 3.8 RATIO (10-20); Calcium,Total 8.9 mg/dL (8.5-10.1); Chloride 97 mmol/L (98-107); Creatinine, Serum 4.43 mg/dL (0.70-1.30); EST Glomerular Filtration Rate 14 mL/min (>60); Est Glom Filt Rate - Afr Amer 17 mL/min (>60); Glucose 113 mg/dL (74-106); Potassium 3.4 mmol/L (3.5-5.1); Sodium Level 135 mmol/L (136-145); Troponin-I HS 18 pg/mL (3.0-78.0)
[2024-09-15 13:23] LABS: Troponin-I HS 15 pg/mL (3.0-78.0)
[2024-09-15] MEDS: Ipratropium/Albuterol Sulfate 3 ML AMPUL.NEB INHALATION ×2 (13:30→20:18)
[2024-09-15] MEDS: Ceftriaxone 1 GM/50 ML BAG IV (13:41)
[2024-09-15] MEDS: predniSONE 20 MG Tablet 60 MG PO (13:41)
--- NOTE | 2024-09-15 14:07 | HP.PCM.HOS_ITS ---
HPI - General General Date of Admission: 09/15/24 Date of Service: 09/15/24 Chief Complaint: increased SOB HPI Narrative MEHUL GORDILLO, is a 79 M with history of COPD, DVT, gout, end-stage renal disease on hemodialysis, hypertension, GI bleed secondary to gastric ulcers who presented [facility] ED 09/15/2024 due to increasing shortness of breath, cough, fever. Patient's had a cough for roughly a week and was diagnosed with bronchitis however over the past several days patient developed a fever of 101, increasing shortness of breath, productive cough although sputum is clear so he sent to the ED for concern for possible pneumonia. In the ED patient wheezing and was 89% on room air on ambulation, no pneumonia found however given his dyspnea and decrease in saturation to 89% hospitalist contacted for mission. Patient evaluated at bedside with present. He reports that shortness of breath for 1 week and then over the past several days he had a Tmax of 101, has been noticing progressively worsened shortness of breath on exertion and has been coughing more, is now coughing up sputum though it is clear. Patient does have COPD and has inhalers at home though sometimes only uses his scheduled inhaler once a day instead of twice a day per . ROS otherwise negative. Of note patient on hemodialysis Friday/Friday/Friday and he reports that people they are always coughing and sick but does not know if anyone had COVID or any specific respiratory viruses. His last hemodialysis was Friday and he was due today however was unable to make his session as he came to the hospital. Patient denies any tobacco, alcohol, substance use. [facility] Medical History ESRD (end stage renal disease) on dialysis ESRD (end stage renal disease) COPD (chronic obstructive pulmonary disease) Wears glasses Alcohol use History of steroid therapy Ambulates with cane Arthritis History of renal dialysis History of renal disease Low iron Back pain Dietary restriction History of hiatal hernia Gastric reflux Shortness of breath on exertion Former smoker Hoarseness History of edema Gout HTN (hypertension) Home Medications ?Medication ?Instructions ?Recorded ?Last Taken ?Type allopurinol 100 mg tablet 100 mg PO DAILY lower uric acid in 05/01/23 08/08/24 History blood atenolol 50 mg tablet 50 mg PO DAILY hypertension 05/01/23 08/08/24 History fluticasone 232 mcg-salmeterol 14 1 inh inhalation BID allergies 05/04/24 08/08/24 History mcg/actuation breath activated powdr lisinopril 5 mg tablet 5 mg PO DAILY hypertension 05/04/24 08/08/24 History warfarin 2.5 mg tablet 2.5 mg PO DAILY blood clot 05/04/24 05/15/24 History calcium acetate 667 mg tablet 667 mg PO TID electrolytes 06/03/24 08/08/24 History albuterol 90 mcg/actuation aerosol 90 mcg inhalation BID PRN SOB 07/16/24 Unknown History inhaler pantoprazole 40 mg tablet,delayed 40 mg PO BID #60 tabs 08/12/24 Unknown Rx release Allergy/AdvReac Type Severity Reaction Status Date / Time No Known Allergies Allergy Verified 09/15/24 11:20 Family History Brother Cancer Other Hypertension Surgical History S/P dialysis catheter insertion S/P cataract extraction Previous back surgery Social History Smoking Status: Former smoker ROS ROS Narrative General: Has had fevers at home with Tmax of 101 over the past several days HENT: Denies headache, denies stuffy nose, denies sore throat EYES: Denies changes in vision Resp: Increased cough with increased sputum production though it is clear, increasing shortness of breath especially on exertion Cardiac: Denies chest pain GI: Denies abdominal pain, denies changes in bowel, denies nausea/vomiting : Denies changes in urination Extremity: Denies swelling MSK: Denies weakness Neuro: Denies any numbness/tingling Heme: Denies any bleeding or bruising Skin: Denies rashes Psychiatric: No complaints voiced Vital Signs Vital Signs Vital Signs: 09/15/24 11:18 09/15/24 11:57 09/15/24 12:11 Temperature 99 F Temperature Source Oral Pulse Rate 72 Respiratory Rate 20 H Respiratory Effort Short of Breath Respiratory Depth Normal Respiratory Pattern Tachypnea Blood Pressure 141/57 H Blood Pressure Mean 85 Pulse Ox 92 96 Oxygen Delivery Method Room Air Room Air Room Air 09/15/24 12:40 09/15/24 12:41 09/15/24 13:32 Temperature 99.4 F H 99.4 F H Temperature Source Oral Oral Pulse Rate 81 81 86 Respiratory Rate 26 H 26 H 18 Respiratory Effort Respiratory Depth Respiratory Pattern Normal Blood Pressure 145/59 H 145/59 H Blood Pressure Mean 87 87 Pulse Ox 95 95 Oxygen Delivery Method Room Air Room Air Weight Weight: 80 kg Body Mass Index (BMI) 28.4 Physical Exam Narrative General: Alert, oriented, no apparent distress HEENT: Atraumatic, normocephalic Eyes: Anicteric, normal conjunctiva, extraocular movements grossly intact Neck: Supple Respiratory: Slight increase in respiratory effort, diminished bilaterally Cardiovascular: Regular rate and rhythm GI: Soft, nontender, nondistended Extremities: No edema Musculoskeletal: Moving all extremities Neuro: No overt focal neurological deficits Skin: No rashes appreciated Psych: Cooperative Results Lab / Micro Data 09/15/24 11:49 09/15/24 11:49 Labs: Laboratory Results - last 24 hr 09/15/24 11:49: WBC 10.9, RBC 2.94 L, Hgb 8.1 L, Hct 26.3 L, MCV 89.5, MCH 27.6, MCHC 30.8 L, RDW Std Deviation 58.0 H, RDW Coeff of Morris 17.8 H, Plt Count 419, MPV 9.7, Immature Gran % (Auto) 0.600, Neut % (Auto) 77.3 H, Lymph % (Auto) 11.3 L, [place] % (Auto) 7.2, Eos % (Auto) 2.7, Baso % (Auto) 0.9, Absolute Neuts (auto) 8.4 H, Absolute Lymphs (auto) 1.23, Nucleated RBC % 0, PT 34.6 H, INR 3.5, APTT 57.8 H, Sodium 135 L, Potassium 3.4 L, Chloride 97 L, Carbon Dioxide 30.0, Anion Gap 8, BUN 17, Creatinine 4.43 H, Est GFR (MDRD) Af Amer 17 L, Est GFR (MDRD) Non-Af 14 L, BUN/Creatinine Ratio 3.8 L, Glucose 113 H, Calcium 8.9, Troponin I High Sens 18 09/15/24 13:01: Troponin I High Sens 15 Imaging Radiology Impression Chest X-Ray 09/15/24 11:39 IMPRESSION: Cardiomegaly. No acute abnormality is seen. Electronically Signed: Duc Kothari MD at 12:47 EST , Assessment & Plan Assessment/Plan (1) COPD exacerbation: PLAN: Plan #Acute exacerbation of chronic COPD -Admit to floor, continuous O2 monitoring -Chest x-ray: No acute infiltrate COVID ordered, obtain respiratory panel, sputum culture if able -O2 in place, wean as tolerated -IV methylprednisone -Scheduled DuoNebs -Albuteron prn -Antibiotics: Continue azithromycin -Incentive spirometer -Mucinex #ESRD on HD -On Friday/Friday/Friday, last dialysis on Friday, missed today because he came to the ED -Consult nephrology -Renal diet -Daily weights, I's and O's # History of DVT -Patient on Coumadin 2.5 mg except for Friday -INR 3.5 -Will hold and repeat INR in a.m. especially given recent GI bleed, may need Coumadin dose adjustment # Recent GI bleed secondary to gastric and duodenal ulcers -Patient hospitalized for this at the end of July -Continue PPI twice daily -INR 3.5, holding Coumadin today, repeat in the a.m. and can decide further management at that time #Hypokalemia -Replace -Repeat in the AM #Hypertension -Continue atenolol and lisinopril #Gout -Continue home allopurinol # Chronic normocytic anemia -Appears to be close to baseline -Did not report any active bleeding or concerns for bleeding -Repeat in a.m. -Continue PPI as above #DVT ppx: Presently therapeutic on Coumadin Joy Espitia MD Charges/Coding Visit Charges Inpatient E&M: 48490 Init Hosp L2
[2024-09-15] MEDS: Azithromycin 500 MG in Dextrose 5%-Water (250mL Bag) 250 ML 250 MG IV (14:35)
--- NOTE | 2024-09-15 15:00 | CM.ED ---
Care Management Face to Face with patient for initial transition planning/care coordination assessment.? This junior underwriter introduced self and role at [facility]. Patient lying in bed, alert and oriented. Patient willing to participate in assessment and is able to answer all questions appropriately. Patients? also present and permission given from patient for her to participate in assessment.? Care providers, pharmacy, and demographics verified. Admitting Diagnosis:? Acute hypoxic respiratory failure ? Other diagnosis history: ?ESRD on dialysis, COPD, Arthritis, HTN PCP: ?[facility] Specialists: Dr. Pruitt, Sales Order Coordinator; Dr. Whaley, Bottom Finisher Preferred Pharmacy: ?[facility] Insurance: ?Medicare A and B, AARP Prescription Benefit:? Medicare D, [employer] Living Will/HPOA: ??Does not have either, would like to discuss with Social Work to complete HCPOA and LW. LNOK: ?Carleen Lambert, Living Arrangements: ??Lives in a house trailer that has been added onto.? Has a ramp going into the home, no stairs to enter or inside. Transportation: drives and has reliable transportation.? Patient has license, states he could drive if needed but he relies on his to take him where he needs to be. DME/HHC: ?Patient has a wheelchair, walker, shower chair, bedside commode, pulse ox and blood pressure cuff. Patient does say that his shower chair does not have arms and that can be difficult to stand up from.? ?Has not used any Home Health Agencies but has done outpatient therapy with [facility] in [place]. Community Resources: None Behavioral Health History:? None Patient goals: Patient wishes to discharge home.? Patient states he has no further needs or concerns at this time. Plan: Anticipate home, to follow for discharge planning needs that may arise. Social work to follow up for Advanced Care Planning. Lyla Sommer, HAND SILVERING SUPERVISOR, SANDING SUPERVISOR
[2024-09-15] MEDS: 0.9% Saline Lock 10 ML Syringe IV (16:38)
[2024-09-15] MEDS: Potassium Chloride Oral Tablet 10 MEQ PO (16:38)
[2024-09-15] MEDS: Calcium Acetate 667 MG Capsule PO (16:40)
[2024-09-15] MEDS: Pantoprazole Sodium 40 MG Tablet PO (21:01)
[2024-09-15] MEDS: guaiFENesin 1,200 MG Tablet 1200 MG PO (21:01)
[2024-09-15] MEDS: MELATONIN 3 MG TABLET PO (21:02)
[2024-09-16] VITALS (17 sets, daily range): BP systolic 108–270; BP diastolic 48–92; PULSE 75–105; RESP 14–20; TEMP 36.2–36.8; O2SAT 92–99; BMI 26.4; BMI 25.7
[2024-09-16] MEDS: Ipratropium/Albuterol Sulfate 3 ML AMPUL.NEB INHALATION ×7 (00:09→23:01)
[2024-09-16 06:58] LABS: Anion Gap 10 (5-15); BUN 23 mg/dL (7-18); BUN/Creat Ratio 4.9 RATIO (10-20); Calcium,Total 8.8 mg/dL (8.5-10.1); Chloride 96 mmol/L (98-107); Creatinine, Serum 4.73 mg/dL (0.70-1.30); EST Glomerular Filtration Rate 13 mL/min (>60); Est Glom Filt Rate - Afr Amer 16 mL/min (>60); Glucose 157 mg/dL (74-106); Magnesium 2.1 mg/dL (1.6-2.6); Sodium Level 132 mmol/L (136-145)
[2024-09-16 07:00] LABS: Absolute Lymphocyte Count 0.43 X10^3/uL (0.83-4.51); Absolute Neutrophil Count 4.8 X10^3/uL (2.0-7.7); Basophil# 0.02 X10^3/uL; Basophil% 0.4 % (0-1); Hematocrit 22.6 % (40-54); Hemoglobin 7.2 g/dL (13.0-16.5); Lymphocyte # 0.43 X10^3/ul (0.83-4.51); Mean Corp Hgb Conc 31.9 g/dL (32-36); Mean Corpuscular Hgb 27.7 pg (27.0-32.0); Mean Corpuscular Volume 86.9 fL (80-94); Mean Platelet Vol. 10.1 fl (6.2-12.0); Monocyte# 0.11 X10^3/uL; NRBC Flagged by Analyzer 0 % (0-5); POSITIVE DIFFERENTIAL YES; POSITIVE MORPHOLOGY YES; Platelet Count 399 K/mm3 (150-450); RBC Distribution Width CV 17.5 % (11.6-14.6); RBC Distribution Width SD 55.8 fl (35.1-43.9); White Blood Count 5.4 K/mm3 (4.4-11.0)
[2024-09-16 07:18] LABS: Differential Indicated SCAN CRITERIA MET
[2024-09-16 08:09] LABS: Atypical Lymphocyte 1+ %
[2024-09-16 08:20] LABS: International Normalized Ratio 4.1; Prothrombin Time (Protime)PT. 39.1 SECONDS (11.7-14.9)
[2024-09-16] MEDS: 0.9% Normal Saline 1,000 ML IV.SOLN. 1000 ML OPERA.SITE (08:49)
[2024-09-16] MEDS: PureFlow B 3K Dialysis Soln 1 BAG 6 BAG PF (08:53)
--- NOTE | 2024-09-16 10:28 | PCM.PN.HOSP ---
Reason for Visit Reason for Visit: Diagnoses Chronic obstructive pulmonary disease with (acute) exacerbation (09/15/24) Objective Data Objective Data Vital Signs: Vital Signs Temp Pulse Resp BP Pulse Ox O2 Del Method 98.2 F 83 14 133/48 H 98 Room Air 09/16/24 08:22 09/16/24 09:52 09/16/24 09:52 09/16/24 09:52 09/16/24 08:22 09/16/24 09:52 Oxygen Delivery Method Room Air Weight: 163 lb 5.8 oz Body Mass Index (BMI) 26.4 Intake & Output: Intake and Output for Last 24 Hours 09/14/24 09/15/24 09/16/24 23:59 23:59 23:59 Intake Total 455 / 455 Output Total 0 / 0 0 / 0 Balance 455 / 455 0 / 0 Lab / Micro Data 09/16/24 06:30 09/16/24 12:05 Labs: Laboratory Results - last 24 hr 09/15/24 11:49: WBC 10.9, RBC 2.94 L, Hgb 8.1 L, Hct 26.3 L, MCV 89.5, MCH 27.6, MCHC 30.8 L, RDW Std Deviation 58.0 H, RDW Coeff of Morris 17.8 H, Plt Count 419, MPV 9.7, Immature Gran % (Auto) 0.600, Neut % (Auto) 77.3 H, Lymph % (Auto) 11.3 L, [place] % (Auto) 7.2, Eos % (Auto) 2.7, Baso % (Auto) 0.9, Absolute Neuts (auto) 8.4 H, Absolute Lymphs (auto) 1.23, Nucleated RBC % 0, PT 34.6 H, INR 3.5, APTT 57.8 H, Sodium 135 L, Potassium 3.4 L, Chloride 97 L, Carbon Dioxide 30.0, Anion Gap 8, BUN 17, Creatinine 4.43 H, Est GFR (MDRD) Af Amer 17 L, Est GFR (MDRD) Non-Af 14 L, BUN/Creatinine Ratio 3.8 L, Glucose 113 H, Calcium 8.9, Troponin I High Sens 18 09/15/24 13:01: Troponin I High Sens 15 09/16/24 06:30: WBC 5.4, RBC 2.60 L, Hgb 7.2 L, Hct 22.6 L, MCV 86.9, MCH 27.7, MCHC 31.9 L, RDW Std Deviation 55.8 H, RDW Coeff of Morris 17.5 H, Plt Count 399, MPV 10.1, Immature Gran % (Auto) 0.600, Neut % (Auto) 89.0 H, Lymph % (Auto) 8.0 L, [place] % (Auto) 2.0, Eos % (Auto) 0.0, Baso % (Auto) 0.4, Absolute Neuts (auto) 4.8, Absolute Lymphs (auto) 0.43 L, Nucleated RBC % 0, Differential Comment COMMENT, Atypical Lymphocytes 1+, PT Cancelled, INR Cancelled, Sodium 132 L, Potassium 4.0, Chloride 96 L, Carbon Dioxide 26.0, Anion Gap 10, BUN 23 H, Creatinine 4.73 H, Estim Creat Clear Calc 11.80, Est GFR (MDRD) Af Amer 16 L, Est GFR (MDRD) Non-Af 13 L, BUN/Creatinine Ratio 4.9 L, Glucose 157 H, Calcium 8.8, Magnesium 2.1 09/16/24 07:12: PT 39.1 H, INR 4.1 H* Micro: Microbiology 09/15/24 21:10 Sputum, Expectorated/Coughed Gram Stain - Final 09/15/24 15:17 Mucosa - Nose Respiratory Panel (PCR) - Final 09/15/24 13:32 Mucosa - Nose SARS-CoV-2, Influenza & RSV (PCR) - Final Radiography Diagnostic Testing: Radiology Impression Chest X-Ray 09/15/24 11:39 IMPRESSION: Cardiomegaly. No acute abnormality is seen. Electronically Signed: Duc Kothari MD at 12:47 EST , Physical Exam Narrative Seen and examined. Patient getting hemodialysis. Shortness of breath is better. Was admitted with COPD exacerbation. Denies history of heart failure. No chest pain. Physical exam General: Alert, Oriented x3, Cooperative HEENT: Atraumatic, PERRLA, EOMI, Normocephalic Oral: No Gingival or Mucosal Lesions/ Ulcerations Neck: Supple, No JVD, Negative Carotid Bruits Chest wall/Lungs: Air entry diminished in bilateral lung bases. No crepitation. Mild expiratory rhonchi Cardiovascular: Regular rate, Regular Rhythm, Normal S1, Normal S2, No M/G/R Abdomen: Bowel Sounds Present, Soft, Non Tender, Non-Distended : Oliguria. On hemodialysis. No renal angle tenderness. No suprapubic tenderness. Extremities: No leg edema, Capillary Refill Less than 3 Seconds Skin: No rashes, No breakdown Musculoskeletal: No Tenderness to Palpation of Joints or Extremities Neurological: Cranial nerves II-XII grossly intact, DTR 2+/4. No acute focal neurological deficit. Psych/Mental Status: Normal Affect, Appropriate. Assessment & Plan Assessment/Plan (1) COPD exacerbation: PLAN: Plan 8-year-old male was admitted with cough, shortness of breath and fever. past had a temperature of 101. #Acute exacerbation of chronic COPD -Admit to floor, continuous O2 monitoring -Chest x-ray: No acute infiltrate COVID ordered, obtain respiratory panel, sputum culture if able -O2 in place, wean as tolerated -IV methylprednisone -Scheduled DuoNebs -Albuteron prn -Antibiotics: Continue azithromycin -Incentive spirometer -Mucinex 09/16: Triple PCR for SARS-CoV-2, flu and RSV are negative. Respiratory panel negative. #ESRD on HD -On Friday/Friday/Friday, last dialysis on Friday, missed today because he came to the ED -Consult nephrology -Renal diet -Daily weights, I's and O's 07/17: Has hemodialysis today. # History of DVT -Patient on Coumadin 2.5 mg except for Friday -INR 3.5 09/16: INR 4.1. Continue holding warfarin. # Recent GI bleed secondary to gastric and duodenal ulcers -Patient hospitalized for this at the end of July -Continue PPI twice daily -INR 3.5, holding Coumadin today, repeat in the a.m. and can decide further management at that time 09/16: Acute on chronic severe anemia H&H 7.2/22.6%. Baseline H&H between 8 to 9 g%. MCV normal. RDW elevated. Serum iron 10, TIBC low, iron sat 6.1% and ferritin high 2157. Overall suggestive of anemia of chronic disease/CKD. #Hypokalemia -Replace -Repeat potassium is normal. #Hypertension -Continue atenolol and lisinopril #Gout -Continue home allopurinol # Chronic normocytic anemia -Appears to be close to baseline -Did not report any active bleeding or concerns for bleeding -Repeat in a.m. -Continue PPI as above #DVT ppx: Supratherapeutic on Coumadin Charges/Coding Visit Charges Inpatient E&M: 19287 Subs Hosp L2
[2024-09-16] MEDS: Atenolol 50 MG Tablet PO (12:12)
[2024-09-16] MEDS: Azithromycin 250 MG Tablet 500 MG PO (12:13)
[2024-09-16] MEDS: Lisinopril 5 MG Tablet PO (12:13)
[2024-09-16] MEDS: Pantoprazole Sodium 40 MG Tablet PO ×2 (12:13→21:55)
[2024-09-16] MEDS: guaiFENesin 1,200 MG Tablet 1200 MG PO ×2 (12:13→21:55)
[2024-09-16] MEDS: Allopurinol 100 MG Tablet PO (12:13)
[2024-09-16] MEDS: Calcium Acetate 667 MG Capsule PO ×2 (12:19→16:48)
[2024-09-16 13:52] LABS: BUN 11 mg/dL (7-18); Creatinine, Serum 2.14 mg/dL (0.70-1.30); EST Glomerular Filtration Rate 32 mL/min (>60); Est Glom Filt Rate - Afr Amer 39 mL/min (>60); Estimated Creatinine Clearance 26.09 ml/min
--- NOTE | 2024-09-16 14:28 | CASEMGMT ---
Social Work SW met with pt and Carleen to discuss Advance Directives. SW explained AD and pt and requesting to complete documents at this time. SW assisted pt and in completing HCPOA and Living Will. Pt naming his as HCPOA. Copy placed on pt chart and original given to pt. [place]
--- NOTE | 2024-09-16 16:05 | CON.PCM.RE_ITS ---
Assessment & Plan Assessment/Plan (1) ESRD (end stage renal disease) on dialysis: PLAN: ESRD on HD MWF schedule. HD today. see orders/flowsheets. no complaints. should be able to remove 1.5 to 2 L Dyspnea. better with HD HPI Consult Data Date of Consult: 09/16/24 HPI Narrative Reason for Consultation: ESRD HPI Narrative: MEHUL GORDILLO, is a 79 M who presents to hospital with dyspnea/cough. ESRD on HD MWF schedule. He goes to [facility] in [place]. Last dialysis was Friday. Recently couple of admissions, first 1 with pneumonia, second 1 with GI bleed. Had significant cough, came in with shortness of breath. Dialysis this morning. Uneventful. PENDING SALE TO [facility] Medical History (Updated 09/16/24 @ 16:[address] Junior Mna MD) ESRD (end stage renal disease) on dialysis ESRD (end stage renal disease) COPD (chronic obstructive pulmonary disease) Wears glasses Alcohol use History of steroid therapy Ambulates with cane Arthritis History of renal dialysis History of renal disease Low iron Back pain Dietary restriction History of hiatal hernia Gastric reflux Shortness of breath on exertion Former smoker Hoarseness History of edema Gout HTN (hypertension) Home Medications ?Medication ?Instructions ?Recorded ?Last Taken ?Type allopurinol 100 mg tablet 100 mg PO DAILY lower uric acid in 05/01/23 08/08/24 History blood atenolol 50 mg tablet 50 mg PO DAILY hypertension 05/01/23 08/08/24 History fluticasone 232 mcg-salmeterol 14 1 inh inhalation BID allergies 05/04/24 08/08/24 History mcg/actuation breath activated powdr lisinopril 5 mg tablet 5 mg PO DAILY hypertension 05/04/24 08/08/24 History warfarin 2.5 mg tablet 2.5 mg PO DAILY blood clot 05/04/24 05/15/24 History calcium acetate 667 mg tablet 667 mg PO TID electrolytes 06/03/24 08/08/24 History albuterol 90 mcg/actuation aerosol 90 mcg inhalation BID PRN SOB 07/16/24 Unknown History inhaler pantoprazole 40 mg tablet,delayed 40 mg PO BID #60 tabs 08/12/24 Unknown Rx release Allergy/AdvReac Type Severity Reaction Status Date / Time No Known Allergies Allergy Verified 09/15/24 11:20 Family History Brother Cancer Other Hypertension Surgical History S/P dialysis catheter insertion S/P cataract extraction Previous back surgery Social History Smoking Status: Former smoker ROS ROS Narrative negative except above Physical Exam Narrative Alert awake oriented x 3 no obvious distress no pallor no icterus no JVD s1s2 no murmurs lungs clear abdomen soft no organomegaly no edema no cyanosis Lab / Micro Data 09/16/24 06:30 09/16/24 12:05 Labs: Laboratory Results - last 24 hr 09/16/24 06:30: WBC 5.4, RBC 2.60 L, Hgb 7.2 L, Hct 22.6 L, MCV 86.9, MCH 27.7, MCHC 31.9 L, RDW Std Deviation 55.8 H, RDW Coeff of Morris 17.5 H, Plt Count 399, MPV 10.1, Immature Gran % (Auto) 0.600, Neut % (Auto) 89.0 H, Lymph % (Auto) 8.0 L, [place] % (Auto) 2.0, Eos % (Auto) 0.0, Baso % (Auto) 0.4, Absolute Neuts (auto) 4.8, Absolute Lymphs (auto) 0.43 L, Nucleated RBC % 0, Differential Comment COMMENT, Atypical Lymphocytes 1+, PT Cancelled, INR Cancelled, Sodium 132 L, Potassium 4.0, Chloride 96 L, Carbon Dioxide 26.0, Anion Gap 10, BUN 23 H, C reatinine 4.73 H, Estim Creat Clear Calc 11.80, Est GFR (MDRD) Af Amer 16 L, Est GFR (MDRD) Non-Af 13 L, BUN/Creatinine Ratio 4.9 L, Glucose 157 H, Calcium 8.8, Magnesium 2.1 09/16/24 07:12: PT 39.1 H, INR 4.1 H* 09/16/24 12:05: BUN 11, Creatinine 2.14 H, Estim Creat Clear Calc 26.09, Est GFR (MDRD) Af Amer 39 L, Est GFR (MDRD) Non-Af 32 L Micro: Microbiology 09/15/24 21:10 Sputum, Expectorated/Coughed Gram Stain - Final 09/15/24 21:10 Sputum, Expectorated/Coughed Respiratory Culture - Preliminary 09/15/24 15:17 Mucosa - Nose Respiratory Panel (PCR) - Final 09/15/24 13:32 Mucosa - Nose SARS-CoV-2, Influenza & RSV (PCR) - Final
[2024-09-16 20:32] LABS: Hematocrit 22.9 % (40-54); Hemoglobin 7.2 g/dL (13.0-16.5)
[2024-09-16] MEDS: 0.9% Saline Lock 10 ML Syringe IV (21:57)
[2024-09-17] VITALS (15 sets, daily range): BP systolic 100–300; BP diastolic 57–80; PULSE 80–106; RESP 14–20; TEMP 36.4–36.8; O2SAT 95–100; BMI 25.7; BMI 25.1
[2024-09-17] MEDS: Ipratropium/Albuterol Sulfate 3 ML AMPUL.NEB INHALATION ×3 (04:24→11:21)
[2024-09-17] MEDS: 0.9% Saline Lock 10 ML Syringe IV (05:32)
[2024-09-17] MEDS: 0.9% Normal Saline 1,000 ML IV.SOLN. 1000 ML OPERA.SITE (08:08)
[2024-09-17] MEDS: PureFlow B 2K Dialysis Soln 1 BAG 6 BAG PF (08:08)
--- NOTE | 2024-09-17 08:32 | PCM.DC ---
Discharge Instructions Diet Discharge Diet: No restrictions Activity Discharge Activity: Return to Normal Activity Weight Bearing Status: Weight bearing as tolerated Dressing / Incision Call your doctor if you observe: Fever of 101 or Higher, Coldness, Increased Pain, Numbness or Tingling, Change in Color, Inability to urinate, Inability to have a bowel movement, Shortness of breath, Dizziness, Fainting spells, Swelling in the ankles, Chest pain, Prolonged hiccupping, Increased palpitations (irregular heartbeat) and Calf discomfort Follow Up Care When: IN 2 WEEKS Test Results: Test results from this visit will be discussed in further detail at your follow-up appointment, if applicable. Discharge Plan Admission Admit Date/Time: 09/15/24 14:08 Primary Reason for Your Visit: COPD exacerbation Attending Provider: Germain Hanson Primary Care Provider: Yash Talavera Consulting Providers: Junior Man; Joy Espitia Discharge Orders/Prescriptions Prescriptions: New azithromycin 500 mg tablet 500 mg PO Q24 3 Days Qty: 3 0RF guaifenesin [Mucus Relief ER] 1,200 mg Tablet Extended Release 12hr 1,200 mg PO BID 7 Days Qty: 14 0RF prednisone 20 mg tablet 40 mg PO DAILY 5 Days Qty: 10 0RF Continued atenolol 50 mg tablet 50 mg PO DAILY Patient Comments: TAKE 1 TABLET BY MOUTH ONCE DAILY allopurinol 100 mg tablet 100 mg PO DAILY Patient Comments: TAKE 1 TABLET BY MOUTH ONCE DAILY lisinopril 5 mg tablet 5 mg PO DAILY fluticasone propion-salmeterol 232-14 mcg/actuation aerosol powdr breath activated 1 inh inhalation BID calcium acetate 667 mg tablet 667 mg PO TID Rx Instructions: with meals albuterol 90 mcg/actuation aerosol 90 mcg inhalation BID PRN (Reason: SOB) pantoprazole 40 mg Tablet,Delayed Release (Dr/Ec) 40 mg PO BID Qty: 60 2RF Held warfarin 2.5 mg tablet 2.5 mg PO DAILY Hold Instructions: Hold warfarin for 2 days and recheck INR and titrate dose of warfarin accordingly Patient Comments: Does not take on Tuesdays Rx Instructions: 6 days a week Referrals / Follow Up: Henri Talavera DO [Med Staff - Active Staff] - Within 1 Month (Follow-up after COPD exacerbation) Yash Talavera MD [Primary Care Provider] - Within 2 Weeks Disposition Disposition (needs filled in before D/C Order can be placed): Home, Self Care
[2024-09-17 08:33] LABS: Prothrombin Time (Protime)PT. 40.6 SECONDS (11.7-14.9)
[2024-09-17 08:45] LABS: International Normalized Ratio 4.3
--- NOTE | 2024-09-17 10:38 | PCM.DC.SUM ---
Providers Date of Admission: 09/15/24 Date of Discharge: 09/17/24 Primary Care Physician: Dr. Yash Talavera MD Consultations 09/15/24 15:08 Consult: Nephrology Routine Consulting Provider: Junior Man Reason for Consult: esrd HD m/w/f, last HD friday EMERGENT Consult: No MD Notified: Yes Date Notified: 09/15/24 Time Notified: 16:11 Method of Notification: Text Reason For Visit: COPD EXCERBATION, HYPOXIA Diagnosis Discharge Diagnosis (1) ESRD (end stage renal disease) on dialysis: Status: Acute Code(s): N18.6 - End stage renal disease; Z99.2 - Dependence on renal dialysis Plan 8-year-old male was admitted with cough, shortness of breath and fever. past had a temperature of 101. #Acute exacerbation of chronic COPD -Admit to floor, continuous O2 monitoring -Chest x-ray: No acute infiltrate COVID ordered, obtain respiratory panel, sputum culture if able -O2 in place, wean as tolerated -IV methylprednisone -Scheduled DuoNebs -Albuteron prn -Antibiotics: Continue azithromycin -Incentive spirometer -Mucinex 09/16: Triple PCR for SARS-CoV-2, flu and RSV are negative. Respiratory panel negative. 09/17: Patient stated he was smoking a pack per day and quit 25 years ago. Symptoms of shortness of breath much better. Discharged on burst therapy of prednisone 40 mg daily for 5 days, Mucinex and azithromycin. Patient has albuterol. Follow-up in pulmonary clinic. #ESRD on HD -On Friday/Friday/Friday, last dialysis on Friday, missed today because he came to the ED -Consult nephrology -Renal diet -Daily weights, I's and O's 09/16: Hemodialysis as per shrink pit supervisor recommendation. 09/17: Patient having hemodialysis. # History of DVT -Patient on Coumadin 2.5 mg except for Friday -INR 3.5 09/16: INR 4.1. Continue holding warfarin. 09/17: Continue holding warfarin and repeat PT/INR after 2 days and titrate the dose of warfarin accordingly. # Recent GI bleed secondary to gastric and duodenal ulcers -Patient hospitalized for this at the end of July -Continue PPI twice daily -INR 3.5, holding Coumadin today, repeat in the a.m. and can decide further management at that time 09/16: Acute on chronic severe anemia H&H 7.2/22.6%. Baseline H&H between 8 to 9 g%. MCV normal. RDW elevated. Serum iron 10, TIBC low, iron sat 6.1% and ferritin high 2157. Overall suggestive of anemia of chronic disease/CKD. 09/17: Severe anemia but hemoglobin is stable. Continue PPI. Follow-up in GI clinic #Hypokalemia -Replace -Repeat potassium is normal. #Hypertension -Continue atenolol and lisinopril #Gout -Continue home allopurinol # Acute on chronic normocytic anemia -Appears to be close to baseline -Did not report any active bleeding or concerns for bleeding As mentioned -Continue PPI as above #DVT ppx: Supratherapeutic on Coumadin Discharge medication reconciliation done. Discharge follow-up instructions completed. Discharge process discussed with the patient and all questions were answered to patient's satisfaction. Follow with PCP in 1 to 2 weeks Total time spent, exact 35 minutes on discharge meds reconciliation, examination, coordination of care with nurses and ancillary staff, review of imaging and blood test and discussion with the patient on follow-up instructions. Medications at Discharge Home Medications allopurinol 100 mg tablet 100 mg PO DAILY lower uric acid in blood 05/01/23 atenolol 50 mg tablet 50 mg PO DAILY hypertension 05/01/23 fluticasone 232 mcg-salmeterol 14 mcg/actuation breath activated powdr 1 inh inhalation BID allergies 05/04/24 lisinopril 5 mg tablet 5 mg PO DAILY hypertension 05/04/24 warfarin 2.5 mg tablet 2.5 mg PO DAILY blood clot 05/04/24 calcium acetate 667 mg tablet 667 mg PO TID electrolytes 06/03/24 albuterol 90 mcg/actuation aerosol inhaler 90 mcg inhalation BID PRN SOB 07/16/24 pantoprazole 40 mg tablet,delayed release 40 mg PO BID #60 tabs 08/12/24 azithromycin 500 mg tablet 500 mg PO Q24 3 days #3 tabs 09/17/24 guaifenesin 1,200 mg tablet, extended release 12 hr (Mucus Relief ER) 1,200 mg PO BID 1 week #14 tabs 09/17/24 prednisone 20 mg tablet 40 mg (2 x 20 mg) PO DAILY 5 days #10 tabs 09/17/24 Physical Exam Narrative Seen and examined. Patient getting hemodialysis. Shortness of breath is better. Fluid was removed through hemodialysis Denies history of heart failure. No chest pain. History of smoking, quit 25 years ago Physical exam General: Alert, Oriented x3, Cooperative HEENT: Atraumatic, PERRLA, EOMI, Normocephalic Oral: No Gingival or Mucosal Lesions/ Ulcerations Neck: Supple, No JVD, Negative Carotid Bruits Chest wall/Lungs: Air entry diminished in bilateral lung bases. No crepitation. Mild expiratory rhonchi Cardiovascular: Regular rate, Regular Rhythm, Normal S1, Normal S2, No M/G/R Abdomen: Bowel Sounds Present, Soft, Non Tender, Non-Distended : Oliguria. On hemodialysis. No renal angle tenderness. No suprapubic tenderness. Extremities: No leg edema, Capillary Refill Less than 3 Seconds Skin: No rashes, No breakdown Musculoskeletal: No Tenderness to Palpation of Joints or Extremities Neurological: Cranial nerves II-XII grossly intact, DTR 2+/4. No acute focal neurological deficit. Psych/Mental Status: Normal Affect, Appropriate. Weight / BMI Weight Weight: 160 lb 0.889 oz Body Mass Index (BMI) 25.7 ABG / Lab / Microbiology Data 09/16/24 20:20 09/16/24 12:05 Laboratory: Laboratory Results - last 24 hr 09/16/24 12:05: BUN 11, Creatinine 2.14 H, Estim Creat Clear Calc 26.09, Est GFR (MDRD) Af Amer 39 L, Est GFR (MDRD) Non-Af 32 L 09/16/24 20:20: Hgb 7.2 L, Hct 22.9 L 09/17/24 06:35: PT 40.6 H, INR 4.3 H* Microbiology: Microbiology 09/15/24 21:10 Sputum, Expectorated/Coughed Gram Stain - Final 09/15/24 21:10 Sputum, Expectorated/Coughed Respiratory Culture - Preliminary Appears to be normal respiratory esperanza. Further studies to follow. 09/15/24 15:17 Mucosa - Nose Respiratory Panel (PCR) - Final 09/15/24 13:32 Mucosa - Nose SARS-CoV-2, Influenza & RSV (PCR) - Final D/C Instructions Discharge Diet: No restrictions Weight Bearing Status: Weight bearing as tolerated Call your doctor if you observe: Fever of 101 or Higher, Coldness, Increased Pain, Numbness or Tingling, Change in Color, Inability to urinate, Inability to have a bowel movement, Shortness of breath, Dizziness, Fainting spells, Swelling in the ankles, Chest pain, Prolonged hiccupping, Increased palpitations (irregular heartbeat) and Calf discomfort When: IN 2 WEEKS Meaningful Use Info Meaningful Use Meaningful Use Diagnoses (Choose all that apply): None applicable Ischemic Stroke Statin Dosing Therapy Reference: STATIN DOSE THERAPY REFERENCE: * Patients > 75 years receive moderate or high dose statin therapy. * Patients 75 years or YOUNGER should receive HIGH intensity statin dose unless contraindicated. You will be required to document reason for non-treatment if statin daily dose does not meet guidelines. HIGH DOSE STATIN THERAPY DAILY Atorvastatin > than or = to 40 mg Rosuvastatin > than or = to 20 mg Amlodipine + Atorvastatin > than or = to 2.5/40 mg Ezetimibe + Simvastatin 10/80 mg Simvastatin 80mg Discharge Plan Admission Admit Date/Time: 09/15/24 14:08 Primary Reason for Your Visit: COPD exacerbation Attending Provider: Germain Hanson Primary Care Provider: Yash Talavera Consulting Providers: Junior Man; Joy Espitia Discharge Orders/Prescriptions Prescriptions: New azithromycin 500 mg tablet 500 mg PO Q24 3 Days Qty: 3 0RF guaifenesin [Mucus Relief ER] 1,200 mg Tablet Extended Release 12hr 1,200 mg PO BID 7 Days Qty: 14 0RF prednisone 20 mg tablet 40 mg PO DAILY 5 Days Qty: 10 0RF Continued atenolol 50 mg tablet 50 mg PO DAILY Patient Comments: TAKE 1 TABLET BY MOUTH ONCE DAILY allopurinol 100 mg tablet 100 mg PO DAILY Patient Comments: TAKE 1 TABLET BY MOUTH ONCE DAILY lisinopril 5 mg tablet 5 mg PO DAILY fluticasone propion-salmeterol 232-14 mcg/actuation aerosol powdr breath activated 1 inh inhalation BID calcium acetate 667 mg tablet 667 mg PO TID Rx Instructions: with meals albuterol 90 mcg/actuation aerosol 90 mcg inhalation BID PRN (Reason: SOB) pantoprazole 40 mg Tablet,Delayed Release (Dr/Ec) 40 mg PO BID Qty: 60 2RF Held warfarin 2.5 mg tablet 2.5 mg PO DAILY Hold Instructions: Hold warfarin for 2 days and recheck INR and titrate dose of warfarin accordingly Patient Comments: Does not take on Tuesdays Rx Instructions: 6 days a week Referrals / Follow Up: Henri Talavera DO [Med Staff - Active Staff] - Within 1 Month (Follow-up after COPD exacerbation) Yash Talavera MD [Primary Care Provider] - Within 2 Weeks Disposition Disposition (needs filled in before D/C Order can be placed): Home, Self Care Charges/Coding Visit Charges Inpatient E&M: 62139 Disch Hosp >30min
--- NOTE | 2024-09-17 11:57 | CASEMGMT ---
Addendum entered by Marta Jefferson 09/17/24 13:44: Script received from Dr Hanson for INR to be drawn 09/20 and to f/u with PCP 09/21 re: results. RN CM to room. Script provided to and pt, explained, and questions answered. voices understanding. Addendum entered by Marta Jefferson 09/17/24 12:12: Iliana FENG, states she ambulated pt. She states he does not qualify for any home O2 and she also states he did fine ambulating and does not need therapy eval. Original Note: RN JORGE NOTE: Discharge order is in. RN CM to room. Pt resting in bed. Introduced self and role. Pt states his will be taking him home today. Discussed any home-going needs. Pt states he feels safe to discharge home and denies wanting any HHC or OP therapy. He states he is aware he can call PCP if he changes his mind once he returns home. He is aware Rx's have been sent to [facility] in [place] and states they can pick them up today on the way home. He denies needing any DME @ home. Pt denies any other discharge needs/concerns. Iliana FENG, aware to do home O2 amb testing prior to discharge and she states will notify this RN CM if does need any O2. Pt states he has not been up ambulating much, stating mostly just standing @ the bedside. 6 cl: 20. Iliana FENG, states she will get pt OOB and will ambulate w/him and will let this RN CM know if any therapy needed or any concerns. Call placed to [facility] in [place] and spoke w/Ny. She was made aware pt received HD today, that he will be discharging home today, and pt to go to next OP HD tx @ [facility] on Friday. Brittani MEZA RN, CM
[2024-09-17 11:59] LABS: BUN 14 mg/dL (7-18); EST Glomerular Filtration Rate 37 mL/min (>60); Est Glom Filt Rate - Afr Amer 44 mL/min (>60); Estimated Creatinine Clearance 29.38 ml/min
[2024-09-17] MEDS: Calcium Acetate 667 MG Capsule PO (12:19)
[2024-09-17] MEDS: Pantoprazole Sodium 40 MG Tablet PO (12:20)
[2024-09-17] MEDS: Azithromycin 250 MG Tablet 500 MG PO (12:20)
[2024-09-17] MEDS: Atenolol 50 MG Tablet PO (12:20)
[2024-09-17] MEDS: guaiFENesin 1,200 MG Tablet 1200 MG PO (12:20)
[2024-09-17] MEDS: Allopurinol 100 MG Tablet PO (12:21)
--- NOTE | 2024-09-17 16:16 | PHA.DC_ITS ---
Pharmacy [facility] has performed discharge medication reconciliation and counseling for this patient. The patient's discharge medication list was reviewed for discrepancies and discrepancies were resolved. The patient was counseled on the following discharge medications and changes in medications for homegoing were reviewed. 1. ZITHROMAX 2. PREDNISONE 3. HOLD HOME WARFARIN UNTIL INR RECHECKED. The Reason for Use, instructions for use, and potential side effects were reviewed for all new medications. The patient's questions regarding all of their medications were answered. The patient was able to verbally demonstrate an understanding of their discharge medications. The patient was counselled by Geo Barnes PharmD Candidate Medications at Discharge Home Medications allopurinol 100 mg tablet 100 mg PO DAILY lower uric acid in blood 05/01/23 atenolol 50 mg tablet 50 mg PO DAILY hypertension 05/01/23 fluticasone 232 mcg-salmeterol 14 mcg/actuation breath activated powdr 1 inh inhalation BID allergies 05/04/24 lisinopril 5 mg tablet 5 mg PO DAILY hypertension 05/04/24 warfarin 2.5 mg tablet 2.5 mg PO DAILY blood clot 05/04/24 calcium acetate 667 mg tablet 667 mg PO TID electrolytes 06/03/24 albuterol 90 mcg/actuation aerosol inhaler 90 mcg inhalation BID PRN SOB 07/16/24 pantoprazole 40 mg tablet,delayed release 40 mg PO BID #60 tabs 08/12/24 azithromycin 500 mg tablet 500 mg PO Q24 3 days #3 tabs 09/17/24 guaifenesin 1,200 mg tablet, extended release 12 hr (Mucus Relief ER) 1,200 mg PO BID 1 week #14 tabs 09/17/24 prednisone 20 mg tablet 40 mg (2 x 20 mg) PO DAILY 5 days #10 tabs 09/17/24
== END 2024-09-17 13:40 | disposition home or self-care (01) | DRG 190 ==
LOC: ED 13:30 → PCU 14:06
PROVIDERS: Internal Medicine Nephrology; Admitting Provider Internal Medicine; Emergency Provider Emergency Medicine; PCP Family Medicine; Visit Provider Internal Medicine
DX: J44.1 Chronic obstructive pulmonary disease with (acute) exacerbation (principal); N18.6 End stage renal disease; J96.01 Acute respiratory failure with hypoxia; I12.0 Hypertensive chronic kidney disease with stage 5 chronic kidney disease or end stage renal disease; D63.1 Anemia in chronic kidney disease; E87.6 Hypokalemia; Z99.2 Dependence on renal dialysis; M10.9 Gout, unspecified; R50.9 Fever, unspecified; Z11.52 Encounter for screening for COVID-19; Z79.01 Long term (current) use of anticoagulants; Z79.899 Other long term (current) drug therapy; Z86.718 Personal history of other venous thrombosis and embolism; Z87.891 Personal history of nicotine dependence
CPT/HCPCS: 36415; 71046; 80048; 82565; 83735; 84484; 84520; 85014; 85018; 85025; 85610; 85730; 87070; 87205; 87631; 87633; 90937; 93005; 94640; 94668; 99285; J7030; A4216; G0257

== ENCOUNTER → 2024-10-12 | Outpatient (CLI) | payer MEDICARE, OTHER, SELFPAY ==
[2024-10-12 14:38] LABS: Absolute Lymphocyte Count 0.77 X10^3/uL (0.83-4.51); Absolute Neutrophil Count 10.1 X10^3/uL (2.0-7.7); Basophil# 0.06 X10^3/uL; Basophil% 0.5 % (0-1); Eosinophil# 0.32 X10^3/uL; Eosinophils% 2.7 % (0-5); Hematocrit 24.6 % (40-54); Hemoglobin 7.4 g/dL (13.0-16.5); Lymphocyte # 0.77 X10^3/ul (0.83-4.51); Lymphocyte % 6.4 % (19-41); Mean Corp Hgb Conc 30.1 g/dL (32-36); Mean Corpuscular Hgb 27.2 pg (27.0-32.0); Mean Corpuscular Volume 90.4 fL (80-94); Mean Platelet Vol. 10.7 fl (6.2-12.0); Monocyte# 0.72 X10^3/uL; NRBC Flagged by Analyzer 0 % (0-5); Neutrophil # 10.07 X10^3/uL (2.7-7.7); Neutrophil % 83.8 % (47-70); Platelet Count 314 K/mm3 (150-450); RBC Distribution Width CV 19.5 % (11.6-14.6); RBC Distribution Width SD 64.4 fl (35.1-43.9); Red Blood Count 2.72 M/mm3 (4.6-6.2)
== END | disposition home or self-care (01) ==
LOC: LAB 13:46
PROVIDERS: PCP Family Medicine; Referring Provider Student in an Organized Health Care Education/Training Program; Visit Provider Student in an Organized Health Care Education/Training Program
DX: D64.9 Anemia, unspecified (principal)
CPT/HCPCS: 36415; 85025

== ENCOUNTER 2024-12-02 08:26 | Day surgery (SDC) | payer MEDICARE, OTHER, SELFPAY ==
[2024-12-01 07:40] VITALS: BMI 25.7
[2024-12-02 08:57] LABS: International Normalized Ratio 1.1; Prothrombin Time (Protime)PT. 14.6 SECONDS (11.7-14.9)
--- NOTE | 2024-12-02 15:03 | PCM.OPRPT ---
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 Post-Operative Diagnosis: Same Surgery/Procedure Performed: Fistulagram with angioplasty of a previously placed stent at the venous anastomosis Intravascular ultrasound evaluation of the right axillary subclavian vein, basilic vein, AV graft continuous process tanner rotary drum: No Type of Anesthesia: Local and Sedation,Conscious Procedure Start Time: 10:00 Procedure Stop Time: 10:45 Select all DRAINS/GRAFTS/IMPLANTS that apply: None Estimated Blood Loss: 3 Specimen collected: No Description of surgery: HPI: Patient is a 79-year-old male with end-stage renal disease currently on dialysis via right upper arm AV graft. He has history of multiple prior interventions including placement of a covered stent at the venous anastomosis as well as angioplasty of the superior vena cava. He has been noted to have increasing venous return pressures though otherwise from what he can tell the dialysis circuit is functional. He denies any prolonged bleeding or difficulty completing his sessions. He presents now for fistulogram with possible invention. Description of procedure: Upon obtaining form consent and verification correct patient procedure site patient was taken the Lounge Car Attendant where he was positioned prepped and draped in usual sterile fashion. Timeout was performed and conscious sedation administered Versed and fentanyl. Skin overlying the graft in the distal forearm was anesthetized 1% lidocaine the vessel accessed under ultrasound guidance with a micropuncture needle wire. This was then exchanged for a 6 Malian fistula access sheath through which hand-injection fistulogram including reflux into the arterial circuit and outflow to the superior vena cava was performed. This revealed patent arterial anastomosis with adequate caliber and no evidence of stenosis. The graft itself had no areas of significant stenosis though there was some luminal irregularity at the access sites. At the distal edge of the previously placed stent there was significant stenosis greater than 75% with the majority the stenosis within the stent itself and only minimal extending beyond. The central venous system was patent with superior vena cava caliber similar to post intervention at the prior fistulogram. The patient was in heparinized allowed to circulate for 3 minutes. Intravascular ultrasound probe was then advanced and recorded pullback performed of the right axillary subclavian vein, basilic vein, AV graft. This confirmed the extent of the stenosis as well as gave accurate reference vessel sizing. A 7 mm x 40 Hendricks angio sculpt balloon was then advanced in position inflated for multiple inflations at nominal centered on the lesion. This was then withdrawn and repeat angiography revealed satisfactory response with no extravasation or dissection and no residual stenosis. Next a Bard Lutonics 8 x 40 paclitaxel coated angioplasty was advanced and inflated to nominal for 2 minutes centered on the lesion and then deflated withdrawn. Completion subtraction angiography revealed satisfactory resolution of the stenosis with no extravasation or dissection and brisk contrast transit. A 4-0 nylon suture pursestring was then placed at the access site and secured as the sheath was withdrawn. Manual pressure was then held for 5 minutes till hemostasis was obtained. The patient was then taken the recovery area with plan discharged home. Surgical Findings: See above Complications Complications: No
== END 2024-12-02 12:10 | disposition home or self-care (01) ==
PROVIDERS: PCP Family Medicine; Referring Provider Surgery Trauma Surgery; Visit Provider Surgery Trauma Surgery
DX: T82.856A Stenosis of peripheral vascular stent, initial encounter (principal); N18.6 End stage renal disease; I12.0 Hypertensive chronic kidney disease with stage 5 chronic kidney disease or end stage renal disease; J44.9 Chronic obstructive pulmonary disease, unspecified; I48.91 Unspecified atrial fibrillation; Z79.899 Other long term (current) drug therapy; Z79.01 Long term (current) use of anticoagulants; Z79.52 Long term (current) use of systemic steroids; Z99.2 Dependence on renal dialysis; K21.9 Gastro-esophageal reflux disease without esophagitis; Z87.891 Personal history of nicotine dependence; Y71.8 Miscellaneous cardiovascular devices associated with adverse incidents, not elsewhere classified
CPT/HCPCS: 36415; 36902; 37252; 37253; 76937; 85610; 99152; 99153; C1725; C1753; C2623; Q9967; C1769

== ENCOUNTER 2025-01-21 11:27 | Inpatient (IN) | payer MEDICARE, OTHER, SELFPAY ==
[2025-01-21] VITALS (10 sets, daily range): BP systolic 99–141; BP diastolic 35–58; PULSE 78–94; RESP 16–22; TEMP 36.6–37.2; O2SAT 92–100; BMI 30.1
--- NOTE | 2025-01-21 12:54 | EKG12_ITS ---
Test Reason : FEVER Blood Pressure : */* mmHG Vent. Rate : 80 BPM Atrial Rate : 80 BPM P-R Int : 150 ms QRS Dur : 72 ms QT Int : 406 ms P-R-T Axes : -18 13 20 degrees QTcB Int : 468 ms Sinus rhythm with Premature supraventricular complexes Otherwise normal ECG Confirmed by LOLA NG, ALLISON ([id number]), material expeditor NAIMA REAVES ([id number]) on 01/24/2025 10:54:37 AM Referred By: Confirmed By: ALLISON DAVILA MD
--- NOTE | 2025-01-21 13:07 | EDS_ITS ---
HPI History of Present Illness Chief Complaint: Fever Narrative Narrative: Chief complaint and HPI: Fever. 79-year-old male with past medical history of ESRD on Friday, Friday, Friday dialysis, HTN presents for evaluation of fever, weakness, cough, hypotension. Patient states since Friday he has been eating oxygen at home. He occasionally wears oxygen as needed. He has been on about 1 to 2 L nasal cannula. He had dialysis on Friday and since then has been fatigued with increased weakness. He has a chronic cough that sounds more productive per . She states this morning he developed a temperature of 101 ?F. He was given Tylenol. states that he felt weak so she checked his blood pressure multiple times. She states all were low with the lowest being SBP in the 80s. Did not receive dialysis today. Patient denies any chest pain, shortness of breath, abdominal pain, congestion, nausea, vomiting, diarrhea, dysuria. Patient does make urine. Associated symptom is decreased p.o. intake. Review of systems: See HPI Medications: As listed on the chart Allergies: As listed on the chart PFSH: Per chart Vital signs: As listed on the chart. Reviewed. Physical exam: Gen: A&O x3, NAD but unwell appearing Head: Normocephalic, atraumatic Eyes: No sclera icterus, conjunctiva clear ENT: Mildly dry mucous membranes Neck: Trachea midline, No JVD CV: RRR, no murmurs, no peripheral edema Resp: Diminished in the bilateral bases, + productive cough, on 2 L nasal cannula GI: Abd soft, non-distended, non-tender, no r/r/g Musc: Moves all extremities but generalized weakness, no deformity, right upper extremity fistula without signs of infection Skin: Warm, dry Neuro: Alert, oriented, grossly intact, sensation intact Psych: Cooperative, appropriate mood and affect [facility] Medical History ESRD (end stage renal disease) on dialysis ESRD (end stage renal disease) COPD (chronic obstructive pulmonary disease) Wears glasses Alcohol use History of steroid therapy Ambulates with cane Arthritis History of renal dialysis History of renal disease Low iron Back pain Dietary restriction History of hiatal hernia Gastric reflux Shortness of breath on exertion Former smoker Hoarseness History of edema Gout HTN (hypertension) Home Medications ?Medication ?Instructions ?Recorded ?Last Taken ?Type allopurinol 100 mg tablet 100 mg PO DAILY lower uric a racquel in 05/01/23 08/08/24 History blood atenolol 50 mg tablet 50 mg PO DAILY hypertension 05/01/23 12/02/24 History fluticasone 232 mcg-salmeterol 14 1 inh inhalation BID allergies 05/04/24 08/08/24 History mcg/actuation breath activated powdr lisinopril 5 mg tablet 5 mg PO DAILY hypertension 0 05/04/24 12/02/24 History calcium acetate 667 mg tablet 667 mg PO TID electrolyt es 06/03/24 08/08/24 History albuterol 90 mcg/actuation aerosol 90 mcg inhalation B ID PRN SOB 07/16/24 Unknown History inhaler pantoprazole 40 mg tablet,delayed 40 mg PO BID #60 tab s 08/12/24 Unknown Rx release promethazine 6.25 mg/5 mL oral 12.5 mg PO Q6H PRN ASK PCP 11/18/24 Unknown Hist ory syrup clopidogrel 75 mg tablet (Plavix) 75 mg PO DAILY #90 t abs 12/02/24 Unknown Rx aspirin 81 mg capsule 81 mg PO DAILY 01/21/25 Unkn own History calcitriol 0.25 mcg capsule 0.25 mcg PO 01/21/25 Unkno wn History fluticasone fur. 100 mcg-umeclid 1 inh inhalation NORMA Y 01/21/25 Unknown History 62.5 mcg-vilant 25 mcg inhalat.powder (Trelegy Ellipta) Allergy/AdvReac Type Severity Reaction Status Date / Time No Known Allergies Allergy Verified 01/21/25 11:34 Family History Brother Cancer Other Hypertension Surgical History S/P dialysis catheter insertion S/P cataract extraction Previous back surgery Social History Smoking Status: Former smoker EXAM Physical Exam Const Vital Signs: 01/21/25 11:27 01/21/25 11:29 01/21/25 12:54 Temperature 97.9 F 97.9 F Temperature Source Oral Oral Pulse Rate 81 81 Respiratory Rate 20 H 22 H Respiratory Effort Respiratory Pattern Blood Pressure 99/35 L 99/35 L Blood Pressure Mean 56 56 Pulse Ox 98 97 Oxygen Delivery Method Nasal Cannula Nasal Cannula Room Air Oxygen Flow Rate (L/min) 2 2 01/21/25 13:07 01/21/25 13:10 01/21/25 15:00 Temperature 98.7 F 98.9 F Temperature Source Oral Oral Pulse Rate 83 82 Respiratory Rate 20 H 18 Respiratory Effort Normal Respiratory Pattern Normal Blood Pressure 105/53 L 113/44 L Blood Pressure Mean 70 67 Pulse Ox 100 95 Oxygen Delivery Method Room Air Room Air Oxygen Flow Rate (L/min) MDM MDM MDM Narrative Medical decision making narrative: 79-year-old male with past medical history of ESRD on Friday, Friday, Friday dialysis, HTN presents for evaluation of fever, weakness, cough, hypotension. On presentation, patient is unwell appearing but nontoxic. He has a lower blood pressure of 99/35. He is requiring 2 L nasal cannula. Afebrile. Differential diagnosis includes but is not limited to viral illness, COVID-19 infection, influenza, pneumonia, electrolyte abnormality, UTI. Patient has mildly dry mucous membranes suspect intravascularly depleted. Will give 1 NS bolus. Will be discharged with fluids given patient is on dialysis. Infectious workup ordered. EKG and chest x-ray reviewed see below. CBC with a leukocytosis of 18.3. Patient has chronic anemia. Coagulation panel unremarkable. CMP with ESRD. Creatinine 4.5. On chart review, this appears to be about his baseline. Patient did miss dialysis today. No transaminitis. Lactic acid unremarkable. Patient positive for influenza. Tamiflu ordered as symptoms started on Friday and patient has hypoxia. UA pending. Given patient's reported hypotension, weakness, missed dialysis, hypoxia with influenza I do feel that he would benefit from admission for further monitoring and dialysis. I spoke with the hospitalist who accepted admission. EKG: Interpreted by me/EM physician: EKG with normal sinus rhythm. Heart rate 80. Patient does have PVCs. Diagnostic: Interpreted by me/EM physician: Chest x-ray without pneumonia, large effusion, pneumothorax, cardiomegaly Impression: 1. Influenza A infection 2. Acute on chronic hypoxia 3. Dehydration 4. Weakness 5. ESRD with missed dialysis Lab Data Labs: Laboratory Results - last 24 hr 01/21/25 01/21/25 01/21/25 11:55 13:35 14:22 WBC 18.3 H RBC 3.71 L Hgb 10.5 L Hct 35.2 L MCV 94.9 H MCH 28.3 MCHC 29.8 L RDW Std Deviation 71.6 H RDW Coeff of Morris 20.7 H Plt Count 374 MPV 11.2 Immature Gran % (Auto) 1.300 H Neut % (Auto) 90.3 H Lymph % (Auto) 2.6 L [place] % (Auto) 5.3 Eos % (Auto) 0.2 Baso % (Auto) 0.3 Absolute Neuts (auto) 16.5 H Absolute Lymphs (auto) 0.47 L Nucleated RBC % 0 Differential Comment SCANNED PT Cancelled 14.5 INR Cancelled 1.1 APTT Cancelled 26.8 Sodium Cancelled 135 Potassium Cancelled 4.8 Chloride Cancelled 95 L Carbon Dioxide Cancelled 25.5 Anion Gap Cancelled 14 BUN Cancelled 35 H Creatinine Cancelled 4.50 H Estim Creat Clear Calc Cancelled Est GFR (MDRD) Non-Af Cancelled 13 L BUN/Creatinine Ratio Cancelled 7.7 L Glucose Cancelled 115 H Lactic Acid 2.0 Calcium Cancelled 7.6 Total Bilirubin Cancelled 0.32 AST Cancelled 14 ALT Cancelled 10 Alkaline Phosphatase Cancelled 57 Total Protein Cancelled 6.1 Albumin Cancelled 3.1 L Globulin Cancelled 3.0 Albumin/Globulin Ratio Cancelled 1.0 Radiography Diagnostic Testing: Clinical Impression(s) from Imaging Studies Chest X-Ray 01/21/25 13:15 IMPRESSION: Hyperinflation. Stable examination. Reading Location: [facility] Discharge Plan Triage Chief Complaint: Fever ED Provider: Nicholas Ordonez Dx/Rx/DC Orders Primary Care Provider: Yash Talavera
--- NOTE | 2025-01-21 13:15 | RAD_ITS ---
PROCEDURE: CHEST PA AND LATERAL REASON FOR EXAM: SHORTNESS OF BREATH TECHNIQUE: PA and lateral chest radiographs were obtained. COMPARISON: Comparison is made with prior study dated September 15, 2024. FINDINGS: EKG electrodes are seen. Hyperinflation. Stable scattered bilateral tiny granulomas. Calcification of the aortic arch. Endovascular stent is seen in the right axillary region. RAD/Chest PA and Lateral IMPRESSION: Hyperinflation. Stable examination. Reading Location: [facility]
[2025-01-21 13:18] LABS: Absolute Lymphocyte Count 0.47 X10^3/uL (0.83-4.51); Absolute Neutrophil Count 16.5 X10^3/uL (2.0-7.7); Basophil# 0.05 X10^3/uL; Basophil% 0.3 % (0-1); Eosinophil# 0.04 X10^3/uL; Eosinophils% 0.2 % (0-5); Hematocrit 35.2 % (40-54); Hemoglobin 10.5 g/dL (13.0-16.5); Lymphocyte # 0.47 X10^3/ul (0.83-4.51); Lymphocyte % 2.6 % (19-41); Mean Corp Hgb Conc 29.8 g/dL (32-36); Mean Corpuscular Hgb 28.3 pg (27.0-32.0); Mean Corpuscular Volume 94.9 fL (80-94); Mean Platelet Vol. 11.2 fl (6.2-12.0); Monocyte# 0.97 X10^3/uL; Monocyte% 5.3 % (0-10); NRBC Flagged by Analyzer 0 % (0-5); Neutrophil # 16.53 X10^3/uL (2.7-7.7); Neutrophil % 90.3 % (47-70); POSITIVE DIFFERENTIAL YES; POSITIVE MORPHOLOGY YES; Platelet Count 374 K/mm3 (150-450); RBC Distribution Width CV 20.7 % (11.6-14.6); RBC Distribution Width SD 71.6 fl (35.1-43.9); Red Blood Count 3.71 M/mm3 (4.6-6.2); White Blood Count 18.3 K/mm3 (4.4-11.0)
[2025-01-21 13:19] LABS: Differential Indicated SCAN CRITERIA MET
[2025-01-21 13:36] LABS: Differential Comment SCANNED
[2025-01-21 13:59] LABS: Partial Thromboplast Time 26.8 Seconds (24.1-36.2)
[2025-01-21 14:03] LABS: International Normalized Ratio 1.1; Prothrombin Time (Protime)PT. 14.5 SECONDS (11.7-14.9)
--- NOTE | 2025-01-21 15:39 | HP.PCM.HOS_ITS ---
[facility] - General General Date of Service: 01/21/25 Chief Complaint: weakness. HPI Narrative MEHUL GORDILLO, is a 79 M who presents with weakness. Patient has been feeling very unwell for the past couple days. He has been having fever chills, cough productive for clear phlegm, myalgias malaise and weakness. Patient is end- stage renal disease on dialysis and was to have dialysis today but was too weak and presented to the emergency room. Patient been having low blood pressures at home down to the 80s. That was not seen here in the emergency room. Patient was positive for influenza A and received 75 mg of oseltamivir as well as 1 L of IV fluids. Patient still very weak. Patient was vaccinated for influenza this year. Patient has home oxygen which she does not use but has been using it recently. The hospital service was contacted for admission. [facility] Medical History ESRD (end stage renal disease) on dialysis ESRD (end stage renal disease) COPD (chronic obstructive pulmonary disease) Wears glasses Alcohol use History of steroid therapy Ambulates with cane Arthritis History of renal dialysis History of renal disease Low iron Back pain Dietary restriction History of hiatal hernia Gastric reflux Shortness of breath on exertion Former smoker Hoarseness History of edema Gout HTN (hypertension) Home Medications ?Medication ?Instructions ?Recorded ?Last Taken ?Type allopurinol 100 mg tablet 100 mg PO DAILY lower uric a racquel in 05/01/23 08/08/24 History blood atenolol 50 mg tablet 50 mg PO DAILY hypertension 05/01/23 12/02/24 History fluticasone 232 mcg-salmeterol 14 1 inh inhalation BID allergies 05/04/24 08/08/24 History mcg/actuation breath activated powdr lisinopril 5 mg tablet 5 mg PO DAILY hypertension 0 05/04/24 12/02/24 History calcium acetate 667 mg tablet 667 mg PO TID electrolyt es 06/03/24 08/08/24 History albuterol 90 mcg/actuation aerosol 90 mcg inhalation B ID PRN SOB 07/16/24 Unknown History inhaler pantoprazole 40 mg tablet,delayed 40 mg PO BID #60 tab s 08/12/24 Unknown Rx release promethazine 6.25 mg/5 mL oral 12.5 mg PO Q6H PRN 08/04 Unknown History syrup clopidogrel 75 mg tablet (Plavix) 75 mg PO DAILY #90 t abs 12/02/24 Unknown Rx Allergy/AdvReac Type Severity Reaction Status Date / Time No Known Allergies Allergy Verified 01/21/25 11:34 Family History Brother Cancer Other Hypertension Surgical History S/P dialysis catheter insertion S/P cataract extraction Previous back surgery Social History Smoking Status: Former smoker ROS ROS Narrative All review of systems were negative except as mentioned above in the history of present illness and the other review of systems. Vital Signs Vital Signs Vital Signs: 01/21/25 11:27 01/21/25 11:29 01/21/25 12:54 Temperature 36.6 C 36.6 C Temperature Source Oral Oral Pulse Rate 81 81 Respiratory Rate 20 H 22 H Respiratory Effort Respiratory Pattern Blood Pressure 99/35 L 99/35 L Blood Pressure Mean 56 56 Pulse Ox 98 97 Oxygen Delivery Method Nasal Cannula Nasal Cannula Room Air Oxygen Flow Rate (L/min) 2 2 01/21/25 13:07 01/21/25 13:10 01/21/25 15:00 Temperature 37.1 C 37.2 C Temperature Source Oral Oral Pulse Rate 83 82 Respiratory Rate 20 H 18 Respiratory Effort Normal Respiratory Pattern Normal Blood Pressure 105/53 L 113/44 L Blood Pressure Mean 70 67 Pulse Ox 100 95 Oxygen Delivery Method Room Air Room Air Oxygen Flow Rate (L/min) Physical Exam Const alert and no apparent distress Constitutional Narrative: Listless but awake and alert and follows commands appropriately. General Appearance: cooperative HEENT normocephalic, head/scalp atraumatic and moist oral mucous membranes Resp normal respiratory effort, no retractions, no use of accessory muscles and clear to auscultation bilaterally Cardio regular rate, regular rhythm, S1 normal heart sound, S2 normal heart sound and no murmurs GI normal to inspection, nondistended, normoactive bowel sounds, soft to palpation, non-tender and non-distended Extremity normal to inspection Neuro Sensorium / Orientation: awake and alert Results Lab / Micro Data 01/21/25 11:55 01/21/25 14:22 Labs: Laboratory Results - last 24 hr 01/21/25 11:55: WBC 18.3 H, RBC 3.71 L, Hgb 10.5 L, Hct 35.2 L, MCV 94.9 H, MCH 28.3, MCHC 29.8 L, RDW Std Deviation 71.6 H, RDW Coeff of Morris 20.7 H, Plt Count 374, MPV 11.2, Immature Gran % (Auto) 1.300 H, Neut % (Auto) 90.3 H, Lymph % (Auto) 2.6 L, [place] % (Auto) 5.3, Eos % (Auto) 0.2, Baso % (Auto) 0.3, Absolute Neuts (auto) 16.5 H, Absolute Lymphs (auto) 0.47 L, Nucleated RBC % 0, Differential Comment SCANNED, PT Cancelled, INR Cancelled, APTT Cancelled, Sodium Cancelled, Potassium Cancelled, Chloride Cancelled, Carbon Dioxide Cancelled, Anion Gap Cancelled, BUN Cancelled, Creatinine Cancelled, Estim Creat Clear Calc Cancelled, Est GFR (MDRD) Non-Af Cancelled, BUN/Creatinine Ratio Cancelled, Glucose Cancelled, Lactic Acid 2.0, Calcium Cancelled, Total Bilirubin Cancelled, AST Cancelled, ALT Cancelled, Alkaline Phosphatase Cancelled, Total Protein Cancelled, Albumin Cancelled, Globulin Cancelled, Albumin/Globulin Ratio Cancelled 01/21/25 13:35: PT 14.5, INR 1.1, APTT 26.8 Micro: Microbiology 01/21/25 12:00 Mucosa - Nose SARS-CoV-2, Influenza & RSV (PCR) - Final Influenzae A Imaging Radiology Impression Chest X-Ray 01/21/25 13:15 IMPRESSION: Hyperinflation. Stable examination. Reading Location: [facility] Assessment & Plan Assessment/Plan (1) Influenza A: PLAN: Patient received 75 mg of Tamiflu in the emergency room. Prior should have been 30 mg but his BMP is currently pending. In the meantime, the plan to be to continue with 30 mg after dialysis. Advised the patient that it is is coming mostly time till he is feeling back to his normal self. Will add guaifenesin with codeine to help with his coughing fits. Does have leukocytosis but this may be more reactive in the underlying influenza. Patient does urinate and urinalysis has been ordered but there is attempt straight cath on him. (2) Debility: PLAN: Secondary to influenza but patient may also be a bit dehydrated as he has not had really much in way of any urine output for the past day. Patient received a liter of IV fluids in emergency room and I will give him an additional 500 cc. PT OT evaluate and treat. PLAN: Plan End-stage renal disease: On hemodialysis every Friday. Patient missed dialysis today. I reached out to Dr. Man and inform me that there may be issues regards to dialysis not being available this weekend. If that is the case then patient will likely have to wait until Friday to have his dialysis and that can be done as an versus outpatient. No acute issues regards to needing dialysis urgently at this time. VTE prophylaxis low risk given the observation status not indicated at this time. CODE STATUS: Addressed with patient. Patient wished to be full code Case discussed with patient's at bedside. Charges/Coding Visit Charges Inpatient E&M: 43111 Init Hosp L2
[2025-01-21] MEDS: Oseltamivir Phosphate 75 MG Capsule PO (16:02)
[2025-01-21] MEDS: 0.9% Normal Saline (1000mL) 1,000 ML 999 ML IV (16:02)
[2025-01-21 16:04] LABS: AST(SGOT) 14 U/L (<=37); Alanine Aminotransfer ALT/SGPT 10 U/L (<=46); Albumin, Serum 3.1 g/dL (3.4-4.8); Alkaline Phosphatase 57 U/L (40-129); Anion Gap 14 (5-15); BUN 35 mg/dL (4-19); BUN/Creat Ratio 7.7 RATIO (10-20); Calcium,Total 7.6 mg/dL (7.6-11.0); Carbon Dioxide 25.5 mmol/L (21.0-32.0); Chloride 95 mmol/L (98-108); EST Glomerular Filtration Rate 13 (>60); Glucose 115 mg/dL (70-99); Potassium 4.8 mmol/L (3.3-5.1); Protein, Total 6.1 g/dL (5.9-8.4); Sodium Level 135 mmol/L (133-145); Total Bilirubin 0.32 mg/dL (0.00-1.30)
--- NOTE | 2025-01-21 16:37 | PN_ITS ---
Progress Note contacted by Dr Nelson about consult. chart reviewed. ESRD on HD MWF, goes to [facility]. did not get dialysis today. I notified the dialysis staff configuration management administrator about dialysis needs likely tomorrow. Electrolytes are ok. Oxygenation ok as per my discussion with Dr Nelson. no acute indications tonight.
[2025-01-21] MEDS: 0.9% Normal Saline (1000mL) 1,000 ML 150 ML IV (18:02)
[2025-01-21] MEDS: Calcium Acetate 667 MG Capsule PO (18:02)
[2025-01-21] MEDS: Pantoprazole Sodium 40 MG Tablet PO (18:41)
[2025-01-21] MEDS: guaiFENesin/Codeine 5 ML UDC 10 ML PO (18:41)
[2025-01-21] MEDS: Albuterol 2.5 MG/3 ML VIAL.NEB. INHALATION (19:20)
[2025-01-21] MEDS: Budesonide Respules 0.5 MG/2 ML AMPUL.NEB. INHALATION (19:21)
[2025-01-22] VITALS (17 sets, daily range): BP systolic 114–258; BP diastolic 51–69; PULSE 56–89; RESP 15–20; TEMP 36.1–37.5; O2SAT 80–100; BMI 32.7; BMI 32.2
[2025-01-22] MEDS: guaiFENesin/Codeine 5 ML UDC 10 ML PO (02:02)
[2025-01-22 07:18] LABS: Absolute Lymphocyte Count 0.89 X10^3/uL (0.83-4.51); Absolute Neutrophil Count 6.7 X10^3/uL (2.0-7.7); Basophil# 0.04 X10^3/uL; Basophil% 0.5 % (0-1); Eosinophil# 0.02 X10^3/uL; Eosinophils% 0.2 % (0-5); Hematocrit 30.3 % (40-54); Hemoglobin 9.1 g/dL (13.0-16.5); Lymphocyte # 0.89 X10^3/ul (0.83-4.51); Lymphocyte % 10.3 % (19-41); Mean Corpuscular Hgb 28.2 pg (27.0-32.0); Mean Corpuscular Volume 93.8 fL (80-94); Monocyte# 0.87 X10^3/uL; NRBC Flagged by Analyzer 0 % (0-5); Neutrophil # 6.73 X10^3/uL (2.7-7.7); Neutrophil % 77.7 % (47-70); POSITIVE MORPHOLOGY YES; Platelet Count 327 K/mm3 (150-450); RBC Distribution Width CV 19.6 % (11.6-14.6); RBC Distribution Width SD 67.2 fl (35.1-43.9); Red Blood Count 3.23 M/mm3 (4.6-6.2); White Blood Count 8.7 K/mm3 (4.4-11.0)
[2025-01-22] MEDS: Budesonide Respules 0.5 MG/2 ML AMPUL.NEB. INHALATION ×2 (07:19→19:25)
[2025-01-22] MEDS: Albuterol 2.5 MG/3 ML VIAL.NEB. INHALATION ×3 (07:20→19:25)
--- NOTE | 2025-01-22 08:18 | PCM.PN.HOSP ---
Reason for Visit Reason for Visit: Diagnoses Influenza due to other identified influenza virus with other respiratory manifestations (01/21/25) Other malaise (01/21/25) Subjective Subjective Feeling much better. Objective Data Objective Data Vital Signs: Vital Signs Temp Pulse Resp BP Pulse Ox O2 Del Method O2 Flow Rate 36.6 C 80 16 152/65 H 92 Room Air 2 01/22/25 06:30 01/22/25 07:21 01/22/25 07:21 01/22/25 06:30 01/22/25 07:21 01/22/25 07:21 01/21/25 11:29 Oxygen Flow Rate (L/min) 2 Oxygen Delivery Method Room Air Weight: 85.1 kg Body Mass Index (BMI) 30.1 Intake & Output: Intake and Output for Last 24 Hours 01/20/25 01/21/25 01/22/25 23:59 23:59 23:59 Intake Total 1700 / 1700 200 / 200 Balance 1700 / 1700 200 / 200 Lab / Micro Data 01/22/25 06:48 01/22/25 06:48 Labs: Laboratory Results - last 24 hr 01/21/25 11:55: WBC 18.3 H, RBC 3.71 L, Hgb 10.5 L, Hct 35.2 L, MCV 94.9 H, MCH 28.3, MCHC 29.8 L, RDW Std Deviation 71.6 H, RDW Coeff of Morris 20.7 H, Plt Count 374, MPV 11.2, Immature Gran % (Auto) 1.300 H, Neut % (Auto) 90.3 H, Lymph % (Auto) 2.6 L, [place] % (Auto) 5.3, Eos % (Auto) 0.2, Baso % (Auto) 0.3, Absolute Neuts (auto) 16.5 H, Absolute Lymphs (auto) 0.47 L, Nucleated RBC % 0, Differential Comment SCANNED, PT Cancelled, INR Cancelled, APTT Cancelled, Sodium Cancelled, Potassium Cancelled, Chloride Cancelled, Carbon Dioxide Cancelled, Anion Gap Cancelled, BUN Cancelled, Creatinine Cancelled, Estim Creat Clear Calc Cancelled, Est GFR (MDRD) Non-Af Cancelled, BUN/Creatinine Ratio Cancelled, Glucose Cancelled, Lactic Acid 2.0, Calcium Cancelled, Total Bilirubin Cancelled, AST Cancelled, ALT Cancelled, Alkaline Phosphatase Cancelled, Total Protein Cancelled, Albumin Cancelled, Globulin Cancelled, Albumin/Globulin Ratio Cancelled 01/21/25 13:35: PT 14.5, INR 1.1, APTT 26.8 01/21/25 14:22: Sodium 135, Potassium 4.8, Chloride 95 L, Carbon Dioxide 25.5, Anion Gap 14, BUN 35 H, Creatinine 4.50 H, Est GFR (MDRD) Non-Af 13 L, BUN/Creatinine Ratio 7.7 L, Glucose 115 H, Calcium 7.6, Total Bilirubin 0.32, AST 14, ALT 10, Alkaline Phosphatase 57, Total Protein 6.1, Albumin 3.1 L, Globulin 3.0, Albumin/Globulin Ratio 1.0 Micro: Microbiology 01/21/25 12:00 Mucosa - Nose SARS-CoV-2, Influenza & RSV (PCR) - Final Influenzae A Radiography Diagnostic Testing: Radiology Impression Chest X-Ray 01/21/25 13:15 IMPRESSION: Hyperinflation. Stable examination. Reading Location: [place] [id number] Physical Exam Const alert and no apparent distress HEENT head/scalp atraumatic and moist oral mucous membranes Resp normal respiratory effort, no retractions and no use of accessory muscles Cardio regular rate, regular rhythm, S1 normal heart sound and S2 normal heart sound GI normal to inspection, nondistended, normoactive bowel sounds, soft to palpation, non-tender and non-distended Extremity normal to inspection and full ROM Neuro Sensorium / Orientation: awake and alert Assessment & Plan Assessment/Plan (1) Influenza A: PLAN: Patient received 75 mg of Tamiflu in the emergency room. Prior should have been 30 mg but his BMP is currently pending. In the meantime, the plan to be to continue with 30 mg after dialysis. Advised the patient that it is is coming mostly time till he is feeling back to his normal self. Will add guaifenesin with codeine to help with his coughing fits. Does have leukocytosis but this may be more reactive in the underlying influenza. Patient does urinate and urinalysis has been ordered but there is attempt straight cath on him. (2) Debility: PLAN: Secondary to influenza but patient may also be a bit dehydrated as he has not had really much in way of any urine output for the past day. Patient received a liter of IV fluids in emergency room and I will give him an additional 500 cc. PT OT evaluate and treat. PLAN: Plan End-stage renal disease: On hemodialysis every Friday. Patient missed dialysis Friday. Nephrology consultation. Plan for HD today. VTE prophylaxis low risk given the observation status not indicated at this time. CODE STATUS: Addressed with patient. Patient wished to be full code Disposition: possible DC today pending his ability to work with therapy. Charges/Coding Visit Charges Inpatient E&M: 99882 Subs Hosp L2
[2025-01-22 08:26] LABS: Differential Indicated SCAN CRITERIA MET
[2025-01-22 08:42] LABS: Anion Gap 14 (5-15); BUN 39 mg/dL (4-19); BUN/Creat Ratio 8.6 RATIO (10-20); Calcium,Total 7.4 mg/dL (7.6-11.0); Carbon Dioxide 23.6 mmol/L (21.0-32.0); Chloride 98 mmol/L (98-108); EST Glomerular Filtration Rate 13 (>60); Estimated Creatinine Clearance 14.06 ml/min (50-250); Glucose 86 mg/dL (70-99); Potassium 4.8 mmol/L (3.3-5.1); Sodium Level 136 mmol/L (133-145)
[2025-01-22] MEDS: Atenolol 50 MG Tablet PO (09:32)
[2025-01-22] MEDS: Pantoprazole Sodium 40 MG Tablet PO ×2 (09:32→22:09)
[2025-01-22] MEDS: Clopidogrel Bisulfate 75 MG Tablet PO (09:32)
[2025-01-22] MEDS: Calcium Acetate 667 MG Capsule PO ×2 (09:32→17:44)
[2025-01-22] MEDS: Allopurinol 100 MG Tablet PO (09:33)
[2025-01-22 09:56] LABS: Ovalocyte 1+
[2025-01-22 09:57] LABS: Anisocytosis 1+; Macrocytosis 1+; Platelet Estimate A (ADEQ); Polychromasia 1+
[2025-01-22] MEDS: 0.9% Normal Saline 1,000 ML IV.SOLN. 1000 ML OPERA.SITE (13:33)
[2025-01-22] MEDS: PureFlow B 2K Dialysis Soln 1 BAG 6 BAG PF (13:34)
[2025-01-22 13:41] LABS: Bacteria 0 SEEN /hpf (None Seen); Mucous, Urine 0 SEEN /hpf (<or=2+); Squamous Epithelial Cells - UA 0 SEEN /hpf (0-5)
[2025-01-22 13:49] LABS: Color, Urine Yellow (Yellow); Glucose, Dipstick Normal (Normal); Ketone-Dipstick Negative (Negative); Leukocyte Esterase-Dipstick Negative /ul (Negative); Nitrite-Dipstick Negative (Negative); Occult Blood-Urine Negative /ul (Negative); Protein-Dipstick 100 mg/dl (Negative); Specific Gravity, Urine 1.005 (1.002-1.030); Urine Bilirubin Dipstick Negative (Negative); Urine Clarity Clear (Clear); Urine Urobilinogen Normal (Normal)
[2025-01-22 14:18] LABS: Red Blood Cells-Urine 0-5 SEEN /hpf (0-5); White Blood Cells 0-5 SEEN /hpf (0-5)
[2025-01-22 14:19] LABS: Hyaline Cast 0-5 SEEN /lpf (0-5)
--- NOTE | 2025-01-22 14:44 | DCINST_ITS ---
Discharge Instructions Diet Discharge Diet: Renal Diet DC O2, CPAP, BIPAP needs Home O2 Discharge instructions: No Follow Up Care Test Results: Test results from this visit will be discussed in further detail at your follow- up appointment, if applicable. Discharge Plan Admission Admit Date/Time: 01/21/25 15:32 Primary Reason for Your Visit: influenza Attending Provider: Jacinto Nelson Primary Care Provider: Yash Talavera Consulting Providers: Junior Man Discharge Orders/Prescriptions Prescriptions: New codeine-guaifenesin 10-100 mg/5 mL Liquid 10 ml PO Q6H PRN PRN (Reason: coughing) Qty: 120 0RF Continued atenolol 50 mg tablet 50 mg PO DAILY Patient Comments: TAKE 1 TABLET BY MOUTH ONCE DAILY allopurinol 100 mg tablet 100 mg PO DAILY Patient Comments: TAKE 1 TABLET BY MOUTH ONCE DAILY lisinopril 5 mg tablet 5 mg PO DAILY fluticasone propion-salmeterol 232-14 mcg/actuation aerosol powdr breath activated 1 inh inhalation BID calcium acetate 667 mg tablet 667 mg PO TID Rx Instructions: with meals promethazine 6.25 mg/5 mL syrup 12.5 mg PO Q6H PRN (Reason: ASK PCP) albuterol 90 mcg/actuation aerosol 90 mcg inhalation BID PRN (Reason: SOB) pantoprazole 40 mg Tablet,Delayed Release (Dr/Ec) 40 mg PO BID Qty: 60 2RF Trelegy Ellipta 100-62.5-25 mcg blister with device 1 inh inhalation DAILY calcitriol 0.25 mcg capsule 0.25 mcg PO aspirin 81 mg capsule 81 mg PO DAILY clopidogrel [Plavix] 75 mg tablet 75 mg PO DAILY Qty: 90 0RF Referrals / Follow Up: Yash Talavera MD [Primary Care Provider] - Within 2 Weeks Disposition Disposition (needs filled in before D/C Order can be placed): Home, Self Care
--- NOTE | 2025-01-22 16:02 | CASEMGMT ---
PING CM in to discuss HOWARD form with patient. RN CM explained HOWARD form, patient voiced understanding. Pt signed form and filed in chart. Pt provided with a copy of signed HOWARD form. Patient had no further questions or concerns at this time.
--- NOTE | 2025-01-22 16:03 | CASEMGMT ---
Addendum entered by Sailaja Mccann 01/22/25 16:08: Pt states she has a portable O2 tank at home, she is able to go pick it up if pt needs to go home with O2. Original Note: Pt states he gets O2 through [facility]. Only uses PRN at this time. Pt using O2 in room currently, has been in the high 80's without O2. Stating 100% with 2L on. Pt will need a home qualification test before DC.
[2025-01-22] MEDS: Oseltamivir Phosphate 30 MG Capsule PO (17:44)
[2025-01-23 04:53] VITALS: BP 132/56; PULSE 83; RESP 18; TEMP 36.6; O2SAT 94
[2025-01-23] MEDS: Albuterol 2.5 MG/3 ML VIAL.NEB. INHALATION ×2 (06:52→13:21)
[2025-01-23] MEDS: Budesonide Respules 0.5 MG/2 ML AMPUL.NEB. INHALATION (06:52)
--- NOTE | 2025-01-23 07:57 | PN.HOSP_ITS ---
Reason for Visit Reason for Visit: Diagnoses Influenza due to other identified influenza virus with other respiratory manifestations (01/22/25) Other malaise (01/22/25) Subjective Subjective Feeling better. Feels ready to go home. Objective Data Objective Data Vital Signs: Vital Signs Temp Pulse Resp BP Pulse Ox O2 Del Method O2 Flow Rate 36.6 C 83 18 132/56 H 94 Nasal Cannula 2 01/23/25 04:53 01/23/25 04:53 01/23/25 04:53 01/23/25 04:53 01/23/25 04:53 01/23/25 06:52 01/23/25 06:52 Oxygen Flow Rate (L/min) 2 Oxygen Delivery Method Nasal Cannula Weight: 91 kg Body Mass Index (BMI) 32.2 Intake & Output: Intake and Output for Last 24 Hours 01/21/25 01/22/25 01/23/25 23:59 23:59 23:59 Intake Total 1700 / 1700 600 / 600 300 / 300 Output Total 4000 / 4000 0 / 0 Balance 1700 / 1700 -3400 / -3400 300 / 300 Lab / Micro Data 01/22/25 06:48 01/22/25 06:48 Labs: Laboratory Results - last 24 hr 01/22/25 06:48: WBC 8.7, RBC 3.23 L, Hgb 9.1 L, Hct 30.3 L, MCV 93.8, MCH 28.2, MCHC 30.0 L, RDW Std Deviation 67.2 H, RDW Coeff of Morris 19.6 H, Plt Count 327, MPV 10.0, Immature Gran % (Auto) 1.300 H, Neut % (Auto) 77.7 H, Lymph % (Auto) 10.3 L, [place] % (Auto) 10.0, Eos % (Auto) 0.2, Baso % (Auto) 0.5, Absolute Neuts (auto) 6.7, Absolute Lymphs (auto) 0.89, Nucleated RBC % 0, Platelet Estimate A, Polychromasia 1+, Anisocytosis 1+, Macrocytosis 1+, Ovalocytes 1+, Sodium 136, Potassium 4.8, Chloride 98, Carbon Dioxide 23.6, Anion Gap 14, BUN 39 H, C reatinine 4.50 H, Estim Creat Clear Calc 14.06 L, Est GFR (MDRD) Non-Af 13 L, B UN/Creatinine Ratio 8.6 L, Glucose 86, Calcium 7.4 L 01/22/25 10:15: Urine Color Yellow, Urine Clarity Clear, Urine pH 7.0, Ur Specific [place] 1.005, Urine Protein 100 H, Urine Glucose (UA) Normal, Urine Ketones Negative, Urine Occult Blood Negative, Urine Nitrite Negative, Urine Bilirubin Negative, Urine Urobilinogen Normal, Ur Leukocyte Esterase Negative, Urine RBC 0-5 SEEN, Urine WBC 0-5 SEEN, Ur Squamous Epith Cells 0 SEEN, Urine Bacteria 0 SEEN, Hyaline Casts 0-5 SEEN, Urine Mucus 0 SEEN Micro: Microbiology 01/21/25 12:00 Mucosa - Nose SARS-CoV-2, Influenza & RSV (PCR) - Final Influenzae A Physical Exam Const alert and no apparent distress Resp normal respiratory effort and no retractions Resp Narrative: diminished breath sounds bilaterally. Cardio regular rate, regular rhythm and S1 normal heart sound Assessment & Plan Assessment/Plan (1) Influenza A: PLAN: Patient received 75 mg of Tamiflu in the emergency room. Prior should have been 30 mg but his BMP is currently pending. In the meantime, the plan to be to continue with 30 mg after dialysis. Advised the patient that it is is coming mostly time till he is feeling back to his normal self. Will add guaifenesin with codeine to help with his coughing fits. Does have leukocytosis but this may be more reactive in the underlying influenza. DC with Tamiflu 30mg after next 2 dialysis sessions. (2) Debility: PLAN: Secondary to influenza but patient may also be a bit dehydrated Overall feeling better. He feels ready to go home. PLAN: Plan End-stage renal disease: On hemodialysis every Friday. Patient missed dialysis Friday. Nephrology consultation. Plan for HD today. VTE prophylaxis low risk given the observation status not indicated at this time. CODE STATUS: Addressed with patient. Patient wished to be full code Disposition: to home.
[2025-01-23 08:56] VITALS: BP 131/56; PULSE 93; RESP 16; TEMP 36.9; O2SAT 95
[2025-01-23] MEDS: Clopidogrel Bisulfate 75 MG Tablet PO (09:07)
[2025-01-23] MEDS: Pantoprazole Sodium 40 MG Tablet PO (09:07)
[2025-01-23] MEDS: Atenolol 50 MG Tablet PO (09:07)
[2025-01-23] MEDS: Calcium Acetate 667 MG Capsule PO ×2 (09:07→12:11)
[2025-01-23] MEDS: Allopurinol 100 MG Tablet PO (09:07)
--- NOTE | 2025-01-23 11:18 | DS.PCM_ITS ---
Providers Date of Admission: 01/22/25 Primary Care Physician: Dr. Yash Talavera MD Consultations 01/21/25 16:43 Consult: Nephrology Routine Consulting Provider: Junior Man Reason for Consult: dialysis EMERGENT Consult: No MD Notified: Yes Date Notified: 01/21/25 Time Notified: 15:38 Method of Notification: Verbal Reason For Visit: INFLUENZA Diagnosis Discharge Diagnosis (1) Influenza A: Status: Acute Code(s): J10.1 - Influenza due to other identified influenza virus with other respiratory manifestations Plan: Patient received 75 mg of Tamiflu in the emergency room. Prior should have been 30 mg but his BMP is currently pending. In the meantime, the plan to be to continue with 30 mg after dialysis. Advised the patient that it is is coming mostly time till he is feeling back to his normal self. Will add guaifenesin with codeine to help with his coughing fits. Does have leukocytosis but this may be more reactive in the underlying influenza. DC with Tamiflu 30mg after next 2 dialysis sessions. (2) Debility: Status: Acute Code(s): R53.81 - Other malaise Plan: Secondary to influenza but patient may also be a bit dehydrated Overall feeling better. He feels ready to go home. Plan End-stage renal disease: On hemodialysis every Friday. Patient missed dialysis Friday. Nephrology consultation. Plan for HD today. VTE prophylaxis low risk given the observation status not indicated at this time. CODE STATUS: Addressed with patient. Patient wished to be full code Disposition: to home. Medications at Discharge Home Medications allopurinol 100 mg tablet 100 mg PO DAILY lower uric acid in blood 05/01/23 atenolol 50 mg tablet 50 mg PO DAILY hypertension 05/01/23 fluticasone 232 mcg-salmeterol 14 mcg/actuation breath activated powdr 1 inh inhalation BID allergies 05/04/24 lisinopril 5 mg tablet 5 mg PO DAILY hypertension 05/04/24 calcium acetate 667 mg tablet 667 mg PO TID electrolytes 06/03/24 albuterol 90 mcg/actuation aerosol inhaler 90 mcg inhalation BID PRN SOB 07/16/24 pantoprazole 40 mg tablet,delayed release 40 mg PO BID #60 tabs 08/12/24 promethazine 6.25 mg/5 mL oral syrup 12.5 mg PO Q6H PRN ASK PCP 11/18/24 clopidogrel 75 mg tablet (Plavix) 75 mg PO DAILY #90 tabs 12/02/24 aspirin 81 mg capsule 81 mg PO DAILY 01/21/25 calcitriol 0.25 mcg capsule 0.25 mcg PO 01/21/25 fluticasone fur. 100 mcg-umeclid 62.5 mcg-vilant 25 mcg inhalat.powder (Trelegy Ellipta) 1 inh inhalation DAILY 01/21/25 codeine 10 mg-guaifenesin 100 mg/5 mL oral liquid 10 ml PO Q6H PRN PRN coughing #120 mL 01/22/25 oseltamivir 30 mg capsule (Tamiflu) 30 mg PO QODAY #2 caps 01/23/25 prednisone 20 mg tablet 40 mg (2 x 20 mg) PO DAILY #8 tabs 01/23/25 Hospital Course Operations None Procedures Dialysis Summary of Care Provided Hospital Course: Patient presents with weakness. He was clinically dehydrated and did receive 1.5 of IVF. Additionally, he had influenza A. He received Tamiflu and will continue with 2 more doses after dialysis. He feels much better overall. Plan is to discharge home. Concern also is for a COPD exacerbation and he will be on a 5- day burst of prednisone. Patient will require 2 liters of oxygen with rest and 4 liters with activity. I have reviewed the oxygen testing, and this patient qualifies for the home equipment and portability. The patient is mobile in the home and the community. Weight / BMI Weight Weight: 91 kg Body Mass Index (BMI) 32.2 ABG / Lab / Microbiology Data 01/22/25 06:48 01/22/25 06:48 Laboratory: Laboratory Results - last 24 hr 01/22/25 10:15: Urine Color Yellow, Urine Clarity Clear, Urine pH 7.0, Ur Specific [place] 1.005, Urine Protein 100 H, Urine Glucose (UA) Normal, Urine Ketones Negative, Urine Occult Blood Negative, Urine Nitrite Negative, Urine Bilirubin Negative, Urine Urobilinogen Normal, Ur Leukocyte Esterase Negative, Urine RBC 0-5 SEEN, Urine WBC 0-5 SEEN, Ur Squamous Epith Cells 0 SEEN, Urine Bacteria 0 SEEN, Hyaline Casts 0-5 SEEN, Urine Mucus 0 SEEN Microbiology: Microbiology 01/22/25 10:15 Urine, Clean Catch Urine Culture - Preliminary GPC Poss Enterococcus sp 01/21/25 12:00 Mucosa - Nose SARS-CoV-2, Influenza & RSV (PCR) - Final Influenzae A D/C Instructions Discharge Diet: Renal Diet DC O2, CPAP, BIPAP Needs Home O2 Discharge instructions: No Meaningful Use Info Meaningful Use Meaningful Use Diagnoses (Choose all that apply): None applicable Ischemic Stroke Statin Dosing Therapy Reference: STATIN DOSE THERAPY REFERENCE: * Patients > 75 years receive moderate or high dose statin therapy. * Patients 75 years or YOUNGER should receive HIGH intensity statin dose unless contraindicated. You will be required to document reason for non-treatment if statin daily dose does not meet guidelines. HIGH DOSE STATIN THERAPY DAILY Atorvastatin > than or = to 40 mg Rosuvastatin > than or = to 20 mg Amlodipine + Atorvastatin > than or = to 2.5/40 mg Ezetimibe + Simvastatin 10/80 mg Simvastatin 80mg Discharge Plan Admission Admit Date/Time: 01/22/25 20:17 Primary Reason for Your Visit: influenza Attending Provider: Jacinto Nelson Primary Care Provider: Yash Talavera Consulting Providers: Junior Man Discharge Orders/Prescriptions Prescriptions: New codeine-guaifenesin 10-100 mg/5 mL Liquid 10 ml PO Q6H PRN PRN (Reason: coughing) Qty: 120 0RF oseltamivir [Tamiflu] 30 mg capsule 30 mg PO QODAY Qty: 2 0RF Rx Instructions: after dialysis on 01/24 and 01/26/2025. prednisone 20 mg tablet 40 mg PO DAILY Qty: 8 0RF Rx Instructions: start 01/24/2025 Continued atenolol 50 mg tablet 50 mg PO DAILY Patient Comments: TAKE 1 TABLET BY MOUTH ONCE DAILY allopurinol 100 mg tablet 100 mg PO DAILY Patient Comments: TAKE 1 TABLET BY MOUTH ONCE DAILY lisinopril 5 mg tablet 5 mg PO DAILY fluticasone propion-salmeterol 232-14 mcg/actuation aerosol powdr breath activated 1 inh inhalation BID calcium acetate 667 mg tablet 667 mg PO TID Rx Instructions: with meals promethazine 6.25 mg/5 mL syrup 12.5 mg PO Q6H PRN (Reason: ASK PCP) albuterol 90 mcg/actuation aerosol 90 mcg inhalation BID PRN (Reason: SOB) pantoprazole 40 mg Tablet,Delayed Release (Dr/Ec) 40 mg PO BID Qty: 60 2RF Trelegy Ellipta 100-62.5-25 mcg blister with device 1 inh inhalation DAILY calcitriol 0.25 mcg capsule 0.25 mcg PO aspirin 81 mg capsule 81 mg PO DAILY clopidogrel [Plavix] 75 mg tablet 75 mg PO DAILY Qty: 90 0RF Referrals / Follow Up: Yash Talavera MD [Primary Care Provider] - Within 2 Weeks Disposition Disposition (needs filled in before D/C Order can be placed): Home, Self Care Charges/Coding Visit Charges Inpatient E&M: 87632 Disch Hosp
[2025-01-23] MEDS: predniSONE 20 MG Tablet 40 MG PO (12:11)
[2025-01-23 13:21] VITALS: PULSE 86; RESP 16
[2025-01-23 15:05] VITALS: BP 123/49; PULSE 88; RESP 18; TEMP 37.1; O2SAT 97
== END 2025-01-23 15:16 | disposition home or self-care (01) | DRG 640 ==
LOC: ED 12:35 → MS3 16:05
PROVIDERS: Emergency Provider Surgery; PCP Family Medicine
DX: E86.0 Dehydration (principal); N18.6 End stage renal disease; I12.0 Hypertensive chronic kidney disease with stage 5 chronic kidney disease or end stage renal disease; J44.1 Chronic obstructive pulmonary disease with (acute) exacerbation; D63.1 Anemia in chronic kidney disease; J10.1 Influenza due to other identified influenza virus with other respiratory manifestations; K21.9 Gastro-esophageal reflux disease without esophagitis; Z99.2 Dependence on renal dialysis; E87.8 Other disorders of electrolyte and fluid balance, not elsewhere classified; R53.81 Other malaise; R09.02 Hypoxemia; Z87.891 Personal history of nicotine dependence; Z79.02 Long term (current) use of antithrombotics/antiplatelets; Z79.899 Other long term (current) drug therapy
CPT/HCPCS: 36415; 71046; 80048; 80053; 81001; 83605; 85025; 85610; 85730; 87040; 87086; 87088; 87631; 90937; 93005; 94640; 94668; 97162; 97166; 99284; A4216; G0257

== ENCOUNTER 2025-04-04 12:34 | Emergency (ER) | payer MEDICARE, OTHER, SELFPAY ==
[2025-04-04 12:34] VITALS: BP 162/66; PULSE 76; RESP 14; TEMP 36.1; O2SAT 98
[2025-04-04 12:43] VITALS: BMI 25.7
--- NOTE | 2025-04-04 13:02 | EX.ED.DYSGE1 ---
HPI History of Present Illness Chief Complaint: General Illness Narrative Narrative: Chief complaint and HPI: Fistula complication. 79-year-old male with past medical history of ESRD secondary to chronic vascular disease on HD Friday/Friday/Friday, COPD, HTN presents for evaluation of fistula complication. Patient states that he was post to receive dialysis today at [facility]. He states [facility] sent him to the emergency department as they could not access his fistula. They could not feel a thrill. Patient states that it was easily accessible on Friday. He denies any fever, chills, shortness of breath, chest pain. Denies any pain, swelling, rash in the fistula region. Review of systems: See HPI Medications: As listed on the chart Allergies: As listed on the chart PFSH: Per chart Vital signs: As listed on the chart. Reviewed. Physical exam: Gen: A&O x3, NAD Head: Normocephalic, atraumatic Eyes: No sclera icterus, conjunctiva clear ENT: Moist mucous membranes Neck: Trachea midline, No JVD CV: RRR, no murmurs, no peripheral edema Resp: Lungs CTA BL, no w/r/c GI: Abd soft, non-distended, non-tender, no r/r/g Musc: Full ROM, no deformity, right upper extremity fistula with small insertion site from earlier attempt-no thrill, nontender, no swelling/warmth/erythema, radial pulse +2, good capillary refill Skin: Warm, dry Neuro: Alert, oriented, grossly intact, sensation intact Psych: Cooperative, appropriate mood and affect [facility] Medical History ESRD (end stage renal disease) on dialysis ESRD (end stage renal disease) COPD (chronic obstructive pulmonary disease) Wears glasses Alcohol use History of steroid therapy Ambulates with cane Arthritis History of renal dialysis History of renal disease Low iron Back pain Dietary restriction History of hiatal hernia Gastric reflux Shortness of breath on exertion Former smoker Hoarseness History of edema Gout HTN (hypertension) Home Medications ?Medication ?Instructions ?Recorded ?Last Taken ?Type allopurinol 100 mg tablet 100 mg PO DAILY lower uric acid in 05/01/23 08/08/24 History blood atenolol 50 mg tablet 50 mg PO DAILY hypertension 05/01/23 12/02/24 History fluticasone 232 mcg-salmeterol 14 1 inh inhalation BID allergies 05/04/24 08/08/24 History mcg/actuation breath activated powdr lisinopril 5 mg tablet 5 mg PO DAILY hypertension 05/04/24 12/02/24 History calcium acetate 667 mg tablet 667 mg PO TID electrolytes 06/03/24 08/08/24 History albuterol 90 mcg/actuation aerosol 90 mcg inhalation BID PRN SOB 07/16/24 Unknown History inhaler pantoprazole 40 mg tablet,delayed 40 mg PO BID #60 tabs 08/12/24 Unknown Rx release promethazine 6.25 mg/5 mL oral 12.5 mg PO Q6H PRN ASK PCP 11/18/24 Unknown History syrup clopidogrel 75 mg tablet (Plavix) 75 mg PO DAILY #90 tabs 12/02/24 Unknown Rx aspirin 81 mg capsule 81 mg PO DAILY 01/21/25 Unknown History calcitriol 0.25 mcg capsule 0.25 mcg PO 01/21/25 Unknown History fluticasone fur. 100 mcg-umeclid 1 inh inhalation DAILY 01/21/25 Unknown History 62.5 mcg-vilant 25 mcg inhalat.powder (Trelegy Ellipta) codeine 10 mg-guaifenesin 100 mg/5 10 ml PO Q6H PRN PRN coughing #120 01/22/25 Unknown Rx mL oral liquid mL oseltamivir 30 mg capsule (Tamiflu) 30 mg PO QODAY #2 caps 01/23/25 Unknown Rx prednisone 20 mg tablet 40 mg (2 x 20 mg) PO DAILY #8 tabs 01/23/25 Unknown Rx Allergy/AdvReac Type Severity Reaction Status Date / Time No Known Allergies Allergy Verified 04/04/25 12:35 Family History Brother Cancer Other Hypertension Surgical History S/P dialysis catheter insertion S/P cataract extraction Previous back surgery Social History Smoking Status: Former smoker EXAM Physical Exam Const Vital Signs: 04/04/25 12:34 04/04/25 12:41 04/04/25 14:34 Temperature 96.9 F L Temperature Source Temporal Pulse Rate 76 62 Respiratory Rate 14 Respiratory Effort Normal Non-Labored Blood Pressure 162/66 H 170/70 H Blood Pressure Mean 98 103 Pulse Ox 98 Oxygen Delivery Method Room Air 04/04/25 14:59 Temperature 96.9 F L Temperature Source Pulse Rate 62 Respiratory Rate 16 Respiratory Effort Blood Pressure 170/70 H Blood Pressure Mean 103 Pulse Ox 98 Oxygen Delivery Method MDM MDM MDM Narrative Medical decision making narrative: 79-year-old male with past medical history of ESRD secondary to chronic vascular disease on HD Friday/Friday/Friday, COPD, HTN presents for evaluation of fistula complication. Patient's fistula was unable to be accessed today at dialysis. He does not have a thrill however he is neurovascularly intact distally and proximally to the fistula. Fistula unremarkable except for no thrill. On chart review, patient follows with vascular surgery here Dr. Mas. On November he did a fistulogram with angioplasty previous placed stent at the venous anastomosis. At this point in time, I do not think emergent fistulogram is needed. However will obtain basic labs to assess if emergent dialysis is needed. CBC shows a leukocytosis of 16.5. Unclear etiology for patient's leukocytosis at this time however may be reactive from fistula dysfunction. Patient not endorsing any infectious symptoms. No infectious signs of the fistula. Patient has chronic anemia with hemoglobin of 12.8. BMP shows mild hyponatremia at 132. Potassium unremarkable. Patient has his baseline kidney disease with creatinine of 4.36. At this point in time, no emergent dialysis is needed given laboratory workup as well as physical exam. Patient not overtly fluid overloaded. Patient will likely need outpatient fistulogram/evaluation of the fistula. I did personally talk to Dr. Mas given this is his patient. Agrees that no emergent fistulogram is needed at this time. Patient is to call the office tomorrow to see if he can be seen in his office or if he needs to refer him to an outlying facility. Patient confirmed understanding the plan return precautions explained. Impression: 1. Fistula complaint/inability to access 2. History of ESRD on dialysis Friday/Friday/Friday Lab Data Labs: Laboratory Results - last 24 hr 04/04/25 13:21 WBC 16.5 H RBC 4.72 Hgb 12.8 L Hct 40.9 MCV 86.7 MCH 27.1 MCHC 31.3 L RDW Std Deviation 57.6 H RDW Coeff of [place] 18.8 H Plt Count TNP MPV 11.6 Immature Gran % (Auto) 0.800 Neut % (Auto) 94.4 H Lymph % (Auto) 2.4 L [place] % (Auto) 1.9 Eos % (Auto) 0.3 Baso % (Auto) 0.2 Absolute Neuts (auto) 15.6 H Absolute Lymphs (auto) 0.39 L Nucleated RBC % 0.1 Platelet Estimate A Plt Morphology Comment CLUMPED RBC Morphology NORM C+C Polychromasia 1+ Anisocytosis 1+ Sodium 132 L Potassium 4.7 Chloride 94 L Carbon Dioxide 20.8 L Anion Gap 17 H BUN 79 H Creatinine 4.36 H Estim Creat Clear Calc 12.34 L Est GFR (MDRD) Non-Af 13 L BUN/Creatinine Ratio 18.1 Glucose 92 Calcium 8.2 Discharge Plan Triage Chief Complaint: General Illness ED Provider: Nicholas Ordonez Dx/Rx/DC Orders Clinical Impression: Complication of arteriovenous dialysis fistula Instructions: AV Arteriovenous Fistula Dialysis Prescriptions: No Action atenolol 50 mg tablet 50 mg PO DAILY Patient Comments: TAKE 1 TABLET BY MOUTH ONCE DAILY allopurinol 100 mg tablet 100 mg PO DAILY Patient Comments: TAKE 1 TABLET BY MOUTH ONCE DAILY lisinopril 5 mg tablet 5 mg PO DAILY fluticasone propion-salmeterol 232-14 mcg/actuation aerosol powdr breath activated 1 inh inhalation BID calcium acetate 667 mg tablet 667 mg PO TID Rx Instructions: with meals promethazine 6.25 mg/5 mL syrup 12.5 mg PO Q6H PRN (Reason: ASK PCP) albuterol 90 mcg/actuation aerosol 90 mcg inhalation BID PRN (Reason: SOB) pantoprazole 40 mg Tablet,Delayed Release (Dr/Ec) 40 mg PO BID Qty: 60 2RF Trelegy Ellipta 100-62.5-25 mcg blister with device 1 inh inhalation DAILY calcitriol 0.25 mcg capsule 0.25 mcg PO aspirin 81 mg capsule 81 mg PO DAILY codeine-guaifenesin 10-100 mg/5 mL Liquid 10 ml PO Q6H PRN PRN (Reason: coughing) Qty: 120 0RF oseltamivir [Tamiflu] 30 mg capsule 30 mg PO QODAY Qty: 2 0RF Rx Instructions: after dialysis on 01/24 and 01/26/2025. prednisone 20 mg tablet 40 mg PO DAILY Qty: 8 0RF Rx Instructions: start 01/24/2025 clopidogrel [Plavix] 75 mg tablet 75 mg PO DAILY Qty: 90 0RF Primary Care Provider: Yash Talavera Referrals: Jacinto Mas MD [Med Staff - Active Staff] - As soon as possible Yash Talavera MD [Primary Care Provider] - Activity Restrictions/Additional Instructions: You will likely need a fistulogram. Follow-up with Dr. Mas's office. Call to make an appointment tomorrow for further plan. Return back to the ED if symptoms change or worsen. Print Language: Setswana Disposition Disposition: Home, Self Care Discharge Date/Time: 04/04/25 15:00
[2025-04-04 13:36] LABS: Absolute Lymphocyte Count 0.39 X10^3/uL (0.83-4.51); Absolute Neutrophil Count 15.6 X10^3/uL (2.0-7.7); Basophil# 0.04 X10^3/uL; Basophil% 0.2 % (0-1); Eosinophil# 0.05 X10^3/uL; Eosinophils% 0.3 % (0-5); Hematocrit 40.9 % (40-54); Hemoglobin 12.8 g/dL (13.0-16.5); Lymphocyte # 0.39 X10^3/ul (0.83-4.51); Lymphocyte % 2.4 % (19-41); Mean Corp Hgb Conc 31.3 g/dL (32-36); Mean Corpuscular Hgb 27.1 pg (27.0-32.0); Mean Corpuscular Volume 86.7 fL (80-94); Mean Platelet Vol. 11.6 fl (6.2-12.0); Monocyte# 0.32 X10^3/uL; Monocyte% 1.9 % (0-10); NRBC Flagged by Analyzer 0.1 % (0-5); Neutrophil # 15.59 X10^3/uL (2.7-7.7); Neutrophil % 94.4 % (47-70); POSITIVE COUNT YES; POSITIVE DIFFERENTIAL YES; RBC Distribution Width CV 18.8 % (11.6-14.6); RBC Distribution Width SD 57.6 fl (35.1-43.9); Red Blood Count 4.72 M/mm3 (4.6-6.2); White Blood Count 16.5 K/mm3 (4.4-11.0)
[2025-04-04 13:51] LABS: Anion Gap 17 (5-15); BUN 79 mg/dL (4-19); BUN/Creat Ratio 18.1 RATIO (10-20); Calcium,Total 8.2 mg/dL (7.6-11.0); Carbon Dioxide 20.8 mmol/L (21.0-32.0); Chloride 94 mmol/L (98-108); Creatinine, Serum 4.36 mg/dL (0.70-1.20); EST Glomerular Filtration Rate 13 (>60); Estimated Creatinine Clearance 12.34 ml/min (50-250); Glucose 92 mg/dL (70-99); Potassium 4.7 mmol/L (3.3-5.1); Sodium Level 132 mmol/L (133-145)
[2025-04-04 14:08] LABS: Differential Indicated SCAN CRITERIA MET
[2025-04-04 14:09] LABS: Anisocytosis 1+; Platelet Morphology CLUMPED; Polychromasia 1+
[2025-04-04 14:10] LABS: Red Cell Morphology NORM C+C NORMAL (NORM C&C)
[2025-04-04 14:34] VITALS: BP 170/70; PULSE 62
[2025-04-04 14:59] VITALS: BP 170/70; PULSE 62; RESP 16; TEMP 36.1; O2SAT 98
[2025-04-04 21:50] LABS: Platelet Estimate ADEQUATE (ADEQ)
== END 2025-04-04 15:00 | disposition home or self-care (01) ==
PROVIDERS: Emergency Provider Surgery; PCP Family Medicine; Visit Provider Surgery
DX: T82.898A Other specified complication of vascular prosthetic devices, implants and grafts, initial encounter (principal); I12.0 Hypertensive chronic kidney disease with stage 5 chronic kidney disease or end stage renal disease; N18.6 End stage renal disease; J44.9 Chronic obstructive pulmonary disease, unspecified; Z95.5 Presence of coronary angioplasty implant and graft; E87.1 Hypo-osmolality and hyponatremia; Z87.891 Personal history of nicotine dependence; D64.9 Anemia, unspecified; Z99.2 Dependence on renal dialysis; D72.829 Elevated white blood cell count, unspecified; Y71.8 Miscellaneous cardiovascular devices associated with adverse incidents, not elsewhere classified
CPT/HCPCS: 80048; 85025; 99282

== ENCOUNTER → 2025-04-26 | Outpatient (CLI) | payer MEDICARE, OTHER, SELFPAY ==
--- NOTE | 2025-04-26 08:55 | VDUE_ITS ---
Reason For Study Reason For Study: Preop new AVF creation Right Lower Arm Left Arm Right Radial Artery measures 0.22x0.20 cm with a Left Brachial Artery measures 0.50x0.41 cm with a velocity of 88.2 cm/s. velocity of 117.1 cm/s. Right Arm Cephalic Vein at distal forearm measures 0.10x0.15 Right Brachial Artery measures 0.45x0.40 cm with a cm. velocity of 110.2 cm/s. Cephalic Vein at mid forearm measures 0.08x0.11 cm. Cephalic Vein at distal forearm measures 0.16x0.22 cm. Cephalic Vein proximal forearm measures 0.13x0.14 Cephalic Vein at mid forearm measures 0.19x0.18 cm. cm. Cephalic Vein proximal forearm measures 0.15x0.16 cm. Cephalic Vein distal upper arm measures 0.09x0.09 History of failed Brachialcephalic AVF noted. cm. Proximal Basilic vein measures 0.16x0.14 cm. Cephalic Vein at mid upper arm measures 0.12x0.14 Mid Basilic vein measures 0.15x0.14 cm. cm. Distal Basilic vein measures 0.16x0.22 cm. Cephalic Vein at proximal upper arm measures 0.10x0.13 cm. Proximal Basilic vein measures 0.12x0.12 cm. Mid Basilic vein measures 0.17x0.19 cm. Distal Basilic vein measures 0.15x0.16 cm. Left Lower Arm Left Radial Artery measures 0.17x0.17 cm with a velocity of 88.6 cm/s. Procedure Exam performed in department. VL/Dialysis Vein Map PRE-OP BILAT Interpretation Summary Bilateral upper extremity arteries patent with normal waveforms and measurement s above. Bilateral upper extremity veins with measurements above. Occluded right upper a rm cephalic vein fistula. Ordering Physician: Sarahi Mcghee Referring Physician: Yash Talavera MD Performed By: Lou Stiles RVT ???
== END | disposition home or self-care (01) ==
LOC: CVS 08:52
PROVIDERS: PCP Family Medicine; Referring Provider Physician Assistant; Visit Provider Physician Assistant
DX: Z01.818 Encounter for other preprocedural examination (principal); N18.6 End stage renal disease; Z99.2 Dependence on renal dialysis; T82.898A Other specified complication of vascular prosthetic devices, implants and grafts, initial encounter
CPT/HCPCS: 93985

== ENCOUNTER 2025-08-23 05:48 | Day surgery (SDC) | payer MEDICARE, OTHER, SELFPAY ==
[2025-08-02 11:33] LABS: Hematocrit 35.8 % (40-54); Hemoglobin 11.0 g/dL (13.0-16.5); Mean Corp Hgb Conc 30.7 g/dL (32-36); Mean Corpuscular Volume 88.4 fL (80-94); Mean Platelet Vol. 10.4 fl (6.2-12.0); POSITIVE MORPHOLOGY YES; Platelet Count 196 K/mm3 (150-450); RBC Distribution Width CV 25.2 % (11.6-14.6); RBC Distribution Width SD 79.6 fl (35.1-43.9); Red Blood Count 4.05 M/mm3 (4.6-6.2); White Blood Count 10.9 K/mm3 (4.4-11.0)
[2025-08-02 12:09] LABS: Anion Gap 16 (5-15); BUN 56 mg/dL (4-19); BUN/Creat Ratio 20.0 RATIO (10-20); Calcium,Total 8.3 mg/dL (7.6-11.0); Carbon Dioxide 23.6 mmol/L (21.0-32.0); Chloride 93 mmol/L (98-108); Glucose 93 mg/dL (70-99); Potassium 4.9 mmol/L (3.3-5.1)
[2025-08-23] VITALS (9 sets, daily range): BP systolic 99–141; BP diastolic 53–122; PULSE 69–77; RESP 14–16; TEMP 36.2–36.8; O2SAT 99–100; BMI 23.2
[2025-08-23] MEDS: 0.9% Normal Saline (500mL Bag) 500 ML 15 ML IV (06:50)
[2025-08-23] MEDS: Cefazolin 1 GM/5 ML Vial 2 GM IV (07:30)
[2025-08-23] MEDS: NORMAL SALINE IV (07:30)
[2025-08-23] MEDS: Lidocaine 1% (5 ml sdv) 5 ML Vial 6 ML IV (07:36)
[2025-08-23] MEDS: Lidocaine 1% (20 ml mdv) 20 ML Vial (08:06)
[2025-08-23] MEDS: Heparin Injection (Vial) 5,000 UNIT/ML VIAL 7000 UNIT IV (09:47)
[2025-08-23] MEDS: 0.9% Saline Lock 10 ML Syringe IV (11:30)
== END 2025-08-23 11:50 | disposition home or self-care (01) ==
LOC: SDC 05:48 → AC 05:49
PROVIDERS: PCP Family Medicine; Referring Provider Surgery Trauma Surgery; Visit Provider Surgery Trauma Surgery
PROC: (CPT 36830; principal; 2025-08-23 07:15)
DX: I12.0 Hypertensive chronic kidney disease with stage 5 chronic kidney disease or end stage renal disease (principal); N18.6 End stage renal disease; J44.9 Chronic obstructive pulmonary disease, unspecified; K21.9 Gastro-esophageal reflux disease without esophagitis; Z79.82 Long term (current) use of aspirin; Z79.51 Long term (current) use of inhaled steroids; Z79.52 Long term (current) use of systemic steroids; Z99.2 Dependence on renal dialysis; Z87.891 Personal history of nicotine dependence
CPT/HCPCS: 36830; 01844; 36415; 80048; 85027; 86850; 86900; 86901; A4648; A4216